=== PATIENT | female | born 1950 | race Caucasian/White ===

== ENCOUNTER 2016-02-11 15:56 | Inpatient (IN) | payer OTHER ==
[~2016-02-11] VITALS: Ht 162.6 cm; Wt 65.8 kg
[~2016-02-11 15:56] MED LIST: AMBIEN (MONOGRAP5 MG PO; AMLODIPINE BESY10 MG PO; DILAUDID2 M1 PO; LEXAPRO5 M1 PO; LISINOPRIL20 M1 PO; LOPERAMIDE2 M2 PO; NEURONTIN300 M1 PO; OXYCODONE HCL5 M2 PO; OXYCODONE5 MG PO; PROCHLORPERAZIN10 MG PO; PROTONIX40 M3 PO; ZETIA10 M1 PO; ZOFRAN ODT4 M1 SL; ZOFRAN4 M2 PO; ZYRTEC10 M3 PO
--- NOTE | 2016-02-11 16:00 | NUR ---
pt made aware of 2.5 hr wait.
--- NOTE | 2016-02-11 16:05 | NUR ---
PT SIB BY DR WOOD FOR HYPONATREMIA AND GENERLIZED WEAKNESS, PER DR WOOD PT'S MOST RECENT BLOODWORK SHOWED A SODIUM OF 120. PER PT SHE HAS BEEN EATING AND DRINKING WELL BUT HAS A NEW ILLEOSTOMY "AND ITS JUST BEEN DRAINING LIKE CRAZY". PT DENIES ANY HEADACHES, CP, SOB, DEAN. REPORTING SHE HAS METASTATIC OVARIAN CA BUT IS NOT GETTING ANY TREATMENT.
[2016-02-11 16:26] LABS: ABSOLUTE BASOPHIL COUNT 0.1 /CUMM (0.0-0.2); ABSOLUTE EOSINOPHIL COUNT 0.1 /CUMM (0.0-0.7); ABSOLUTE LYMPH COUNT 2.1 /CUMM (1.2-3.4); ABSOLUTE MONOCYTE COUNT 0.6 /CUMM (0.10-0.60); BASOPHIL % 0.6 % (0.0-2.0); EOSINOPHIL % 0.9 % (0-5); GRANULOCYTE % 70.8 % (42.2-75.2); HEMATOCRIT 35.4 % (37-47); MEAN CORPUSCULAR HGB 31.1 PG (27.0-31.0); MEAN CORPUSCULAR HGB CONC 34.2 G/DL (33.0-37.0); MEAN CORPUSCULAR VOLUME 90.9 FL (81.0-99.0); MEAN PLATELET VOLUME 7.2 FL (7.4-10.4); PLATELET COUNT 293 /CUMM (130-400); RBC DISTRIBUTION WIDTH 13.8 % (11.5-14.5); RED BLOOD CELL CT 3.89 /CUMM (4.20-5.40); WHITE BLOOD CELL COUNT 9.9 /CUMM (4.8-10.8)
--- NOTE | 2016-02-11 17:18 | ED AMS/SEIZURE/WEAK/DIZZY ---
See Addendum History of Present Illness General Chief Complaint: General Adult Stated Complaint: SIB DAVISYHDRABENNY Source: patient Exam Limitations: no limitations Vital Signs & Intake/Output Vital Signs & Intake/Output Vital Signs Date Time Temp Pulse Resp B/P Pulse O2 O2 Flow FiO2 Ox Delivery Rate 02/10 1605 98.9 89 18 108/74 99 Room Air Allergies Coded Allergies: NO KNOWN ALLERGIES (06/07/15) Triage Note: PT SIB BY DR WOOD FOR HYPONATREMIA AND GENERLIZED WEAKNESS, PER DR WOOD PT'S MOST RECENT BLOODWORK SHOWED A SODIUM OF 120. PER PT SHE HAS BEEN EATING AND DRINKING WELL BUT HAS A NEW ILLEOSTOMY "AND ITS JUST BEEN DRAINING LIKE CRAZY". PT DENIES ANY HEADACHES, CP, SOB, DEAN. REPORTING SHE HAS METASTATIC OVARIAN CA BUT IS NOT GETTING ANY TREATMENT. Triage Nurses Notes Reviewed? yes Onset: Abrupt Duration: day(s):, constant, getting worse Timing: recent history Injury Environment: home Severity: moderate, severe No Modifying Factors: none HPI: 65-year-old female comes into emergency room for further evaluation of increased weakness, confusion. Patient has been dehydrated. Patient has been running a low sodium level. Patient has ovarian cancer with metastatic disease and recently had an ileostomy done in the beginning of January 2016. Patient reports some mild abdominal pain. Denies any vomiting. Denies any fever chills. (HONORIO MC) Reconcile Medications Amlodipine Besylate 5 MG TABLET 1 TAB PO DAILY BP (Reported) CETIRIZINE HCL (Zyrtec) 10 MG SGL 1 CAP PO DAILY ALLERGIES (Reported) Escitalopram Oxalate 20 MG TABLET 1 TAB PO DAILY DEPRESSION (Reported) Ezetimibe (Zetia) 10 MG TAB 1 TAB PO DAILY CHOLESTEROL (Reported) Gabapentin (Neurontin) 300 MG CAPSULE 1 CAP PO TID NERVE PAIN (Reported) Loperamide HCl (Loperamide) 2 MG TABLET 2 TAB PO 4 TIMES/DAY DIARRHEA ( Reported) Ondansetron (Zofran Odt) 4 MG TAB.RAPDIS 1 TAB SL TID NAUSEA Oxycodone HCl/Acetaminophen (Oxycodone-Acetaminophen 5-325) 5 MG-325 MG TABLET 1 TAB PO TIDPRN pain (Reported) Pantoprazole Sodium (Protonix) 40 MG TAB 40 MG PO DAILY ACID REFLUX (Reported ) (LUIS FELIPE HAYWOOD DO) Past History Travel History Traveled to [place] past 21 day No Medical History Any Pertinent Medical History? 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 History of MRSA: No History of VRE: No History of CDIFF: No Pneumonia Vaccine: 02/05/14 Influenza Vaccine: 12/23/15 Surgical History Surgical History: colon resection (with colostomy, then reversal), hysterectomy (with BSO), ovarian carcinomatosis, s/p incisional hernia repair small bowel resection with ileostomy 01/2016 Psychosocial History Who do you live with Spouse Services at Home None What is your primary language Mongolian Tobacco Use: Current Daily Use Daily Tobacco Use Amount/Type: => 5 Cigarettes daily ETOH Use: denies use Illicit Drug Use: denies illicit drug use Family History Hx Contributory? No (HONORIO MC) Review of Systems Review of Systems Constitutional: Reports: no symptoms. EENTM: Reports: no symptoms. Respiratory: Reports: no symptoms. Cardiovascular: Reports: no symptoms. GI: Reports: see HPI. Genitourinary: Reports: no symptoms. Musculoskeletal: Reports: no symptoms. Skin: Reports: no symptoms. Neurological/Psychological: Reports: no symptoms. Hematologic/Endocrine: Reports: no symptoms. Immunologic/Allergic: Reports: no symptoms. All Other Systems: Reviewed and Negative (HONORIO MC) Physical Exam Physical Exam General Appearance: well developed/nourished, no apparent distress, alert, awake Head: atraumatic, normal appearance Eyes: Bilateral: normal appearance, EOMI. Ears, Nose, Throat: normal pharynx, normal ENT inspection Neck: normal inspection, full range of motion Respiratory: normal breath sounds, no respiratory distress Cardiovascular: regular rate/rhythm Gastrointestinal: soft, tenderness Back: normal inspection, normal range of motion Extremities: normal range of motion Neurologic/Psych: awake, alert, oriented x 3, normal gait, normal mood/affect Skin: intact, normal color Core Measures ACS in differential dx? No CVA/TIA Diagnosis: No Severe Sepsis Present: No Septic Shock Present: No (HONORIO MC) Progress Differential Diagnosis: arrythmia, alcohol intoxication, anemia, benign positional vertigo, CVA/stroke, dehydration, drug intoxication, encephalitis, electrolyte imbalance, GI bleed, hypoglycemia, intracranial mass/tumor, pneumonia, postural hypotension, sepsis, seizure disorder, subarachnoid Hem., UTI/pyelo, vertebrobasilar insuff Plan of Care: Orders Procedure Date/time Status URINE LYTES, SPOT 02/10 1800 Active THYROID STIMULATING HORMONE 02/10 1758 Active SERUM OSMOLALITY 02/10 1758 Active FREE T4 02/10 1758 Active CORTISOL PM 02/10 1758 Active Patient Data 02/10 1746 Active EKG 02/10 1716 Active COMPREHENSIVE METABOLIC PANEL 02/10 1607 Complete CBC WITHOUT DIFFERENTIAL 02/10 160 Complete Current Medications Sig/Terese Start time Last Medication Dose Stop Time Status Admin Oxycodone/ 1 TAB TIDPRN 02/10 1845 UNVr Acetaminophen (Percocet) Loperamide HCl 4 MG Q6P PRN 02/10 1830 UNVr (Imodium) Ondansetron HCl 4 MG TID PRN 02/10 1830 UNVr (Zofran) Sodium Chloride 1,000 ML ONCE ONE 02/10 1830 UNVr (Normal Saline 0.9%) 02/11 0109 Gabapentin 300 MG TID 02/10 1829 UNVr (Neurontin) Laboratory Tests 02/11/16 1615: Anion Gap 15, Estimated GFR 30 L, BUN/Creatinine Ratio 22.4, Glucose 143 H, Calcium 10.0, Total Bilirubin 0.6, AST 31, ALT 43, Alkaline Phosphatase 130 H, Total Protein 7.6, Albumin 4.7, Globulin 2.9, Albumin/Globulin Ratio 1.6, CBC w Diff NO MAN DIFF REQ, RBC 3.89 L, MCV 90.9, MCH 31.1 H, RDW 13.8, MPV 7.2 L, Gran % 70.8, Lymphocytes % 21.6, Monocytes % 6.1, Eosinophils % 0.9, Basophils % 0.6, Absolute Granulocytes 7.0 H, Absolute Lymphocytes 2.1, Absolute Monocytes 0.6, Absolute Eosinophils 0.1, Absolute Basophils 0.1, PUBS MCHC 34.2 Initial ED EKG: none (HONORIO MC) Departure Departure Disposition: STILL A PATIENT Condition: Stable Clinical Impression Primary Impression: Hyponatremia Secondary Impressions: Acute kidney injury, Dehydration Referrals: SATISH SHELLEY,DAILY Quispe (PCP/Family) Departure Forms: Customer Survey General Discharge Information Admission Note Spoke With: ROSALVA NORMAN MD Documentation of Exam: Documentation of any treatments & extenuating circumstances including Concerns Regarding Discharge (functional status, medication knowledge or non-compliance, living conditions, etc.) that warrant an admission rather than observation: Patient will require IV fluids. HIGH risk. Patient would do poorly as an outpatient. (HONORIO MC) PA/SUPERVISOR INSTRUMENT MECHANICS Co-Sign Statement Statement: ED Attending supervision documentation- [X] I saw and evaluated the patient. I have also reviewed all the pertinent lab results and diagnostic results. I agree with the findings and the plan of care as documented in the PA's/SUPERVISOR [employer]'s documentation. [] I have reviewed the ED Record and agree with the PA's/SUPERVISOR [employer]'s documentation. [] Additions or exceptions (if any) to the PAs/SUPERVISOR INSTRUMENT MECHANICS's note and plan are summarized below: [] (LUIS FELIPE HAYWOOD DO
[2016-02-11] MEDS ORDERED: LOPERAMIDE2 M1 PO (17:32)
[2016-02-11] MEDS ORDERED: AMLODIPINE BESYL5 M1 PO (17:32)
--- NOTE | 2016-02-11 17:52 | History & Physical ---
GURVINDER SHELLEY,[facility] 02/11/16 4239: General Information and HPI History of Present Illness: Ms. Elmore is a 65-year-old lady, active smoker (40+ pack year), with a past medical history significant for hypertension, hyperlipidemia, depression, ovarian carcinoma with carcinomatosis of hysterectomy and bilateral salpingo- oophorectomy , colon cancer status post colostomy and then reversal, small bowel obstruction status post small bowel resection with ileostomy done about a month ago, previously admitted in January 2016 for hypotension, sent in by primary care physician Dr. Day after being found to be hyponatremic during her regular outpatient visit earlier today. Patient reports there has been a copious amount of loose stool output in her ileostomy bag for the past few months. No recent changes in stool color and consistency. Patient follows up with Dr. Long who placed the ileostomy bag last December. Patient last saw him 2 weeks ago and was told to take immodium to control her diarrea and frequent stool output. She has been taking 8 pills of immodium a day since then. Also she has been drinking a lot of fluid in concern for dehydration. On ROS patient reports generalized weakness with fatigue and occasional twiting in her arms and legs, worsening over the past few days. ROS also significant for chronic back pain, controlled with home med oxycodone. She otherwise has no compalints. Denies chest pain, palpitations, shortness of breath, abdominal pain, nausea, vomiting. No recent illness, sick contact or travel. Patient lives at home with her . She reports being fully independent with dailiy acitivites. Does not use any walking aids. She is an active smoker (1PPD) . Denies any alcohol/substance use. PCP - Dr. Day Surgeon - Dr. Long Allergies/Medications Allergies: Coded Allergies: NO KNOWN ALLERGIES (06/07/15) Home Med list Amlodipine Besylate 5 MG TABLET 1 TAB PO DAILY BP (Reported) CETIRIZINE HCL (Zyrtec) 10 MG SGL 1 CAP PO DAILY ALLERGIES (Reported) Escitalopram Oxalate 20 MG TABLET 1 TAB PO DAILY DEPRESSION (Reported) Ezetimibe (Zetia) 10 MG TAB 1 TAB PO DAILY CHOLESTEROL (Reported) Gabapentin (Neurontin) 300 MG CAPSULE 1 CAP PO TID NERVE PAIN (Reported) Loperamide HCl (Loperamide) 2 MG TABLET 2 TAB PO 4 TIMES/DAY DIARRHEA ( Reported) Ondansetron (Zofran Odt) 4 MG TAB.RAPDIS 1 TAB SL TID NAUSEA Oxycodone HCl/Acetaminophen (Oxycodone-Acetaminophen 5-325) 5 MG-325 MG TABLET 1 TAB PO TIDPRN pain (Reported) Pantoprazole Sodium (Protonix) 40 MG TAB 40 MG PO DAILY ACID REFLUX (Reported ) Past History Travel History Traveled to [place] past 21 day No Medical History Neurological: NONE EENT: NONE Cardiovascular: hypertension, hyperlipidemia Respiratory: NONE Gastrointestinal: umbilical hernia, COLON CANCER SBO Hepatic: NONE Renal: NONE Musculoskeletal: NONE Psychiatric: depression Endocrine: NONE Blood Disorders: NONE Cancer(s): ovarian cancer (with carcinomatosis) 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 Ambulation: independent IADLs Independent: shopping, housework, finances, food prep, telephone, transportation , medication admin. Review of Systems Review of Systems Constitutional: Reports: see HPI. Exam & Diagnostic Data Last 24 Hrs of Vital Signs/I&O Vital Signs Date Time Temp Pulse Resp B/P Pulse O2 O2 Flow FiO2 Ox Delivery Rate 02/10 1605 98.9 89 18 108/74 99 Room Air Physical Exam General Appearance Alert, Oriented X3, Cooperative, No Acute Distress Skin No Rashes, No Breakdown, No Significant Lesion HEENT Atraumatic, PERRLA, EOMI, Dry mucous membrane Neck Supple, No JVD, No LAD Cardiovascular Regular Rate, Normal S1, Normal S2, No Murmurs, Gallops, Rubs Lungs Clear to Auscultation, Normal Air Movement Abdomen Normal Bowel Sounds, Soft, No Tenderness Neurological Normal Speech, Strength at 5/5 X4 Ext, Sensation Intact, Cranial Nerves 3-12 NL Extremities No Clubbing, No Cyanosis, No Edema, Normal Pulses, No Tenderness/ Swelling Vascular Normal Pulses, Pulses Symmetrical Assessment/Plan Assessment: Ms. Elmore is a 65-year-old lady, active smoker (40+ pack year), with a past medical history significant for hypertension, hyperlipidemia, depression, ovarian carcinoma with carcinomatosis of hysterectomy and bilateral salpingo- oophorectomy , colon cancer status post colostomy and then reversal, small bowel obstruction status post small bowel resection with ileostomy done about a month ago, previously admitted in January 2016 for hypotension, sent in by primary care physician Dr. Day after being found to be hyponatremic, most likely due to profound diarrhea and subsequent dehydration followed by excessive water intake. # Hyponatremia Patient's sodium on admission is 122. Most likely due to GI loss (profound diarrhea in the ileostomy bag) in the setting of excessive water intake. * Admit to general medicine service * Start NS IVF resuscitation, don't correct over 10 mEq in 24 hours * Recheck BEP at 9PM * Check BEP daily, trend Na * Monitor I/Os * Continue Imodium as needed (up to 8 pills/day) * Consider checking C. diff and stool cx # DIPIKA Patient came in with Cr 1.7. Baseline around 1. Most likely prerenal from dehydration. * Adequate volume resuscitation * Check BEP daily, trend Cr * Hold lisinopril for now # Chronic back pain * Continue home meds Percocet and gabapentin * Start moprhine 2mg IV Q4 * Apply Lidoderm to the back daily * Zofran for nausea control # Depression * Cont home med Lexapro - Regular diet - Moderate pain pathway - DVT prophylaxis with SQ heparin - Full code As Ranked By This Provider Problem List: 1. Dehydration 2. Hyponatremia 3. DIPIKA (acute kidney injury) 4. Carcinomatosis 5. Depression 6. Cholecystectomy 7. Benign hypertension Core Measures/Miscellaneous Acute Coronary Syndrome ACS Diagnosis: No Cerebrovascular Accident CVA/TIA Diagnosis: No Congestive Heart Failure CHF Diagnosis: No Venous Thromboembolism VTE Risk Factors: Age > 40, Cancer/chemo/oth therapy VTE Prophylaxis Ordered Inpt: Pharm- Heparin No Mech VTE prophylaxis d/t: No contraindications No VTE Pharm Prophylaxis d/t: No contraindications VTE Diagnosis: No VTE Type: NONE VTE Confirmed by (Test): NONE Severe Sepsis Severe Sepsis Present: No Septic Shock Septic Shock Present: No BC x2: No Lactic Acid: Yes IV ABX Broad Spectrum: No Focused Exam Completed: Yes NS/LR 30ml/kg w/in 3hrs: Yes IV Vasopressors started: No Miscellaneous Documentation Attending Case Discussed With: ROSALVA NORMAN MD Primary Care Physician: DAILY COVARRUBIAS MD Patient sees these Specialists Oncologist Surgeon Level of Patient Care: General Medicine JESSICA MART 02/11/16 1804: Resident Review Statement Resident Statement: examined this patient, discussed with internal audit consultant, agreed with internal audit consultant, discussed with family, reviewed EMR data (avail), discussed with nursing , discussed with case mgmt, reviewed images, amended to note Other Findings: History of Present Illness: This is a 65-year-old female with past medical history significant for hypertension, current every day smoker with over [id number] history, hyperlipidemia, depression, ovarian cancer with carcinomatosis status post hysterectomy with bilateral salpingo-oophorectomy, colon cancer status post ileostomy and reversal, small bowel obstruction status post small bowel resection with ileostomy, and prior admission for hyponatremia secondary to GI loss. Patient has been at her normal state of health without any change in her health, no change in her ilostomy bag output, no travel, and no sick contact. She became progressively, weak and clightly confused and weak. Was seen by Dr. Day, her Oncologis. Her BEP showed hyponatremia and she was sent to ED. PH/EX: Comfortable, no acute distressm drowsy and tired. CVS: WNL, LUNGS: clear, Neuro: AO X3, no focal neurologic sign. Skin trugot slightly incraesed, AIRCRAFT ENGINE ASSEMBLER: <3, mouth dry She lives with , and independent in taking care of herself. VS: WNL Na: 122, K: 4.5, Cl: 81, Cr:1.7, BUN: 31 ratio:22 List of problems 1) HYponatremia and dehydration: possibly due to GI loss. Other cause include but not limited to hypothyroidism,adrenal insufficiency, SIADH. Slightly dehydrated clinically. * admitt to GM * NL saline 150 ml /hr * check BEP q3 at 9 pm and 12 pm; do not correct faster than 10 meq in 24h * follow urine lyte and serum osmolarity * follow pm cortisol * regular diet and encourage incease fluid intake 2)ARF: with incraesed ratio of BUN and Cr, and high GI loss * continue hydration * recheck in the am 3) chronic back pain * percocet for back pain Heparin 5000 Q8 SQ Full code TAVO SHELLEY, [facility] 02/11/162039: Attending MD Review Statement Attending Statement Attending MD Statement: examined this patient, discuss w/resident/PA/BUS TROLLEY AND TAXI INSTRUCTOR, agreed w/resident/PA/BUS TROLLEY AND TAXI INSTRUCTOR Attending Assessment/Plan: 65 yo F smoker with h/o HTN, depression, ovarian cancer with carcinomatosis s/p hysterectomy and b/l salpingo-oophorectomy and chemo, colon cancer s/p ileostomy and reversal, SBO s/p small bowel resection with ileostomy, recently admitted for dehydration (Jan 2016), is here with 3-day h/o weakness and confusion. Blood work done by Dr. Mosley showed hyponatremia low 120's hence patient was sent to ER. She has a good appetite, ileostomy output has not increased or worsened. Reports lightheadedness. Vitals stable except for mild hypotension. Left chest port site C/D/I. Labs: Na 122, BUN 38, creat 1.7 ( baseline 0.9). EKG:SR. 1. Hypovolemic hyponatremia and DIPIKA 2/2 GI losses. Check urine and serum osmolality, urine lytes. Gentle IV fluids and monitor sodium levels, not to increase > 8-10 mEq in 24 hours. Check cortisol and TSH levels. Resume loperamide. Check orthostats as patient c/o lightheadedness. Oncologist Dr. Mosley to follow. If sodium does not trend in the right direction, consider Nephro consult. Hold anti-hypertensives 2/2 hypotension. 2. Chronic back pain. Ct percocet. 3. Smoking cessation counseling, nicotine patch. DVT ppx Hep SC. Full code.
--- NOTE | 2016-02-11 18:18 | NUR ---
PT EVALUATED BY HONORIO ZUNIGA
[2016-02-11] MEDS ORDERED: OXYCODONE-ACET1 EACH PO (18:31)
--- NOTE | 2016-02-11 20:30 | NUR ---
PT HAS BED ASSIGNMENT 219-2
--- NOTE | 2016-02-11 21:44 | NUR ---
PT ADMITTED TO ROOM # 219-1. ORAL REPORT GIVEN TO HUA DENTON PT MEDICATED WITH LIDOCAINE PATCH ON OWER BACK. BLOOD DRAWN DIRECTED FOR LYWILDER AND SENT TO LAB DISTRIBUTION CALLED TO TRANSFER PT
[2016-02-12 00:03] VITALS: BP 100/56
--- NOTE | 2016-02-12 06:40 | NUR ---
LATE ENTRY NURSING NOTE: PT ARRIVED TO FLOOR AT @2215. PT AOX2, RA, INDEPENDANT. PT HAS LT ILEOSTOMY, SITE INTACT. LCW SHANTA CATH ACCESSED IN ER. DSG LIFTING SO THIS RN DID A FULL DRESSING CHANGE. PT REFUSED ALPS. VSS. 1X BAG OF IVF ORDERED. REPLACED TUBING AND RAN BAG. PT HAD 3 BAGS OF CLOTHING, PLACED IN CABINET. PT ORIENTED TO CALLBELL AND ROOM. BED IN LOWEST POSITION. PT RESTING COMFORTABLY.
--- NOTE | 2016-02-12 07:23 | PN- Housestaff ---
Subjective Follow-up For: Hyponatremia Subjective: Patient seen and examined at bedside. No acute events reported overnight. No new complaints. Walking around in the hallway. Reports back pain is well controlled with the current pain regimen. Denies shortness of breath, cough, headache, fever, chills, chest pain, palpitations, nausea, vomiting, diarrhea, blurred/ double vision, dizziness/lightheadedness. Review of Systems Constitutional: Reports: see HPI. Objective Last 24 Hrs of Vital Signs/I&O Vital Signs Date Time Temp Pulse Resp B/P Pulse O2 O2 Flow FiO2 Ox Delivery Rate 02/11 0810 97.8 76 20 98/58 97 Room Air 02/11 0003 98.0 74 19 100/56 95 Room Air 02/10 2111 97.7 71 18 99/50 97 Room Air 02/10 1912 98 Room Air 02/10 1605 98.9 89 18 108/74 99 Room Air Intake & Output 02/11 1600 02/11 0800 02/11 0000 Intake Total 1000 1000 Output Total 1100 Balance -100 1000 Intake, IV 800 1000 Intake, Oral 200 Output, Stool 300 Output, Urine 800 Patient 65.771 kg Weight Physical Exam General Appearance: Alert, Oriented X3, Cooperative, No Acute Distress Other Physical Findings: Skin No Rashes, No Breakdown, No Significant Lesion HEENT Atraumatic, PERRLA, EOMI, Dry mucous membrane Neck Supple, No JVD, No LAD Cardiovascular Regular Rate, Normal S1, Normal S2, No Murmurs, Gallops, Rubs Lungs Clear to Auscultation, Normal Air Movement Abdomen Normal Bowel Sounds, Soft, No Tenderness Neurological Normal Speech, Strength at 5/5 X4 Ext, Sensation Intact, Cranial Nerves 3-12 NL Extremities No Clubbing, No Cyanosis, No Edema, Normal Pulses, No Tenderness/ Swelling Vascular Normal Pulses, Pulses Symmetrical Current Medications: Current Medications Sig/Terese Start time Last Medication Dose Route Stop Time Status Admin Acetaminophen 650 MG Q6P PRN 02/10 1999 AC PO Gabapentin 0 .STK-MED ONE 02/10 1849 DC PO Gabapentin 300 MG TID 02/10 182 AC 02/11 PO 0820 Heparin Sodium 5,000 UNIT Q8 02/10 2200 AC 02/11 (Porcine) SC 0600 Hydromorphone HCl 0 .STK-MED ONE 02/10 1850 DC .ROUTE Hydromorphone HCl 1 MG ONCE ONE 02/10 1800 DC 02/10 IV 02/10 1801 1900 Lidocaine 1 PAT Q24H 02/10 1999 AC 02/10 EXT 2143 Loperamide HCl 4 MG Q6P PRN 02/10 1830 AC PO Morphine Sulfate 2 MG Q4H 02/11 0400 AC 02/11 IV 0819 Morphine Sulfate 2 MG Q4 02/10 2200 DC 02/11 IV 0009 Nicotine 7 MG Q24 02/10 1957 AC TOP Omeprazole 40 MG DAILY AC 02/11 0700 AC 02/11 PO 0600 Ondansetron HCl 4 MG TID PRN 02/10 1830 AC PO Oxycodone/ 1 TAB TIDPRN PRN 02/10 1845 AC 02/11 Acetaminophen PO 0601 Sodium Chloride 1,000 ML Q6H 02/11 0730 AC 02/11 IV 0820 Sodium Chloride 1,000 ML ONCE ONE 02/10 1830 DC 02/10 IV 02/11 0109 1953 Sodium Chloride 1,000 ML BOLUS ONE 02/10 1730 DC 02/10 IV 02/10 1829 1900 Last 24 Hrs of Lab/Jamarcus Results Last 24 Hrs of Labs/Mics: Laboratory Tests 02/12/16 0635: Anion Gap 11, Estimated GFR 50 L, BUN/Creatinine Ratio 25.5 H, CBC w Diff NO MAN DIFF REQ, RBC 3.31 L, MCV 92.1, MCH 31.2 H, RDW 13.7, MPV 7.7, Gran % 64.5 , Lymphocytes % 24.9, Monocytes % 8.4, Eosinophils % 1.6, Basophils % 0.6, Absolute Granulocytes 4.0, Absolute Lymphocytes 1.5, Absolute Monocytes 0.5, Absolute Eosinophils 0.1, Absolute Basophils 0, PUBS MCHC 33.8 02/12/16 0017: Urine Osmolality 211 L, Ur Random Creatinine 73.6, Ur Random Sodium < 5 L, Ur Random Potassium 15.8, Fraction Sodium Excret 0.1 02/12/16 0016: Anion Gap 14, Estimated GFR 41 L, BUN/Creatinine Ratio 25.4 H, Serum Osmolality 273 L, TSH 16.500 H, Free T4 1.32, Cortisol PM Sample 2.2 02/12/16 0000: Sodium Cancelled, Potassium Cancelled, Chloride Cancelled, Carbon Dioxide Cancelled, Anion Gap Cancelled, BUN Cancelled, Creatinine Cancelled, BUN/ Creatinine Ratio Cancelled 02/11/162134: Anion Gap 13, Estimated GFR 38 L, BUN/Creatinine Ratio 23.6 02/11/162000: Urine Osmolality Cancelled 02/11/16 1615: Anion Gap 15, Estimated GFR 30 L, BUN/Creatinine Ratio 22.4, Glucose 143 H, Calcium 10.0, Total Bilirubin 0.6, AST 31, ALT 43, Alkaline Phosphatase 130 H, Total Protein 7.6, Albumin 4.7, Globulin 2.9, Albumin/Globulin Ratio 1.6, CBC w Diff NO MAN DIFF REQ, RBC 3.89 L, MCV 90.9, MCH 31.1 H, RDW 13.8, MPV 7.2 L, Gran % 70.8, Lymphocytes % 21.6, Monocytes % 6.1, Eosinophils % 0.9, Basophils % 0.6, Absolute Granulocytes 7.0 H, Absolute Lymphocytes 2.1, Absolute Monocytes 0.6, Absolute Eosinophils 0.1, Absolute Basophils 0.1, PUBS MCHC 34.2 Assessment/Plan Assessment: Ms. Elmore is a 65-year-old lady, active smoker (40+ pack year), with a past medical history significant for hypertension, hyperlipidemia, depression, ovarian carcinoma with carcinomatosis of hysterectomy and bilateral salpingo- oophorectomy , colon cancer status post colostomy and then reversal, small bowel obstruction status post small bowel resection with ileostomy done about a month ago, previously admitted in January 2016 for hypotension, sent in by primary care physician Dr. Day after being found to be hyponatremic, most likely due to profound diarrhea and subsequent dehydration followed by excessive water intake. # Hyponatremia Patient's sodium on admission is 122. Most likely due to GI loss (profound diarrhea in the ileostomy bag) in the setting of excessive water intake. * Decrease NS IVF resuscitation to 125 cc/hr, don't correct over 10 mEq in 24 hours * Check BEP twice a day, trend Na - 127 this morning * Recheck sodium at 6PM * Monitor I/Os * Continue Imodium as needed (up to 8 pills/day) * Consider checking C. diff and stool cx # DIPIKA Patient came in with Cr 1.7. Baseline around 1. Most likely prerenal from dehydration. * Adequate volume resuscitation * Check BEP daily, trend Cr - 1.1 this morning * Hold lisinopril for now # Chronic back pain * Continue home meds Percocet and gabapentin * Cont moprhine 2mg IV Q4 * Apply Lidoderm to the back daily * Zofran for nausea control # Depression * Cont home med Lexapro - Regular diet - Moderate pain pathway - DVT prophylaxis with SQ heparin - Full code Problem List: 1. Hyponatremia 2. Dehydration 3. DIPIKA (acute kidney injury) Pain Ratin Pain Location: Back Pain Goal: Pain 4 or less Pain Plan: Moderate pain pathway Tomorrow's Labs & Rationales: BEP to monitor for hyponatremia and renal fx
--- NOTE | 2016-02-12 07:27 | Admission Certification ---
Admission Certification Certification Statement - As attending physician, I certify that at the time of - admission, based on clinical presentation, severity of - symptoms, need for further diagnostic testing and - therapeutic interventions, and risk of adverse outcomes - without in-hospital treatment, in my clinical assessment, - this patient requires an acute hospital stay for a minimum - of two nights or longer. I have also considered psychsocial - factors such as support system, advanced age, financial - issues, cognitive issues, and failed out-patient treatments, - past re-admission history, safety of patient, and lack of - compliance as applicable. Specific rationale supporting this admission is: Hyponatremia, acute kidney injury.
--- NOTE | 2016-02-12 08:05 | NUR ---
NURSING NOTE: THIS RN WAS ATTEMPTING TO DRAW BLOOD OFF PTS [facility] CATH THIS AM BUT DID NOT HAVE + BLOOD RETURN AFTER WASTING THE FIRST TUBE. MADE SEVERAL ATTEMPTS TO FLUSH & DRAW WITHOUT SUCCESS. JOB COST ESTIMATOR ATTEMPTED TO DRAW BLOOD WITHOUT SUCCESS WELL. SENT A PAGE TO [employer]IC[employer] #[phone] ADVISING AND REQUESTED AN ORDER TO HEPARINIZE THE LINE. THIS RN ADVISED THE ONCOMING RN THIS ORDER WAS NEEDED WELL. MORNING BLOOD TEAM WAS GIVEN PT LABEL TO DRAW HER AM LABS.
[2016-02-12 08:10] VITALS: BP 98/58
[2016-02-12 08:13] LABS: ABSOLUTE BASOPHIL COUNT 0 /CUMM (0.0-0.2); ABSOLUTE EOSINOPHIL COUNT 0.1 /CUMM (0.0-0.7); ABSOLUTE LYMPH COUNT 1.5 /CUMM (1.2-3.4); ABSOLUTE MONOCYTE COUNT 0.5 /CUMM (0.10-0.60); BASOPHIL % 0.6 % (0.0-2.0); EOSINOPHIL % 1.6 % (0-5); GRANULOCYTE % 64.5 % (42.2-75.2); HEMATOCRIT 30.5 % (37-47); MEAN CORPUSCULAR HGB 31.2 PG (27.0-31.0); MEAN CORPUSCULAR HGB CONC 33.8 G/DL (33.0-37.0); MEAN CORPUSCULAR VOLUME 92.1 FL (81.0-99.0); MEAN PLATELET VOLUME 7.7 FL (7.4-10.4); PLATELET COUNT 212 /CUMM (130-400); RBC DISTRIBUTION WIDTH 13.7 % (11.5-14.5); RED BLOOD CELL CT 3.31 /CUMM (4.20-5.40); WHITE BLOOD CELL COUNT 6.2 /CUMM (4.8-10.8)
--- NOTE | 2016-02-12 15:10 | PN- Att Addend ---
Attending Addendum Attending Brief Note Patient seen and examined. Plan of care discussed with the medical team and the patient. Available lab work and radiology test reports were reviewed. Patient awake alert and oriented. Denies any new complaints. She reports decreased diarrhea from ileostomy. Vital Signs Date Time Temp Pulse Resp B/P Pulse O2 O2 Flow FiO2 Ox Delivery Rate 02/11 809 97.8 76 20 98/58 97 Room Air 02/11 0003 98.0 74 19 100/56 95 Room Air 02/10 2111 97.7 71 18 99/50 97 Room Air 02/10 1912 98 Room Air 02/10 1605 98.9 89 18 108/74 99 Room Air Intake & Output 02/11 1600 02/11 0800 02/11 0000 Intake Total 2050 1000 1000 Output Total 2 1100 Balance 8 -100 1000 Intake, IV 5189 938 5951 Intake, Oral 600 200 Output, Stool 2 300 Output, Urine 800 Patient 145 lb Weight Exam: General: Patient awake alert oriented without any distress CVS: S1 plus S2 without any murmur or gallops Chest: Few scattered crepitation without any wheeze. There is no respiratory distress. 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 alert oriented without any focal neuro deficit and follows command appropriately Extremities: No edema; no clubbing or cyanosis noted Laboratory Tests 02/11 02/11 02/11 0635 0017 0016 Chemistry Sodium (137 - 145 mmol/L) 127 L 123 L Potassium (3.5 - 5.1 mmol/L) 4.4 4.1 Chloride (98 - 107 mmol/L) 92 L 85 L Carbon Dioxide (22 - 30 mmol/L) 24 24 Anion Gap (5 - 16) 11 14 BUN (7 - 17 mg/dL) 28 H 33 H Creatinine (0.5 - 1.0 mg/dL) 1.1 H 1.3 H Estimated GFR (>60 ml/min) 50 L 41 L BUN/Creatinine Ratio (7 - 25 %) 25.5 H 25.4 H Serum Osmolality (285 - 295 MOSM/KG) 273 L TSH (0.270 - 4.200 uIU/mL) 16.500 H Free T4 (0.78 - 2.44 ng/dL) 1.32 Cortisol PM Sample (1.7 - 14.1) 2.2 Hematology CBC w Diff NO MAN DIFF REQ WBC (4.8 - 10.8 /CUMM) 6.2 RBC (4.20 - 5.40 /CUMM) 3.31 L Hgb (12.0 - 16.0 G/DL) 10.3 L Hct (37 - 47 %) 30.5 L MCV (81.0 - 99.0 FL) 92.1 MCH (27.0 - 31.0 PG) 31.2 H RDW (11.5 - 14.5 %) 13.7 Plt Count (130 - 400 /CUMM) 212 MPV (7.4 - 10.4 FL) 7.7 Gran % (42.2 - 75.2 %) 64.5 Lymphocytes % (20.5 - 51.1 %) 24.9 Monocytes % (1.7 - 9.3 %) 8.4 Eosinophils % (0 - 5 %) 1.6 Basophils % (0.0 - 2.0 %) 0.6 Absolute Granulocytes (1.4 - 6.5 /CUMM) 4.0 Absolute Lymphocytes (1.2 - 3.4 /CUMM) 1.5 Absolute Monocytes (0.10 - 0.60 /CUMM) 0.5 Absolute Eosinophils (0.0 - 0.7 /CUMM) 0.1 Absolute Basophils (0.0 - 0.2 /CUMM) 0 PUBS MCHC (33.0 - 37.0 G/DL) 33.8 Urines Urine Osmolality (300 - 1000 MOSM/KG) 211 L Ur Random Creatinine (mg/dL) 73.6 Ur Random Sodium (30 - 90 mmol/L) < 5 L Ur Random Potassium (mmol/L) 15.8 Fraction Sodium Excret (<1% %) 0.1 02/11 02/10 02/10 0000 2135 2000 Chemistry Sodium (137 - 145 mmol/L) Cancelled 123 L Potassium (3.5 - 5.1 mmol/L) Cancelled 4.1 Chloride (98 - 107 mmol/L) Cancelled 85 L Carbon Dioxide (22 - 30 mmol/L) Cancelled 24 Anion Gap (5 - 16) Cancelled 13 BUN (7 - 17 mg/dL) Cancelled 33 H Creatinine (0.5 - 1.0 mg/dL) Cancelled 1.4 H Estimated GFR (>60 ml/min) 38 L BUN/Creatinine Ratio (7 - 25 %) Cancelled 23.6 Urines Urine Osmolality Cancelled 02/10 1615 Chemistry Sodium (137 - 145 mmol/L) 122 L Potassium (3.5 - 5.1 mmol/L) 4.5 Chloride (98 - 107 mmol/L) 81 L Carbon Dioxide (22 - 30 mmol/L) 26 Anion Gap (5 - 16) 15 BUN (7 - 17 mg/dL) 38 H Creatinine (0.5 - 1.0 mg/dL) 1.7 H Estimated GFR (>60 ml/min) 30 L BUN/Creatinine Ratio (7 - 25 %) 22.4 Glucose (65 - 99 mg/dL) 143 H Calcium (8.4 - 10.2 mg/dL) 10.0 Total Bilirubin (0.2 - 1.3 mg/dL) 0.6 AST (14 - 36 U/L) 31 ALT (9 - 52 U/L) 43 Alkaline Phosphatase (<127 U/L) 130 H Total Protein (6.3 - 8.2 g/dL) 7.6 Albumin (3.5 - 5.0 g/dL) 4.7 Globulin (1.9 - 4.2 gm/dL) 2.9 Albumin/Globulin Ratio (1.1 - 2.2 %) 1.6 Hematology CBC w Diff NO MAN DIFF REQ WBC (4.8 - 10.8 /CUMM) 9.9 RBC (4.20 - 5.40 /CUMM) 3.89 L Hgb (12.0 - 16.0 G/DL) 12.1 Hct (37 - 47 %) 35.4 L MCV (81.0 - 99.0 FL) 90.9 MCH (27.0 - 31.0 PG) 31.1 H RDW (11.5 - 14.5 %) 13.8 Plt Count (130 - 400 /CUMM) 293 MPV (7.4 - 10.4 FL) 7.2 L Gran % (42.2 - 75.2 %) 70.8 Lymphocytes % (20.5 - 51.1 %) 21.6 Monocytes % (1.7 - 9.3 %) 6.1 Eosinophils % (0 - 5 %) 0.9 Basophils % (0.0 - 2.0 %) 0.6 Absolute Granulocytes (1.4 - 6.5 /CUMM) 7.0 H Absolute Lymphocytes (1.2 - 3.4 /CUMM) 2.1 Absolute Monocytes (0.10 - 0.60 /CUMM) 0.6 Absolute Eosinophils (0.0 - 0.7 /CUMM) 0.1 Absolute Basophils (0.0 - 0.2 /CUMM) 0.1 PUBS MCHC (33.0 - 37.0 G/DL) 34.2 Assessment and problem list * Generalized weakness * Confusion now improved * Hyponatremia likely hypovolemic hyponatremia due to GI losses from ileostomy * Acute renal failure and dehydration * History of colon cancer * History of ovarian cancer Plan * Continue IV fluids and recheck creatinine tomorrow * Check C. difficile * If C. difficile is negative patient can be given oral Imodium to control diarrhea
[2016-02-12 16:14] VITALS: BP 108/62
[2016-02-12 23:59] VITALS: BP 110/70
[2016-02-13 08:49] VITALS: BP 124/60
--- NOTE | 2016-02-13 08:55 | PN- Housestaff ---
Subjective Follow-up For: Hyponatremia Subjective: Patient seen and examined this morning. No acute overnight events. Remains afebrile other vitals within normal limits. Denies shortness of breath, cough, headache, fever, chills, chest pain, palpitations, nausea, vomiting, diarrhea, blurred/double vision, dizziness/lightheadedness. Review of Systems Constitutional: Denies: chills, fever. Cardiovascular: Denies: chest pain, palpitations. Respiratory: Denies: cough, sputum production. Gastrointestinal: Denies: abdominal pain, nausea, vomiting. Genitourinary: Denies: dysuria, frequency. Objective Last 24 Hrs of Vital Signs/I&O Vital Signs Date Time Temp Pulse Resp B/P Pulse O2 O2 Flow FiO2 Ox Delivery Rate 02/12 0849 98.5 69 18 124/60 95 Room Air 02/11 2359 97.9 70 18 110/70 97 Room Air 02/11 1614 97.7 68 19 108/62 98 Room Air Intake & Output 02/12 1600 02/12 0800 02/12 0000 Intake Total 1000 1600 Output Total 200 Balance 1000 1400 Intake, IV 1000 1000 Intake, Oral 600 Output, Stool 200 Physical Exam General Appearance: Alert, Oriented X3, Cooperative, No Acute Distress Cardiovascular: Regular Rate, Normal S1, Normal S2 Lungs: Clear to Auscultation, Normal Air Movement Abdomen: Normal Bowel Sounds, Soft, No Tenderness Extremities: No Clubbing, No Cyanosis, No Edema Current Medications: Current Medications Sig/Terese Start time Last Medication Dose Route Stop Time Status Admin Acetaminophen 650 MG Q6P PRN 02/10 1999 AC PO Escitalopram Oxalate 20 MG DAILY 02/11 1715 AC 02/12 PO 0829 Gabapentin 300 MG TID 02/10 1829 AC 02/12 PO 0829 Heparin Sodium 5,000 UNIT Q8 02/10 2200 AC 02/12 (Porcine) SC 0726 Lidocaine 1 PAT Q24H 02/10 1999 AC 02/11 EXT 2007 Loperamide HCl 4 MG Q6P PRN 02/10 1830 AC 02/11 PO 2015 Morphine Sulfate 2 MG Q4H 02/11 0400 AC 02/12 IV 0726 Nicotine 7 MG Q24 02/10 1957 AC TOP Omeprazole 40 MG DAILY AC 02/11 07 AC 02/12 PO 0726 Ondansetron HCl 4 MG TID PRN 02/10 1830 AC PO Oxycodone/ 1 TAB TIDPRN PRN 02/10 1845 AC 02/11 Acetaminophen PO 1812 Sodium Chloride 1,000 ML Q6H 02/11 0730 AC 02/12 IV 0727 Last 24 Hrs of Lab/Jamarcus Results Last 24 Hrs of Labs/Mics: Laboratory Tests 02/13/16 0630: Anion Gap 9, Estimated GFR > 60, BUN/Creatinine Ratio 22.9 02/12/16 1833: Anion Gap 12, Estimated GFR > 60, BUN/Creatinine Ratio 23.3 Microbiology 02/11 1999 STOOL: Clostridium difficile Toxin A & B - RECD Assessment/Plan Assessment: Ms. Elmore is a 65-year-old lady, active smoker (40+ pack year), with a past medical history significant for hypertension, hyperlipidemia, depression, ovarian carcinoma with carcinomatosis of hysterectomy and bilateral salpingo- oophorectomy , colon cancer status post colostomy and then reversal, small bowel obstruction status post small bowel resection with ileostomy done about a month ago, previously admitted in January 2016 for hypotension, sent in by primary care physician Dr. Day after being found to be hyponatremic, most likely due to profound diarrhea and subsequent dehydration followed by excessive water intake. # Hyponatremia Patient's sodium on admission is 122. Most likely due to GI loss (profound diarrhea in the ileostomy bag) in the setting of excessive water intake. * Decrease NS IVF resuscitation to 125 cc/hr, don't correct over 10 mEq in 24 hours * Check BEP twice a day, trend Na - 127 >>: 134this morning * Monitor I/Os * Continue Imodium as needed (up to 8 pills/day) * Consider checking C. diff and stool cx # DIPIKA Patient came in with Cr 1.7. Baseline around 1. Most likely prerenal from dehydration. * Adequate volume resuscitation * Check BEP daily, trend Cr - 0.7 this morning * Hold lisinopril for now # Chronic back pain * Continue home meds Percocet and gabapentin * Cont moprhine 2mg IV Q4 * Apply Lidoderm to the back daily * Zofran for nausea control # Depression * Cont home med Lexapro - Regular diet - Moderate pain pathway - DVT prophylaxis with SQ heparin - Full code Problem List: 1. Dehydration 2. Hyponatremia 3. DIPIKA (acute kidney injury) Pain Ratin Pain Location: None Pain Goal: Remain pain free Pain Plan: Operating pathway Tomorrow's Labs & Rationales: BEP to monitor for hyponatremia and renal function
--- NOTE | 2016-02-13 14:10 | PN- Att Addend ---
Attending Addendum Attending Brief Note Patient seen and examined. Plan of care discussed with the medical team and the patient. Available lab work and radiology test reports were reviewed. Patient awake alert and oriented. Denies any new complaints. She continues to have liquid stool in the ileostomy bag. Denies any fever or chills. Vital Signs Date Time Temp Pulse Resp B/P Pulse O2 O2 Flow FiO2 Ox Delivery Rate 02/12 0849 98.5 69 18 124/60 95 Room Air 02/11 2359 97.9 70 18 110/70 97 Room Air 02/11 1614 97.7 68 19 108/62 98 Room Air Intake & Output 02/12 1600 02/12 0800 02/12 0000 Intake Total 1000 1600 Output Total 200 Balance 1000 1400 Intake, IV 1000 1000 Intake, Oral 600 Output, Stool 200 Exam: General: Patient awake alert oriented without any distress CVS: S1 plus S2 without any murmur or gallops Chest: Few scattered crepitation without any wheeze. There is no respiratory distress. Abdomen: Soft nontender, bowel sound present, no guarding or rebound ; ileostomy bag is intact with liquid stool [employer]: Awake alert oriented without any focal neuro deficit and follows command appropriately Extremities: No edema; no clubbing or cyanosis noted Laboratory Tests 02/12 02/11 0630 1833 Chemistry Sodium (137 - 145 mmol/L) 134 L 130 L Potassium (3.5 - 5.1 mmol/L) 5.0 4.3 Chloride (98 - 107 mmol/L) 101 96 L Carbon Dioxide (22 - 30 mmol/L) 23 22 Anion Gap (5 - 16) 9 12 BUN (7 - 17 mg/dL) 16 21 H Creatinine (0.5 - 1.0 mg/dL) 0.7 0.9 Estimated GFR (>60 ml/min) > 60 > 60 BUN/Creatinine Ratio (7 - 25 %) 22.9 23.3 Microbiology Date/Time Procedure - Status Source Growth 02/11 1999 Clostridium difficile Toxin A & B - COMP STOOL C. difficile negative Assessment and problem list * Generalized weakness * Confusion now improved * Hyponatremia likely hypovolemic hyponatremia due to GI losses from ileostomy * Acute renal failure and dehydration * History of colon cancer * History of ovarian cancer Plan * DC IV fluids * patient can be given oral Imodium to control diarrhea; start initially with 2 pills 1 then 1 every 8 hours when necessary. * Out of bed and ambulate
[2016-02-13 16:41] VITALS: BP 122/68
[2016-02-14 00:10] VITALS: BP 127/69
--- NOTE | 2016-02-14 06:30 | PN- Housestaff ---
GURVINDER SHELLEY,PRANAV 02/14/16 0630: Subjective Follow-up For: Hyponatremia Persistent diarrhea Subjective: Patient seen and examined at bedside. Patient feels well with no new complaints. Reports persistent loose stools and diarrhea in the ileostomy bag. Remains afebrile and HDS with stable VS. Sodium trending up to 137. Review of Systems Constitutional: Reports: see HPI. Objective Last 24 Hrs of Vital Signs/I&O Vital Signs Date Time Temp Pulse Resp B/P Pulse O2 O2 Flow FiO2 Ox Delivery Rate 02/13 1616 98.9 66 20 116/62 97 02/13 0920 98.6 62 20 116/62 97 Room Air 02/13 0010 98.0 65 20 127/69 98 Room Air Intake & Output 02/13 1600 02/13 0800 02/13 0000 Intake Total 1075 Output Total 300 Balance 775 Intake, IV 375 Intake, Oral 700 Output, Stool 300 Physical Exam General Appearance: Alert, Oriented X3, Cooperative, No Acute Distress Skin: No Rashes, No Breakdown HEENT: Atraumatic, PERRLA, EOMI, Mucous Membr. moist/pink Neck: Supple, No JVD, No LAD Cardiovascular: Regular Rate, Normal S1, Normal S2, No Murmurs, Gallops, Rubs Lungs: Clear to Auscultation, Normal Air Movement Abdomen: Normal Bowel Sounds, Soft, No Tenderness Neurological: Normal Gait, Normal Speech, Strength at 5/5 X4 Ext, Sensation Intact, Cranial Nerves 3-12 NL Extremities: No Clubbing, No Cyanosis, No Edema, Normal Pulses, No Tenderness/ Swelling Vascular: Normal Pulses, Pulses Symmetrical Assessment/Plan Assessment: Ms. Elmore is a 65-year-old lady, active smoker (40+ pack year), with a past medical history significant for hypertension, hyperlipidemia, depression, ovarian carcinoma with carcinomatosis of hysterectomy and bilateral salpingo- oophorectomy , colon cancer status post colostomy and then reversal, small bowel obstruction status post small bowel resection with ileostomy done about a month ago, previously admitted in January 2016 for hypotension, sent in by primary care physician Dr. Day after being found to be hyponatremic, most likely due to profound diarrhea and subsequent dehydration followed by excessive water intake. # Hyponatremia Patient's sodium on admission is 122. Most likely due to GI loss (profound diarrhea in the ileostomy bag) in the setting of excessive water intake. * Discontinue IVF * Check BEP daily, trend Na - 137 this morning * Monitor I/Os stricktly * Surgery consulted, appreciate Dr. Baez's recs * Start Imodium 4mg po TID with meals and qHS * Start cholestyramine 1 packet TID * Consider checking C. diff and stool cx # DIPIKA - resolved Patient came in with Cr 1.7. Baseline around 1. Most likely prerenal from dehydration. * Adequate volume resuscitation * Check BEP daily, trend Cr - WNL * Hold lisinopril for now # Chronic back pain * Continue home meds Percocet and gabapentin * Cont moprhine 2mg IV Q4 * Apply Lidoderm to the back daily * Zofran for nausea control # Depression * Cont home med Lexapro - Regular diet - Moderate pain pathway - DVT prophylaxis with SQ heparin - Full code Problem List: 1. Hyperlipidemia 2. Depression 3. Dehydration 4. Hyponatremia 5. Small bowel obstruction Pain Ratin Pain Location: Back Pain Goal: Pain 4 or less Pain Plan: Moderate pathway Tomorrow's Labs & Rationales: BEP to check Cr and Na [facility] 1458: Attending MD Review Statement Attending Statement Attending MD Statement: examined this patient, discuss w/resident/PA/SCREENER AND BLENDER, agreed w/resident/PA/SCREENER AND BLENDER, reviewed EMR data (avail), discussed with nursing, discussed with case mgmt, amended to note Attending Assessment/Plan: Patient seen and examined. Resting comfortably and not in acute distress. No issues overnight. Her I imbalance has improved. She continues to have high output from her ileostomy as expected. Case was discussed with her general surgeon Dr. Baez who recommends continued patient on loperamide [id number] today. If her ileostomy output improves overnight and electrolytes remained within normal limits she may be discharged tomorrow. If she continues to have high output recommend adding normal to to her antidiarrheal regimen.
[2016-02-14 09:20] VITALS: BP 116/62
--- NOTE | 2016-02-14 11:53 | PN- General Surgery ---
Surgical Brief Attending Note Brief Attending Note: Patient to be seen tomorrow. Well known to me. I was division toll wire chief over the weekend. In the future, please call me earlier, I could have made recommendations at admission. For now, she should be placed back on her regularly scheduled immodium. Per my last discussion with her three days prior to admission, I recommended increasing the frequency of Immodium. Please start 4mg po TID with meals and QHS (4x/day). This should not be written as PRN. I will make further recommendations pending her response to the above measures.
[2016-02-14 16:16] VITALS: BP 116/62
--- NOTE | 2016-02-14 17:37 | Event Note ---
Event Note Event Note: Discussed over the phone with Dr. Baez regarding the patient's current state and the phamarcological treatment for her persistnet diarrhea. Dr. Baez recommended that patient be started on Imodium 4mg po TID with meals and QHS (4 times a day) . In addition he would like the patient to be started on cholestyramine 1 pack TID. Patient's input/output will be strictly measured per his recommendation. Nursing staff notified. Will monitor tomorrow.
[2016-02-15 00:18] VITALS: BP 132/64
--- NOTE | 2016-02-15 06:20 | PN- Housestaff ---
GURVINDER SHELLEY,PRANAV 02/15/16 0620: Subjective Follow-up For: Hyponatremia Persistent diarrhea Subjective: Patient seen and examined at bedside. No events reported overnight. Patient feels well with no new complaints. Reports persistent loose stools and diarrhea in the ileostomy bag. Remains afebrile and HDS with stable VS. Sodium stable at 135 this morning. Review of Systems Constitutional: Reports: see HPI. Objective Last 24 Hrs of Vital Signs/I&O Vital Signs Date Time Temp Pulse Resp B/P Pulse O2 O2 Flow FiO2 Ox Delivery Rate 02/14 1046 70 128/70 02/14 0827 98.4 70 16 142/78 96 Room Air 02/14 0018 98.6 68 20 132/64 98 Room Air 02/13 1616 98.9 66 20 116/62 97 Intake & Output 02/14 1600 02/14 0800 02/14 0000 Intake Total 240 1680 Output Total 725 1450 Balance -485 230 Intake, Oral 240 1680 Output, Stool 275 650 Output, Urine 450 800 Physical Exam General Appearance: Alert, Oriented X3, Cooperative, No Acute Distress Other Physical Findings: Skin: No Rashes, No Breakdown HEENT: Atraumatic, PERRLA, EOMI, Mucous Membr. moist/pink Neck: Supple, No JVD, No LAD Cardiovascular: Regular Rate, Normal S1, Normal S2, No Murmurs, Gallops, Rubs Lungs: Clear to Auscultation, Normal Air Movement Abdomen: Normal Bowel Sounds, Soft, No Tenderness Neurological: Normal Gait, Normal Speech, Strength at 5/5 X4 Ext, Sensation Intact, Cranial Nerves 3-12 NL Extremities: No Clubbing, No Cyanosis, No Edema, Normal Pulses, No Tenderness/ Swelling Vascular: Normal Pulses, Pulses Symmetrical Current Medications: Current Medications Sig/Terese Start time Last Medication Dose Route Stop Time Status Admin Acetaminophen 650 MG Q6P PRN 02/10 2000 AC PO Amlodipine Besylate 5 MG DAILY 02/14 1000 AC 02/14 PO 1046 Cholestyramine Resin 1 PAC TID 02/13 1600 AC 02/14 PO 0831 Escitalopram Oxalate 20 MG DAILY 02/11 1715 AC 02/14 PO 0830 Gabapentin 300 MG TID 02/10 1829 AC 02/14 PO 0831 Heparin Sodium 5,000 UNIT Q8 02/10 2200 AC 02/14 (Porcine) SC 0516 Lidocaine 1 PAT Q24H 02/10 1999 AC 02/13 EXT 2034 Loperamide HCl 4 MG AC & AT BEDTIME 02/13 1552 AC 02/14 PO 1223 Loperamide HCl 4 MG AC & AT BEDTIME PRN 02/13 1345 DC PO Morphine Sulfate 2 MG Q4H 02/11 0400 AC 02/14 IV 1223 Nicotine 7 MG Q24 02/10 1957 AC TOP Omeprazole 40 MG DAILY AC 02/11 0700 AC 02/14 PO 0516 Ondansetron HCl 4 MG TID PRN 02/10 1830 AC 02/13 PO 2036 Oxycodone/ 1 TAB TIDPRN PRN 02/10 1845 AC 02/13 Acetaminophen PO 2247 Last 24 Hrs of Lab/Jamarcus Results Last 24 Hrs of Labs/Mics: Laboratory Tests 02/15/16 0750: Anion Gap 10, Estimated GFR > 60, BUN/Creatinine Ratio 11.3 Assessment/Plan Assessment: Ms. Elmore is a 65-year-old lady, active smoker (40+ pack year), with a past medical history significant for hypertension, hyperlipidemia, depression, ovarian carcinoma with carcinomatosis of hysterectomy and bilateral salpingo- oophorectomy , colon cancer status post colostomy and then reversal, small bowel obstruction status post small bowel resection with ileostomy done about a month ago, previously admitted in January 2016 for hypotension, sent in by primary care physician Dr. Day after being found to be hyponatremic, most likely due to profound diarrhea and subsequent dehydration followed by excessive water intake. # Hyponatremia Patient's sodium on admission is 122. Most likely due to GI loss (profound diarrhea in the ileostomy bag) in the setting of excessive water intake. * Check BEP daily, trend Na - 135 this morning * Monitor I/Os stricktly * Surgery consulted, appreciate Dr. Baez's recs * Cont Imodium 4mg po TID with meals and qHS * Cont cholestyramine 1 packet TID * Consider checking C. diff and stool cx # DIPIKA - resolved Patient came in with Cr 1.7. Baseline around 1. Most likely prerenal from dehydration. * Adequate volume resuscitation * Check BEP daily, trend Cr - WNL * Hold lisinopril for now # Chronic back pain * Continue home meds Percocet and gabapentin * Cont moprhine 2mg IV Q4 * Apply Lidoderm to the back daily * Zofran for nausea control # Depression * Cont home med Lexapro - Regular diet - Moderate pain pathway - DVT prophylaxis with SQ heparin - Full code Problem List: 1. Hyponatremia 2. Dehydration 3. Hyperlipidemia 4. Depression 5. Benign hypertension Pain Ratin Pain Location: 0 Pain Goal: Remain pain free Pain Plan: Mild-moderate pathway Tomorrow's Labs & Rationales: BEP to check sodium in the setting of dehydration FERMÍN LAMB MD 02/15/16 1244: Attending MD Review Statement Attending Statement Attending MD Statement: examined this patient, discuss w/resident/PA/ANNUAL GIVING DIRECTOR, agreed w/resident/PA/ANNUAL GIVING DIRECTOR, reviewed EMR data (avail), discussed with nursing, discussed with case mgmt, amended to note Attending Assessment/Plan: Patient seen and examined. Resting comfortably and not in acute distress. She continues to have loose ileostomy output with a total of about 875 mL in 24 hours. She denies nausea vomiting. Denies abdominal pain. She is tolerating oral intake.-Electrolytes remain within normal limits off intravenous fluid administration. Case discussed with her general surgeon Dr. Baez. If she is able to keep up with gastrointestinal losses with regular oral intake and ileostomy output is less than a liter a day, we will anticipate discharging the patient home tomorrow. She is to continue loperamide as ordered on cholestyramine has been added to her regimen. We will hold off on doing Lomotil 2 as she was newly started on the current regimen yesterday. Her electrolytes will be monitored in the oncology center as she follows up for her therapy.
[2016-02-15 08:27] VITALS: BP 142/78
--- NOTE | 2016-02-15 14:35 | PN- General Surgery ---
Surgical Brief Attending Note Brief Attending Note: QID immodium initiated. Started cholestyramine TID. Monitor output for response. Anticipate d/c tomorrow.
[2016-02-15 16:26] VITALS: BP 124/72
--- NOTE | 2016-02-15 20:08 | Event Note ---
Event Note Event Note: Discussed about the patient's persistent increased stool output with Dr. Baez. He recommended that we discontinue immodium and start the patient on Lomotil instead. Cholestyramine to be continued.
[2016-02-15 23:59] VITALS: BP 130/68
--- NOTE | 2016-02-16 06:21 | PN- Housestaff ---
GURVINDER SHELLEY,PRANAV 02/16/16 0620: Subjective Follow-up For: Persistent diarrhea Subjective: Patient seen and examined at bedside. No events reported overnight. She has put out about 700cc in the bag since 8PM last night. Patient feels that her stools have become more formed since being starting well with no new complaints. Reports persistent loose stools and diarrhea in the ileostomy bag. Remains afebrile and HDS with stable VS. Sodium improved at 140 this morning. Review of Systems Constitutional: Reports: see HPI. Objective Last 24 Hrs of Vital Signs/I&O Vital Signs Date Time Temp Pulse Resp B/P Pulse O2 O2 Flow FiO2 Ox Delivery Rate 02/15 0805 71 130/68 02/15 0805 97.5 63 20 126/70 95 Room Air 02/14 2359 98.3 71 19 130/68 96 Room Air Intake & Output 02/15 1600 02/15 0800 02/15 0000 Intake Total 1000 10 180 Output Total 1150 700 250 Balance -150 -690 -70 Intake, IV 10 Intake, Oral 1000 180 Output, Stool 550 200 250 Output, Urine 600 500 Patient 65.771 kg Weight Physical Exam General Appearance: Alert, Oriented X3, Cooperative, No Acute Distress Other Physical Findings: Skin: No Rashes, No Breakdown HEENT: Atraumatic, PERRLA, EOMI, Mucous Membr. moist/pink Neck: Supple, No JVD, No LAD Cardiovascular: Regular Rate, Normal S1, Normal S2, No Murmurs, Gallops, Rubs Lungs: Clear to Auscultation, Normal Air Movement Abdomen: Normal Bowel Sounds, Soft, No Tenderness Neurological: Normal Gait, Normal Speech, Strength at 5/5 X4 Ext, Sensation Intact, Cranial Nerves 3-12 NL Extremities: No Clubbing, No Cyanosis, No Edema, Normal Pulses, No Tenderness/ Swelling Vascular: Normal Pulses, Pulses Symmetrical Current Medications: Current Medications Sig/Terese Start time Last Medication Dose Route Stop Time Status Admin Acetaminophen 650 MG Q6P PRN 02/10 2000 DCD PO Amlodipine Besylate 5 MG DAILY 02/14 1000 DCD 02/15 PO 08 Cholestyramine Resin 1 PAC TID 02/13 1600 DCD 02/15 PO 0805 Diphenoxylate HCl/ 2.5 MG 4 TIMES/DAY 02/14 220 DCD 02/15 Atropine PO 1149 Diphenoxylate HCl/ 2.5 MG ONCE ONE 02/14 2014 DC Atropine PO 02/14 2015 Enoxaparin Sodium 40 MG DAILY 02/15 1000 DCD 02/15 SC 0804 Escitalopram Oxalate 20 MG DAILY 02/11 1715 DCD 02/15 PO 0805 Gabapentin 300 MG TID 02/10 1829 DCD 02/15 PO 0805 Heparin Sodium 5,000 UNIT Q8 02/10 2200 DC 02/14 (Porcine) SC 1446 Lidocaine 1 PAT Q24H 02/10 1999 DCD 02/14 EXT 2113 Loperamide HCl 4 MG AC & AT BEDTIME 02/13 1552 DC 02/14 PO 1702 Morphine Sulfate 2 MG Q4H 02/11 0400 DCD 02/15 IV 1539 Nicotine 7 MG Q24 02/10 1957 DCD TOP Omeprazole 40 MG DAILY AC 02/11 0700 DCD 02/15 PO 0557 Ondansetron HCl 4 MG TID PRN 02/10 1830 DCD 02/13 PO 2036 Oxycodone/ 1 TAB TIDPRN PRN 02/10 1845 DCD 02/15 Acetaminophen PO 1149 Patient Medication 1 ED .STK-MED ONE 02/15 1343 DC Teaching ED 02/15 1344 Last 24 Hrs of Lab/Jamarcus Results Last 24 Hrs of Labs/Mics: Laboratory Tests 02/16/16 0630: Anion Gap 13, Estimated GFR > 60, BUN/Creatinine Ratio 10.0 Assessment/Plan Assessment: Ms. Elmore is a 65-year-old lady, active smoker (40+ pack year), with a past medical history significant for hypertension, hyperlipidemia, depression, ovarian carcinoma with carcinomatosis of hysterectomy and bilateral salpingo- oophorectomy , colon cancer status post colostomy and then reversal, small bowel obstruction status post small bowel resection with ileostomy done about a month ago, previously admitted in January 2016 for hypotension, sent in by primary care physician Dr. Day after being found to be hyponatremic, most likely due to profound diarrhea and subsequent dehydration followed by excessive water intake. # Hyponatremia Patient's sodium on admission is 122. Most likely due to GI loss (profound diarrhea in the ileostomy bag) in the setting of excessive water intake. * Check BEP daily, trend Na - 140 this morning * Monitor I/Os stricktly * Surgery consulted, appreciate Dr. Baez's recs * Started Lomotil 2.5mg TID yesterday * Discontinued Imodium 4mg po TID with meals and qHS yesterday * Cont cholestyramine 1 packet TID # DIPIKA - resolved Patient came in with Cr 1.7. Baseline around 1. Most likely prerenal from dehydration. * Adequate volume resuscitation * Check BEP daily, trend Cr - WNL * Hold lisinopril for now # Chronic back pain * Continue home meds Percocet and gabapentin * Cont moprhine 2mg IV Q4 * Apply Lidoderm to the back daily * Zofran for nausea control # Depression * Cont home med Lexapro - Regular diet - Moderate pain pathway - DVT prophylaxis with SQ heparin - Full code Problem List: 1. Dehydration 2. Hyponatremia 3. Small bowel obstruction Pain Ratin Pain Location: 0 Pain Goal: Remain pain free Pain Plan: Moderate pathway Tomorrow's Labs & Rationales: NONE - d/c ADONIS SHELLEY,FERMÍN 02/16/16 1522: Attending MD Review Statement Attending Statement Attending MD Statement: examined this patient, discuss w/resident/PA/USER EXPERIENCE MANAGER, agreed w/resident/PA/USER EXPERIENCE MANAGER, discussed with family, reviewed EMR data (avail), discussed with nursing, discussed with case mgmt, amended to note Attending Assessment/Plan: She has seen and examined. No issues overnight. No new complaints. She continues to have significant ileostomy output however she reports that this afternoon the output is significantly more formed.-Electrolytes remain within normal limits. At this point she is medically stable to be discharged home. She will continue on Questran and Lomotil as an outpatient. She has been instructed to follow-up with Dr. Baez next week. She has been advised to come to the emergency room for evaluation if she becomes lethargic all is unable to maintain adequate oral intake. Patient and verbalized understanding of these recommendations.
[2016-02-16] MEDS ORDERED: CHOLESTYRAMINE L4 GM PO (07:36)
[2016-02-16] MEDS ORDERED: DIPHENOXYLATE-1 EACH PO (07:36)
--- NOTE | 2016-02-16 07:41 | Patient Discharge Instructions ---
Discharge Instructions General Discharge Information You were seen/treated for: Dehydration Special Instructions: 1. Please follow up with Dr. Wheeler (primary care) and Dr. Baez (surgeon) within a week of discharge. 2. Please have your blood drawn to check sodium level next week, ideally on Sunday (02/20). 3. Follow up with Dr. Pinedo (GI) if diarrhea persists or worsens. 4. Please remain hydrated. Avoid excessive water and coffee. Try to drink gatorade instead. Acute Coronary Syndrome Inclusion Criteria At DC or during hospital stay patient has or had the following: ACS DIAGNOSIS No Discharge Core Measures Meds if any: Prescribed or Continued at Discharge Meds if any: NOT Prescribed or Continued at Discharge Congestive Heart Failure Inclusion Criteria At DC or during hospital stay patient has or had the following: CHF DIAGNOSIS No Discharge Core Measures Meds if any: Prescribed or Continued at Discharge Meds if any: NOT Prescribed or Continued at Discharge Cerebrovascular accident Inclusion Criteria At DC or during hospital stay patient has or had the following: CVA/TIA Diagnosis No Discharge Core Measures Meds if any: Prescribed or Continued at Discharge Meds if any: NOT Prescribed or Continued at Discharge Venous thromboembolism Inclusion Criteria VTE Diagnosis No VTE Type NONE VTE Confirmed by (Test) NONE Discharge Core Measures - Per Current guidelines, there needs to be overlap - treatment for the first 5 days of Warfarin therapy. - If discharged on Warfarin prior to 5 days of - overlap therapy, the patient will need to be - assessed for post discharge needs including - *Post discharge parental anticoagulation - *Warfarin and/or parental anticoagulation education - *Follow up date to check INR post discharge At least 5 days overlap therapy as Inpatient No Meds if any: Prescribed or Continued at Discharge Note: Overlap Therapy is Warfarin and Anticoagulant Meds if any: NOT Prescribed or Continued at Discharge
[2016-02-16 08:05] VITALS: BP 126/70; BP 130/68
[2016-02-16] MEDS ORDERED: OXYCODONE HCL5 M1 PO (08:08)
[2016-02-16] MEDS ORDERED: LOPERAMIDE2 M1 PO (15:01)
--- NOTE | 2016-02-16 15:28 | PN- General Surgery ---
Surgical Brief Attending Note Brief Attending Note: OUTPUT RESPONDING TO LOMOTIL. CONTINUE ORDERED. SHE HAS F/U WITH ME ON SUNDAY
--- NOTE | 2016-02-16 18:46 | Discharge Summary ---
See Addendum Visit Information Visit Dates Admission Date: 02/11/16 Discharge Date: 02/16/16 Hospital Course Course Attending Physician: FERMÍN LAMB M.D Primary Care Physician: DAILY COVARRUBIAS MD Hospital Course: Ms. Elmore is a 65-year-old lady, active smoker (40+ pack year), with a past medical history significant for hypertension, hyperlipidemia, depression, ovarian carcinoma with carcinomatosis of hysterectomy and bilateral salpingo- oophorectomy , colon cancer status post colostomy and then reversal, small bowel obstruction status post small bowel resection with ileostomy done about a month ago, previously admitted in January 2016 for hypotension, sent in by oncologist Dr. Osborne after being found to be hyponatremic, most likely due to profound diarrhea and subsequent dehydration followed by excessive water intake. # Hyponatremia Patient's sodium on admission was 122. Most likely due to GI loss (profound diarrhea in the ileostomy bag) in the setting of excessive water intake. Her sodium was slowly corrected with normal saline IV fluid. She also received antidiarrheals as discussed below. Her sodium level on the day of discharge was 140. # Persistent diarrhea Patient consistently put out over 1L of loose stools in her ileostomy bag. The patient's surgeon (Dr. Baez) was consulted. Per his recommendations, the patient was kept on Imodium 4mg PO TID with meals and qHS without much improvement. Cholestyramine 1 packet TID was added but stool output was still copious. GI was consulted but Dr. Pinedo deferred her to outpatient followup. Imodium was subsequently replaced with Lomotil 2.5mg QID. Patient's stools became more formed. She was discharged on Lomotil QID with Cholestyramine TID. She was also given Imodium to take as needed for worsening diarrhea. # DIPIKA - resolved Patient came in with Cr 1.7. Baseline around 1. Most likely prerenal from dehydration. Lisinopril was held. Her DIPIKA resolved with adequate volume resuscitation # Chronic back pain * Continued home meds Percocet and gabapentin * Continued moprhine 2mg IV Q4 * Provided Lidoderm to the back daily # Depression * Continued home med Lexapro - Regular diet - Moderate pain pathway - DVT prophylaxis with SQ heparin - Full code Allergies: Coded Allergies: NO KNOWN ALLERGIES (06/07/15) Disposition Summary Disposition Principal Diagnosis: Hyponatremia due to persistent diarrhea and excessive water intake Additional Diagnosis: Acute kidney injury Discharge Disposition: home or self care Discharge Instructions General Discharge Information Code Status: Full Code Patient's Diet: Regular Patient's Activity: As tolerated Follow-Up Instructions/Appts: 1. Please follow up with Dr. Wheeler (primary care) and Dr. Baez (surgeon) within a week of discharge. 2. Please have your blood drawn to check sodium level next week, ideally on Sunday (02/20). 3. Follow up with Dr. Pinedo (GI) if diarrhea persists or worsens. 4. Please remain hydrated. Avoid excessive water and coffee. Try to drink gatorade instead. Medications at Discharge Discharge Medications: Stop taking the following medications: Oxycodone HCl/Acetaminophen (Oxycodone-Acetaminophen 5-325) 5 MG-325 MG TABLET ORAL THREE TIMES A DAY NEEDED Qty = 30 Continue taking these medications: Ezetimibe (Zetia) 10 MG TAB 1 Tablet ORAL DAILY Qty = 30 Comments: NOT GIVEN IN HOSPITAL Escitalopram Oxalate (Escitalopram Oxalate) 20 MG TABLET 1 Tablet ORAL DAILY Qty = 30 Comments: LAST DOSE GIVEN ON 06/08/15 0930AM Pantoprazole Sodium (Protonix) 40 MG TAB 40 Milligram ORAL DAILY Qty = 30 Comments: LAST DOSE GIVEN ON 06/08/15 AT 9:30AM CETIRIZINE HCL (Zyrtec) 10 MG SGL 1 Capsule ORAL DAILY Comments: LAST DOSE GIVEN ON 06/07/15 AT 9:00AM. CLARITIN GIVEN ON 06/08/15 AT 9: 30AM Gabapentin (Neurontin) 300 MG CAPSULE 1 Capsule ORAL THREE TIMES DAILY Comments: Last Taken: 02/16/16 Time: 0800 Ondansetron (Zofran Odt) 4 MG TAB.RAPDIS 1 Tablet SUBLINGUAL THREE TIMES DAILY Qty = 15 Amlodipine Besylate (Amlodipine Besylate) 5 MG TABLET 1 Tablet ORAL DAILY Qty = 90 Comments: Last Taken: 02/16/16 Time: 0800 Start taking the following new medications: Cholestyramine/Aspartame (Cholestyramine Light Packet) 4 GRAM POWD.PACK 1 Packet ORAL THREE TIMES DAILY Days = 14 No Refills Diphenoxylate HCl/Atropine (Diphenoxylate-Atrop 2.5-0.025) 2.5 MG-0.025 MG TABLET 2.5 Milligram ORAL 4 TIMES A DAY Days = 14 No Refills Oxycodone HCl (Oxycodone HCl) 5 MG TABLET 1 Tablet ORAL THREE TIMES A DAY NEEDED Qty = 15 No Refills The following medications have been changed: Old: Loperamide HCl (Loperamide) 2 MG TABLET 2 Tablet ORAL 4 TIMES A DAY New: Loperamide HCl (Loperamide) 2 MG TABLET 2 Tablet ORAL 4 TIMES A DAY as needed for DIARRHEA Days = 14 Copies To: ERIN SHELLEY,MORGAN Hendricks; LISA SHELLEY,ALEXUS Montgomery; SATISH SHELLEY,DAILY Quispe
== END 2016-02-16 15:50 | disposition home health service (06) | DRG 641 ==
LOC: ERH 15:56 → ERHI 18:50 → ENPENDDIS 18:50 → 2NB 18:50
PROVIDERS: Emergency Medicine; Student in an Organized Health Care Education/Training Program; ADMIT Internal Medicine
DX: E87.1 Hypo-osmolality and hyponatremia (principal); E86.0 Dehydration; N17.9 Acute kidney failure, unspecified; C80.0 Disseminated malignant neoplasm, unspecified; N28.9 Disorder of kidney and ureter, unspecified; R41.0 Disorientation, unspecified; Z72.0 Tobacco use; I10 Essential (primary) hypertension; E78.5 Hyperlipidemia, unspecified; F32.9 Major depressive disorder, single episode, unspecified; Z85.038 Personal history of other malignant neoplasm of large intestine; Z93.2 Ileostomy status; Z85.43 Personal history of malignant neoplasm of ovary
CPT/HCPCS: 2NSBP; 84133; 84300; 36415; 82436; 82570; 93005; 93010; J1642; J1644; J1650; J3101

== ENCOUNTER 2016-03-15 10:15 | Inpatient (IN) | payer OTHER ==
[~2016-03-15] VITALS: Ht 162.6 cm; Wt 65.8 kg
[~2016-03-15 10:15] MED LIST changes: +AMLODIPINE BESYL5 M1 PO; +CHOLESTYRAMINE L4 GM PO; +DIPHENOXYLATE-1 EACH PO; +LOPERAMIDE2 M1 PO; +OXYCODONE HCL5 M1 PO; +OXYCODONE-ACET1 EACH PO
--- NOTE | 2016-03-15 11:32 | NUR ---
PT HERE FOR POSSIBLE BLOCKAGE. PT STATES SHE HAS AN ILLIOSTOMY AND IT ISN'T FLOWING. PT VOMITED LAST EVENING AND HAVING PAIN IN HER ABD.
--- NOTE | 2016-03-15 11:35 | NUR ---
BLOOD SENT TO THE LAB [facility],SST,MENJIVAR
--- NOTE | 2016-03-15 11:35 | ED GI/GU/ABDOMINAL COMPLAINT ---
History of Present Illness General Chief Complaint: Abdominal Pain/Flank Pain Stated Complaint: CONSTIPATION Source: patient, family, old records Exam Limitations: no limitations Vital Signs & Intake/Output Vital Signs & Intake/Output Vital Signs Date Time Temp Pulse Resp B/P Pulse O2 O2 Flow FiO2 Ox Delivery Rate 03/19 0800 98.0 64 20 121/69 97 Room Air Room Air 03/19 0000 98.5 64 19 145/93 96 Room Air 03/19 0000 98.4 62 19 128/68 98 Room Air 03/18 1436 98.0 80 20 124/78 97 Room Air ED Intake and Output 03/19 0000 03/18 1200 Intake Total 600 600 Output Total 1290 620 Balance -690 -20 Intake, IV 600 600 Intake, Oral 0 0 Number 0 Bowel Movements Output, 500 300 Gastric Drainage Output, Stool 40 20 Output, Urine 750 300 Allergies Coded Allergies: amoxicillin (From AUGMENTIN) (Intermediate, DIARRHEA 03/15/16) clavulanic acid (From AUGMENTIN) (Intermediate, DIARRHEA 03/15/16) Reconcile Medications Amlodipine Besylate 5 MG TABLET 1 TAB PO DAILY BP (Reported) Cetirizine HCl (Zyrtec) 10 MG TABLET 1 TAB PO DAILY ALLERGIES (Reported) Cholestyramine/Aspartame (Cholestyramine Light Packet) 4 GRAM POWD.PACK 1 PAC PO TID DIARRHEA Diphenoxylate HCl/Atropine (Diphenoxylate-Atrop 2.5-0.025) 2.5 MG-0.025 MG TABLET 2.5 MG PO 4 TIMES/DAY DIARRHEA Escitalopram Oxalate 20 MG TABLET 1 TAB PO DAILY DEPRESSION (Reported) Ezetimibe (Zetia) 10 MG TABLET 1 TAB PO DAILY CHOLESTEROL (Reported) Fluoxetine HCl 20 MG CAPSULE 1 CAP PO DAILY DEPRESSION (Reported) Gabapentin (Neurontin) 300 MG CAPSULE 1 CAP PO TID NERVE PAIN (Reported) Loperamide HCl (Loperamide) 2 MG TABLET 2 TAB PO 4 TIMES/DAY PRN DIARRHEA Oxycodone HCl 5 MG TABLET 1 TAB PO TIDPRN PAIN/DIARRHEA Pantoprazole Sodium (Protonix) 40 MG TABLET.DR 1 TAB PO DAILY ACID REFLUX ( Reported) Prochlorperazine Maleate 10 MG TABLET 1 TAB PO Q6 GI (Reported) Triage Note: PT HERE FOR POSSIBLE BLOCKAGE. PT STATES SHE HAS AN ILLIOSTOMY AND IT ISN'T FLOWING. PT VOMITED LAST EVENING AND HAVING PAIN IN HER ABD. Triage Nurses Notes Reviewed? yes ? N Is pt currently ? No Onset: Abrupt Duration: day(s): (1), constant Timing: recent history Quality/Severity: vomiting Severity Numbers: 10 Location: generalized abdomen Prior Abdominal Problems: similar symptoms No Modifying Factors: none Associated Symptoms: nausea/vomiting HPI: 65-year-old lady, active smoker (40+ pack year), with a past medical history significant for hypertension, hyperlipidemia, depression, ovarian carcinoma with carcinomatosis of hysterectomy and bilateral salpingo-oophorectomy , colon cancer status post colostomy and then reversal, small bowel obstruction status post small bowel resection with ileostomy presents emergency room for evaluation complaining of no output to her ileostomy bag since changing it at 5 PM last night associated with 1 episode of vomiting yesterday. She states that she has a history of chronic abdominal pain however the pain was worse yesterday improve vomiting. She has been unable to take her oxycodone today. No fever no chills no chest pain shortness of breath no urinary complaints. She did have breakfast this morning with scrambled EGGS without worsening of her symptoms and she is not currently undergoing any chemotherapy or radiation (ALEXANDREA REYES) Past History Travel History Traveled to [place] past 21 day No Medical History Any Pertinent Medical History? 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 No (ALEXANDREA REYES) Review of Systems Review of Systems Constitutional: Reports: see HPI. All Other Systems: Reviewed and Negative Comments Review of systems: See HPI, All other systems negative. Constitutional, no chills no fever, no malaise HEENT: No visual changes no sore throat no congestion, no ear pain Cardiovascular: No chest pain , no palpitation Skin, no jaundice no rashes, no change in skin Respiratory: No dyspnea no cough no sputum GI: nausea vomiting, no diarrhea, no bloating/constipation : No dysuria No hematuria, no frequency Muscle skeletal: No joint pain, no back pain, no neck pain, Neurologic: No numbness no headache Psych: No stress Heme/endocrine: No bruising no bleeding Immunology: No lymphadenopathy (ALEXANDREA REYES) Physical Exam Physical Exam General Appearance: well developed/nourished, no apparent distress, alert, awake Gastrointestinal: soft, tenderness (DIFFUSELY TENDER) Comments: Well-developed well-nourished person in no acute distress HEENT: Normal EENT exam; PERRL, EOMI. HEAD is atraumatic. moist mucous membranes. Neck: Supple, no lymphadenopathy, normal range of motion Back: Nontender, no CVA tenderness. Full range of motion Cardiovascular: Regular rate and rhythms no murmurs rubs Respiratory: No respiratory distress. Patient speaking in full complete sentences. Breath sounds clear to auscultation bilaterally: NO W/R/R Abdomen: Soft, diffusely tender nondistended, no appreciable organomegaly. Normal bowel sounds. No rebound/guarding, No appreciable enlargement of the abdominal aorta, No ascites. Extremity: No edema, full range of motion of extremities Neuro: Alert oriented x3, motor sensory normal, There were no obvious focal neurologic abnormalities. Skin: No appreciable rash on exposed skin, skin is warm and dry. Psych: Mood and affect is normal, memory and judgment is normal. Core Measures ACS in differential dx? Yes Severe Sepsis Present: No Septic Shock Present: No (ALEXANDREA REYES) Progress Differential Diagnosis: AAA, AMI, bowel obstruction, colon cancer, gastritis, hepatitis, hernia, ischemic bowel, inflamm bowel dis, pancreatitis, peptic ulcer , PUD/GERD, perforated viscous Plan of Care: Orders Procedure Date/time Status MAGNESIUM 03/20 06 Active BASIC ELECTROLYTES PLUS BUN&CR 03/20 0600 Active MAGNESIUM 03/19 599 Complete CBC WITHOUT DIFFERENTIAL 03/19 599 Complete BASIC ELECTROLYTES PLUS BUN&CR 03/19 599 Complete MISSING MEDICATION FORM 03/184 Active Laboratory Tests 03/19/16 0656: Anion Gap 8, Estimated GFR > 60, BUN/Creatinine Ratio 8.6, Magnesium 1.5 L, CBC w Diff NO MAN DIFF REQ, RBC 3.43 L, MCV 90.9, MCH 31.1 H, RDW 14.8 H, MPV 8.0 , Gran % 75.8 H, Lymphocytes % 14.7 L, Monocytes % 7.5, Eosinophils % 1.6, Basophils % 0.4, Absolute Granulocytes 5.1, Absolute Lymphocytes 1.0 L, Absolute Monocytes 0.5, Absolute Eosinophils 0.1, Absolute Basophils 0, PUBS MCHC 34.2 Labs ordered old records reviewed CAT scan ordered patient making Dilaudid 1 mg IV IV fluids and Phenergan 12.[address] HYATT I discussed the patient and her family at length all of her lab results today pending CAT scan IV fluids running I discussed with patient her CAT scan findings, and incidental findings as well as her lab work. Patient's creatinine of 2.0 is increased from baseline. The CAT scan was reviewed with Dr. chapman who after reviewing the case and CT did not identify a transition point. He advised that given the patient's past history recent surgery that there are no other surgical interventions required at this time. The patient's symptoms have improved with Dilaudid and Zofran and she's been sleeping when awoken she reports her symptoms have improved.dr chapman will consult Case discussed with Dr. hull will admit 03/15/2016 2:55:40 PM surgical PA at bedside (CANDIDO ZUNIGA,ALEXANDREA) Diagnostic Imaging: Viewed by Me: CT Scan. Discussed w/RAD: CT Scan. Radiology Impression: PATIENT: RIVAS SINGH PRESENT AGE: 65 PATIENT ACCOUNT NO: [id number] : 48 LOCATION: [facility] ORDERING PHYSICIAN: ALEXANDREA ZUNIGA SERVICE DATE: 03/15/16 EXAM TYPE: CAT - CT ABD & PELVIS W/O IV CONTRAS EXAMINATION: CT ABDOMEN AND PELVIS WITHOUT CONTRAST CLINICAL INFORMATION: Rule out small bowel obstruction with no output into ileostomy/ COMPARISON: CT abdomen and pelvis dated 02/28/2016, 12/28/2015, 12/19/2015, 11/10/2015, 08/22/2015, 06/02/2015, 04/02/2015, 04/04/2015, 2014, 09/06/2014, 08/01/2014, and others. TECHNIQUE: Multidetector volumetric imaging was performed from the superior aspect of the liver through the pubic symphysis. Sagittal and coronal reformatted images were obtained on the technologist's workstation. DLP: 339.53 mGy-cm FINDINGS: LUNG BASES: The visualized lung bases are unremarkable. LIVER, GALLBLADDER, AND BILIARY TREE: Ascites has increased around the liver since the prior study. The liver is normal in size, shape, and attenuation. No focal hepatic lesion or biliary ductal dilatation is present. Patient is status post cholecystectomy and air is noted in the biliary tree. Small 1 cm hypodensity in the right lobe of the liver , unchanged. PANCREAS: Unremarkable. SPLEEN: Unremarkable. Peripheral wedge- shaped hypodensity, unchanged. ADRENAL GLANDS: Unremarkable. KIDNEYS AND URETERS : The kidneys are normal in size, shape, and attenuation. No hydronephrosis, hydroureter, or calculi seen. No perinephric stranding. BLADDER: The bladder is almost empty. GASTROINTESTINAL TRACT: Since the prior study, there has developed some dilatation of small bowel with air within it. Loops have gone from 2.6 cm in diameter to 4.2 cm in diameter. The loop that exits into the ostomy has gone from 1.5 cm to 2.9 cm. ABDOMINAL WALL: No significant hernia is appreciated. A loop of decompressed colon appears to be adhered to the anterior abdominal wall with associated thickening. Appearances are unchanged since the previous study. LYMPH NODES: Normal. VASCULAR: Aortoiliac calcifications. PELVIC VISCERA: The patient is apparently status post hysterectomy. Once again seen is a right adnexal mass extending from the right of the vagina measuring about 3 cm, and appears unchanged. Air as well as an area of calcification is noted in the vagina. OSSEOUS STRUCTURES: Mild degenerative changes lower thoracic spine. IMPRESSION: 1. Increased small bowel obstruction since the previous study as described above. 2. Slight increase in ascitic fluid around the liver. 3. Other findings as described above. DICTATED BY: ABUNDIO ROSAS MD DATE/TIME DICTATED: 03/15/161236 MANAGEMENT ENGINEER:SHENA DATE/TIME TRANSCRIBED:02/08/17 / 1237 CONFIDENTIAL, DO NOT COPY WITHOUT APPROPRIATE AUTHORIZATION. <Electronically signed in Other Vendor System> SIGNED BY: ABUNDIO ROSAS MD 03/15/16 1342 Initial ED EKG: normal axis, normal intervals, NORMAL SINUS AT 90, NONSPECIFIC st SEGMENT CHANGES UNCHANGED FROM PREVIOUS Prior EKG: unchanged (02/2016) (ALEXANDREA REYES) Departure Departure Time of Disposition: 1416 Disposition: STILL A PATIENT Condition: Stable Clinical Impression Primary Impression: DIPIKA (acute kidney injury) Secondary Impressions: Ascites, Dilated bowel Referrals: SATISH SHELLEY,DAILY Quispe (PCP/Family) Departure Forms: Customer Survey General Discharge Information Admission Note Spoke With: PETE SHELLEY,[place] Hitchcock Documentation of Exam: Documentation of any treatments & extenuating circumstances including Concerns Regarding Discharge (functional status, medication knowledge or non-compliance, living conditions, etc.) that warrant an admission rather than observation: Patient will require IV hydration surgery consult, trend labs and electrolytes, IV pain medication when necessary premature discharge would BE medically harmful given patient's past medical history (ALEXANDREA REYES) PA/BDC MANAGER Co-Sign Statement Statement: ED Attending supervision documentation- [X] I saw and evaluated the patient. I have also reviewed all the pertinent lab results and diagnostic results. I agree with the findings and the plan of care as documented in the PA's/BDC MANAGER's documentation. [X] I have reviewed the ED Record and agree with the PA's/BDC MANAGER's documentation. [] Additions or exceptions (if any) to the PAs/BDC MANAGER's note and plan are summarized below: [] (RAMIRO SHELLEY,ARELY)
[2016-03-15 11:38] LABS: ABSOLUTE BASOPHIL COUNT 0.1 /CUMM (0.0-0.2); ABSOLUTE EOSINOPHIL COUNT 0.1 /CUMM (0.0-0.7); ABSOLUTE GRANULOCYTE CT 7.1 /CUMM (1.4-6.5); ABSOLUTE LYMPH COUNT 1.2 /CUMM (1.2-3.4); ABSOLUTE MONOCYTE COUNT 0.5 /CUMM (0.10-0.60); BASOPHIL % 0.8 % (0.0-2.0); EOSINOPHIL % 1.3 % (0-5); GRANULOCYTE % 79.3 % (42.2-75.2); HEMATOCRIT 32.9 % (37-47); MEAN CORPUSCULAR HGB 30.6 PG (27.0-31.0); MEAN CORPUSCULAR HGB CONC 34.2 G/DL (33.0-37.0); MEAN CORPUSCULAR VOLUME 89.6 FL (81.0-99.0); PLATELET COUNT 249 /CUMM (130-400); RBC DISTRIBUTION WIDTH 14.5 % (11.5-14.5); RED BLOOD CELL CT 3.67 /CUMM (4.20-5.40); WHITE BLOOD CELL COUNT 8.9 /CUMM (4.8-10.8)
--- NOTE | 2016-03-15 11:57 | NUR ---
ALEXANDREA ZUNIGA IN TO [facility].
[2016-03-15] MEDS ORDERED: FLUOXETINE HCL20 M2 PO (12:06)
[2016-03-15] MEDS ORDERED: PROCHLORPERAZIN10 MG PO (12:09)
--- NOTE | 2016-03-15 12:15 | NUR ---
PT TO CT VIA STRETCHER.
--- NOTE | 2016-03-15 12:32 | NUR ---
PT RETURNS TO ROOM # [address], IV # 20 HEPLOCK PLACED TO RFA, MED ORDERED WITH DILAUDID 1MG IV, TOLERATED VERY WELL, IV PHENERGAN 12.5 MG INFSUING, AND IVF'S NS 1L BOLUS INFUSING WITHOUT DIFFICULTY AT THIS TIME, REMAINS AT BEDSIDE.
--- NOTE | 2016-03-15 13:20 | NUR ---
PT SLEEPING COMFORTABLY AT THIS TIME, BLANKET GIVEN, LIGHTS OFF, ROOM QUIET.
--- NOTE | 2016-03-15 13:42 | CT SCAN REPORT ---
EXAMINATION: CT ABDOMEN AND PELVIS WITHOUT CONTRAST CLINICAL INFORMATION: Rule out small bowel obstruction with no output into ileostomy/ COMPARISON: CT abdomen and pelvis dated 02/28/2016, 12/28/2015, 12/19/2015, 11/10/2015, 08/22/2015, 06/02/2015, 04/02/2015, 04/04/2015, 12/22/2014, 09/06/2014, 08/01/2014, and others. TECHNIQUE: Multidetector volumetric imaging was performed from the superior aspect of the liver through the pubic symphysis. Sagittal and coronal reformatted images were obtained on the technologist's workstation. DLP: 339.53 mGy-cm FINDINGS: LUNG BASES: The visualized lung bases are unremarkable. LIVER, GALLBLADDER, AND BILIARY TREE: Ascites has increased around the liver since the prior study. The liver is normal in size, shape, and attenuation. No focal hepatic lesion or biliary ductal dilatation is present. Patient is status post cholecystectomy and air is noted in the biliary tree. Small 1 cm hypodensity in the right lobe of the liver, unchanged. PANCREAS: Unremarkable. SPLEEN: Unremarkable. Peripheral wedge-shaped hypodensity, unchanged. ADRENAL GLANDS: Unremarkable. KIDNEYS AND URETERS: The kidneys are normal in size, shape, and attenuation. No hydronephrosis, hydroureter, or calculi seen. No perinephric stranding. BLADDER: The bladder is almost empty. GASTROINTESTINAL TRACT: Since the prior study, there has developed some dilatation of small bowel with air within it. Loops have gone from 2.6 cm in diameter to 4.2 cm in diameter. The loop that exits into the ostomy has gone from 1.5 cm to 2.9 cm. ABDOMINAL WALL: No significant hernia is appreciated. A loop of decompressed colon appears to be adhered to the anterior abdominal wall with associated thickening. Appearances are unchanged since the previous study. LYMPH NODES: Normal. VASCULAR: Aortoiliac calcifications. PELVIC VISCERA: The patient is apparently status post hysterectomy. Once again seen is a right adnexal mass extending from the right of the vagina measuring about 3 cm, and appears unchanged. Air as well as an area of calcification is noted in the vagina. OSSEOUS STRUCTURES: Mild degenerative changes lower thoracic spine. IMPRESSION: 1. Increased small bowel obstruction since the previous study as described above. 2. Slight increase in ascitic fluid around the liver. 3. Other findings as described above.
--- NOTE | 2016-03-15 14:37 | NUR ---
NS 1L # 3 BOLUS INFUSING WITHOUT DIFFICULTY AT THIS TIME. SURGICAL PA AT BEDSIDE FOR EVAL.
--- NOTE | 2016-03-15 15:13 | History & Physical ---
JB TRINIDAD MD 03/15/16 1513: General Information and HPI MD Statement: I have seen and personally examined RIVAS SINGH and documented this H&P. The patient is a 65 year old F who presented with a patient stated chief complaint of abdominal pain. Source of Information: patient, old records Exam Limitations: no limitations History of Present Illness: Ms. Singh is a 65 year old active smoker (40+ pack year) with PMH hypertension, hyperlipidemia, depression, ovarian carcinoma with carcinomatosis s/p hysterectomy and bilateral salpingo-oophorectomy, colon cancer s/p colostomy and then reversal and small bowel obstruction s/p small bowel resection with ileostomy who presented to [place] with generalized abdominal pain, decreased ostomy output and persistent nausea for one day. Patient noted that she changed her ostomy bag yesterday afternoon and since that time has had no ostomy output. Gradually since that time, she noted nausea and increasing abdominal pain that is now so severe she had to present to the ED. The pain is described as midline, squeezine, a 6/10, and associated with nausea and 1 episode of vomiting (brown in color). She currently denies fever, dizziness, recent weight loss, chest pain , palpitations, shortness of breath, dysuria, or change in urinary habits. Social history is significant for active smokine with greater than 40 pack year history. She has no desire to quit. She denies alcohol or illicit drug use. She lives at home with her and changes her ostomy bag every 3 days, with the last change being yesterday. Her cyber security specialist/oncologist is Dr. Moises Osborne. Allergies/Medications Allergies: Coded Allergies: amoxicillin (From AUGMENTIN) (Intermediate, DIARRHEA 03/15/16) clavulanic acid (From AUGMENTIN) (Intermediate, DIARRHEA 03/15/16) Home Med list Amlodipine Besylate 5 MG TABLET 1 TAB PO DAILY BP (Reported) Cetirizine HCl (Zyrtec) 10 MG TABLET 1 TAB PO DAILY ALLERGIES (Reported) Cholestyramine/Aspartame (Cholestyramine Light Packet) 4 GRAM POWD.PACK 1 PAC PO TID DIARRHEA Diphenoxylate HCl/Atropine (Diphenoxylate-Atrop 2.5-0.025) 2.5 MG-0.025 MG TABLET 2.5 MG PO 4 TIMES/DAY DIARRHEA Escitalopram Oxalate 20 MG TABLET 1 TAB PO DAILY DEPRESSION (Reported) Ezetimibe (Zetia) 10 MG TABLET 1 TAB PO DAILY CHOLESTEROL (Reported) Fluoxetine HCl 20 MG CAPSULE 1 CAP PO DAILY DEPRESSION (Reported) Gabapentin (Neurontin) 300 MG CAPSULE 1 CAP PO TID NERVE PAIN (Reported) Loperamide HCl (Loperamide) 2 MG TABLET 2 TAB PO 4 TIMES/DAY PRN DIARRHEA Oxycodone HCl 5 MG TABLET 1 TAB PO TIDPRN PAIN/DIARRHEA Pantoprazole Sodium (Protonix) 40 MG TABLET.DR 1 TAB PO DAILY ACID REFLUX ( Reported) Prochlorperazine Maleate 10 MG TABLET 1 TAB PO Q6 GI (Reported) Compliance With Home Meds: GOOD Past History Travel History Traveled to [place] past 21 day No Medical History Neurological: NONE EENT: NONE Cardiovascular: hypertension, hyperlipidemia Respiratory: NONE Gastrointestinal: umbilical hernia, COLON CANCER SBO Hepatic: NONE Renal: NONE Musculoskeletal: NONE Psychiatric: depression Endocrine: NONE Blood Disorders: NONE Cancer(s): ovarian cancer (with carcinomatosis) 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 Home Who Do You Live With? spouse Services at Home: None Primary Language: Macedonian Smoking Status: Current Everyday Smoker ETOH Use: denies use Illicit Drug Use: denies illicit drug use Living Will? no Functional Ability ADLs Independent: dressing, eating, toileting, bathing. Ambulation: independent IADLs Independent: shopping, housework, finances, food prep, telephone, transportation , medication admin. Review of Systems Review of Systems Constitutional: Denies: fever, malaise, weakness. EENTM: Denies: blurred vision, visual changes, hearing changes, nasal congestion. Cardiovascular: Denies: chest pain, palpitations, syncope. Respiratory: Denies: cough, short of breath. GI: Reports: constipation, distention, nausea, changes in stool, vomiting. Denies: abdominal pain, bloating, diarrhea. Genitourinary: Denies: dysuria, hematuria. Musculoskeletal: Reports: back pain (Chronic). Skin: Denies: lesions, rash. Neurological/Psychological: Denies: confusion, headache, numbness. Hematologic/Endocrine: Denies: bruising, bleeding, polyuria, polydipsia. Immunologic/Allergic: Denies: splenectomy. All Other Systems: Reviewed and Negative Exam & Diagnostic Data Last 24 Hrs of Vital Signs/I&O Vital Signs Date Time Temp Pulse Resp B/P Pulse O2 O2 Flow FiO2 Ox Delivery Rate 03/15 1523 98.1 76 16 120/64 96 Room Air 03/15 1301 96.8 96 16 122/62 96 Room Air 03/15 1029 97.0 92 16 100/66 95 Room Air Intake & Output 03/15 1600 03/15 0800 03/15 0000 Intake Total 3050 Output Total Balance 3050 Intake, IV 3050 Patient 145 lb Weight Physical Exam General Appearance Alert, Oriented X3, Cooperative, No Acute Distress Skin Post-op scars on several areas of abdomen. Skin around ileostomy bag noted to be clean, dry and no signs of erythema noted. HEENT Atraumatic, PERRLA, Mucous Membr. moist/pink Neck Supple, No JVD, +2 Carotid Pulse wo Bruit Lymphatic Cervical nl Cardiovascular Regular Rate, Normal S1, Normal S2 Lungs Normal Air Movement Abdomen Mildly distended and tender to palpation most profound in the midline abdomen and directly above the ostomy bag Neurological Normal Speech, Strength at 5/5 X4 Ext, Normal Tone Extremities 1+ pitting edema of bilateral lower extremities to the knees Vascular Pulses Symmetrical Last 24 Hrs of Labs/Jamarcus: Laboratory Tests 03/15/16 1130: Anion Gap 15, Estimated GFR 25 L, BUN/Creatinine Ratio 11.0, Glucose 99, Lactic Acid 0.9, Calcium 9.7, Total Bilirubin 0.9, AST 28, ALT 42, Alkaline Phosphatase 115, Troponin I < 0.01, Total Protein 7.1, Albumin 4.3, Globulin 2.8, Albumin/ Globulin Ratio 1.5, CBC w Diff NO MAN DIFF REQ, RBC 3.67 L, MCV 89.6, MCH 30.6, RDW 14.5, MPV 7.0 L, Gran % 79.3 H, Lymphocytes % 13.0 L, Monocytes % 5.6, Eosinophils % 1.3, Basophils % 0.8, Absolute Granulocytes 7.1 H, Absolute Lymphocytes 1.2, Absolute Monocytes 0.5, Absolute Eosinophils 0.1, Absolute Basophils 0.1, PUBS MCHC 34.2 Diagnostic Data EKG Results NSr with HR 90, no significant change from prior EKG. Other Results EXAMINATION: CT ABDOMEN AND PELVIS WITHOUT CONTRAST CLINICAL INFORMATION: Rule out small bowel obstruction with no output into ileostomy/ COMPARISON: CT abdomen and pelvis dated 02/28/2016, 12/28/2015, 12/19/2015, 11/10/2015, 08/22/2015, 06/02/2015, 04/02/2015, 04/04/2015, 12/22/2014, 09/06/2014, 08/01/2014, and others. TECHNIQUE: Multidetector volumetric imaging was performed from the superior aspect of the liver through the pubic symphysis. Sagittal and coronal reformatted images were obtained on the technologist's workstation. DLP: 339.53 mGy-cm FINDINGS: LUNG BASES: The visualized lung bases are unremarkable. LIVER, GALLBLADDER, AND BILIARY TREE: Ascites has increased around the liver since the prior study. The liver is normal in size, shape, and attenuation. No focal hepatic lesion or biliary ductal dilatation is present. Patient is status post cholecystectomy and air is noted in the biliary tree. Small 1 cm hypodensity in the right lobe of the liver, unchanged. PANCREAS: Unremarkable. SPLEEN: Unremarkable. Peripheral wedge-shaped hypodensity, unchanged. ADRENAL GLANDS: Unremarkable. KIDNEYS AND URETERS: The kidneys are normal in size, shape, and attenuation. No hydronephrosis, hydroureter, or calculi seen. No perinephric stranding. BLADDER: The bladder is almost empty. GASTROINTESTINAL TRACT: Since the prior study, there has developed some dilatation of small bowel with air within it. Loops have gone from 2.6 cm in diameter to 4.2 cm in diameter. The loop that exits into the ostomy has gone from 1.5 cm to 2.9 cm. ABDOMINAL WALL: No significant hernia is appreciated. A loop of decompressed colon appears to be adhered to the anterior abdominal wall with associated thickening. Appearances are unchanged since the previous study. LYMPH NODES: Normal. VASCULAR: Aortoiliac calcifications. PELVIC VISCERA: The patient is apparently status post hysterectomy. Once again seen is a right adnexal mass extending from the right of the vagina measuring about 3 cm, and appears unchanged. Air as well as an area of calcification is noted in the vagina. OSSEOUS STRUCTURES: Mild degenerative changes lower thoracic spine. IMPRESSION: 1. Increased small bowel obstruction since the previous study as described above. 2. Slight increase in ascitic fluid around the liver. 3. Other findings as described above. Assessment/Plan Assessment: Ms. Singh is a pleasant 65 year old female with significant PMH of tobacco abuse (>40 pack year history), recurrent small bowel obstruction, hypertension, hyperlipidemia, depression, ovarian carcinoma with carcinomatosis s/p hysterectomy and bilateral salpingo-oophorectomy, colon cancer s/p colostomy and then reversal and small bowel obstruction s/p small bowel resection with ileostomy who presented with a one day history of abdominal pain, nausea with one episode of brown vomitus, no ostomy output and decreased oral intake. In the ED: Vital signs showed T 97.0, HR 92, RR 16, BP 100/66 and O2 saturation of 95% on RA. Labs showed WBC 8.9, H&H 11.2/32.9, Plt 249, and BEP significant for elevated BUN/cre to 22/2.0 (baseline cre about 0.8). Troponin <0.01. EKG was done and showed NSR with HR 90, no change from prior EKG. Abdominal/ pelvis CT showed increasing small bowel obstruction from prior study (last admission for SBO on 12/28/15), slight increase in ascitic fluid around the liver and right adnexal mass. Patient is admitted to the general medicine floor and the following is the management: 1. Small bowel obstruction * Patient has history of recurrent small bowel obstructions, last noted on 12/27 * Patient will be admitted to the general medicine floor and kept NPO * No signs of lactic acidosis * Surgery has already evaluated patient and suggested NPO, IVF, aspiration precautions and only consider NGT if patient has severe nausea/vomiting (no current plan for surgery) * Hold metamucil and immodium * IV protonix 40 gm PO daily * IV zofran for nausea * Maitenance fluid with D51/2NS at 75 cc/h * Minimize narcotics, mild pain with IV tylenol, moderate pain with IV morphine and severe pain with IV dilaudid 2. DIPIKA * Acute kidney injury with BUN/cre of 22/2 and baseline cre around 0.8 * Likely 2/2 dehydration in the setting of decreased PO intake * Patient received 1 L NS bolus in ED * Continue maitenance fluids with D51/2 NS * Monitor BEP in AM * F/U UA 3. Tobacco abuse * Smoking cessation counseling done, patient has no desire to quit smoking * Nicotine patch if patient requests 4. HTN * Monitor vital signs Q shift * Amlodipine 5 mg PO daily to continue 5. Ovarian carcinoma with carcinomatosis * Courtesy call to Dr. Barb gonsalves * He will follow up with patient after discharged for continued care FULL CODE DVTP: Heparin SC Mild-severe pain pathway NPO As Ranked By This Provider Problem List: 1. Small bowel obstruction 2. Ascites 3. Dehydration 4. DIPIKA (acute kidney injury) 5. Carcinomatosis 6. Nausea and vomiting in adult 7. Abdominal pain 8. Hysterectomy Core Measures/Miscellaneous Acute Coronary Syndrome ACS Diagnosis: No Cerebrovascular Accident CVA/TIA Diagnosis: No Congestive Heart Failure CHF Diagnosis: No Venous Thromboembolism VTE Risk Factors: Acute medical illness, Age > 40, Cancer/chemo/oth therapy VTE Prophylaxis Ordered Inpt: Pharm- Heparin No Mech VTE prophylaxis d/t: No contraindications No VTE Pharm Prophylaxis d/t: No contraindications VTE Diagnosis: No VTE Type: NONE VTE Confirmed by (Test): NONE Severe Sepsis Severe Sepsis Present: No Septic Shock Septic Shock Present: No BC x2: No Lactic Acid: Yes IV ABX Broad Spectrum: No Focused Exam Completed: Yes NS/LR 30ml/kg w/in 3hrs: Yes IV Vasopressors started: No Miscellaneous Documentation Attending Case Discussed With: CONNOR AGUIAR MD Primary Care Physician: DAILY COVARRUBIAS MD Patient sees these Specialists Dr. Moises Osborne Level of Patient Care: General Medicine CONNOR AGUIAR 03/15/16 1800: Attending MD Review Statement Attending Statement Attending MD Statement: examined this patient, discuss w/resident/PA/SHIPYARD PAINTING SUPERVISOR, agreed w/resident/PA/SHIPYARD PAINTING SUPERVISOR, reviewed EMR data (avail) Attending Assessment/Plan: ? SBO - seen by surgery- no surgical intervention. hold imodium and metamucil. Conservative management and see how she does. Pt currently not in any acute distress. BS diminished. Ovarian cancer with peritoneal carcinomatosis- being followed by oncology as an outpatient. DIPIKA- with cr of 2.0, baseline of 1.0, will hydrate and see how she does. d/w pt the care plan. PATSY SHELLEY,FAITH 03/15/16 6083: Resident Review Statement Resident Statement: examined this patient, discussed with internet researcher, agreed with internet researcher, discussed with family, reviewed EMR data (avail), discussed with nursing , discussed with case mgmt, reviewed images, amended to note Other Findings: 65 yo female with pmh of HTN, HLD, Depression, ovarian cancer with peritoneal carcinomatosis s/p hysterectomy & BSO, colono cancer s/p colostomy reveral, SBO s/p ileostomy in 01/[address] Baez came from home due to abdominal pain with decreased ileostomy output. She changed ileostomy back every 3rd day, and it didn't have any output from yesterday after changing it. She also has constipation and her stools became hard. She c/o abdominal pain 6/10 with vomiting. V/S stable, physical exam remarkable for generalized abdomen tenderness, no rTd, with clean ileostomy bag site/no skin chages. Labs: Hb/Hct 11.2/32.9, Na 138, K, 4.2, BUN/Cr 22/2.0, abdomen CT: 1. Increased small bowel obstruction since the previous study as described above. 2. Slight increase in ascitic fluid around the liver. 3. Other findings as described above. 1. Small bowel obstruction with ileostomy bag: surgey consult was appreciated, keep NPO, IV fluid, no NG tube, pain management, try to avoid narcotics as much as possible due to constipation 2. DIPIKA: IV hydration with D5 1/2@ 75cc/hr, monitor BEP 3. HTN: c/w amlodipine 4. Current smoker: not motivated to quit smoking, declined nicotine patch. DVT ppx: SC heparin, full code.
--- NOTE | 2016-03-15 15:15 | NUR ---
ASSUMING CARE OF PT
--- NOTE | 2016-03-15 15:28 | NUR ---
PT AMBULATORY TO AND FROM BATHROOM. C/O 07/15 PAIN
--- NOTE | 2016-03-15 15:40 | NUR ---
HOUSE STAFF AT BEDSIDE
--- NOTE | 2016-03-15 16:06 | Cons- General Surgery ---
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 She was recently taken to the OR by (01/07/16) for recurrent sbo. She underwent a lap to open lysis of adhesions, small bowel resection, with creation of ileostomy. She was started on imodium and metamucil in follow up after she was discharged home due to high ileostomy output. Although she seems to always have some level of abdominal pain, she reports the pain has worsened since yesterday, and her ileostomy stopped putting out anything. She reports taking 8 imodium a day, and metamucil twice a day. Although she had nausea and an episode of vomiting last night, she currently denies nausea and is not interested in an ng tube at this time. Allergies/Medications Allergies: Coded Allergies: amoxicillin (From AUGMENTIN) (Intermediate, DIARRHEA 03/15/16) clavulanic acid (From AUGMENTIN) (Intermediate, DIARRHEA 03/15/16) Home Med List: Amlodipine Besylate 5 MG TABLET 1 TAB PO DAILY BP (Reported) Cetirizine HCl (Zyrtec) 10 MG TABLET 1 TAB PO DAILY ALLERGIES (Reported) Cholestyramine/Aspartame (Cholestyramine Light Packet) 4 GRAM POWD.PACK 1 PAC PO TID DIARRHEA Diphenoxylate HCl/Atropine (Diphenoxylate-Atrop 2.5-0.025) 2.5 MG-0.025 MG TABLET 2.5 MG PO 4 TIMES/DAY DIARRHEA Escitalopram Oxalate 20 MG TABLET 1 TAB PO DAILY DEPRESSION (Reported) Ezetimibe (Zetia) 10 MG TABLET 1 TAB PO DAILY CHOLESTEROL (Reported) Fluoxetine HCl 20 MG CAPSULE 1 CAP PO DAILY DEPRESSION (Reported) Gabapentin (Neurontin) 300 MG CAPSULE 1 CAP PO TID NERVE PAIN (Reported) Loperamide HCl (Loperamide) 2 MG TABLET 2 TAB PO 4 TIMES/DAY PRN DIARRHEA Oxycodone HCl 5 MG TABLET 1 TAB PO TIDPRN PAIN/DIARRHEA Pantoprazole Sodium (Protonix) 40 MG TABLET. 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 Ambulation: independent IADLs Independent: shopping, housework, finances, food prep, telephone, transportation , medication admin. Review of Systems Review of Systems: admits: abdominal pain, nausea/vomiting, lack of ileostomy output denies: f/c/s, shortness of breath, chest pains, dizziness Exam & Diagnostic Data Vital Signs and I&O Vital Signs Date Time Temp Pulse Resp B/P Pulse O2 O2 Flow FiO2 Ox Delivery Rate 03/15 1523 98.1 76 16 120/64 96 Room Air 03/15 1301 96.8 96 16 122/62 96 Room Air 03/15 1029 97.0 92 16 100/66 95 Room Air Intake & Output 03/15 1600 03/15 0800 03/15 0000 03/14 1600 03/14 0800 03/14 0000 Intake Total 3050 Output Total Balance 3050 Intake, IV 3050 Patient 145 lb Weight Physical Exam: General - alert & oriented x 3. comfortable. no acute distress. Skin - warm, dry, and smooth. no rashes noted. Lungs - clear Cardiac - s1s2. reg. Abdomen - distended. few bowel sounds appreciated. ileostomy moist & pink, with no output in bag. generalized discomfort, without acute / localized findings. Extremities - warm bilaterally. Last 24 Hours of Labs: Laboratory Tests 03/15 1130 Chemistry Sodium (137 - 145 mmol/L) 138 Potassium (3.5 - 5.1 mmol/L) 4.2 Chloride (98 - 107 mmol/L) 101 Carbon Dioxide (22 - 30 mmol/L) 22 Anion Gap (5 - 16) 15 BUN (7 - 17 mg/dL) 22 H Creatinine (0.5 - 1.0 mg/dL) 2.0 H Estimated GFR (>60 ml/min) 25 L BUN/Creatinine Ratio (7 - 25 %) 11.0 Glucose (65 - 99 mg/dL) 99 Lactic Acid (0.7 - 2.1 mmol/L) 0.9 Calcium (8.4 - 10.2 mg/dL) 9.7 Total Bilirubin (0.2 - 1.3 mg/dL) 0.9 AST (14 - 36 U/L) 28 ALT (9 - 52 U/L) 42 Alkaline Phosphatase (<127 U/L) 115 Troponin I (< 0.11 ng/ml) < 0.01 Total Protein (6.3 - 8.2 g/dL) 7.1 Albumin (3.5 - 5.0 g/dL) 4.3 Globulin (1.9 - 4.2 gm/dL) 2.8 Albumin/Globulin Ratio (1.1 - 2.2 %) 1.5 Hematology CBC w Diff NO MAN DIFF REQ WBC (4.8 - 10.8 /CUMM) 8.9 RBC (4.20 - 5.40 /CUMM) 3.67 L Hgb (12.0 - 16.0 G/DL) 11.2 L Hct (37 - 47 %) 32.9 L MCV (81.0 - 99.0 FL) 89.6 MCH (27.0 - 31.0 PG) 30.6 RDW (11.5 - 14.5 %) 14.5 Plt Count (130 - 400 /CUMM) 249 MPV (7.4 - 10.4 FL) 7.0 L Gran % (42.2 - 75.2 %) 79.3 H Lymphocytes % (20.5 - 51.1 %) 13.0 L Monocytes % (1.7 - 9.3 %) 5.6 Eosinophils % (0 - 5 %) 1.3 Basophils % (0.0 - 2.0 %) 0.8 Absolute Granulocytes (1.4 - 6.5 /CUMM) 7.1 H Absolute Lymphocytes (1.2 - 3.4 /CUMM) 1.2 Absolute Monocytes (0.10 - 0.60 /CUMM) 0.5 Absolute Eosinophils (0.0 - 0.7 /CUMM) 0.1 Absolute Basophils (0.0 - 0.2 /CUMM) 0.1 PUBS MCHC (33.0 - 37.0 G/DL) 34.2 Imaging Results: EXAM TYPE: CAT - CT ABD & PELVIS W/O IV CONTRAS EXAMINATION: CT ABDOMEN AND PELVIS WITHOUT CONTRAST CLINICAL INFORMATION: Rule out small bowel obstruction with no output into ileostomy/ COMPARISON: CT abdomen and pelvis dated 02/28/2016, 12/28/2015, 12/19/2015, 11/10/2015, 08/22/2015, 06/02/2015, 04/02/2015, 04/04/2015, 12/22/2014, 09/06/2014, 08/01/2014, and others. TECHNIQUE: Multidetector volumetric imaging was performed from the superior aspect of the liver through the pubic symphysis. Sagittal and coronal reformatted images were obtained on the technologist's workstation. DLP: 339.53 mGy-cm FINDINGS: LUNG BASES: The visualized lung bases are unremarkable. LIVER, GALLBLADDER, AND BILIARY TREE: Ascites has increased around the liver since the prior study. The liver is normal in size, shape, and attenuation. No focal hepatic lesion or biliary ductal dilatation is present. Patient is status post cholecystectomy and air is noted in the biliary tree. Small 1 cm hypodensity in the right lobe of the liver, unchanged. PANCREAS: Unremarkable. SPLEEN: Unremarkable. Peripheral wedge-shaped hypodensity, unchanged. ADRENAL GLANDS: Unremarkable. KIDNEYS AND URETERS: The kidneys are normal in size, shape, and attenuation. No hydronephrosis, hydroureter, or calculi seen. No perinephric stranding. BLADDER: The bladder is almost empty. GASTROINTESTINAL TRACT: Since the prior study, there has developed some dilatation of small bowel with air within it. Loops have gone from 2.6 cm in diameter to 4.2 cm in diameter. The loop that exits into the ostomy has gone from 1.5 cm to 2.9 cm. ABDOMINAL WALL: No significant hernia is appreciated. A loop of decompressed colon appears to be adhered to the anterior abdominal wall with associated thickening. Appearances are unchanged since the previous study. LYMPH NODES: Normal. VASCULAR: Aortoiliac calcifications. PELVIC VISCERA: The patient is apparently status post hysterectomy. Once again seen is a right adnexal mass extending from the right of the vagina measuring about 3 cm, and appears unchanged. Air as well as an area of calcification is noted in the vagina. OSSEOUS STRUCTURES: Mild degenerative changes lower thoracic spine. IMPRESSION: 1. Increased small bowel obstruction since the previous study as described above. 2. Slight increase in ascitic fluid around the liver. 3. Other findings as described above. DICTATED BY: ABUNDIO ROSAS MD DATE/TIME DICTATED:03/15/161236 COLOR MAKER:SHENA DATE/TIME TRANSCRIBED:03/15/161236 Assessment/Plan Assessment/Plan This 65 year old white female with known history of ovarian carcinomatosis, hx recurrent sbos, recent open lysis of adhesions with creation ileostomy, presents with abdominal pain, lack of ileostomy output, and CT scan findings suggesting sbo, also with evidence of acute kidney injury keep npo / ivf may consider ng tube if she becomes nauseous / vomits aspiration precautions I attempted to probe her ileostomy with my finger, but I did not appreciate any obstruction underneath the stoma within reach rehydration for acute kidney injury pain control as needed hold imodium and metamucil primary management by medical team no plans for surgical intervention will d/w Consult Acknowledgment - Thank you for your consult request. ALEXUS GONZALEZ MD 03/16/16 1249: Assessment/Plan Consult Acknowledgment - Thank you for your consult request. Attending MD Review Statement Attending Statement Attending MD Statement: discuss w/resident/PA/SAS BI DEVELOPER, reviewed images Attending Assessment/Plan: Unfortunate woman with ovarian carcinomatosis and repeated small bowel obstructions related to it. Now presents with recurrent obstruction after recent laparotomy, bowel resection and ileostomy. Medical management. Repeat surgery would be frought with disaster due to hostile abdomen from malignant disease and multiple operations.
--- NOTE | 2016-03-15 16:19 | NUR ---
bed assignment [id number]
--- NOTE | 2016-03-15 17:07 | NUR ---
REPORT GIVEN TO BERTIN BRADLEY
--- NOTE | 2016-03-15 17:33 | NUR ---
MESSAGE LEFT WITH TRANSPORT
[2016-03-15 17:48] VITALS: BP 122/70
--- NOTE | 2016-03-15 18:09 | Admission Certification ---
Admission Certification Certification Statement - As attending physician, I certify that at the time of - admission, based on clinical presentation, severity of - symptoms, need for further diagnostic testing and - therapeutic interventions, and risk of adverse outcomes - without in-hospital treatment, in my clinical assessment, - this patient requires an acute hospital stay for a minimum - of two nights or longer. I have also considered psychsocial - factors such as support system, advanced age, financial - issues, cognitive issues, and failed out-patient treatments, - past re-admission history, safety of patient, and lack of - compliance as applicable. Specific rationale supporting this admission is: DIPIKA and Small bowel obstruction- partial
[2016-03-15 23:30] VITALS: BP 115/67
--- NOTE | 2016-03-16 07:47 | PN- Housestaff ---
See Addendum Subjective Follow-up For: Recurrent SBO Carcinomatosis with ovarian CA Colon cancer S/P resection Subjective: Patient seen and examined at bedside this AM. She continues to endorse severe abdominal pain with persistent nausea. She subsequently had a large episode of feculant vomitus requiring surgical PA to place NGT. Chest and abdominal Xray will be ordered to follow up placement. Review of Systems Constitutional: Reports: malaise. Denies: diaphoresis, fever. EENTM: Denies: hearing changes, nasal congestion, throat pain. Cardiovascular: Denies: chest pain, palpitations. Respiratory: Denies: cough, short of breath. Gastrointestinal: Reports: abdominal pain, bloating, constipation, distention, nausea, vomiting. Denies: diarrhea. Genitourinary: Denies: dysuria. Musculoskeletal: Denies: back pain. Skin: Denies: lesions, rash. Neurological/Psychological: Denies: confusion, numbness. Hematologic/Endocrine: Denies: bruising. Immunologic/Allergic: Denies: splenectomy. Objective Last 24 Hrs of Vital Signs/I&O Vital Signs Date Time Temp Pulse Resp B/P Pulse O2 O2 Flow FiO2 Ox Delivery Rate 03/15 2330 97.8 83 20 115/67 96 Room Air 03/15 1748 97.6 79 18 122/70 95 Room Air 03/15 1523 98.1 76 16 120/64 96 Room Air 03/15 1301 96.8 96 16 122/62 96 Room Air 03/15 1029 97.0 92 16 100/66 95 Room Air Intake & Output 03/16 1600 03/16 0800 03/16 0000 Intake Total 600 600 Output Total 350 400 Balance 250 200 Intake, IV 600 600 Output, Urine 350 400 Patient 145 lb Weight Physical Exam General Appearance: Alert, Oriented X3, Cooperative, Mild Distress Skin: No Rashes, No Significant Lesion, Area around ileostomy clean, dry without signs of erythema HEENT: Atraumatic, PERRLA Neck: Supple Cardiovascular: Regular Rate, Normal S1, Normal S2 Lungs: Clear to Auscultation, Normal Air Movement Abdomen: Generalized tenderness on palpation, mildly distended, decreased bowel sounds x 4 quadrants, no noted ostomy output Neurological: Normal Speech, Normal Tone Extremities: No Clubbing, No Cyanosis, Mild edema of bilateral LE, R>L Vascular: Pulses Symmetrical Current Medications: Current Medications Sig/Terese Start time Last Medication Dose Route Stop Time Status Admin Acetaminophen 1,000 MG Q6P PRN 03/15 1715 AC N/A 1 UNIT IV Amlodipine Besylate 5 MG DAILY 03/16 1000 CAN PO Dextrose/Sodium 1,000 ML Q13H 03/15 1530 AC 03/16 Chloride IV 0611 Heparin Sodium 5,000 UNIT Q8 03/15 2200 AC 03/16 (Porcine) SC 0613 Hydromorphone HCl 1 MG Q6P PRN 03/15 1715 AC 03/16 IV 0723 Hydromorphone HCl 1 MG ONCE ONE 03/15 1545 DC 03/15 IV 03/15 1546 1540 Hydromorphone HCl 0 .STK-MED ONE 03/15 1536 DC .ROUTE Hydromorphone HCl 1 MG ONCE ONE 03/15 1215 DC 03/15 IV 03/15 1216 1231 Hydromorphone HCl 0 .STK-MED ONE 03/15 1212 DC .ROUTE Morphine Sulfate 2 MG Q6P PRN 03/15 1715 AC 03/15 IV 2120 Nicotine 14 MG DAILY 03/16 1000 CAN TOP Ondansetron HCl 4 MG Q6P PRN 03/15 1715 AC 03/16 IV 0730 Pantoprazole Sodium 40 MG DAILY 03/16 1000 AC IV Promethazine HCl 12.5 MG ONCE ONE 03/15 1215 DC 03/15 IV 03/15 1216 1231 Promethazine HCl 0 .STK-MED ONE 03/15 1211 DC .ROUTE Sodium Chloride 1,000 ML BOLUS ONE 03/15 1430 DC 03/15 IV 03/15 1529 1436 Sodium Chloride 1,000 ML BOLUS ONE 03/15 1330 DC 08 IV 03/15 1429 1321 Sodium Chloride 1,000 ML BOLUS ONE 03/15 1215 DC /08 IV 03/15 1314 1231 Last 24 Hrs of Lab/Jamarcus Results Last 24 Hrs of Labs/Mics: Laboratory Tests 03/16/16 0615: Sodium Pending, Potassium Pending, Chloride Pending, Carbon Dioxide Pending, Anion Gap Pending, BUN Pending, Creatinine Pending, BUN/Creatinine Ratio Pending , CBC w Diff Pending, WBC Pending, RBC Pending, Hgb Pending, Hct Pending, MCV Pending, MCH Pending, RDW Pending, Plt Count Pending, MPV Pending, PUBS MCHC Pending 03/15/16 1130: Anion Gap 15, Estimated GFR 25 L, BUN/Creatinine Ratio 11.0, Glucose 99, Lactic Acid 0.9, Calcium 9.7, Total Bilirubin 0.9, AST 28, ALT 42, Alkaline Phosphatase 115, Troponin I < 0.01, Total Protein 7.1, Albumin 4.3, Globulin 2.8, Albumin/ Globulin Ratio 1.5, CBC w Diff NO MAN DIFF REQ, RBC 3.67 L, MCV 89.6, MCH 30.6, RDW 14.5, MPV 7.0 L, Gran % 79.3 H, Lymphocytes % 13.0 L, Monocytes % 5.6, Eosinophils % 1.3, Basophils % 0.8, Absolute Granulocytes 7.1 H, Absolute Lymphocytes 1.2, Absolute Monocytes 0.5, Absolute Eosinophils 0.1, Absolute Basophils 0.1, PUBS MCHC 34.2 Orders Miscellaneous Findings: EXAMINATION: CT ABDOMEN AND PELVIS WITHOUT CONTRAST CLINICAL INFORMATION: Rule out small bowel obstruction with no output into ileostomy/ COMPARISON: CT abdomen and pelvis dated 02/28/2016, 12/28/2015, 12/19/2015, 11/10/2015, 08/22/2015, 06/02/2015, 04/02/2015, 04/04/2015, 12/22/2014, 09/06/2014, 08/01/2014, and others. TECHNIQUE: Multidetector volumetric imaging was performed from the superior aspect of the liver through the pubic symphysis. Sagittal and coronal reformatted images were obtained on the technologist's workstation. DLP: 339.53 mGy-cm FINDINGS: LUNG BASES: The visualized lung bases are unremarkable. LIVER, GALLBLADDER, AND BILIARY TREE: Ascites has increased around the liver since the prior study. The liver is normal in size, shape, and attenuation. No focal hepatic lesion or biliary ductal dilatation is present. Patient is status post cholecystectomy and air is noted in the biliary tree. Small 1 cm hypodensity in the right lobe of the liver, unchanged. PANCREAS: Unremarkable. SPLEEN: Unremarkable. Peripheral wedge-shaped hypodensity, unchanged. ADRENAL GLANDS: Unremarkable. KIDNEYS AND URETERS: The kidneys are normal in size, shape, and attenuation. No hydronephrosis, hydroureter, or calculi seen. No perinephric stranding. BLADDER: The bladder is almost empty. GASTROINTESTINAL TRACT: Since the prior study, there has developed some dilatation of small bowel with air within it. Loops have gone from 2.6 cm in diameter to 4.2 cm in diameter. The loop that exits into the ostomy has gone from 1.5 cm to 2.9 cm. ABDOMINAL WALL: No significant hernia is appreciated. A loop of decompressed colon appears to be adhered to the anterior abdominal wall with associated thickening. Appearances are unchanged since the previous study. LYMPH NODES: Normal. VASCULAR: Aortoiliac calcifications. PELVIC VISCERA: The patient is apparently status post hysterectomy. Once again seen is a right adnexal mass extending from the right of the vagina measuring about 3 cm, and appears unchanged. Air as well as an area of calcification is noted in the vagina. OSSEOUS STRUCTURES: Mild degenerative changes lower thoracic spine. IMPRESSION: 1. Increased small bowel obstruction since the previous study as described above. 2. Slight increase in ascitic fluid around the liver. Assessment/Plan Assessment: Ms. Elmore is a pleasant 65 year old female with significant PMH of tobacco abuse (>40 pack year history), recurrent small bowel obstruction, hypertension, hyperlipidemia, depression, ovarian carcinoma with carcinomatosis s/p hysterectomy and bilateral salpingo-oophorectomy, colon cancer s/p colostomy and then reversal and small bowel obstruction s/p small bowel resection with ileostomy who presented with a one day history of abdominal pain, nausea with one episode of brown vomitus, no ostomy output and decreased oral intake. In the ED: Vital signs showed T 97.0, HR 92, RR 16, BP 100/66 and O2 saturation of 95% on RA. Labs showed WBC 8.9, H&H 11.2/32.9, Plt 249, and BEP significant for elevated BUN/cre to 22/2.0 (baseline cre about 0.8). Troponin <0.01. EKG was done and showed NSR with HR 90, no change from prior EKG. Abdominal/ pelvis CT showed increasing small bowel obstruction from prior study (last admission for SBO on 12/28/15), slight increase in ascitic fluid around the liver and right adnexal mass. Patient is admitted to the general medicine floor and the following is the management: 1. Small bowel obstruction * Patient has history of recurrent small bowel obstructions, last noted on 12/27 * Patient will be admitted to the general medicine floor and kept NPO * No signs of lactic acidosis * Surgery suggested continuing NPO, IVF, aspiration precautions and have placed an NGT this AM due to noted vomiting earlier this AM * F/U post NGT placement XRay of chest and abdomen * Monitor NGT output closely * Hold metamucil and immodium * IV protonix 40 gm PO daily * IV zofran for nausea * Maitenance fluid with D51/2NS at 75 cc/h * Minimize narcotics, mild pain with IV tylenol, moderate pain with IV morphine and severe pain with IV dilaudid * Repeat abdominal Xray multiple views tomorrow to reevaluation for dilatation and obstruction 2. DIPIKA * Acute kidney injury with BUN/cre of 22/2 and baseline cre around 0.8-1.0 * Likely 2/2 dehydration in the setting of decreased PO intake * Patient received 1 L NS bolus in ED * Continue maitenance fluids with D51/2 NS * F/U BEP for today (results pending) * F/U UA 3. Tobacco abuse * Smoking cessation counseling done, patient has no desire to quit smoking * Nicotine patch ordered 4. HTN * Monitor vital signs Q shift * Amlodipine 5 mg PO discontinued as we do not want to drop patient's pressure in setting of SBO and NPO status 5. Ovarian carcinoma with carcinomatosis * Courtesy call to Dr. Barb gonsalves * He will follow up with patient after discharged for continued care FULL CODE DVTP: Heparin SC Mild-severe pain pathway NPO Problem List: 1. Small bowel obstruction 2. Ascites 3. Dehydration 4. DIPIKA (acute kidney injury) 5. Carcinomatosis 6. Ventral incisional hernia 7. Nausea and vomiting in adult 8. Abdominal pain 9. Hysterectomy 10. Hyperlipidemia 11. Depression Pain Ratin Pain Location: Generalized abdomen Pain Goal: Pain 7 or less Pain Plan: Mild pain with IV tylenol, moderate pain with IV morphine and severe pain with IV dilaudid. Tomorrow's Labs & Rationales: BEP (monitor renal function in setting of DIPIKA)
--- NOTE | 2016-03-16 07:51 | PN- General Surgery ---
See Addendum Subjective Subjective: Reports persistent abdominal discomfort and some nausea. The patient vomited 500 mls feculent smelling emesis during her abdominal exam. No output in bag. Objective Vital Signs and I&Os Vital Signs Date Time Temp Pulse Resp B/P Pulse O2 O2 Flow FiO2 Ox Delivery Rate 03/15 2330 97.8 83 20 115/67 96 Room Air 03/15 1748 97.6 79 18 122/70 95 Room Air 03/15 1523 98.1 76 16 120/64 96 Room Air 03/15 1301 96.8 96 16 122/62 96 Room Air 03/15 1029 97.0 92 16 100/66 95 Room Air Intake & Output 03/16 0800 03/16 0000 03/15 1600 03/15 0800 03/15 0000 03/14 1600 Intake Total 988 344 6110 Output Total 350 400 Balance 834 205 7805 Intake, IV 163 868 5571 Output, Urine 350 400 Patient 145 lb 145 lb Weight Physical Exam: General - alert. uncomfortable. no acute distress Abdomen - no bowel sounds appreciated. ng tube inserted after episode of emesis, with return of approximately 200 mls brownish fluid. she has diffuse discomfort and tenderness. no output in bag. Assessment/Plan Assessment/Plan This 65 year old white female with known history of ovarian carcinomatosis, hx recurrent sbos, recent open lysis of adhesions with creation ileostomy, admitted yesterday for nguyen and sbo keep npo / ivf ng tube inserted after she vomited during the abdominal exam check xray for placement and abdominal multiview pain control as needed f/u labs protonix - gi ppx hep sc - dvt ppx oob/ambulation will d/w
--- NOTE | 2016-03-16 08:00 | NUR ---
NURSING NOTE: PT VOMITIED 550ML OF THICK BROWN FLUID. JB [facility] #[id number] AND EDGAR JACKMAN AWARE. NGT PLACED BY EFRAIN JACKMAN AND 300 ML OUT. PT RESTING COMFORTABLY IN BED. WILL CONTINUE TO MONITOR.
[2016-03-16 08:20] LABS: ABSOLUTE BASOPHIL COUNT 0 /CUMM (0.0-0.2); ABSOLUTE EOSINOPHIL COUNT 0.1 /CUMM (0.0-0.7); ABSOLUTE GRANULOCYTE CT 6.4 /CUMM (1.4-6.5); ABSOLUTE LYMPH COUNT 1.2 /CUMM (1.2-3.4); ABSOLUTE MONOCYTE COUNT 0.6 /CUMM (0.10-0.60); BASOPHIL % 0.5 % (0.0-2.0); EOSINOPHIL % 0.9 % (0-5); HEMATOCRIT 29.9 % (37-47); MEAN CORPUSCULAR HGB CONC 34.4 G/DL (33.0-37.0); MEAN PLATELET VOLUME 8.1 FL (7.4-10.4); PLATELET COUNT 207 /CUMM (130-400); RBC DISTRIBUTION WIDTH 14.6 % (11.5-14.5); RED BLOOD CELL CT 3.32 /CUMM (4.20-5.40); WHITE BLOOD CELL COUNT 8.3 /CUMM (4.8-10.8)
[2016-03-16 08:42] VITALS: BP 120/60
--- NOTE | 2016-03-16 08:57 | RADIOLOGY REPORT ---
EXAMINATION: PORTABLE CHEST AND ABDOMEN 3 VIEWS CLINICAL INFORMATION: Assess an NG tube. Small bowel obstruction. COMPARISON: 01/07/[address] scan TECHNIQUE: Standard radiographs FINDINGS: Lungs are clear. Left-sided Port-A-Cath remains in place with its tip overlying the SVC. No free air. Heart and mediastinum normal. The NG tube tip overlies the esophagus just proximal to the GE junction. Clips consistent with previous surgery. Ostomy device on the left noted. Coarse high-density material left abdomen noted. When correlated to recent CT scan, this is related to possibly an enterolith noted near the bowel anastomosis. Small amount of pneumobilia suggested correlated to recent CT scan. There are no distended bowel loops are measurable on plain radiographs. IMPRESSION: Suboptimal NG tube placement as above. Reading called at approximately 8:55 AM on the date of exam. Probable enterolith left abdomen.
[2016-03-16 16:07] VITALS: BP 122/66
[2016-03-16 23:26] VITALS: BP 120/60
--- NOTE | 2016-03-17 00:28 | NUR ---
ALERT AND ORIENTED X 3. VITAL SIGNS STABLE. ON ROOM AIR NG TUBE TO LOW SUCTION. STOMA IS PINK AND INTACT MEDICATION GIVEN FOR PAIN. WILL CONTINUE TO MONITOR
--- NOTE | 2016-03-17 07:07 | PN- General Surgery ---
See Addendum Subjective Subjective: The patient was seen this morning. She reports that she still having consistent generalized crampy abdominal pain no better or worse than when she was first admitted. She denies any nausea/vomiting since the NG tube has been placed and reports that she still has no output from her ileostomy. She has no other complaints at the current time. Objective Vital Signs and I&Os Vital Signs Date Time Temp Pulse Resp B/P Pulse O2 O2 Flow FiO2 Ox Delivery Rate 03/16 2326 98.4 72 20 120/60 94 Room Air 03/16 1607 98.7 78 19 122/66 91 03/16 0842 97.7 78 20 120/60 95 Room Air Intake & Output 03/17 0000 03/16 1600 03/16 0800 03/16 0000 03/15 1600 Intake Total 100 30 523 916 2629 Output Total 655 876 4926 350 400 Balance 0 -200 -2020 159 572 9683 Intake, IV 774 932 8530 Intake, Oral 100 30 Output, 550 Emesis Output, 100 700 Gastric Drainage Output, Urine 200 800 350 400 Patient 145 lb 145 lb Weight Physical Exam: Gen.: Alert and in no obvious distress Skin: Warm and dry Abdomen: Softly distended, mild generalized tenderness which is more significant around the ileostomy. There is a palpable mass just superior to the ileostomy which is probably a stool ball. Bowel sounds are positive and there is no output from the ileostomy. Extremities: Bilateral lower extremities are warm without calf tenderness or significant edema. Assessment/Plan Assessment/Plan Assessment: 65-year-old female with a recurrent small bowel obstruction. The patient still exhibits signs of continuing obstruction and has had no output from her colostomy. Recommendations: Continue nothing by mouth and NG tube decompression Aggressive hydration PRN pain medication GI and DVT prophylaxis Possible need for manipulation of the ileostomy and will discuss with the surgical attending Continue care per primary team
--- NOTE | 2016-03-17 07:25 | PN- Housestaff ---
See Addendum Subjective Follow-up For: Recurrent SBO Carcinomatosis with ovarian CA Colon cancer S/P resection Subjective: Patient seen and examined at bedside this AM. SHe continues to endorse severe right sided abdominal pain and is requesting something in between dilaudid. We have discussed that tylenol would likely be the most beneficial and she is amenable to trying. SHe did note mild chest pain for which a troponin and EKG were ordered. Review of Systems Constitutional: Denies: chills, fever. EENTM: Denies: blurred vision, hearing changes. Cardiovascular: Reports: chest pain (Mild, /). Denies: palpitations, syncope. Respiratory: Denies: cough, short of breath. Gastrointestinal: Reports: abdominal pain, bloating, distention. Genitourinary: Denies: pain. Skin: Denies: lesions. Neurological/Psychological: Denies: anxiety. Objective Last 24 Hrs of Vital Signs/I&O Vital Signs Date Time Temp Pulse Resp B/P Pulse O2 O2 Flow FiO2 Ox Delivery Rate 03/17 0745 97.4 72 20 118/72 95 Room Air 03/16 2326 98.4 72 20 120/60 94 Room Air 03/16 1607 98.7 78 19 122/66 91 Intake & Output 03/17 1600 03/17 0800 03/17 0000 Intake Total 100 Output Total 100 200 Balance 0 -200 Intake, Oral 100 Output, 100 Gastric Drainage Output, Urine 200 Patient 145 lb Weight Physical Exam General Appearance: Alert, Oriented X3, Cooperative, Mild Distress Other Physical Findings: Skin: No Rashes, No Significant Lesion, Area around ileostomy clean, dry without signs of erythema HEENT: Atraumatic, PERRLA Neck: Supple Cardiovascular: Regular Rate, Normal S1, Normal S2 Lungs: Clear to Auscultation, Normal Air Movement Abdomen: Generalized tenderness on palpation, mildly distended, decreased bowel sounds x 4 quadrants, no noted ostomy output Neurological: Normal Speech, Normal Tone Extremities: No Clubbing, No Cyanosis, Mild edema of bilateral LE, R>L Vascular: Pulses Symmetrical Current Medications: Current Medications Sig/Terese Start time Last Medication Dose Route Stop Time Status Admin Acetaminophen 1,000 MG Q6P PRN 03/17 1145 AC N/A 1 UNIT IV Acetaminophen 1,000 MG Q6P PRN 03/15 1715 DC N/A 1 UNIT IV Dextrose/Sodium 1,000 ML Q13H 03/15 1530 DC 03/16 Chloride IV 0611 Heparin Sodium 5,000 UNIT Q8 03/15 2200 AC 03/17 (Porcine) SC 0604 Hydromorphone HCl 1 MG Q4-6 PRN PRN 03/16 1100 AC 03/17 IV 0917 Magnesium Sulfate 1 GM Q2H 03/17 1145 AC Dextrose/Water 100 ML IV 03/17 1544 Nicotine 14 MG DAILY 03/16 1000 AC TOP Ondansetron HCl 4 MG Q6P PRN 03/15 1715 AC 03/17 IV 0917 Pantoprazole Sodium 40 MG DAILY 03/16 1000 AC 03/17 IV 0917 Phenol 2 SPRAY Q2P PRN 03/17 0530 AC 03/17 EXT 0604 Potassium Chloride 40 MEQ Q13H 03/16 1345 AC 03/17 Dextrose/Sodium 1,000 ML IV 0604 Chloride Last 24 Hrs of Lab/Jamarcus Results Last 24 Hrs of Labs/Mics: Laboratory Tests 03/17/16 1205: Troponin I Pending 03/17/16 0615: Anion Gap 7, Estimated GFR > 60, BUN/Creatinine Ratio 14.3, Magnesium 1.3 L 03/16/16 1256: Urine Color TINO, Urine Clarity CLEAR, Urine pH 6.0, Ur Specific [place] 1.025, Urine Protein NEG, Urine Ketones NEG, Urine Nitrite NEG, Urine Bilirubin NEG, Urine Urobilinogen 0.2, Ur Leukocyte Esterase NEG, Ur Microscopic EXAM NOT REQUIRED, Urine Hemoglobin NEG, Urine Glucose NEG Assessment/Plan Assessment: Ms. Elmore is a pleasant 65 year old female with significant PMH of tobacco abuse (>40 pack year history), recurrent small bowel obstruction, hypertension, hyperlipidemia, depression, ovarian carcinoma with carcinomatosis s/p hysterectomy and bilateral salpingo-oophorectomy, colon cancer s/p colostomy and then reversal and small bowel obstruction s/p small bowel resection with ileostomy who presented with a one day history of abdominal pain, nausea with one episode of brown vomitus, no ostomy output and decreased oral intake. In the ED: Vital signs showed T 97.0, HR 92, RR 16, BP 100/66 and O2 saturation of 95% on RA. Labs showed WBC 8.9, H&H 11.2/32.9, Plt 249, and BEP significant for elevated BUN/cre to 22/2.0 (baseline cre about 0.8). Troponin <0.01. EKG was done and showed NSR with HR 90, no change from prior EKG. Abdominal/ pelvis CT showed increasing small bowel obstruction from prior study (last admission for SBO on 12/28/15), slight increase in ascitic fluid around the liver and right adnexal mass. Patient is admitted to the general medicine floor and the following is the management: 1. Small bowel obstruction * Patient has history of recurrent small bowel obstructions, last noted on 12/27 * Patient will be kept NPO pending surgical recommendations * No signs of lactic acidosis * Surgery suggested continuing IVF, aspiration precautions and NGT (wall suction ) * NGT output yesterday was 700 cc and overnight 100 cc * Hold metamucil and immodium * IV protonix 40 gm PO daily * IV zofran for nausea * Maitenance fluid with LCK 40 meq in D51/2NS at 75 cc/h * Minimize narcotics, moderate pain IV tylenol and severe pain with IV dilaudid * CT abdomen with gastrograffin down NGT this AM shows persistent SBO (this was done as a possible therapeutic "drain-O" to relieve obstruction as per Surgery) 2. DIPIKA * Acute kidney injury with BUN/cre of 22/2 and baseline cre around 0.8-1.0 * Likely 2/2 dehydration in the setting of decreased PO intake * Patient received 1 L NS bolus in ED * Continue maitenance fluids with KCL D51/2 NS at 75 cc/h * BEP today shows normalization of DIPIKA with BUN/cre of 10/0.7 * UA shows no acute abnormality 3. Tobacco abuse * Smoking cessation counseling done, patient has no desire to quit smoking * Nicotine patch ordered 4. HTN * Monitor vital signs Q shift * Amlodipine 5 mg PO discontinued as we do not want to drop patient's pressure in setting of SBO and NPO status 5. Ovarian carcinoma with carcinomatosis * Courtesy call to Dr. Barb gonsalves * He will follow up with patient after discharged for continued care 6. Hypomagnesemia * Mg noted to be low today to 1.3 * We have ordered 2 mg Mg sulfate * F/U repeat Mg tomorrow FULL CODE DVTP: Heparin SC Mild-severe pain pathway NPO Problem List: 1. Small bowel obstruction 2. Dilated bowel 3. Ascites 4. Dehydration 5. DIPIKA (acute kidney injury) 6. Ventral incisional hernia 7. Nausea and vomiting in adult 8. Abdominal pain Pain Ratin Pain Location: RLQ Pain Goal: Pain 7 or less (D) Pain Plan: Dilaudid and tylenol. Tomorrow's Labs & Rationales: Magnesium, CBC (drop in H&H), BEP (NPO, monitor K)
[2016-03-17 07:45] VITALS: BP 118/72
--- NOTE | 2016-03-17 12:14 | CT SCAN REPORT ---
EXAMINATION: CT ABDOMEN AND PELVIS WITH CONTRAST CLINICAL INFORMATION: Intractable abdominal pain. Small bowel obstruction. COMPARISON: CT abdomen and pelvis from 02/28/2016 at 03/15/2016. TECHNIQUE: Multidetector volumetric imaging was performed from the superior aspect of the liver through the pubic symphysis following administration of oral contrast. Sagittal and coronal reformatted images were obtained on the technologist's workstation. DLP: 360 mGy-cm FINDINGS: LUNG BASES: Mild atelectasis in dependent aspect of each lower lobe. No pericardial or pleural effusion. LIVER, GALLBLADDER, AND BILIARY TREE: Liver has normal size and contour. Previously noted hepatic cysts are unchanged. No evidence of a new hepatic lesion or intrahepatic bile duct dilatation. Gallbladder is surgically absent and minimal pneumobilia is noted. PANCREAS: Unremarkable. SPLEEN: Again noted is a somewhat wedge-shaped hypodense subcapsular defect of the posterior spleen, compatible with prior infarction. ADRENAL GLANDS: Unremarkable. KIDNEYS AND URETERS: The kidneys are normal in size, shape, and attenuation. No hydronephrosis, hydroureter, or calculi seen. No perinephric stranding. BLADDER: Urinary bladder is underdistended. The anterior bladder dome appears tethered to the lower abdominal wall by midline scar and/or urachal remnant. GASTROINTESTINAL TRACT AND PERITONEAL CAVITY: Stomach is moderately distended with enteric contrast. The tip of the enteric tube terminates in the region of the proximal gastric body. Small bowel remains obstructed and is dilated up to 3.8 cm. The degree of small bowel distention remains similar compared to 03/15/2016. Enteric contrast is present within the jejunum at the time of imaging. Fluid-filled, mildly dilated small bowel without contrast is present within the right right lower abdomen and pelvis, as well, and there is a region of fecalization of small bowel deep to the left lower abdominal wall. This appears to be the region of transition from dilated to nondilated small bowel. Suture material from prior bowel resection/anastomosis is present in this area. There is no evidence of an obstructing mass. The small bowel ostomy is again seen within the left lower abdominal wall. No evidence of pneumatosis intestinalis or pneumoperitoneum. There are surgical changes from partial colectomy. A moderate amount of ascitic fluid is present within the upper abdomen. There is a small amount of interloop fluid and edema of the mesentery. ABDOMINAL WALL: No acute findings in the abdominal wall. There is a midline scar tissue of the abdominal wall. Also, there is stable appearance of a relatively shallow fat-containing hernia in the midline of the upper abdominal wall. LYMPH NODES: No pathologic sized lymph nodes within the abdomen or pelvis. VASCULAR: There is atherosclerotic calcification of the abdominal aorta and branch vessels. PELVIC VISCERA: Status post hysterectomy. A smoothly marginated 3 x 3.5 cm mass at the level of the right vaginal cuff is unchanged. Edema is seen in the presacral region. OSSEOUS STRUCTURES: No suspicious osseous lesions. IMPRESSION: Persistent small bowel obstruction, similar compared to 03/15/2016, and probably caused by an adhesion affecting bowel in the left lower pelvis. No interval development of pneumatosis intestinalis or pneumoperitoneum. Moderate volume of ascitic fluid is present in the abdomen, increased compared to 03/15/2016.
--- NOTE | 2016-03-17 13:04 | PN- General Surgery ---
Surgical Brief Attending Note Brief Attending Note: CT reviewed. Continue observation with ng decompression. Hopefully contrast will aid in relief of obstruction. May take 24 hours.
[2016-03-17 23:38] VITALS: BP 120/46
[2016-03-18 07:10] VITALS: BP 132/78
--- NOTE | 2016-03-18 07:45 | PN- General Surgery ---
See Addendum Subjective Subjective: HD #3 with recurrent SBO. Still no gas or stool in ileostomy bag. Denies nausea or vomiting. No CP/SOB, F/C. Ambulating well, voiding spontaneously. NGT remains to continuous low wall suction. Objective Vital Signs and I&Os Vital Signs Date Time Temp Pulse Resp B/P Pulse O2 O2 Flow FiO2 Ox Delivery Rate 03/18 0710 98.0 63 18 132/78 93 Room Air 03/17 2338 98.1 63 19 120/46 94 Room Air 03/17 0745 97.4 72 20 118/72 95 Room Air Intake & Output 03/18 0800 03/18 0000 03/17 1600 03/17 0800 03/17 0000 03/16 1600 Intake Total 336 171 3592 100 30 Output Total 487 569 5299 790 925 9477 Balance -20 -150 250 0 -200 -2020 Intake, IV 600 375 600 Intake, Oral 0 0 100 30 Intake, Other 1000 Output, 550 Emesis Output, 300 150 950 100 700 Gastric Drainage Output, Stool 20 0 0 Output, Urine 300 375 400 200 800 Patient 145 lb Weight Physical Exam: Gen: AAOx3 in NAD Cor: S1+S2+ Lungs: CTA bernardo Abd: soft, mildly distended, tender to deep palpation across upper abdomen, ileostomy stoma pink, viable, clear mucus in ileostomy bag. Ext: no edema or calf tenderness to bernardo lower extremities. Current Medications: Current Medications Sig/Terese Start time Last Medication Dose Route Stop Time Status Admin Acetaminophen 1,000 MG Q6P PRN 03/17 1145 AC 03/18 N/A 1 UNIT IV 0726 Acetaminophen 1,000 MG Q6P PRN 03/15 1715 DC N/A 1 UNIT IV Diphenhydramine HCl 25 MG DAILY NEEDED PRN 03/17 1330 AC 03/17 IV 1328 Heparin Sodium 5,000 UNIT Q8 03/15 2200 AC 03/18 (Porcine) SC 0516 Hydromorphone HCl 1 MG Q4-6 PRN PRN 03/16 1100 AC 03/18 IV 0516 Magnesium Sulfate 1 GM Q2H 03/17 1145 DC 03/17 Dextrose/Water 100 ML IV 03/17 1544 1449 Nicotine 14 MG DAILY 03/16 1000 AC TOP Ondansetron HCl 4 MG Q6P PRN 03/15 1715 AC 03/17 IV 2358 Pantoprazole Sodium 40 MG DAILY 03/16 1000 AC 03/17 IV 0917 Patient Medication 1 ED ONE ONE 03/17 1330 DC 03/17 Teaching ED 03/17 1331 1829 Phenol 2 SPRAY Q2P PRN 03/17 0530 AC 03/17 EXT 0604 Potassium Chloride 40 MEQ Q13H 03/16 1345 AC 03/17 Dextrose/Sodium 1,000 ML IV 2344 Chloride Results Last 48 Hours of Labs: Laboratory Tests 03/18 03/17 03/17 0613 1205 0615 Chemistry Sodium (137 - 145 mmol/L) Pending 141 Potassium (3.5 - 5.1 mmol/L) Pending 4.2 Chloride (98 - 107 mmol/L) Pending 110 H Carbon Dioxide (22 - 30 mmol/L) Pending 24 Anion Gap (5 - 16) Pending 7 BUN (7 - 17 mg/dL) Pending 10 Creatinine (0.5 - 1.0 mg/dL) Pending 0.7 Estimated GFR (>60 ml/min) > 60 BUN/Creatinine Ratio (7 - 25 %) Pending 14.3 Magnesium (1.6 - 2.3 mg/dL) Pending 1.3 L Troponin I (< 0.11 ng/ml) < 0.01 Albumin (3.5 - 5.0 g/dL) 3.6 Hematology CBC w Diff Pending WBC Pending RBC Pending Hgb Pending Hct Pending MCV Pending MCH Pending RDW Pending Plt Count Pending MPV Pending PUBS MCHC Pending 03/16 1256 Urines Urine Color (YEL,AMB,STR) TINO Urine Clarity (CLEAR) CLEAR Urine pH (5.0 - 8.0) 6.0 Ur Specific [place] (1.001 - 1.035) 1.025 Urine Protein (NEG,<30 MG/DL) NEG Urine Ketones (NEG) NEG Urine Nitrite (NEG) NEG Urine Bilirubin (NEG) NEG Urine Urobilinogen (0.1 - 1.0 EU/dl) 0.2 Ur Leukocyte Esterase (NEG) NEG Ur Microscopic EXAM NOT REQUIRED Urine Hemoglobin (NEG) NEG Urine Glucose (N MG/DL) NEG Assessment/Plan Assessment/Plan A: HD #3 with recurrent SBO in setting of ovarian carcinomatosis; AVSS. NGT remains on CLWS. Plan: Continue conservative management of SBO with NGT. OOB and ambulate as tolerated. Pain control with IV Tylenol, minimizing use of narcotics. Core Measures/Miscellaneous Venous Thromboembolism VTE Risk Factors: Age > 40, Cancer/chemo/oth therapy VTE Contraindications: No Contraindications VTE Prophylaxis Ordered Inpt Pharm- Heparin VTE Diagnosis: No VTE Type: NONE VTE Confirmed by (Test): NONE Beta Felix Is Beta Felix a Home Med? No Antibiotics Is Patient on Antibiotics? No
[2016-03-18 08:26] LABS: ABSOLUTE BASOPHIL COUNT 0.1 /CUMM (0.0-0.2); ABSOLUTE EOSINOPHIL COUNT 0.1 /CUMM (0.0-0.7); ABSOLUTE LYMPH COUNT 0.9 /CUMM (1.2-3.4); ABSOLUTE MONOCYTE COUNT 0.3 /CUMM (0.10-0.60); BASOPHIL % 0.9 % (0.0-2.0); EOSINOPHIL % 1.8 % (0-5); GRANULOCYTE % 77.5 % (42.2-75.2); HEMATOCRIT 29.7 % (37-47); MEAN CORPUSCULAR HGB 30.6 PG (27.0-31.0); MEAN CORPUSCULAR HGB CONC 33.7 G/DL (33.0-37.0); MEAN PLATELET VOLUME 8.5 FL (7.4-10.4); PLATELET COUNT 193 /CUMM (130-400); RBC DISTRIBUTION WIDTH 14.9 % (11.5-14.5); RED BLOOD CELL CT 3.26 /CUMM (4.20-5.40); WHITE BLOOD CELL COUNT 6.5 /CUMM (4.8-10.8)
--- NOTE | 2016-03-18 09:36 | NUR ---
NURSING NOTE: PT AMBULATED IN HALLWAY, NGT CLAMPT FOR AMBULATION, C/P NAUSEA AFTER AMBULATION; ZOFRAN GIVEN, SEE EMAR.
--- NOTE | 2016-03-18 13:39 | PN- Housestaff ---
Subjective Follow-up For: Recurrent SBO Carcinomatosis with a running carcinoma Colon cancer status post resection Subjective: Patient is seen and examined bedside. Patient endorses some nausea and states that Zofran seems to help. She does not on dose any other acute complaints including abdominal pain, chest pain, back pain, congestion, fever, vomiting or dysuria. No Acute overnight event reported by nursing staff Review of Systems Constitutional: Reports: see HPI. Objective Last 24 Hrs of Vital Signs/I&O Vital Signs Date Time Temp Pulse Resp B/P Pulse O2 O2 Flow FiO2 Ox Delivery Rate 03/18 1436 98.0 80 20 124/78 97 Room Air 03/18 0710 98.0 63 18 132/78 93 Room Air 03/17 2338 98.1 63 19 120/46 94 Room Air Intake & Output 03/18 1600 03/18 0800 03/18 0000 Intake Total 600 600 375 Output Total 675 620 525 Balance -75 -20 -150 Intake, IV 600 600 375 Intake, Oral 0 0 0 Number 0 Bowel Movements Output, 200 300 150 Gastric Drainage Output, Stool 25 20 0 Output, Urine 450 300 375 Physical Exam General Appearance: Alert, Oriented X3, Cooperative Other Physical Findings: Skin: No Rashes, No Significant Lesion, Area around ileostomy clean, dry without signs of erythema HEENT: Atraumatic, PERRLA Neck: Supple Cardiovascular: Regular Rate, Normal S1, Normal S2 Lungs: Clear to Auscultation, Normal Air Movement Abdomen: Generalized tenderness on palpation, mildly distended, decreased bowel sounds x 4 quadrants, no noted ostomy output Neurological: Normal Speech, Normal Tone Extremities: No Clubbing, No Cyanosis, Mild edema of bilateral LE, R>L Vascular: Pulses Symmetrical Assessment/Plan Assessment: Ms. Elmore is a pleasant 65 year old female with significant PMH of tobacco abuse (>40 pack year history), recurrent small bowel obstruction, hypertension, hyperlipidemia, depression, ovarian carcinoma with carcinomatosis s/p hysterectomy and bilateral salpingo-oophorectomy, colon cancer s/p colostomy and then reversal and small bowel obstruction s/p small bowel resection with ileostomy who presented with a one day history of abdominal pain, nausea with one episode of brown vomitus, no ostomy output and decreased oral intake. Patient is admitted to the general medicine floor and the following is the management: 1. Small bowel obstruction * Patient has history of recurrent small bowel obstructions, last noted on 12/27 * Patient will be kept NPO pending surgical recommendations * No signs of lactic acidosis * Surgery suggested continuing IVF, aspiration precautions and NGT (wall suction ) * NGT output today 500cc * Hold metamucil and immodium * IV protonix 40 gm PO daily * IV zofran for nausea * Maitenance fluid with LCK 40 meq in D51/2NS at 75 cc/h * Minimize narcotics, moderate pain IV tylenol and severe pain with IV dilaudid * Switch Zofran to every 4-6 hours as needed for nausea and vomiting 2. DIPIKA * Resolving most likely secondary to hypovolemia 3. Tobacco abuse * Smoking cessation counseling done, patient has no desire to quit smoking * Nicotine patch ordered 4. HTN * Monitor vital signs Q shift * Amlodipine 5 mg PO discontinued as we do not want to drop patient's pressure in setting of SBO and NPO status 5. Ovarian carcinoma with carcinomatosis * Courtesy call to Dr. Barb gonsalves * He will follow up with patient after discharged for continued care 6. Hypomagnesemia * Replenish magnesium with 1 g today * F/U repeat Mg tomorrow FULL CODE DVTP: Heparin SC Mild-severe pain pathway NPO Problem List: 1. Small bowel obstruction Pain Ratin Pain Location: Abdominal Pain Goal: Pain 4 or less Pain Plan: APAP for mild pain Hydromorphone for moderate to severe Tomorrow's Labs & Rationales: BEP Magnesium
[2016-03-18 14:36] VITALS: BP 124/78
--- NOTE | 2016-03-18 15:54 | PN- Att Addend ---
Attending MD Review Statement Attending Statement Attending MD Statement: examined this patient, discuss w/resident/PA/CLOSING COORDINATOR, agreed w/resident/PA/CLOSING COORDINATOR, discussed with family, reviewed EMR data (avail) Attending Assessment/Plan: SBO likely secondary to adhesions- cont ot monitor closely. being f/u surgery and cont to be on NG tube with suction. not much ileostomy output. cont to have on and off pain. d/w pt the care plan. cont to replace electrolytes as need. given 2 gm iv magnesium sulphate. recheck labs in am.
[2016-03-19] VITALS: BP 128/68; BP 145/93
[2016-03-19 08:00] VITALS: BP 121/69
[2016-03-19 08:18] LABS: ABSOLUTE BASOPHIL COUNT 0 /CUMM (0.0-0.2); ABSOLUTE EOSINOPHIL COUNT 0.1 /CUMM (0.0-0.7); ABSOLUTE GRANULOCYTE CT 5.1 /CUMM (1.4-6.5); ABSOLUTE MONOCYTE COUNT 0.5 /CUMM (0.10-0.60); BASOPHIL % 0.4 % (0.0-2.0); EOSINOPHIL % 1.6 % (0-5); GRANULOCYTE % 75.8 % (42.2-75.2); HEMATOCRIT 31.1 % (37-47); MEAN CORPUSCULAR HGB 31.1 PG (27.0-31.0); MEAN CORPUSCULAR HGB CONC 34.2 G/DL (33.0-37.0); MEAN CORPUSCULAR VOLUME 90.9 FL (81.0-99.0); PLATELET COUNT 233 /CUMM (130-400); RBC DISTRIBUTION WIDTH 14.8 % (11.5-14.5); RED BLOOD CELL CT 3.43 /CUMM (4.20-5.40); WHITE BLOOD CELL COUNT 6.7 /CUMM (4.8-10.8)
--- NOTE | 2016-03-19 08:24 | PN- Housestaff ---
Subjective Follow-up For: SBO Complaints: pain scale (0-10) (09/14) Subjective: Pt still NPO, c/o abdominal pain 09/14, pt is tearful She changed ileostomy bag this morning, but output is small Review of Systems Constitutional: Denies: diaphoresis, fever, weakness. EENTM: Reports: no symptoms. Cardiovascular: Reports: no symptoms. Respiratory: Reports: no symptoms. Gastrointestinal: Reports: abdominal pain, bloating. Genitourinary: Reports: no symptoms. Musculoskeletal: Reports: no symptoms. Skin: Reports: no symptoms. Neurological/Psychological: Reports: depressed. Hematologic/Endocrine: Reports: no symptoms. Immunologic/Allergic: Reports: see HPI. Objective Last 24 Hrs of Vital Signs/I&O Vital Signs Date Time Temp Pulse Resp B/P Pulse O2 O2 Flow FiO2 Ox Delivery Rate 03/19 0000 98.5 64 19 145/93 96 Room Air 03/19 0000 98.4 62 19 128/68 98 Room Air 03/18 1436 98.0 80 20 124/78 97 Room Air Intake & Output 03/19 1600 03/19 0800 03/19 0000 Intake Total 600 0 Output Total 750 615 Balance -150 -615 Intake, IV 600 Intake, Oral 0 0 Output, 200 300 Gastric Drainage Output, Stool 0 15 Output, Urine 550 300 Physical Exam General Appearance: Alert, Oriented X3, Cooperative, Moderate Distress Skin: No Rashes, No Significant Lesion HEENT: Atraumatic, PERRLA, EOMI, Mucous Membr. moist/pink Neck: Supple, No JVD, No thryomegaly Cardiovascular: Regular Rate, Normal S1, Normal S2, No Murmurs Lungs: Clear to Auscultation Abdomen: tenderness + over 4 quadrant, decreased bowel sound Neurological: Normal Speech, Strength at 5/5 X4 Ext, Normal Tone, Cranial Nerves 3-12 NL Extremities: No Cyanosis, No Edema, Normal Pulses Vascular: Normal Pulses, Pulses Symmetrical Current Medications: Current Medications Sig/Terese Start time Last Medication Dose Route Stop Time Status Admin Acetaminophen 1,000 MG Q6P PRN 03/17 1145 AC 03/19 N/A 1 UNIT IV 0824 Diphenhydramine HCl 25 MG DAILY NEEDED PRN 03/17 1330 AC 03/18 IV 1339 Heparin Sodium 5,000 UNIT Q8 03/15 2200 AC 03/19 (Porcine) SC 0600 Hydromorphone HCl 1 MG Q4-6 PRN PRN 03/16 1100 AC 03/19 IV 0600 Magnesium Sulfate 1 GM Q2H 03/18 1100 DC 03/18 Dextrose/Water 100 ML IV 03/18 1459 1818 Nicotine 14 MG DAILY 03/16 1000 DC TOP Ondansetron HCl 4 MG Q4-6 PRN PRN 03/18 1330 AC 03/19 IV 0603 Ondansetron HCl 4 MG Q6P PRN 03/15 1715 DC 03/18 IV 0927 Pantoprazole Sodium 40 MG DAILY 03/16 1000 AC 03/19 IV 0820 Phenol 2 SPRAY Q2P PRN 03/17 0530 AC 03/17 EXT 0604 Potassium Chloride 40 MEQ Q13H 03/16 1345 AC 03/19 Dextrose/Sodium 1,000 ML IV 0820 Chloride Last 24 Hrs of Lab/Jamarcus Results Last 24 Hrs of Labs/Mics: Laboratory Tests 03/19/16 0656: Sodium Pending, Potassium Pending, Chloride Pending, Carbon Dioxide Pending, Anion Gap Pending, BUN Pending, Creatinine Pending, BUN/Creatinine Ratio Pending , Magnesium Pending, CBC w Diff Pending, WBC Pending, RBC Pending, Hgb Pending, Hct Pending, MCV Pending, MCH Pending, RDW Pending, Plt Count Pending, MPV Pending, PUBS MCHC Pending Orders Miscellaneous Findings: NG output 800, ileostomy output 60 net I/O - 700 in 24 hrs Lines/Diet/Fluids Fluids/Infusions: KCL 40meq D5W 1/2NS Catheters/Tubes: NG, ileostomy Lines: peripheral lines Assessment/Plan Assessment: Ms. Elmore is a pleasant 65 year old female with significant PMH of tobacco abuse (>40 pack year history), recurrent small bowel obstruction, hypertension, hyperlipidemia, depression, ovarian carcinoma with carcinomatosis s/p hysterectomy and bilateral salpingo-oophorectomy, colon cancer s/p colostomy and then reversal and small bowel obstruction s/p small bowel resection with ileostomy who presented with a one day history of abdominal pain, nausea with one episode of brown vomitus, no ostomy output and decreased oral intake. Patient is admitted to the general medicine floor and the following is the management: 1. Small bowel obstruction * Patient has history of recurrent small bowel obstructions, last noted on 12/27 * still NPO, c/o abdominal pain * Surgery suggested continuing IVF, aspiration precautions and NGT (wall suction ) * NGT output 24 hrs 800cc * Hold metamucil and immodium * IV protonix 40 gm PO daily * IV zofran for nausea * Maitenance fluid with LCK 40 meq in D51/2NS at 75 cc/h * Minimize narcotics, moderate pain IV tylenol and severe pain with IV dilaudid * Switch Zofran to every 4-6 hours as needed for nausea and vomiting 2. DIPIKA * Resolved 3. Tobacco abuse * Smoking cessation counseling done, patient declined nicotine patch 4. HTN * Monitor vital signs Q shift * Amlodipine 5 mg PO discontinued as we do not want to drop patient's pressure in setting of SBO and NPO status 5. Ovarian carcinoma with carcinomatosis * Pt wants to see Dr. Osborne in the hospial -> would communicate with the primary team * He will follow up with patient after discharged for continued care 6. Hypomagnesemia * Replenish magnesium with 1 g today * F/U repeat Mg tomorrow FULL CODE DVTP: Heparin SC Mild-severe pain pathway NPO Problem List: 1. Small bowel obstruction 2. Carcinomatosis Pain Ratin Pain Location: abdomen Pain Goal: Pain 4 or less Pain Plan: APAP for mild pain Hydromorphone for moderate to severe Tomorrow's Labs & Rationales: BEP, Mg: NPO on IV fluid, hypomagnesemia f/u Na, K, Mg DVT/Prophylaxis: pharmacological Discharge Plan Stable for Discharge? No
--- NOTE | 2016-03-19 09:29 | PN- General Surgery ---
Subjective Subjective: Pt is now HD #4 with recurrent sbo. NGT remains in place. She still c/o intermittent mild nausea, but mostly when ngt is not attached to suction. No emesis, but she does spit up frothy sputum when ngt is not attached. She is ambulating frequently. C/o mild RLQ and epigastric discomfort, unchanged from previous. Pt reports no ostomy function. Objective Vital Signs and I&Os Vital Signs Date Time Temp Pulse Resp B/P Pulse O2 O2 Flow FiO2 Ox Delivery Rate 03/19 799 98.0 64 20 121/69 97 Room Air Room Air 03/19 0000 98.5 64 19 145/93 96 Room Air 03/19 0000 98.4 62 19 128/68 98 Room Air 03/18 1436 98.0 80 20 124/78 97 Room Air Intake & Output 03/19 1600 03/19 0800 03/19 0000 03/18 1600 03/18 0700 03/18 0000 Intake Total 600 0 600 600 375 Output Total 750 615 675 620 525 Balance -150 -615 -75 -20 -150 Intake, IV 600 600 600 375 Intake, Oral 0 0 0 0 0 Number 0 Bowel Movements Output, 200 300 200 300 150 Gastric Drainage Output, Stool 0 15 25 20 0 Output, Urine 550 300 450 300 375 Physical Exam: General: Pt is awake and alert, NAD, but she is noted to be a bit uncomfortable. Abdomen: Still mildly distended in the epigastric area. There are various areas of firmness, most notably a large, intra-abdominal mass in the RLQ. No localized tenderness. +BS were heard. NGT in place and draining a moderate amount of bile. (about 200-300 per shift). Stoma is pink and viable. There is a small amount of mucopurulent drainage in the ostomy bag, but no air or stool noted. Assessment/Plan Assessment/Plan Pt is a 65 yo F with a hx of ovarian CA and carcinomatosis, s/p ileostomy 2015, now presents with recurrent SBO and DIPIKA, which has resolved. Plan: -Continue conservative management with npo/ngt to low wall suction. -IVF's for hydration. -Replete mag. Monitor renal function. -Continue to encourage ambulation. -No urgent surgical intervention indicated at this time. -Will d/w attending.
--- NOTE | 2016-03-19 16:31 | PN- Att Addend ---
Attending MD Review Statement Attending Statement Attending MD Statement: examined this patient, discuss w/resident/PA/OBIEE REPORT DEVELOPER, agreed w/resident/PA/OBIEE REPORT DEVELOPER, reviewed EMR data (avail), discussed w/nursing Attending Assessment/Plan: Laboratory Tests 03/19/16 0656: Anion Gap 8, Estimated GFR > 60, BUN/Creatinine Ratio 8.6, Magnesium 1.5 L, CBC w Diff NO MAN DIFF REQ, RBC 3.43 L, MCV 90.9, MCH 31.1 H, RDW 14.8 H, MPV 8.0 , Gran % 75.8 H, Lymphocytes % 14.7 L, Monocytes % 7.5, Eosinophils % 1.6, Basophils % 0.4, Absolute Granulocytes 5.1, Absolute Lymphocytes 1.0 L, Absolute Monocytes 0.5, Absolute Eosinophils 0.1, Absolute Basophils 0, PUBS MCHC 34.2 Vital Signs Date Time Temp Pulse Resp B/P Pulse O2 O2 Flow FiO2 Ox Delivery Rate 03/19 0800 98.0 64 20 121/69 97 Room Air Room Air 03/19 0000 98.5 64 19 145/93 96 Room Air 03/19 0000 98.4 62 19 128/68 98 Room Air A/p- SBO likely secondary to adhesions in pt with ovarian cancer and carcinomatosis with recent SBO requiring surgery and ileostomy- cont ot monitor closely. being f/u surgery and cont to be on NG tube with suction. not much ileostomy output. cont to have on and off pain. cont to replace electrolytes as need. replace magenesium and recheck in am. d/w pt the care plan.
[2016-03-19 17:12] VITALS: BP 130/72
--- NOTE | 2016-03-19 18:26 | PN- General Surgery ---
Subjective Subjective: Follow-up of small bowel obstruction, carcinomatosis She is ambulating with less pain than yesterday still mostly on the right side still has the NG tube no hiccups no belching no nausea pain is alleviated with analgesics overall it is not worse than yesterday still no flatus. Objective Vital Signs and I&Os I reviewed Vital Signs Date Time Temp Pulse Resp B/P Pulse O2 O2 Flow FiO2 Ox Delivery Rate 03/19 1712 97.9 69 20 130/72 97 03/19 0800 98.0 64 20 121/69 97 Room Air Room Air 03/19 0000 98.5 64 19 145/93 96 Room Air 03/19 0000 98.4 62 19 128/68 98 Room Air I reviewed Intake & Output 03/19 1600 03/19 0803/19 0000 03/18 1600 03/18 0803/18 0000 Intake Total 500 600 0 600 600 375 Output Total 850 750 615 675 620 525 Balance -350 -150 -615 -75 -20 -150 Intake, IV 500 600 600 600 375 Intake, Oral 0 0 0 0 0 0 Number 0 Bowel Movements Output, 100 200 300 200 300 150 Gastric Drainage Output, Stool 0 15 25 20 0 Output, Urine 750 550 300 450 300 375 Physical Exam: Constitutional: no acute distress no pain Eyes: sclera anicteric ENMT: moist mucous membranes Cardiovascular: S1-S2 no murmurs no peripheral edema Respiratory: clear to auscultation with normal respiratory effort and no intercostal retractions GI: abdomen soft slightly distended minimally tender in right side in general no rebound Extremities / lymphatics: Ambulating, free range of motion no peripheral edema Skin: no jaundice no rashes warm, nondiaphoretic Psychiatric: mood and affect are appropriate and alert and oriented to person place and time Current Medications: I reviewed Current Medications Sig/Terese Start time Last Medication Dose Route Stop Time Status Admin Acetaminophen 1,000 MG Q6P PRN 03/17 1145 AC 03/19 N/A 1 UNIT IV 1557 Diphenhydramine HCl 25 MG DAILY NEEDED PRN 03/17 1330 AC 03/18 IV 1339 Heparin Sodium 5,000 UNIT Q8 03/15 2200 AC 03/19 (Porcine) SC 1346 Hydromorphone HCl 1 MG Q4-6 PRN PRN 03/16 1100 AC 03/19 IV 1802 Magnesium Sulfate 1 GM Q2H 03/19 0900 DC 03/19 Dextrose/Water 100 ML IV 03/19 1259 1135 Metoclopramide HCl 10 MG Q6P PRN 03/19 1800 AC IV Nicotine 14 MG DAILY 03/16 1000 DC TOP Ondansetron HCl 4 MG Q4-6 PRN PRN 03/18 1330 AC 03/19 IV 1444 Pantoprazole Sodium 40 MG DAILY 03/16 1000 AC 03/19 IV 0820 Phenol 2 SPRAY Q2P PRN 03/17 0530 AC 03/17 EXT 0604 Potassium Chloride 40 MEQ Q13H 03/16 1345 AC 03/19 Dextrose/Sodium 1,000 ML IV 0820 Chloride Results Last 48 Hours of Labs: I reviewed Laboratory Tests 03/19 03/18 0656 0613 Chemistry Sodium (137 - 145 mmol/L) 138 141 Potassium (3.5 - 5.1 mmol/L) 4.3 4.9 Chloride (98 - 107 mmol/L) 107 108 H Carbon Dioxide (22 - 30 mmol/L) 23 25 Anion Gap (5 - 16) 8 8 BUN (7 - 17 mg/dL) 6 L 8 Creatinine (0.5 - 1.0 mg/dL) 0.7 0.7 Estimated GFR (>60 ml/min) > 60 > 60 BUN/Creatinine Ratio (7 - 25 %) 8.6 11.4 Magnesium (1.6 - 2.3 mg/dL) 1.5 L 1.4 L Hematology CBC w Diff NO MAN DIFF REQ NO MAN DIFF REQ WBC (4.8 - 10.8 /CUMM) 6.7 6.5 RBC (4.20 - 5.40 /CUMM) 3.43 L 3.26 L Hgb (12.0 - 16.0 G/DL) 10.6 L 10.0 L Hct (37 - 47 %) 31.1 L 29.7 L MCV (81.0 - 99.0 FL) 90.9 91.0 MCH (27.0 - 31.0 PG) 31.1 H 30.6 RDW (11.5 - 14.5 %) 14.8 H 14.9 H Plt Count (130 - 400 /CUMM) 233 193 MPV (7.4 - 10.4 FL) 8.0 8.5 Gran % (42.2 - 75.2 %) 75.8 H 77.5 H Lymphocytes % (20.5 - 51.1 %) 14.7 L 14.4 L Monocytes % (1.7 - 9.3 %) 7.5 5.4 Eosinophils % (0 - 5 %) 1.6 1.8 Basophils % (0.0 - 2.0 %) 0.4 0.9 Absolute Granulocytes (1.4 - 6.5 /CUMM) 5.1 5.0 Absolute Lymphocytes (1.2 - 3.4 /CUMM) 1.0 L 0.9 L Absolute Monocytes (0.10 - 0.60 /CUMM) 0.5 0.3 Absolute Eosinophils (0.0 - 0.7 /CUMM) 0.1 0.1 Absolute Basophils (0.0 - 0.2 /CUMM) 0 0.1 PUBS MCHC (33.0 - 37.0 G/DL) 34.2 33.7 Assessment/Plan Assessment/Plan No imaging today Impression is small bowel obstruction from carcinomatosis recurrent intermittent episodes trying to manage nonoperatively, which has been successful in the past, she is presently stable still requiring an NG tube pulling out several 100 a shift continue IV fluids and bowel rest, so unless her abdominal pain worsens I wouldn't reimage and continue present care. Core Measures/Miscellaneous Venous Thromboembolism VTE Risk Factors: Age > 40, Cancer/chemo/oth therapy VTE Contraindications: No Contraindications VTE Prophylaxis Ordered Inpt Pharm- Heparin VTE Diagnosis: No VTE Type: NONE VTE Confirmed by (Test): NONE Beta Felix Is Beta Felix a Home Med? No Antibiotics Is Patient on Antibiotics? No
--- NOTE | 2016-03-19 20:31 | NUR ---
[facility] CATH ACCESSED TODAY BY BERTIN SHAH AND ERNST. CATH IS #20 GAUGE 3/4 INCHES. DSG APPLIED. NEXT DSG DUE 03/26/16. FLUSHES WELL, +BLOOD RETURN. IVF TUBING CHANGED AND FLUIDS RUNNING. PERIPHERAL IV DISCONTINUED.
[2016-03-19 23:40] VITALS: BP 153/62
--- NOTE | 2016-03-20 06:57 | PN- Housestaff ---
See Addendum Subjective Follow-up For: SBO likely 2/2 adhesion Nausea and vomiting Subjective: Patient seen and examined at bedside this AM. She continues to endorse nausea that was associated with emesis of white phlegm this morning. She also endorses persistent abdominal pain, though the dilaudid and IV tylenol help. She does report output of her ostomy that started yesterday. Review of Systems Constitutional: Denies: chills, fever. EENTM: Reports: throat pain (2/2 NGT). Denies: blurred vision, hearing changes. Cardiovascular: Denies: chest pain, palpitations. Respiratory: Denies: cough, short of breath. Gastrointestinal: Reports: abdominal pain, bloating, distention, nausea, vomiting. Denies: diarrhea. Genitourinary: Denies: dysuria. Musculoskeletal: Denies: back pain. Skin: Denies: lesions, rash. Neurological/Psychological: Denies: confusion. Hematologic/Endocrine: Denies: bruising, bleeding. Immunologic/Allergic: Denies: splenectomy. Objective Last 24 Hrs of Vital Signs/I&O Vital Signs Date Time Temp Pulse Resp B/P Pulse O2 O2 Flow FiO2 Ox Delivery Rate 03/19 2340 97.8 71 20 153/62 93 Room Air 03/19 1712 97.9 69 20 130/72 97 03/19 0800 98.0 64 20 121/69 97 Room Air Room Air Intake & Output 03/20 0800 03/20 0000 03/19 1600 Intake Total 600 320 500 Output Total 655 530 850 Balance -55 -210 -350 Intake, IV 600 300 500 Intake, Oral 0 20 0 Number 0 Bowel Movements Output, 75 150 100 Gastric Drainage Output, Stool 180 30 Output, Urine 400 350 750 Physical Exam General Appearance: Alert, Oriented X3, Cooperative, No Acute Distress Skin: No Rashes, No Significant Lesion HEENT: Atraumatic, Mucous Membr. moist/pink Neck: Supple, No JVD Lymphatic: Cervical nl Cardiovascular: Regular Rate, Normal S1, Normal S2, No Murmurs Lungs: Clear to Auscultation, Normal Air Movement Abdomen: + BS, mildly tender to palpation of RUQ and RLQ, skin around ostomy bag wtihout signs of erythema/infection. + output of ostomy, pale and more liquid stool noted. Neurological: Normal Gait, Normal Speech, Normal Tone Extremities: No Clubbing, No Cyanosis Vascular: Pulses Symmetrical Current Medications: Current Medications Sig/Terese Start time Last Medication Dose Route Stop Time Status Admin Acetaminophen 1,000 MG Q6P PRN 03/17 1145 AC 03/20 N/A 1 UNIT IV 0015 Diphenhydramine HCl 50 MG .STK-MED ONE 03/19 2230 DC IM 03/19 2231 Diphenhydramine HCl 25 MG .STK-MED ONE 03/19 2229 DC PO 03/19 2230 Diphenhydramine HCl 25 MG DAILY NEEDED PRN 03/17 1330 AC 03/19 IV 2239 Heparin Sodium 5,000 UNIT Q8 03/15 2200 AC 03/20 (Porcine) SC 0553 Hydromorphone HCl 1 MG Q4-6 PRN PRN 03/16 1100 AC 03/20 IV 0552 Magnesium Sulfate 1 GM Q2H 03/19 0900 DC 03/19 Dextrose/Water 100 ML IV 03/19 1259 1135 Metoclopramide HCl 10 MG Q6P PRN 03/19 1800 AC 03/20 IV 0554 Nicotine 14 MG DAILY 03/16 1000 DC TOP Ondansetron HCl 4 MG Q4-6 PRN PRN 03/18 1330 AC 03/19 IV 1444 Pantoprazole Sodium 40 MG DAILY 03/16 1000 AC 03/19 IV 0820 Phenol 2 SPRAY Q2P PRN 03/17 0530 AC 03/17 EXT 0604 Potassium Chloride 40 MEQ Q13H 03/16 1345 AC 03/19 Dextrose/Sodium 1,000 ML IV 0820 Chloride Last 24 Hrs of Lab/Jamarcus Results Last 24 Hrs of Labs/Mics: Laboratory Tests 03/20/16 0605: Sodium Pending, Potassium Pending, Chloride Pending, Carbon Dioxide Pending, Anion Gap Pending, BUN Pending, Creatinine Pending, BUN/Creatinine Ratio Pending , Magnesium Pending Assessment/Plan Assessment: Ms. Elmore is a pleasant 65 year old female with significant PMH of tobacco abuse (>40 pack year history), recurrent small bowel obstruction, hypertension, hyperlipidemia, depression, ovarian carcinoma with carcinomatosis s/p hysterectomy and bilateral salpingo-oophorectomy, colon cancer s/p colostomy and then reversal and small bowel obstruction s/p small bowel resection with ileostomy who presented with a one day history of abdominal pain, nausea with one episode of brown vomitus, no ostomy output and decreased oral intake. In the ED: Vital signs showed T 97.0, HR 92, RR 16, BP 100/66 and O2 saturation of 95% on RA. Labs showed WBC 8.9, H&H 11.2/32.9, Plt 249, and BEP significant for elevated BUN/cre to 22/2.0 (baseline cre about 0.8). Troponin <0.01. EKG was done and showed NSR with HR 90, no change from prior EKG. Abdominal/ pelvis CT showed increasing small bowel obstruction from prior study (last admission for SBO on 12/28/15), slight increase in ascitic fluid around the liver and right adnexal mass. Patient is admitted to the general medicine floor and the following is the management: 1. Small bowel obstruction * Patient has history of recurrent small bowel obstructions, last noted on 12/27 * Patient remains NPO and NGT ouput all yesterday was 450 cc * Surgery suggested continuing IVF, aspiration precautions and NGT to wall suction * Hold metamucil and immodium * IV protonix 40 gm PO daily * IV phenergan for nausea (no zofran due to the fact that patient is trying to get enrolled in clinical trial, no reglan with fluoxetine) * Maitenance fluid with KCL 40 meq in D51/2NS at 75 cc/h * Minimize narcotics, moderate pain IV tylenol and severe pain with IV dilaudid * Surgical consult this AM suggests consideration for TPN in setting of prolonged NPO status, we will address this in a few days if patient continues to remain NPO, though she is improving and we may be able to DC NGT soon * Repeat abdominal Xray for today, f/u results 2. DIPIKA * Acute kidney injury with BUN/cre of 22/2 on admission and baseline cre around 0.8-1.0 * Likely 2/2 dehydration in the setting of decreased PO intake * Continue maitenance fluids with KCL D51/2 NS at 75 cc/h * BEP today shows normalization of DIPIKA * UA shows no acute abnormality 3. Tobacco abuse * Smoking cessation counseling done, patient has no desire to quit smoking * Patient declining nicotine patch 4. HTN * Monitor vital signs Q shift * Amlodipine 5 mg PO discontinued as we do not want to drop patient's pressure in setting of SBO and NPO status 5. Ovarian carcinoma with carcinomatosis * Pt wants to see Dr. Osborne in the hospial, he is aware and will see patient today * He will follow up with patient after discharged for continued care 6. Hypomagnesemia * Mg low to 1.3 yesterday, repleted with 1gm IV * F/U repeat Mg today and replete as necessary 7. Mental health * Fluoxetine and gabapentin restarted, may give crushed via NGT * Cannot give reglan with fluoxetine, will increase risk of serotonin synd FULL CODE DVTP: Heparin SC Mild-severe pain pathway NPO Problem List: 1. Benign hypertension 2. Hyperlipidemia 3. Hysterectomy 4. Nausea and vomiting 5. Abdominal pain 6. Ovarian cancer 7. Carcinomatosis 8. DIPIKA (acute kidney injury) 9. Small bowel obstruction Pain Ratin Pain Location: Generalized abdomen Pain Goal: Pain 7 or less Pain Plan: IV dilaudid and IV tylenol as needed. Tomorrow's Labs & Rationales: BEP (electrolytes in setting of NPO), Mag (persistent hypomagnesemia)
--- NOTE | 2016-03-20 07:10 | PN- General Surgery ---
See Addendum Subjective Subjective: The patient was seen this morning. She reports feeling slightly better than the day prior but still complains of intermittent nausea. She does have a small amount of output in her ostomy and remains otherwise comfortable. Objective Vital Signs and I&Os Vital Signs Date Time Temp Pulse Resp B/P Pulse O2 O2 Flow FiO2 Ox Delivery Rate 03/19 2340 97.8 71 20 153/62 93 Room Air 03/19 1712 97.9 69 20 130/72 97 03/19 0800 98.0 64 20 121/69 97 Room Air Room Air Intake & Output 03/20 0803/20 0000 03/19 1600 03/19 0800 03/19 0000 03/18 1600 Intake Total 320 500 600 0 600 Output Total 75 530 850 750 615 675 Balance -75 -210 -350 -150 -615 -75 Intake, IV 300 500 600 600 Intake, Oral 20 0 0 0 0 Number 0 0 Bowel Movements Output, 75 150 100 200 300 200 Gastric Drainage Output, Stool 30 0 15 25 Output, Urine 350 750 550 300 450 Physical Exam: Gen.: Alert and in obvious distress Skin: Warm and dry Abdomen: Softly distended, mild generalized tenderness without rebound or guarding, bowel sounds positive. Colostomy is pink and viable with a small amount of output in the bag. Extremities: Bilateral lower extremities are warm without calf tenderness. Assessment/Plan Assessment/Plan Assessment: 65-year-old female with a recurrent small bowel obstruction. The patient' is slowly progressing but still has significant signs of obstruction. Recommendations: Continue nothing by mouth and NG tube decompression IV hydration PRN pain medications, antiemetics, and antipyretics. Follow-up morning laboratory studies Out of bed ambulate Would consider TPN do to prolonged nothing by mouth status and malnutrition
[2016-03-20 08:34] VITALS: BP 124/70
--- NOTE | 2016-03-20 10:56 | RADIOLOGY REPORT ---
EXAMINATION: XR ABDOMEN MULTIPLE VIEWS CLINICAL INDICATION: Small bowel obstruction with nasogastric tube. Monitor for resolving small bowel obstruction. COMPARISON: CT scan of the abdomen and pelvis dated 03/17/2016 and two-view abdomen dated 03/16/2016. TECHNIQUE: Supine views of the abdomen in 2 parts and upright view of the abdomen. FINDINGS: Enteric tube tip is seen projected over the body of the stomach with slight kinking seen in its course just beyond the side port. There is persistent mild distention of small bowel loops in the upper abdomen, extending down to the left mid flank small bowel ostomy. Scattered air-fluid levels are seen, most prominently in the left upper quadrant. Findings are similar to the recent imaging exams and are consistent with ongoing partial small bowel obstruction. There is some gas noted in the rectum. The patient is status post left hemicolectomy with associated coarse calcifications seen near the suture line in the left upper quadrant. Post cholecystectomy kaitlynn are seen in place. Aortoiliac vascular calcifications are seen. Mild degenerative changes are noted in the mid and lower lumbar spine. IMPRESSION: 1. Persistent mild distention of small bowel loops with scattered air-fluid levels, consistent with ongoing partial small bowel obstruction. 2. Postsurgical changes in the abdomen again noted.
--- NOTE | 2016-03-20 12:56 | Transfer of Care Summary ---
Hospital Course Course Hospital Course: Ms. Elmore is a pleasant 65 year old female with significant PMH of tobacco abuse (>40 pack year history), recurrent small bowel obstruction, hypertension, hyperlipidemia, depression, ovarian carcinoma with carcinomatosis s/p hysterectomy and bilateral salpingo-oophorectomy, colon cancer s/p colostomy and then reversal and small bowel obstruction s/p small bowel resection with ileostomy who presented with a one day history of abdominal pain, nausea with one episode of brown vomitus, no ostomy output and decreased oral intake. In the ED: Vital signs showed T 97.0, HR 92, RR 16, BP 100/66 and O2 saturation of 95% on RA. Labs showed WBC 8.9, H&H 11.2/32.9, Plt 249, and BEP significant for elevated BUN/cre to 22/2.0 (baseline cre about 0.8). Troponin <0.01. EKG was done and showed NSR with HR 90, no change from prior EKG. Abdominal/ pelvis CT showed increasing small bowel obstruction from prior study (last admission for SBO on 12/28/15), slight increase in ascitic fluid around the liver and right adnexal mass. Physcial exam at time of admission showed: General Appearance Alert, Oriented X3, Cooperative, No Acute Distress Skin Post-op scars on several areas of abdomen. Skin around ileostomy bag noted to be clean, dry and no signs of erythema noted. HEENT Atraumatic, PERRLA, Mucous Membr. moist/pink Neck Supple, No JVD, +2 Carotid Pulse wo Bruit Lymphatic Cervical nl Cardiovascular Regular Rate, Normal S1, Normal S2 Lungs Normal Air Movement Abdomen Mildly distended and tender to palpation most profound in the midline abdomen and directly above the ostomy bag Neurological Normal Speech, Strength at 5/5 X4 Ext, Normal Tone Extremities 1+ pitting edema of bilateral lower extremities to the knees Vascular Pulses Symmetrical Patient was admitted to the general medicine floor and the following was the management: 1. SBO: Patient was admitted on 03/15/[address] abdomen/pelvis showing small bowel obstruction, likely from a bowel wall adhesion due to extensive abdominal procedures she has had in the past. There was no sign of lactic acidosis on admission and she was brought to the floor NPO. A NGT was placed the following morning and placed to wall suction. Output from the NGT was consistent and noted to have brown feculant material. Surgery was on board and followed patient daily. Metamucil and immodium were held. IV protonix and zofran were given for nausea, however zofran was switched to phenergan as patient cannot have zofran ( must be off of this to get into clinical trial for ovarian cancer) and cannot be on reglan (interaction with prozac). Pain was controlled with IV tylenol (mild pain), moderate pain with IV morphine and severe pain with IV dilaudid. Patient had several follow up abdominal films to monitor for resolution of obstruction, the most recent on 03/20/16, which showed persistent SBO. Patient had KCL D51/2NS at 75 cc/h for maitenance and no TPN was ordered due to suspicion that patient will have NGT removed shortly due to improving bowel sounds and clinical status. Continue to follow NGT output and f/u surgical recommendations. 2. DIPIKA: Patient noted to have a BUN/Cre of 22/2, well above baseline of 0.8-1.0. Likely 2/2 dehydration in the setting of decreased PO intake, nausea and vomiting. Patient was placed on IVF and DIPIKA improved back to baseline. BEP was monitored daily. Continue IVF for now and watch renal function closely. 3. Tobacco abuse: Smoking cessation was emphasized daily and patient reported no desire to quit smoking. She did not require a nicotine patch, monitor for patient desire for nicotine patch. 4. HTN: Amlodipine was placed on hold due to NPO status and normal blood pressure. Monitor vital signs Q shift and restart once patient tolerating oral diet/hypertensive. 5. Ovarian carcinoma with carcinomatosis: Courtesy consult placed with Dr. Osborne. He visited the patient daily and she will follow up with him for continued care after discharge. Patient has had FOLFOX and other chemotherapy without prior success. She is in consideration for clinical trial after discharge so do not use zofran/QTC proloning medications. 6. Hypomagnesemia: Patient was noted to be persistently hypomagnesemic and has required several boluses of Mg. Monitor Mg and replete as necessary. 7. Mental health: Fluoxetine and gabapentin were restarted on 03/20/16 and patient may take this via NGT or with sips of water (as per surgery). 8. DVT Prophylaxis: SC lovenox 9. Code status: FULL Complications: None. Assessment/Plan: 1. Continue to follow surgical recommendations regarding NGT removal 2. Phenergan for nausea (avoid zofran and reglan) 3. You may give meds via ngt 4. Patient to follow up with Dr. Osborne after discharge for consideration for clinical trial 5. Closely monitor electrolytes and replete as needed (nathalia. Mg) 6. Restart amlodipine once patient eating and blood pressure adequate (on hold currently). Attending MD Review Statement Documenting Attending: STEFANIA SHELLEY,CONNOR Quispe
[2016-03-20 15:50] VITALS: BP 142/70
[2016-03-20 23:22] VITALS: BP 138/82
--- NOTE | 2016-03-21 04:59 | PN- Housestaff ---
Subjective Follow-up For: SBO likely 2/2 adhesion Nausea and vomiting Subjective: Patient reports no overnight issues and currently has no complaints, only mild nausea when given dilaudid that goes away within minutes. no abdominal pain, the canister connected to NGT was full this morning (1200cc during 24h) contained yellowish and greenish fluid. colostomy bag contains brown watery stool. Review of Systems Constitutional: Denies: chills, fever, weakness. EENTM: Reports: no symptoms. Cardiovascular: Denies: chest pain, palpitations, peripheral edema. Respiratory: Denies: cough, short of breath. Gastrointestinal: Denies: abdominal pain, bloating, diarrhea, nausea, bloody stool, changes in stool, vomiting. Genitourinary: Reports: no symptoms. Musculoskeletal: Reports: no symptoms. Skin: Reports: no symptoms. Objective Last 24 Hrs of Vital Signs/I&O Vital Signs Date Time Temp Pulse Resp B/P Pulse O2 O2 Flow FiO2 Ox Delivery Rate 03/20 2322 98.1 74 20 138/82 94 Room Air 03/20 1550 98.1 74 20 142/70 94 Room Air 03/20 0834 98.0 77 20 124/70 96 Room Air Intake & Output 03/21 0800 03/21 0000 03/20 1600 Intake Total 750 330 560 Output Total 701 1150 950 Balance 49 -820 -390 Intake, IV 750 300 500 Intake, Oral 30 60 Output, 400 375 Gastric Drainage Output, Stool 1 100 50 Output, Urine 300 1050 525 Physical Exam General Appearance: Alert, Oriented X3, Cooperative, No Acute Distress Skin: No Rashes, No Breakdown, No Significant Lesion, skin around the colostomy bag is nontender and nonerythematous, bag contains brownish and greenish fecal material. HEENT: Atraumatic, PERRLA, EOMI, Mucous Membr. moist/pink Neck: Supple Cardiovascular: Regular Rate, Normal S1, Normal S2, No Murmurs Lungs: Clear to Auscultation, Normal Air Movement Abdomen: Normal Bowel Sounds, Soft, mild tendernes on the right lower quadrant with firm area (mass) palpated where she has scar tissue formation (from previous surgery in 2014). there is another firm non-tender mass like lesion, also told that are possible scar tissues fom abdominal surgery. Neurological: Normal Speech, Strength at 5/5 X4 Ext, Normal Tone, Sensation Intact, Cranial Nerves 3-12 NL Extremities: No Cyanosis, No Edema, Normal Pulses, No Tenderness/Swelling Vascular: Normal Pulses, Pulses Symmetrical Last 24 Hrs of Lab/Jamarcus Results Last 24 Hrs of Labs/Mics: Laboratory Tests 03/21/16 0500: Sodium Pending, Potassium Pending, Chloride Pending, Carbon Dioxide Pending, Anion Gap Pending, BUN Pending, Creatinine Pending, BUN/Creatinine Ratio Pending , Magnesium Pending Assessment/Plan Assessment: Ms. Elmore is a pleasant 65 year old female with significant PMH of tobacco abuse (>40 pack year history), recurrent small bowel obstruction, hypertension, hyperlipidemia, depression, ovarian carcinoma with carcinomatosis s/p hysterectomy and bilateral salpingo-oophorectomy, colon cancer s/p colostomy and then reversal and small bowel obstruction s/p small bowel resection with ileostomy who presented with a one day history of abdominal pain, nausea with one episode of brown vomitus, no ostomy output and decreased oral intake. In the ED: Vital signs showed T 97.0, HR 92, RR 16, BP 100/66 and O2 saturation of 95% on RA. Labs showed WBC 8.9, H&H 11.2/32.9, Plt 249, and BEP significant for elevated BUN/cre to 22/2.0 (baseline cre about 0.8). Troponin <0.01. EKG was done and showed NSR with HR 90, no change from prior EKG. Abdominal/ pelvis CT showed increasing small bowel obstruction from prior study (last admission for SBO on 12/28/15), slight increase in ascitic fluid around the liver and right adnexal mass. Patient is admitted to the general medicine floor and the following is the management: 1. Small bowel obstruction * Patient has history of recurrent small bowel obstructions, last noted on 12/27 * Patient remains NPO and NGT ouput over the past 24h has been 1200 cc * Surgery suggested continuing IVF, aspiration precautions and NGT to wall suction * Hold metamucil and immodium * IV protonix 40 gm PO daily * IV phenergan for nausea (no zofran due to the fact that patient is trying to get enrolled in clinical trial, no reglan with fluoxetine) * Maitenance fluid with KCL 40 meq in D51/2NS at 75 cc/h * Minimize narcotics, moderate pain IV tylenol and severe pain with IV dilaudid * Surgical consult suggests consideration for TPN in setting of prolonged NPO status, we will address this in a few days if patient continues to remain NPO, though she is improving and we may be able to DC NGT soon * Repeat abdominal Xray for today, f/u results 2. DIPIKA * Acute kidney injury with BUN/cre of 22/2 on admission and baseline cre around 0.8-1.0 * Likely 2/2 dehydration in the setting of decreased PO intake * Continue maitenance fluids with KCL D51/2 NS at 75 cc/h * BEP today shows normalization of DIPIKA * UA shows no acute abnormality 3. Tobacco abuse * Smoking cessation counseling done, patient has no desire to quit smoking * Patient declining nicotine patch 4. HTN * Monitor vital signs Q shift * Amlodipine 5 mg PO discontinued as we do not want to drop patient's pressure in setting of SBO and NPO status 5. Ovarian carcinoma with carcinomatosis * Pt wants to see Dr. Osborne in the hospial, he is aware and will see patient today * He will follow up with patient after discharged for continued care 6. Hypomagnesemia * Mg low to 1.3 yesterday, repleted with 1gm IV * F/U repeat Mg today and replete as necessary 7. Mental health * Fluoxetine and gabapentin restarted, may give crushed via NGT * Cannot give reglan with fluoxetine, will increase risk of serotonin synd FULL CODE DVTP: Heparin SC Mild-severe pain pathway NPO Problem List: 1. Small bowel obstruction 2. Abdominal pain 3. Nausea and vomiting Pain Ratin Pain Location: right lower abdomen Pain Goal: Pain 4 or less Pain Plan: dilaudid for severe pain, tylenol for mild pain Tomorrow's Labs & Rationales: BEP, Mg
--- NOTE | 2016-03-21 07:58 | PN- General Surgery ---
See Addendum Subjective Subjective: The patient was seen this morning. She reports feeling more comfortable and with less nausea then days prior. She has no other complaints at the current time and reports that her ileostomy is putting out more than it has been. Objective Vital Signs and I&Os Vital Signs Date Time Temp Pulse Resp B/P Pulse O2 O2 Flow FiO2 Ox Delivery Rate 03/20 2322 98.1 74 20 138/82 94 Room Air 03/20 1550 98.1 74 20 142/70 94 Room Air 03/20 0834 98.0 77 20 124/70 96 Room Air Intake & Output 03/21 0800 03/21 0000 03/20 1600 03/20 0800 03/20 0000 03/19 1600 Intake Total 750 330 560 600 320 500 Output Total 701 1150 950 955 530 850 Balance 49 -820 -390 -355 -210 -350 Intake, IV 750 300 500 600 300 500 Intake, Oral 30 60 0 20 0 Number 0 Bowel Movements Output, 400 375 375 150 100 Gastric Drainage Output, Stool 1 100 50 180 30 Output, Urine 300 1050 525 400 350 750 Physical Exam: Gen.: Alert and obvious distress Skin: Warm and dry Abdomen: Softly distended, mild generalized tenderness without rebound or guarding, bowel sounds positive. Ileostomy is pink and viable with positive output in the bag Extremities: Bilateral lower extremities are warm without calf tenderness. Assessment/Plan Assessment/Plan Assessment: 65-year-old female with a very slow but improving small bowel obstruction. The patient seems a little more comfortable and her ostomy is putting out a little more than has been over the past few days. Recommendations: Continue nothing by mouth and IV hydration Would consider clamping trial of the NG tube Follow-up morning laboratory studies GI and DVT prophylaxis Out of bed ambulate
[2016-03-21 08:15] VITALS: BP 122/70
--- NOTE | 2016-03-21 16:18 | PN- Att Addend ---
Attending MD Review Statement Attending Statement Attending MD Statement: examined this patient, discuss w/resident/PA/STONE SAWYER, agreed w/resident/PA/STONE SAWYER, reviewed EMR data (avail), discussed w/nursing Attending Assessment/Plan: Laboratory Tests 03/21/16 0500: Anion Gap 13, Estimated GFR > 60, BUN/Creatinine Ratio 8.6, Magnesium 1.6 Vital Signs Date Time Temp Pulse Resp B/P Pulse O2 O2 Flow FiO2 Ox Delivery Rate 03/21 0815 98.1 71 20 122/70 96 Room Air 03/20 2322 98.1 74 20 138/82 94 Room Air SBO likely secondary to adhesions in pt with ovarian cancer and carcinomatosis with recent SBO requiring surgery and ileostomy Has much better ileostomy output. Plan is to dc her NG tube and start her on clear liquid diet and see how she does. d/w pt the care plan.
[2016-03-21 16:19] VITALS: BP 140/72
[2016-03-21 23:40] VITALS: BP 136/66
--- NOTE | 2016-03-22 06:54 | PN- General Surgery ---
See Addendum Subjective Subjective: The patient was seen this morning. She reports feeling fine with mild intermittent nausea after she has pain medications. Otherwise she is tolerating a diet without vomiting and her ileostomy is having significantly more output. Objective Vital Signs and I&Os Vital Signs Date Time Temp Pulse Resp B/P Pulse O2 O2 Flow FiO2 Ox Delivery Rate 03/21 2340 98.3 78 18 136/66 96 Room Air 03/21 1619 98.9 88 16 140/72 100 Room Air 03/21 0815 98.1 71 20 122/70 96 Room Air Intake & Output 03/22 0803/22 0000 03/21 1600 03/21 0800 03/21 0000 03/20 1600 Intake Total 840 975 840 750 330 560 Output Total 800 900 852 367 7640 950 Balance 40 75 -110 49 -820 -390 Intake, IV 600 575 600 750 300 500 Intake, Oral 240 400 240 30 60 Output, 150 400 375 Gastric Drainage Output, Stool 400 600 400 1 100 50 Output, Urine 400 300 581 402 3799 525 Physical Exam: Gen.: Alert and obvious distress Skin: Warm and dry Abdomen: Softly distended, mild generalized tenderness without rebound or guarding, bowel sounds positive. Ileostomy is pink and viable with positive output and gas in the bag. Extremities: Bilateral lower extremities are warm without calf tenderness. Assessment/Plan Assessment/Plan Assessment: 65-year-old female with a resolving small bowel obstruction. The patient is making adequate progress and showing signs of increased bowel function. Recommendations: Advanced to full liquid diet Follow-up morning laboratory results Out of bed and ambulate Attempt to decreased narcotics Continue care per primary team
--- NOTE | 2016-03-22 07:02 | PN- Housestaff ---
See Addendum Subjective Follow-up For: SBO likely 2/2 adhesion Nausea and vomiting Subjective: Patient was seen and examined this AM, reports no complaints, has tolerated clear liquids and is switched to full liquids today. Patient denies abdominal pain, nausea vomiting. Pain is controlled by IV dilaudid. Patient asks if she can be discharged on some pain meds, she was taking oxycodone 10 mg TID at home. Review of Systems Constitutional: Denies: chills, fever, weakness. EENTM: Reports: no symptoms. Cardiovascular: Reports: no symptoms. Respiratory: Reports: no symptoms. Gastrointestinal: Reports: changes in stool (increased volume, watery stool). Denies: abdominal pain, nausea, vomiting. Genitourinary: Reports: no symptoms. Musculoskeletal: Reports: no symptoms. Objective Last 24 Hrs of Vital Signs/I&O Vital Signs Date Time Temp Pulse Resp B/P Pulse O2 O2 Flow FiO2 Ox Delivery Rate 03/22 0857 99.0 74 20 122/70 96 Room Air 03/21 2340 98.3 78 18 136/66 96 Room Air 03/21 1619 98.9 88 16 140/72 100 Room Air Intake & Output 03/22 1600 03/22 0800 03/22 0000 Intake Total 840 975 Output Total 800 900 Balance 40 75 Intake, IV 600 575 Intake, Oral 240 400 Output, Stool 400 600 Output, Urine 400 300 Physical Exam General Appearance: Alert, Oriented X3, Cooperative, No Acute Distress Skin: No Rashes, No Breakdown, No Significant Lesion HEENT: Atraumatic, PERRLA, EOMI, Mucous Membr. moist/pink Neck: Supple Cardiovascular: Regular Rate, Normal S1, Normal S2, No Murmurs Lungs: Clear to Auscultation, Normal Air Movement Abdomen: Soft, No Tenderness, no erythema ortenderness around the colostomy bag Neurological: Normal Speech, Normal Tone Extremities: No Edema, Normal Pulses Assessment/Plan Assessment: Ms. Elmore is a pleasant 65 year old female with significant PMH of tobacco abuse (>40 pack year history), recurrent small bowel obstruction, hypertension, hyperlipidemia, depression, ovarian carcinoma with carcinomatosis s/p hysterectomy and bilateral salpingo-oophorectomy, colon cancer s/p colostomy and then reversal and small bowel obstruction s/p small bowel resection with ileostomy who presented with a one day history of abdominal pain, nausea with one episode of brown vomitus, no ostomy output and decreased oral intake. In the ED: Vital signs showed T 97.0, HR 92, RR 16, BP 100/66 and O2 saturation of 95% on RA. Labs showed WBC 8.9, H&H 11.2/32.9, Plt 249, and BEP significant for elevated BUN/cre to 22/2.0 (baseline cre about 0.8). Troponin <0.01. EKG was done and showed NSR with HR 90, no change from prior EKG. Abdominal/ pelvis CT showed increasing small bowel obstruction from prior study (last admission for SBO on 12/28/15), slight increase in ascitic fluid around the liver and right adnexal mass. Patient is admitted to the general medicine floor and the following is the management: 1. Small bowel obstruction Patient has history of recurrent small bowel obstructions, last noted on * NGtube is taken out, started on clears yesterday and advanced to full liquids today. * Hold metamucil and immodium * IV protonix 40 gm PO daily * IV phenergan for nausea (no zofran due to the fact that patient is trying to get enrolled in clinical trial, no reglan with fluoxetine) * Maitenance fluid with KCL 40 meq in D51/2NS at 75 cc/h * Minimize narcotics, moderate pain IV tylenol and severe pain with IV dilaudid 2. DIPIKA - resolved * Likely 2/2 dehydration in the setting of decreased PO intake * Continue maitenance fluids with KCL D51/2 NS at 75 cc/h * BEP shows normalization of DIPIKA * UA shows no acute abnormality 3. Tobacco abuse * Smoking cessation counseling done, patient has no desire to quit smoking * Patient declining nicotine patch 4. HTN * Monitor vital signs Q shift * Amlodipine 5 mg PO discontinued as we do not want to drop patient's pressure in setting of SBO and NPO status 5. Ovarian carcinoma with carcinomatosis * Pt wants to see Dr. Osborne in the hospial, he is aware and will see patient today * He will follow up with patient after discharged for continued care 6. Hypomagnesemia * Mg low to 1.2 today, repleted with 2gm IV * F/U repeat Mg tomorrow 7. Mental health * Fluoxetine and gabapentin restarted, may give crushed via NGT * Cannot give reglan with fluoxetine, will increase risk of serotonin synd FULL CODE DVTP: Heparin SC Mild-severe pain pathway NPO Problem List: 1. Small bowel obstruction Pain Ratin Pain Location: abdomen Pain Goal: Pain 4 or less Pain Plan: IV dilaudid Tomorrow's Labs & Rationales: Mg (hypomagnesemia)
[2016-03-22 08:57] VITALS: BP 122/70
[2016-03-22 16:00] VITALS: BP 128/70
--- NOTE | 2016-03-22 23:08 | NUR ---
ALERT AND ORIENTED X 3. VITAL SIGNS STABLE. ON ROOM AIR. DENIES CHEST PAIN. + PULSES. STEADY GAIT. OSTOMY CARE GIVEN MEDICATION GIVEN FOR PAIN. WILL CONTINUE TO MONITOR
[2016-03-22 23:50] VITALS: BP 145/85
--- NOTE | 2016-03-23 05:59 | PN- Housestaff ---
RADHA SHELLEY,[facility] 03/23/16 0559: Subjective Follow-up For: SBO likely 2/2 adhesion Nausea and vomiting Subjective: Patient is seen and examined at bedside today, she reports since last night that she had pudding and yogurt she has had a lot of loading and gas. She asks for a more solid food with less volume. She has had almost 900 cc of stool in the ostomy since last night, she is worried about getting dehydrated when going home. She reports abdominal pain and discomfort, in the upper and mid abdomen, which was worse last night and has resolved after passing out the stool in the colostomy bag. Review of Systems Constitutional: Denies: chills, fever, weakness. EENTM: Reports: no symptoms. Cardiovascular: Reports: no symptoms. Respiratory: Reports: no symptoms. Gastrointestinal: Reports: abdominal pain, bloating, changes in stool. Denies: nausea, vomiting. Genitourinary: Reports: no symptoms. Musculoskeletal: Reports: no symptoms. Skin: Reports: no symptoms. Neurological/Psychological: Reports: no symptoms. Objective Last 24 Hrs of Vital Signs/I&O Vital Signs Date Time Temp Pulse Resp B/P Pulse O2 O2 Flow FiO2 Ox Delivery Rate 03/23 0751 98.1 68 18 140/80 96 Room Air 03/22 2350 98.3 73 18 145/85 97 Room Air 03/22 1600 98.8 78 20 128/70 96 Room Air 03/22 0857 99.0 74 20 122/70 96 Room Air Intake & Output 03/23 0800 03/23 0000 03/22 1600 Intake Total 750 1500 Output Total 1100 1000 1700 Balance -350 -1000 -200 Intake, IV 630 500 Intake, Oral 120 1000 Output, Stool 500 550 750 Output, Urine 600 450 950 Physical Exam General Appearance: Alert, Oriented X3, Cooperative, No Acute Distress Skin: No Rashes, No Breakdown, No Significant Lesion, no erythema or tenderness around the ostomy bag. HEENT: Atraumatic, PERRLA, EOMI Neck: Supple Cardiovascular: Regular Rate, Normal S1, Normal S2, No Murmurs Lungs: Clear to Auscultation, Normal Air Movement Abdomen: Soft, tenderness in the right lower, hypogaster and left upper abdomen at the sites of the scar formations. Neurological: Normal Speech, Strength at 5/5 X4 Ext, Normal Tone, Sensation Intact, Cranial Nerves 3-12 NL Extremities: No Edema, Normal Pulses, No Tenderness/Swelling Vascular: Normal Pulses, Pulses Symmetrical Current Medications: Current Medications Sig/Terese Start time Last Medication Dose Route Stop Time Status Admin Acetaminophen 1,000 MG Q6P PRN 03/17 1145 AC 03/23 N/A 1 UNIT IV 0549 Diphenhydramine HCl 50 MG .STK-MED ONE 03/22 0959 DC IM 03/22 1000 Diphenhydramine HCl 25 MG DAILY NEEDED PRN 03/17 1330 AC 03/22 IV 1003 Fluoxetine HCl 20 MG DAILY 03/20 1000 AC 03/22 PO 1002 Gabapentin 300 MG BID 03/20 1000 AC 03/22 PO 2204 Heparin Sodium 5,000 UNIT Q8 03/15 2200 AC 03/23 (Porcine) SC 0542 Hydromorphone HCl 1 MG Q4-6 PRN PRN 03/16 1100 DC 03/22 IV 1003 Magnesium Sulfate 1 GM Q2H 03/22 1030 DC 03/22 Dextrose/Water 100 ML IV 03/22 1429 1410 Oxycodone HCl 10 MG Q4P PRN 03/22 1315 AC 03/23 PO 0416 Oxycodone HCl 5 MG Q4P PRN 03/22 1215 AC PO Oxycodone HCl 5 MG ONCE ONE 03/22 1215 DC 03/22 PO 03/22 1216 1209 Oxycodone HCl 5 MG TID PRN 03/22 1030 DC 03/22 PO 1154 Pantoprazole Sodium 40 MG DAILY 03/16 1000 AC 03/22 IV 1003 Patient Medication 1 ED .STK-MED ONE 03/22 1404 DC Teaching ED 03/22 1405 Phenol 2 SPRAY Q2P PRN 03/17 0530 03/17 EXT 0604 Potassium Chloride 40 MEQ Q13H 03/16 1345 AC 03/23 Dextrose/Sodium 1,000 ML IV 0542 Chloride Promethazine HCl 25 MG Q4P PRN 03/20 0945 AC 03/23 IV 03/27 0944 0756 Last 24 Hrs of Lab/Jamarcus Results Last 24 Hrs of Labs/Mics: Laboratory Tests 03/23/16 0525: Sodium Pending, Potassium Pending, Chloride Pending, Carbon Dioxide Pending, Anion Gap Pending, BUN Pending, Creatinine Pending, BUN/Creatinine Ratio Pending , Magnesium Pending Assessment/Plan Assessment: Ms. Elmore is a pleasant 65 year old female with significant PMH of tobacco abuse (>40 pack year history), recurrent small bowel obstruction, hypertension, hyperlipidemia, depression, ovarian carcinoma with carcinomatosis s/p hysterectomy and bilateral salpingo-oophorectomy, colon cancer s/p colostomy and then reversal and small bowel obstruction s/p small bowel resection with ileostomy who presented with a one day history of abdominal pain, nausea with one episode of brown vomitus, no ostomy output and decreased oral intake. In the ED: Vital signs showed T 97.0, HR 92, RR 16, BP 100/66 and O2 saturation of 95% on RA. Labs showed WBC 8.9, H&H 11.2/32.9, Plt 249, and BEP significant for elevated BUN/cre to 22/2.0 (baseline cre about 0.8). Troponin <0.01. EKG was done and showed NSR with HR 90, no change from prior EKG. Abdominal/ pelvis CT showed increasing small bowel obstruction from prior study (last admission for SBO on 12/28/15), slight increase in ascitic fluid around the liver and right adnexal mass. Patient is admitted to the general medicine floor and the following is the management: 1. Small bowel obstruction Patient has history of recurrent small bowel obstructions, last noted on Has tolerated clear and fulll liquid diet. Has had total colostomy output of 1700 cc yesterday and 500 cc in the past shift. * Advanced diet to regular * Started on loperamide 4 mg before meals and at bedtime * IV protonix 40 gm PO daily * IV phenergan for nausea (no zofran due to the fact that patient is trying to get enrolled in clinical trial, no reglan with fluoxetine) * Maintenance fluid with KCL 40 meq in D51/2NS at 75 cc/h * Minimize narcotics, moderate pain IV tylenol and severe pain oxycodone 10 mg Q4 PO PRN * Most probably will go home tomorrow 2. DIPIKA - resolved * Likely 2/2 dehydration in the setting of decreased PO intake * Continue maintenance fluids with KCL D51/2 NS at 75 cc/h * BEP shows normalization of DIPIKA * UA shows no acute abnormality 3. Tobacco abuse * Smoking cessation counseling done, patient has no desire to quit smoking * Patient declining nicotine patch 4. HTN * Monitor vital signs Q shift * Amlodipine 5 mg PO discontinued as we do not want to drop patient's pressure in setting of SBO and NPO status 5. Ovarian carcinoma with carcinomatosis * Dr. Osborne will follow up with patient after she is discharged for continued care 6. Hypomagnesemia * Mg low to 1.5 today, repleted with 1gm IV * F/U repeat Mg tomorrow 7. Mental health * Fluoxetine and gabapentin restarted, may give crushed via NGT * Cannot give reglan with fluoxetine, will increase risk of serotonin synd FULL CODE DVTP: Heparin SC Mild-severe pain pathway NPO Problem List: 1. Abdominal pain Pain Ratin Pain Location: left upper, hypogaster and right lower abdomen Pain Goal: Pain 4 or less Pain Plan: oxycodone 10 mg PO Q4 PRN Tomorrow's Labs & Rationales: BEP (electrolyte abnormalities) CONNOR AGUIAR 03/23/16 1546: Attending MD Review Statement Attending Statement Attending MD Statement: examined this patient, discuss w/resident/PA/[employer], agreed w/resident/PA/[employer], reviewed EMR data (avail), discussed with nursing Attending Assessment/Plan: dc iv fluids. pt has increased ileostomy output now , so restarted on loperamide . if doing better tomorrow. will dc home with f/u with surgery clinic. tolerating po diet now.
--- NOTE | 2016-03-23 07:32 | PN- General Surgery ---
Subjective Subjective: The patient was seen this morning. She reports that last night she is slightly more crampy abdominal pain and nausea but this morning feels better. She complains Satterly ileostomy is putting out " to much"she has no complaints the current time is otherwise tolerating a full liquid diet without vomiting. Objective Vital Signs and I&Os Vital Signs Date Time Temp Pulse Resp B/P Pulse O2 O2 Flow FiO2 Ox Delivery Rate 03/22 2350 98.3 73 18 145/85 97 Room Air 03/22 1600 98.8 78 20 128/70 96 Room Air 03/22 0857 99.0 74 20 122/70 96 Room Air Intake & Output 03/23 0800 03/23 0000 03/22 1600 03/22 0800 03/22 0000 03/21 1600 Intake Total 750 1500 840 975 840 Output Total 1100 1000 1700 800 900 950 Balance -350 -1000 -200 40 75 -110 Intake, IV 630 500 600 575 600 Intake, Oral 120 1000 240 400 240 Output, 150 Gastric Drainage Output, Stool 500 550 750 400 600 400 Output, Urine 600 450 950 400 300 400 Physical Exam: Gen.: Alert and in no obvious distress Skin: Warm and dry Abdomen: Softly distended, mild generalized tenderness without rebound or guarding, bowel sounds positive. Ileostomy is pink and viable with positive output in the bag. Extremities: Bilateral lower extremities are warm without calf tenderness. Assessment/Plan Assessment/Plan Assessment: 65-year-old female with resolving small bowel obstruction. The patient is progressing as expected and tolerating full liquids without vomiting. Her ileostomy has increased output which is a great sign of return of bowel function Recommendations: Advanced to a regular diet Out of bed ambulate Follow-up laboratory studies and correct electrolyte imbalances GI and DVT prophylaxis If tolerates a regular diet is feasible discharge the patient if okay with the primary team.
[2016-03-23 07:51] VITALS: BP 140/80
--- NOTE | 2016-03-23 08:13 | Patient Discharge Instructions ---
Discharge Instructions General Discharge Information You were seen/treated for: Small bowel obstruction Acute kidney injury due to dehydration Hypomagnesemia Special Instructions: 1. You have low magnesium levels, please take Myalta (Aluminum hydroxide- magnesium hydroxide, it is OTC) 30 mls every 6 hours (maximum 120 mls per day) 2. Please check blood levels of Magnesium and Electroytes on Sunday03/29/[address] Moyer and Dr. Baez. 3. Follow with Dr. Baez, surgery, in 1-2 weeks after discharge. 4. Follow-up with Dr. Moyer, your PCP, within 1-2 weeks after discharge. 5. Follow up with Dr. Dain Osborne, hematology/oncology, within 2 weeks of discharge. He will restart you on prochloperazine if needed. Currently you are taking phenergan for nausea. 6. Please come back to the ED if symptoms worsen. Diet Recommended Diet: Regular Activity Activity Self Limited: Yes Acute Coronary Syndrome Inclusion Criteria At DC or during hospital stay patient has or had the following: ACS DIAGNOSIS No Discharge Core Measures Meds if any: Prescribed or Continued at Discharge Meds if any: NOT Prescribed or Continued at Discharge Congestive Heart Failure Inclusion Criteria At DC or during hospital stay patient has or had the following: CHF DIAGNOSIS No Discharge Core Measures Meds if any: Prescribed or Continued at Discharge Meds if any: NOT Prescribed or Continued at Discharge Cerebrovascular accident Inclusion Criteria At DC or during hospital stay patient has or had the following: CVA/TIA Diagnosis No Discharge Core Measures Meds if any: Prescribed or Continued at Discharge Meds if any: NOT Prescribed or Continued at Discharge Venous thromboembolism Inclusion Criteria VTE Diagnosis No VTE Type NONE VTE Confirmed by (Test) NONE Discharge Core Measures - Per Current guidelines, there needs to be overlap - treatment for the first 5 days of Warfarin therapy. - If discharged on Warfarin prior to 5 days of - overlap therapy, the patient will need to be - assessed for post discharge needs including - *Post discharge parental anticoagulation - *Warfarin and/or parental anticoagulation education - *Follow up date to check INR post discharge At least 5 days overlap therapy as Inpatient No Meds if any: Prescribed or Continued at Discharge Note: Overlap Therapy is Warfarin and Anticoagulant Meds if any: NOT Prescribed or Continued at Discharge
--- NOTE | 2016-03-23 11:27 | PN- General Surgery ---
Surgical Brief Attending Note Brief Attending Note: Obstruction resolved. She is now back to her baseline of high ileostomy output. She posed very high risk of dehydration and DIPIKA, as demonstrated in the past. Would hold on discharge until tomorrow at minimum. Recommend restarting her baseline antimotility agents. Immodium 2tabs QID scheduled (max dose). She was additionally on Lomotil, which I feel greatly improved her output. Theodora is reluctant to take this medication as there is a high out of pocket expense.
[2016-03-23 15:49] VITALS: BP 130/70
--- NOTE | 2016-03-23 20:31 | NUR ---
DURING SHIFT, PATIENT COMPLAINING OF SEVERE CRAMPING WHEN EATING. PATIENT DID NOT EAT MUCH OF HER DINNER DUE TO PAIN, PAIN MEDICATIN GIVEN. MD GUPTA NOTIFIED OF PAIN AND WAS TOLD TO CONTINUE WITH PAIN REGIMEN (ABELARDO AND ACETAMINOPHEN). PRILOSEC ORDERED DUE TO INDEGISTION. WILL CONTINUE TO MONITOR PATIENT'S PAIN LEVEL.
[2016-03-23 23:57] VITALS: BP 118/72
--- NOTE | 2016-03-24 07:00 | PN- Housestaff ---
RADHA SHELLEY,[facility] 03/24/16 0700: Subjective Follow-up For: SBO likely 2/2 adhesion Nausea and vomiting Subjective: I saw and examined the patient this am, she is alert and awake in no distress, has slept well, reports pain in the abdomen for which she has taken oxycodone every 4 hours and also IV tylenol in between. Patient reports nausea for which she has been taking Phenergan. Patient reports stool is still liquid and is concerned she may get dehydrated when she goes home. Review of Systems Constitutional: Denies: chills, fever, malaise, weakness. EENTM: Reports: no symptoms. Cardiovascular: Reports: no symptoms. Respiratory: Reports: no symptoms. Gastrointestinal: Reports: abdominal pain, diarrhea, nausea. Denies: constipation, bloody stool, vomiting. Genitourinary: Reports: no symptoms. Musculoskeletal: Reports: no symptoms. Skin: Reports: no symptoms. Objective Last 24 Hrs of Vital Signs/I&O Vital Signs Date Time Temp Pulse Resp B/P Pulse O2 O2 Flow FiO2 Ox Delivery Rate 03/23 2357 99.3 84 20 118/72 95 Room Air 03/23 1549 98.3 90 19 130/70 97 03/23 0936 68 138/72 03/23 0751 98.1 68 18 140/80 96 Room Air Intake & Output 03/24 0800 03/24 0000 03/23 1600 Intake Total 632 152 5303 Output Total 571 227 0899 Balance -600 -175 -500 Intake, Oral 768 600 4682 Output, Stool 700 425 750 Output, Urine 250 750 Physical Exam General Appearance: Alert, Oriented X3, Cooperative, No Acute Distress Skin: No Rashes, No Breakdown, No Significant Lesion HEENT: Atraumatic, PERRLA, EOMI Neck: Supple Cardiovascular: Regular Rate, Normal S1, Normal S2 Lungs: Clear to Auscultation, Normal Air Movement Abdomen: Soft, tenderness on the right lower and left upper quadrants as well as epigaster. Neurological: Normal Speech, Strength at 5/5 X4 Ext, Normal Tone, Sensation Intact Extremities: No Clubbing, No Cyanosis, No Edema, Normal Pulses Current Medications: Current Medications Sig/Terese Start time Last Medication Dose Route Stop Time Status Admin Acetaminophen 1,000 MG Q6P PRN 03/17 1145 AC 03/23 N/A 1 UNIT IV 1912 Amlodipine Besylate 5 MG DAILY 03/23 1000 AC 03/23 PO 0936 Calcium Carbonate 1,000 MG Q6P PRN 03/24 0730 AC PO Diphenhydramine HCl 25 MG DAILY NEEDED PRN 03/17 1330 AC 03/23 IV 0833 Fluoxetine HCl 20 MG DAILY 03/20 1000 AC 03/23 PO 0832 Gabapentin 300 MG BID 03/20 1000 AC 03/23 PO 2140 Heparin Sodium 5,000 UNIT Q8 03/15 2200 AC 03/24 (Porcine) SC 0545 Loperamide HCl 4 MG AC & AT BEDTIME 03/23 1200 AC 03/23 PO 2138 Loperamide HCl 2 MG Q6P PRN 03/23 0930 DC 03/23 PO 1054 Magnesium Sulfate 1 GM ONCE ONE 03/23 1330 DC 03/23 Dextrose/Water 100 ML IV 03/23 1729 1536 Omeprazole 40 MG ONCE ONE 03/23 1915 DC 03/23 PO 03/23 1916 1921 Oxycodone HCl 10 MG Q4P PRN 03/22 1315 03/24 PO 0536 Oxycodone HCl 5 MG Q4P PRN 03/22 1215 AC PO Pantoprazole Sodium 40 MG DAILY 03/16 1000 AC 03/23 IV 0832 Phenol 2 SPRAY Q2P PRN 03/17 0530 AC 03/17 EXT 0604 Potassium Chloride 40 MEQ Q13H 03/16 1345 CO 03/23 Dextrose/Sodium 1,000 ML IV 0542 Chloride Promethazine HCl 25 MG .STK-MED ONE 03/23 2140 DC IM 03/23 2141 Promethazine HCl 25 MG .STK-MED ONE 03/23 1315 DC IM 03/23 1316 Promethazine HCl 25 MG Q4P PRN 03/20 0945 AC 03/23 IV 03/27 0944 2143 Last 24 Hrs of Lab/Jamarcus Results Last 24 Hrs of Labs/Mics: Laboratory Tests 03/24/16 0535: Anion Gap 12, Estimated GFR > 60, BUN/Creatinine Ratio 10.0, Magnesium 1.6 Assessment/Plan Assessment: Ms. Elmore is a pleasant 65 year old female with significant PMH of tobacco abuse (>40 pack year history), recurrent small bowel obstruction, hypertension, hyperlipidemia, depression, ovarian carcinoma with carcinomatosis s/p hysterectomy and bilateral salpingo-oophorectomy, colon cancer s/p colostomy and then reversal and small bowel obstruction s/p small bowel resection with ileostomy who presented with a one day history of abdominal pain, nausea with one episode of brown vomitus, no ostomy output and decreased oral intake. Abdominal/pelvis CT showed increasing small bowel obstruction from prior study ( last admission for SBO on 12/28/15), slight increase in ascitic fluid around the liver and right adnexal mass. Patient is admitted to the general medicine floor and the following is the management: 1. Small bowel obstruction Patient has history of recurrent small bowel obstructions. Patient was made NPO and fed through NG tube, NGT was taken out on 03/21/15 and the patient has been tolerating oral intake currently on regular diet. We added loperamide to her meds yesterday to decrease volume of GI loss. Has had total colostomy output of 1675 (only 25 cc less than yesterday) and 700 cc in the past shift (200 more than yesterday). * Will switch PPI to Ranitidine (patient take this at home) for heartburn * Will add PO promethazine for nausea to go home with (no zofran due to the fact that patient is trying to get enrolled in clinical trial, no reglan with fluoxetine) * Stopped fluid with KCL yesterday as the patient was hyperkalemic and currently has adequate oral intake. * Minimize narcotics, moderate pain IV tylenol and severe pain oxycodone 10 mg Q4 PO PRN- patient will go home with 20 pills of oxycodone 10 mg TID as needed and will follow up with Dr. Osborne. * Continue loperamide 4 mg before meals and at bedtime and will add atropine/ diphenoxylate (generic form of lomotil) to go home with 2. DIPIKA - resolved * Likely 2/2 dehydration in the setting of decreased PO intake * Continue maintenance fluids with KCL D51/2 NS at 75 cc/h * BEP shows normalization of DIPIKA * UA shows no acute abnormality * BEP on 03/29/16 and copy PCP 3. Tobacco abuse * Smoking cessation counseling done, patient has no desire to quit smoking * Patient declining nicotine patch 4. HTN, HLD * Monitor vital signs Q shift * Amlodipine 5 mg PO restarted since yesterday * stopped cholestyramine (patient does not take it as taste bothers her). continued her on ezetimibe. 5. Ovarian carcinoma with carcinomatosis * Dr. Osborne will follow up with patient after she is discharged for continued care 6. Hypomagnesemia * Mg low to 1.6 today, repleted with mag ox 400 mg oral * will add aluminium hydroxide-magnesium hydroxide to go home with and recheck BEP and Mg on sunday03/29/16, will copy PCP and Dr. Baez 7. Mental health * Fluoxetine and gabapentin at home dose * Cannot give reglan with fluoxetine, will increase risk of serotonin synd * Patient does not take Lexapro any more FULL CODE DVTP: Heparin SC Mild-severe pain pathway NPO Problem List: 1. Nausea and vomiting 2. Abdominal pain 3. Small bowel obstruction 4. Ovarian cancer 5. Hysterectomy Pain Ratin Pain Location: abdomen Pain Goal: Pain 4 or less Pain Plan: tylenol for mild pain oxycodone for mod-severe pain Tomorrow's Labs & Rationales: none CONNOR AGUIAR 04/21/16 1507: Attending MD Review Statement Attending Statement Attending MD Statement: examined this patient, discuss w/resident/PA/[employer], agreed w/resident/PA/[employer], reviewed EMR data (avail), discussed with nursing Attending Assessment/Plan: please see my attending note for more details.
--- NOTE | 2016-03-24 07:55 | PN- General Surgery ---
See Addendum Subjective Subjective: Patient resting comfortably in bed. Still feels 'queasy', although better than when admitted. No CP/SOB, N/V, F/C. Ileostomy bag emptied 3 times overnight. Imodium started yesterday. Complains of indigestion this morning. Objective Vital Signs and I&Os Vital Signs Date Time Temp Pulse Resp B/P Pulse O2 O2 Flow FiO2 Ox Delivery Rate 03/23 2357 99.3 84 20 118/72 95 Room Air 03/23 1549 98.3 90 19 130/70 97 03/23 0936 68 138/72 Intake & Output 03/24 0800 03/24 0000 03/23 1600 03/23 0800 03/23 0000 03/22 1600 Intake Total 353 956 4708 750 1500 Output Total 722 920 5753 1100 1000 1700 Balance -600 -175 -500 -350 -1000 -200 Intake, IV 630 500 Intake, Oral 905 413 7030 120 1000 Output, Stool 700 425 750 500 550 750 Output, Urine 250 750 600 450 950 Physical Exam: Gen: AAOx3 in NAD Cor: S1+S2+ Lungs: CTA bernardo Abd: soft, NT, ND, +BS x4. Ileostomy pink, viable, liquid green stool with air in bag. Ext: no edema or calf tenderness to bernardo lower extremities. Current Medications: Current Medications Sig/Terese Start time Last Medication Dose Route Stop Time Status Admin Acetaminophen 1,000 MG Q6P PRN 03/17 1145 AC 03/23 N/A 1 UNIT IV 1912 Amlodipine Besylate 5 MG DAILY 03/23 1000 AC 03/23 PO 0936 Calcium Carbonate 1,000 MG Q6P PRN 03/24 0730 AC PO Diphenhydramine HCl 25 MG DAILY NEEDED PRN 03/17 1330 AC 03/23 IV 0833 Fluoxetine HCl 20 MG DAILY 03/20 1000 AC 03/23 PO 0832 Gabapentin 300 MG BID 03/20 1000 AC 03/23 PO 2140 Heparin Sodium 5,000 UNIT Q8 03/15 2200 AC 03/24 (Porcine) SC 0545 Loperamide HCl 4 MG AC & AT BEDTIME 03/23 1200 AC 03/23 PO 2138 Loperamide HCl 2 MG Q6P PRN 03/23 0930 DC 03/23 PO 1054 Magnesium Sulfate 1 GM ONCE ONE 03/23 1330 DC 03/23 Dextrose/Water 100 ML IV 03/23 1729 1536 Omeprazole 40 MG ONCE ONE 03/23 1915 DC 03/23 PO 03/23 1916 1921 Oxycodone HCl 10 MG Q4P PRN 03/22 1315 AC 03/24 PO 0536 Oxycodone HCl 5 MG Q4P PRN 03/22 1215 AC PO Pantoprazole Sodium 40 MG DAILY 03/16 1000 AC 03/23 IV 0832 Phenol 2 SPRAY Q2P PRN 03/17 0530 AC 03/17 EXT 0604 Potassium Chloride 40 MEQ Q13H 03/16 1345 DC 03/23 Dextrose/Sodium 1,000 ML IV 0542 Chloride Promethazine HCl 25 MG .STK-MED ONE 03/23 2140 DC IM 03/23 214 Promethazine HCl 25 MG .STK-MED ONE 03/23 1315 DC IM 03/23 1316 Promethazine HCl 25 MG Q4P PRN 03/20 0945 AC 03/23 IV 03/27 0944 2143 Results Last 48 Hours of Labs: Laboratory Tests 03/24 03/23 0535 0525 Chemistry Sodium (137 - 145 mmol/L) 138 133 L Potassium (3.5 - 5.1 mmol/L) 4.8 5.3 H Chloride (98 - 107 mmol/L) 100 98 Carbon Dioxide (22 - 30 mmol/L) 25 27 Anion Gap (5 - 16) 12 8 BUN (7 - 17 mg/dL) 9 7 Creatinine (0.5 - 1.0 mg/dL) 0.9 0.9 Estimated GFR (>60 ml/min) > 60 > 60 BUN/Creatinine Ratio (7 - 25 %) 10.0 7.8 Magnesium (1.6 - 2.3 mg/dL) 1.6 1.5 L Assessment/Plan Assessment/Plan A: Resolved SBO; AVSS. Plan: Care per primary team. ?ability to convince Mrs. Elmore to take Lomotil today. ?can insurance cover cost with Rx. OOB and ambulate. Continue Imodium.
--- NOTE | 2016-03-24 08:12 | Discharge Summary ---
Visit Information Visit Dates Admission Date: 03/15/16 Discharge Date: 03/24/16 Hospital Course Course Attending Physician: STEFANIA SHELLEY,CONNOR Quispe Primary Care Physician: DAILY COVARRUBIAS MD Hospital Course: Ms. Elmore is a 65-year-old female with significant PMH of tobacco abuse (> 40 pack year history), recurrent small bowel obstruction, hypertension, hyperlipidemia, depression, ovarian carcinoma with carcinomatosis s/p hysterectomy and bilateral salpingo-oophorectomy, colon cancer s/p colostomy and then reversal and small bowel obstruction s/p small bowel resection with ileostomy who presented with a one day history of abdominal pain, nausea with one episode of brown vomitus, no ostomy output and decreased oral intake. Patient is admitted to the general medicine floor and the following is the management: 1. Small bowel obstruction. Patient has history of recurrent small bowel obstructions. She was admitted on 03/15/[address] abdomen/pelvis showing small bowel obstruction, likely from a bowel wall adhesion due to extensive abdominal procedures she has had in the past. An NGT was placed. Output from the NGT was consistent and noted to have brown feculent material. Surgery was on board and followed patient daily. Metamucil and imodium were held. IV protonix and zofran were given for nausea, however zofran was switched to phenergan as patient cannot have zofran (must be off of this to get into clinical trial for ovarian cancer) and cannot be on reglan (interaction with prozac). Patient had several follow up abdominal films to monitor for resolution of obstruction, the most recent on 03/20/16, which showed persistent SBO. Patient had KCL D51/2NS for maintenance, no TPN was required as NGT was removed shortly after, on 03/21/15, patient had improving bowel sounds and clinical status, her diet was gradually advanced to regular and IV fluids were discontinued as she had adequate oral intake. We added loperamide to her medications to decrease the volume of GI loss. We also switched PPI to Ranitidine for heartburn (patient take this at home) and added promethazine for nausea to go home with. We minimized use of narcotics, moderate pain was managed with IV tylenol and severe pain oxycodone 10 mg Q4 PO PRN- patient will go home with 20 pills of oxycodone 10 mg TID as needed and will follow up with Dr. Osborne. Continued loperamide 4 mg before meals and at bedtime and will add atropine/diphenoxylate (generic form of lomotil) to go home with. 2. DIPIKA: Patient noted to have a BUN/Cre of 22/2, well above baseline of 0.8-1.0. Likely 2/2 dehydration in the setting of decreased PO intake, nausea and vomiting. Patient was placed on IVF and DIPIKA improved back to baseline. BEP was monitored daily. Patient will recheck BEP on 03/29/16 and copy PCP. 3. Tobacco abuse. Smoking cessation was emphasized daily and patient reported no desire to quit smoking. She did not require a nicotine patch. 4. HTN and HLD: Amlodipine was placed on hold due to NPO status and normal blood pressure. It was restarted a day before discharge. We stopped cholestyramine ( patient does not take it as taste bothers her). We continued her on ezetimibe. 5. Ovarian carcinoma with carcinomatosis: Courtesy consult placed with Dr. Osborne. He visited the patient daily and she will follow up with him for continued care after discharge. Patient has had FOLFOX and other chemotherapy without prior success. She is in consideration for clinical trial after discharge so do not use zofran/QTC prolonging medications. 6. Hypomagnesemia Mg was low to 1.3 on admission, repleted with mag ox 400 mg oral. We added aluminium hydroxide-magnesium hydroxide to go home with and recheck BEP and Mg on sunday03/29/16, will copy PCP and Dr. Baez. 7. Mental health We continued Fluoxetine and gabapentin at home doses. Patient reported she does not take Lexapro any more. FULL CODE DVTP: Heparin SC Allergies: Coded Allergies: amoxicillin (From AUGMENTIN) (Intermediate, DIARRHEA 03/15/16) clavulanic acid (From AUGMENTIN) (Intermediate, DIARRHEA 03/15/16) Significant Procedures: SERVICE DATE: 03/20/16- EXAM TYPE: RAD - [id number] VIEWS EXAMINATION: XR ABDOMEN MULTIPLE VIEWS CLINICAL INDICATION: Small bowel obstruction with nasogastric tube. Monitor for resolving small bowel obstruction. COMPARISON: CT scan of the abdomen and pelvis dated 03/17/2016 and two-view abdomen dated 03/16/2016. TECHNIQUE: Supine views of the abdomen in 2 parts and upright view of the abdomen. FINDINGS: Enteric tube tip is seen projected over the body of the stomach with slight kinking seen in its course just beyond the side port. There is persistent mild distention of small bowel loops in the upper abdomen, extending down to the left mid flank small bowel ostomy. Scattered air-fluid levels are seen, most prominently in the left upper quadrant. Findings are similar to the recent imaging exams and are consistent with ongoing partial small bowel obstruction. There is some gas noted in the rectum. The patient is status post left hemicolectomy with associated coarse calcifications seen near the suture line in the left upper quadrant. Post cholecystectomy kaitlynn are seen in place. Aortoiliac vascular calcifications are seen. Mild degenerative changes are noted in the mid and lower lumbar spine. IMPRESSION: 1. Persistent mild distention of small bowel loops with scattered air-fluid levels, consistent with ongoing partial small bowel obstruction. 2. Postsurgical changes in the abdomen again noted. DICTATED BY: MIGUEL SHELLEY,TIFFANY Mclean DATE/TIME DICTATED:03/20/161041 DRESS FITTER:SHENA DATE/TIME TRANSCRIBED:03/20/161041 SERVICE DATE: 03/17/16- EXAM TYPE: CAT - CT ABD & PELVIS W/ ORAL CONTRA EXAMINATION: CT ABDOMEN AND PELVIS WITH CONTRAST CLINICAL INFORMATION: Intractable abdominal pain. Small bowel obstruction. COMPARISON: CT abdomen and pelvis from 02/28/2016 at 03/15/2016. TECHNIQUE: Multidetector volumetric imaging was performed from the superior aspect of the liver through the pubic symphysis following administration of oral contrast. Sagittal and coronal reformatted images were obtained on the technologist's workstation. DLP: 360 mGy-cm FINDINGS: LUNG BASES: Mild atelectasis in dependent aspect of each lower lobe. No pericardial or pleural effusion. LIVER, GALLBLADDER, AND BILIARY TREE: Liver has normal size and contour. Previously noted hepatic cysts are unchanged. No evidence of a new hepatic lesion or intrahepatic bile duct dilatation. Gallbladder is surgically absent and minimal pneumobilia is noted. PANCREAS: Unremarkable. SPLEEN: Again noted is a somewhat wedge-shaped hypodense subcapsular defect of the posterior spleen, compatible with prior infarction. ADRENAL GLANDS: Unremarkable. KIDNEYS AND URETERS: The kidneys are normal in size, shape, and attenuation. No hydronephrosis, hydroureter, or calculi seen. No perinephric stranding. BLADDER: Urinary bladder is underdistended. The anterior bladder dome appears tethered to the lower abdominal wall by midline scar and/or urachal remnant. GASTROINTESTINAL TRACT AND PERITONEAL CAVITY: Stomach is moderately distended with enteric contrast. The tip of the enteric tube terminates in the region of the proximal gastric body. Small bowel remains obstructed and is dilated up to 3.8 cm. The degree of small bowel distention remains similar compared to 03/15/2016. Enteric contrast is present within the jejunum at the time of imaging. Fluid-filled, mildly dilated small bowel without contrast is present within the right right lower abdomen and pelvis, as well, and there is a region of fecalization of small bowel deep to the left lower abdominal wall. This appears to be the region of transition from dilated to nondilated small bowel. Suture material from prior bowel resection/anastomosis is present in this area. There is no evidence of an obstructing mass. The small bowel ostomy is again seen within the left lower abdominal wall. No evidence of pneumatosis intestinalis or pneumoperitoneum. There are surgical changes from partial colectomy. A moderate amount of ascitic fluid is present within the upper abdomen. There is a small amount of interloop fluid and edema of the mesentery. ABDOMINAL WALL: No acute findings in the abdominal wall. There is a midline scar tissue of the abdominal wall. Also, there is stable appearance of a relatively shallow fat-containing hernia in the midline of the upper abdominal wall. LYMPH NODES: No pathologic sized lymph nodes within the abdomen or pelvis. VASCULAR: There is atherosclerotic calcification of the abdominal aorta and branch vessels. PELVIC VISCERA: Status post hysterectomy. A smoothly marginated 3 x 3.5 cm mass at the level of the right vaginal cuff is unchanged. Edema is seen in the presacral region. OSSEOUS STRUCTURES: No suspicious osseous lesions. IMPRESSION: Persistent small bowel obstruction, similar compared to 03/15/2016, and probably caused by an adhesion affecting bowel in the left lower pelvis. No interval development of pneumatosis intestinalis or pneumoperitoneum. Moderate volume of ascitic fluid is present in the abdomen, increased compared to 03/15/2016. DICTATED BY: SYLVIA LANE MD DATE/TIME DICTATED:03/17/161 DRESS FITTER:SHENA DATE/TIME TRANSCRIBED:03/17/161150 SERVICE DATE: 03/16/16- EXAM TYPE: RAD - [id number] VIEWS; XRY-PORTABLE CHEST XRAY EXAMINATION: PORTABLE CHEST AND ABDOMEN 3 VIEWS CLINICAL INFORMATION: Assess an NG tube. Small bowel obstruction. COMPARISON: 01/07/[address] scan TECHNIQUE: Standard radiographs FINDINGS: Lungs are clear. Left-sided Port-A-Cath remains in place with its tip overlying the SVC. No free air. Heart and mediastinum normal. The NG tube tip overlies the esophagus just proximal to the GE junction. Clips consistent with previous surgery. Ostomy device on the left noted. Coarse high-density material left abdomen noted. When correlated to recent CT scan, this is related to possibly an enterolith noted near the bowel anastomosis. Small amount of pneumobilia suggested correlated to recent CT scan. There are no distended bowel loops are measurable on plain radiographs. IMPRESSION: Suboptimal NG tube placement as above. Reading called at approximately 8:55 AM on the date of exam. Probable enterolith left abdomen. DICTATED BY: ABUNDIO CORBETT MD DATE/TIME DICTATED:03/16/16818 DRESS FITTER:SHENA DATE/TIME TRANSCRIBED:03/16/16818 SERVICE DATE: 03/15/16-1207 EXAM TYPE: CAT - CT ABD & PELVIS W/O IV CONTRAS EXAMINATION: CT ABDOMEN AND PELVIS WITHOUT CONTRAST CLINICAL INFORMATION: Rule out small bowel obstruction with no output into ileostomy/ COMPARISON: CT abdomen and pelvis dated 02/28/2016, 12/28/2015, 12/19/2015, 11/10/2015, 08/22/2015, 06/02/2015, 04/02/2015, 04/04/2015, 12/22/2014, 09/06/2014, 08/01/2014, and others. TECHNIQUE: Multidetector volumetric imaging was performed from the superior aspect of the liver through the pubic symphysis. Sagittal and coronal reformatted images were obtained on the technologist's workstation. DLP: 339.53 mGy-cm FINDINGS: LUNG BASES: The visualized lung bases are unremarkable. LIVER, GALLBLADDER, AND BILIARY TREE: Ascites has increased around the liver since the prior study. The liver is normal in size, shape, and attenuation. No focal hepatic lesion or biliary ductal dilatation is present. Patient is status post cholecystectomy and air is noted in the biliary tree. Small 1 cm hypodensity in the right lobe of the liver, unchanged. PANCREAS: Unremarkable. SPLEEN: Unremarkable. Peripheral wedge-shaped hypodensity, unchanged. ADRENAL GLANDS: Unremarkable. KIDNEYS AND URETERS: The kidneys are normal in size, shape, and attenuation. No hydronephrosis, hydroureter, or calculi seen. No perinephric stranding. BLADDER: The bladder is almost empty. GASTROINTESTINAL TRACT: Since the prior study, there has developed some dilatation of small bowel with air within it. Loops have gone from 2.6 cm in diameter to 4.2 cm in diameter. The loop that exits into the ostomy has gone from 1.5 cm to 2.9 cm. ABDOMINAL WALL: No significant hernia is appreciated. A loop of decompressed colon appears to be adhered to the anterior abdominal wall with associated thickening. Appearances are unchanged since the previous study. LYMPH NODES: Normal. VASCULAR: Aortoiliac calcifications. PELVIC VISCERA: The patient is apparently status post hysterectomy. Once again seen is a right adnexal mass extending from the right of the vagina measuring about 3 cm, and appears unchanged. Air as well as an area of calcification is noted in the vagina. OSSEOUS STRUCTURES: Mild degenerative changes lower thoracic spine. IMPRESSION: 1. Increased small bowel obstruction since the previous study as described above. 2. Slight increase in ascitic fluid around the liver. 3. Other findings as described above. DICTATED BY: ABUNDIO ROSAS MD DATE/TIME DICTATED:03/15/161236 DRESS FITTER:SHENA DATE/TIME TRANSCRIBED:03/15/161236 Pertinent Lab Results: 03/15/16 1130: Anion Gap 15, Estimated GFR 25 L, BUN/Creatinine Ratio 11.0, Glucose 99, Lactic Acid 0.9, Calcium 9.7, Total Bilirubin 0.9, AST 28, ALT 42, Alkaline Phosphatase 115, Troponin I < 0.01, Total Protein 7.1, Albumin 4.3, Globulin 2.8, Albumin/ Globulin Ratio 1.5, CBC w Diff NO MAN DIFF REQ, RBC 3.67 L, MCV 89.6, MCH 30.6, RDW 14.5, MPV 7.0 L, Gran % 79.3 H, Lymphocytes % 13.0 L, Monocytes % 5.6, Eosinophils % 1.3, Basophils % 0.8, Absolute Granulocytes 7.1 H, Absolute Lymphocytes 1.2, Absolute Monocytes 0.5, Absolute Eosinophils 0.1, Absolute Basophils 0.1, PUBS MCHC 34.2 03/17/16 0615: Anion Gap 7, Estimated GFR > 60, BUN/Creatinine Ratio 14.3, Magnesium 1.3 L 03/16/16 1256: Urine Color TINO, Urine Clarity CLEAR, Urine pH 6.0, Ur Specific Conifer 1.025, Urine Protein NEG, Urine Ketones NEG, Urine Nitrite NEG, Urine Bilirubin NEG, Urine Urobilinogen 0.2, Ur Leukocyte Esterase NEG, Ur Microscopic EXAM NOT REQUIRED, Urine Hemoglobin NEG, Urine Glucose NEG 03/24/16 0535: Anion Gap 12, Estimated GFR > 60, BUN/Creatinine Ratio 10.0, Magnesium 1.6 Disposition Summary Disposition Principal Diagnosis: Small bowel ostruction Additional Diagnosis: DIPIKA, HTN, HLD, Ovarian Carcinoma, hypomagnesemia, tobacco abuse Discharge Disposition: home or self care Discharge Instructions General Discharge Information Code Status: Full Code Patient's Diet: Regular Patient's Activity: As tolerated Follow-Up Instructions/Appts: 1. You have low magnesium levels, please take Myalta (Aluminum hydroxide- magnesium hydroxide, it is OTC) 30 mls every 6 hours (maximum 120 mls per day) 2. Please check blood levels of Magnesium and Electroytes on Sunday03/29/[address] Covarrubias and Dr. Baez. 3. Follow with Dr. Baez, surgery, in 1-2 weeks after discharge. 4. Follow-up with Dr. Covarrubias, your PCP, within 1-2 weeks after discharge. 5. Follow up with Dr. Dain Osborne, hematology/oncology, within 2 weeks of discharge. He will restart you on prochloperazine if needed. Currently you are taking phenergan for nausea. 6. Please come back to the ED if symptoms worsen. Medications at Discharge Discharge Medications: Stop taking the following medications: Oxycodone HCl (Oxycodone HCl) 5 MG TABLET ORAL THREE TIMES A DAY NEEDED Qty = 15 Continue taking these medications: Ezetimibe (Zetia) 10 MG TABLET 1 Tablet ORAL DAILY Comments: NOT GIVEN IN HOSPITAL Cetirizine HCl (Zyrtec) 10 MG TABLET 1 Tablet ORAL DAILY Comments: NOT GIVEN IN HOSPITAL Gabapentin (Neurontin) 300 MG CAPSULE 1 Capsule ORAL THREE TIMES DAILY Comments: Last Taken: 03/24/16 Time: 9:30 AM Amlodipine Besylate (Amlodipine Besylate) 5 MG TABLET 1 Tablet ORAL DAILY Qty = 90 Comments: Last Taken: 03/24/16 Time: 9:30 AM Loperamide HCl (Loperamide) 2 MG TABLET 2 Tablet ORAL 4 TIMES A DAY as needed for DIARRHEA Days = 14 Comments: Last Taken: 03/24/16 Time: 12:00 PM Fluoxetine HCl (Fluoxetine HCl) 20 MG CAPSULE 1 Capsule ORAL DAILY Qty = 30 Comments: Last Taken: 03/24/16 Time: 9:30 AM Promethazine HCl (Promethazine HCl) 25 MG TABLET 1 Tablet ORAL EVERY SIX HOURS as needed for nausea Qty = 30 Comments: NOT GIVEN IN HOSPITAL Start taking the following new medications: Oxycodone HCl (Oxycodone HCl) 10 MG TABLET 1 Tablet ORAL EVERY 4 HOURS NEEDED as needed for PAIN SCALE 7-10 (SEVERE) Qty = 20 No Refills Comments: Last Taken: 03/24/16 Time: 1:30 PM Ranitidine HCl (Heartburn Relief) 150 MG TABLET 1 Tablet ORAL TWICE DAILY as needed for HEARTBURN Qty = 60 No Refills Comments: NOT GIVEN IN HOSPITAL Copies To: ELOISA SHELLEY,DAIN; LISA SHELLEY,ALEXUS [place]; SATISH SHELLEY,DAILY Quispe Attending MD Review Statement Documenting Attending: CONNOR AGUIAR MD Other Findings: Agree with the above discharge plan.
[2016-03-24 08:34] VITALS: BP 132/76
[2016-03-24 09:27] VITALS: BP 132/76
[2016-03-24] MEDS ORDERED: OXYCODONE HCL10 M2 PO ×2 (11:08→11:23)
[2016-03-24] MEDS ORDERED: PROMETHAZINE HC25 M3 PO (11:09)
[2016-03-24] MEDS ORDERED: HEARTBURN RELI150 MG PO (11:22)
--- NOTE | 2016-03-24 15:19 | PN- Att Addend ---
Attending MD Review Statement Attending Statement Attending MD Statement: examined this patient, discuss w/resident/PA/ROD BENDING MACHINE OPERATOR, agreed w/resident/PA/ROD BENDING MACHINE OPERATOR, reviewed EMR data (avail), discussed w/nursing Attending Assessment/Plan: Laboratory Tests 03/24/16 0535: Anion Gap 12, Estimated GFR > 60, BUN/Creatinine Ratio 10.0, Magnesium 1.6 Vital Signs Date Time Temp Pulse Resp B/P Pulse O2 O2 Flow FiO2 Ox Delivery Rate 03/24 0927 90 132/76 03/24 0834 98.2 90 20 132/76 94 Room Air 03/23 2357 99.3 84 20 118/72 95 Room Air 03/23 1549 98.3 90 19 130/70 97 Pt with pmh of active ovarian cancer with carcinomatosis and colon cancer in past admitted with SBO, pt recently had ileostomy for the SBO . SBO resolved, tolerating diet and good output through ileostomy . dc home in stable condition. see dc summary for more details.
== END 2016-03-24 14:15 | DRG 389 ==
LOC: ENRESERVTM → ENRESERVDT → ERH 10:15 → ERHI 15:21 → ENPENDDIS 15:21 → 2NB 15:21
PROVIDERS: Emergency Medicine; Internal Medicine; Student in an Organized Health Care Education/Training Program; ADMIT Internal Medicine
DX: K56.5 Intestinal adhesions [bands] with obstruction (postinfection) (principal); N17.9 Acute kidney failure, unspecified; E46 Unspecified protein-calorie malnutrition; C78.6 Secondary malignant neoplasm of retroperitoneum and peritoneum; R18.8 Other ascites; E83.42 Hypomagnesemia; E86.0 Dehydration; E78.5 Hyperlipidemia, unspecified; Z85.43 Personal history of malignant neoplasm of ovary; Z93.2 Ileostomy status; F32.9 Major depressive disorder, single episode, unspecified; I10 Essential (primary) hypertension; F17.210 Nicotine dependence, cigarettes, uncomplicated; Z85.038 Personal history of other malignant neoplasm of large intestine
CPT/HCPCS: 2NBSP; 36415; 74020; 74176; 81003; 82436; 93005; 93010; 96361; 96374; 96375; J0131; J1200; J1642; J1644; J2405; J2550; J2765; J7042; J7060

== ENCOUNTER 2016-06-05 13:52 | Emergency (ER) | payer OTHER ==
[~2016-06-05] VITALS: Ht 162.6 cm; Wt 67.1 kg
[~2016-06-05 13:52] MED LIST changes: +FLUOXETINE HCL20 M2 PO; +HEARTBURN RELI150 MG PO; +OXYCODONE HCL10 M2 PO; +PROMETHAZINE HC25 M3 PO
[2016-06-05] MEDS ORDERED: HYDROMORPHONE HC4 M1 PO (14:23)
[2016-06-05] MEDS ORDERED: PANTOPRAZOLE SO40 M1 PO (14:24)
[2016-06-05] MEDS ORDERED: FENTANYL1 EAC4 TOP (14:24)
[2016-06-05] MEDS ORDERED: LOPERAMIDE2 M1 PO (14:26)
--- NOTE | 2016-06-05 15:05 | ED GENERAL ADULT ---
History of Present Illness General Chief Complaint: Nausea, Vomiting, Diarrhea Stated Complaint: NAUSEA Allergies Coded Allergies: amoxicillin (From AUGMENTIN) (Intermediate, DIARRHEA 06/05/16) clavulanic acid (From AUGMENTIN) (Intermediate, DIARRHEA 06/05/16) Reconcile Medications Amlodipine Besylate 5 MG TABLET 1 TAB PO DAILY BP (Reported) Cetirizine HCl (Zyrtec) 10 MG TABLET 1 TAB PO DAILY ALLERGIES (Reported) Ezetimibe (Zetia) 10 MG TABLET 1 TAB PO DAILY CHOLESTEROL (Reported) Fentanyl 75 MCG/HOUR PATCH.TD72 1 PAT TOP Q3D PAIN (Reported) Fluoxetine HCl 20 MG CAPSULE 1 CAP PO DAILY DEPRESSION (Reported) Gabapentin (Neurontin) 300 MG CAPSULE 1 CAP PO TID NERVE PAIN (Reported) Hydromorphone HCl 4 MG TABLET 1 TAB PO Q3 PAIN (Reported) Loperamide HCl (Loperamide) 2 MG TABLET 2 TAB PO 4 TIMES/DAY DIARRHEA ( Reported) Pantoprazole Sodium 40 MG TABLET.DR 1 TAB PO DAILY GI (Reported) Ranitidine HCl (Heartburn Relief) 150 MG TABLET 1 TAB PO BID PRN HEARTBURN Triage Note: PT BIBA FROM HOME FOR MULTIPLE COMPLAINTS INCLUDING PAIN AROUND G-TUBE SITE AND DRAINAGE TO SITE, CHILLS, +N/+V WHITE SUBSTANCE THIS MORNING, REPORTS ILEOSTOMY OUTPUT NORMAL. +CHEST PRESSURE SINCE 0900 TODAY WHILE SITTING MAKING IT DIFFICULT TO TAKE A DEEP BREATH. PT SUPPOSED TO GET CHEMO THIS MORNING BUT SENT HOME BECAUSE SHE WAS FEELING TOO WEAK/SICK. CURRENTLY ON CHEMO FOR STOMACH CANCER. PT ARRIVES A/O X4, O2 95%. NORMAL COLORING. TEMP 99.7 HPI: This is a eran 65-year-old female with a history of carcinomatosis and bowel obstruction. She is status post ileostomy, gastrostomy tube insertion at [place] approximately 2 months ago, she also has a right-sided PICC line. She says she' s having ongoing episodes of leukocytosis generalized malaise, chills. She was referred to exclude sepsis. (LUIS FELIPE HAYWOOD DO) General Source: patient Exam Limitations: no limitations Vital Signs & Intake/Output Vital Signs & Intake/Output ED Intake and Output 06/06 0000 06/05 1200 Intake Total 0 Output Total Balance 0 Intake, Oral 0 Patient 148 lb Weight Weight Reported by Patient Measurement Method Triage Nurses Notes Reviewed? yes Onset: Gradual Duration: day(s): Timing: recent history Injury Environment: home Severity: moderate Associated Symptoms: abd pain HPI: 65 yo woman with carcinomatosis, ovarian cancer, h/o sbo, presenting with worsening abdominal discomfort, nausea and vomiting, getting worse over the course of the past several days. (NIRMALA SHELLEY,ABAD Milian) Addendum Addendum Updated by microbiology blood culture with Gram positive cocci in chains. Naun Sherman at [facility], Sara notified. 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 History of MRSA: No History of VRE: No History of CDIFF: No Influenza Vaccine: 12/23/15 Surgical History Surgical History: colon resection (with colostomy, then reversal), hysterectomy (with BSO), ovarian carcinomatosis, s/p incisional hernia repair small bowel resection with ileostomy 01/2016 Psychosocial History Who do you live with Spouse Services at Home None What is your primary language Barbadian Tobacco Use: Current Daily Use Daily Tobacco Use Amount/Type: => 5 Cigarettes daily ETOH Use: denies use Illicit Drug Use: denies illicit drug use (LUIS FELIPE HAYWOOD DO) Medical History Any Pertinent Medical History? see below for history Family History Hx Contributory? No (ABAD SORIA MD) Review of Systems Review of Systems GI: Denies: vomiting. (LUIS FELIPE HAYWOOD DO) Review of Systems Constitutional: Reports: no symptoms. EENTM: Reports: no symptoms. Respiratory: Reports: no symptoms. Cardiovascular: Reports: no symptoms. GI: Reports: no symptoms. Genitourinary: Reports: no symptoms. Musculoskeletal: Reports: no symptoms. Skin: Reports: no symptoms. Neurological/Psychological: Reports: no symptoms. Hematologic/Endocrine: Reports: no symptoms. Immunologic/Allergic: Reports: no symptoms. All Other Systems: Reviewed and Negative (ABAD SORIA MD) Physical Exam Physical Exam General Appearance: well developed/nourished, mild distress Head: atraumatic, normal appearance Eyes: Bilateral: normal appearance. Ears, Nose, Throat: normal pharynx Neck: normal inspection Respiratory: normal breath sounds Cardiovascular: regular rate/rhythm Gastrointestinal: normal bowel sounds, soft, diffuse tenderness to palpation. Back: normal inspection Extremities: normal inspection Neurologic/Psych: no motor/sensory deficits, awake, alert, oriented x 3 Skin: intact, normal color, warm/dry Core Measures ACS in differential dx? No CVA/TIA Diagnosis: No Severe Sepsis Present: No Septic Shock Present: No (NIRMALA SHELLEY,ABAD Milian) Progress Differential Diagnoses I considered the following diagnoses in my evaluation of the patient: [Sepsis, pneumonia, intra-abdominal abscess] (YOBANY SALDANA,LUIS FELIPE Sánchez) Differential Diagnoses I considered the following diagnoses in my evaluation of the patient: abscess vs sepsis vs gastroenteritis vs other. Plan of Care: Orders Procedure Date/time Status CULTURE,URINE 06/05 152 Active BLOOD CULTURE 06/05 1521 Active URINALYSIS 06/05 1521 Active TROPONIN LEVEL 06/05 1521 Complete COMPREHENSIVE METABOLIC PANEL 06/05 1521 Complete CBC WITHOUT DIFFERENTIAL 06/05 1521 Complete EKG 06/05 1521 Active BLOOD CULTURE 06/05 1500 Active Laboratory Tests 06/05/16 1540: Anion Gap 14, Estimated GFR > 60, BUN/Creatinine Ratio 34.0 H, Glucose 100 H, Calcium 8.2 L, Total Bilirubin 1.8 H, AST 29, ALT 53 H, Alkaline Phosphatase 300 H, Troponin I < 0.01, Total Protein 5.8 L, Albumin 2.5 L, Globulin 3.3, Albumin/Globulin Ratio 0.8 L, CBC w Diff MAN DIFF ORDERED, RBC 3.34 L, MCV 84.9, MCH 28.3, RDW 16.1 H, MPV 7.5, Gran % 96.2 H, Lymphocytes % 2.1 L, Monocytes % 1.5 L, Eosinophils % 0.1, Basophils % 0.1, Absolute Granulocytes 27.3 H, Segmented Neutrophils 91 H, Band Neutrophils 2, Absolute Lymphocytes 0.6 L, Lymphocytes 4 L, Monocytes 3, Absolute Monocytes 0.4, Absolute Eosinophils 0, Absolute Basophils 0, Platelet Estimate VERIFIED BY SMEAR, Polychromasia 1+, Anisocytosis 1+, PUBS MCHC 33.4, Fld Total RBCs Counted 100 Microbiology 06/05 1540 BLOOD: Blood Culture - RES GRAM POSITIVE COCCI 06/05 1521 URINE ROUT: Urine Culture - ORD 06/05 1500 BLOOD: Blood Culture - RECD Diagnostic Imaging: Viewed by Me: CT Scan. Discussed w/RAD: CT Scan. Radiology Impression: abd/pelvic ct... large abscess vs hematoma... full report below. Initial ED EKG: normal axis, normal intervals, normal p-waves, normal QRS complex, normal sinus rhythm Comments: PATIENT: RIVAS SINGH PRESENT AGE: 65 PATIENT ACCOUNT NO: [id number] : 48 LOCATION: [facility] ORDERING PHYSICIAN: LUIS FELIPE HAYWOOD DO SERVICE DATE: 06/05/16 EXAM TYPE: CAT - CT ABD & PELVIS W/O IV CONTRAS EXAMINATION: CT ABDOMEN AND PELVIS WITHOUT CONTRAST CLINICAL INFORMATION: Abdominal pain. Fever. COMPARISON: CT scan abdomen and pelvis 03/17/2016, 03/15/2016, 12/28/2015. TECHNIQUE: Multidetector volumetric imaging was performed from the superior aspect of the liver through the pubic symphysis. Sagittal and coronal reformatted images were obtained on the technologist's workstation. No oral or intravenous contrast. DLP: 359.38 mGy-cm FINDINGS: LUNG BASES: The visualized lung bases are unremarkable. LIVER, GALLBLADDER, AND BILIARY TREE: Stable 1 cm hepatic cyst central liver. No suspicious liver lesion. No intrahepatic bile duct dilatation. Status post cholecystectomy. No bile duct dilatation. PANCREAS: Pancreas is atrophic. No inflammation around pancreas. 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 ADRENAL GLANDS: Unremarkable KIDNEYS AND URETERS: The kidneys are normal in size, shape, and attenuation. No hydronephrosis, hydroureter, or calculi seen. No perinephric stranding. BLADDER: Unremarkable GASTROINTESTINAL TRACT: Percutaneous gastrotomy tube in place. There is a small bowel ostomy in the left anterior abdominal wall. No abnormal small bowel dilatation. There is a surgical anastomosis of the transverse colon in the central upper abdomen. At this anastomosis there is stool mixed with some contrast in the lumen. This is chronic unchanged since prior study. The large bowel distal to this anastomosis is decompressed. There is a 2nd anastomosis at the distal descending sigmoid colon. Some stool present in the rectum and sigmoid. MESENTERY: In the left upper quadrant of the abdomen there is a ovoid fluid collection with a thin slightly hyperdense wall. This has a fluid fluid level within it. This collection measures 11.3 x 9.7 x 15.2 cm. This fluid collection lies just deep to the left anterior abdominal wall posterior to the stomach where the percutaneous gastrotomy tube enters the stomach and lateral to the left colon. Left colon is displaced to the midline by this collection. This collection is new since the prior exam of 03/17/2016. May be a loculated abscess or possibly hematoma. There is no air in this collection. There is no significant edema in the mesentery surrounding this collection. There is a small amount of edema and fluid in the presacral space. There is a fysav-ap-mtulzado volume of abdominal ascites around the liver. The volume of the abdominal ascites has not changed substantially since 03/17/2016. ABDOMINAL WALL: No significant hernia is appreciated. LYMPH NODES: Normal VASCULAR: Atherosclerotic vascular wall calcifications of aorta and iliac vessels. PELVIC VISCERA: Uterus is absent. Stable ovoid hypodensity in the right adnexa measuring 3.4 x 3.1 x 3.[address] scan of 12/28/2015. OSSEOUS STRUCTURES: Unremarkable IMPRESSION: 1. Large collection in the left side of the abdomen with fluid-fluid level. Could be abscess or hematoma. Clinically correlate. 2. Postsurgical changes of bowel stable since prior exam. No evidence for bowel obstruction. 3. Stable kthiz-um-sjmcszny volume of abdominal ascites. 4. Status post hysterectomy. Stable right adnexal hypodensity related to the right ovary unchanged since 12/28/2015. This critical result was discussed with Dr. Haywood on 06/05/2016, 4:30 PM and it was ascertained that the content and urgency of the report was understood at the time of direct communication. DICTATED BY: JAYLYN EUBANKS MD DATE/TIME DICTATED:06/05/161608 MENTAL HEALTH PROGRAM SPECIALIST:SHENA DATE/TIME TRANSCRIBED:06/05/161608 CONFIDENTIAL, DO NOT COPY WITHOUT APPROPRIATE AUTHORIZATION. <Electronically signed in Other Vendor System> SIGNED BY: JAYLYN EUBANKS MD 06/05/16 3373 (NIRMALA SHELLEY,ABAD Milian) Departure Departure Condition: Stable Referrals: SATISH SHELLEY,DAILY Quispe (PCP/Family) Departure Forms: Customer Survey General Discharge Information Comments 06/05/16 7 PM I spoke with Dr. Joseph at [facility]. She accepted the patient to the [facility] at [facility]. The patient is pending transfer to [place]. I signed the patient out to Dr. Soria at 7 PM. He will order IV antibiotics and transfer the patient THE G-TUBE WAS PLACED BY DR LEES (YOBANY SALDANA,LUIS FELIPE Sánchez) Departure Disposition: OTHER [facility] (ACUTE) Comments pt transferred to [facility] without problem. given abx. (NIRMALA SHELLEY,ABAD Milian) Departure Clinical Impression Primary Impression: Intra-abdominal abscess (MACI HYATT MD) Critical Care Note Critical Care Note Comments: The patient was treated with IV antibiotics after blood cultures were obtained. Labs reveal significant leukocytosis. CT revealed an intra-abdominal abscess. The patient was signed out to Dr. Soria at shift change at 7 PM. She was accepted for transfer to [place]. CT scan results shown below PATIENT: RIVAS SINGH PRESENT AGE: 65 PATIENT ACCOUNT NO: [id number] : 48 LOCATION: [facility] ORDERING PHYSICIAN: LUIS FELIPE HAYWOOD DO SERVICE DATE: 06/05/16 EXAM TYPE: CAT - CT ABD & PELVIS W/O IV CONTRAS EXAMINATION: CT ABDOMEN AND PELVIS WITHOUT CONTRAST CLINICAL INFORMATION: Abdominal pain. Fever. COMPARISON: CT scan abdomen and pelvis 03/17/2016, 03/15/2016, 12/28/2015. TECHNIQUE: Multidetector volumetric imaging was performed from the superior aspect of the liver through the pubic symphysis. Sagittal and coronal reformatted images were obtained on the technologist's workstation. No oral or intravenous contrast. DLP: 359.38 mGy-cm FINDINGS: LUNG BASES: The visualized lung bases are unremarkable. LIVER, GALLBLADDER, AND BILIARY TREE: Stable 1 cm hepatic cyst central liver. No suspicious liver lesion. No intrahepatic bile duct dilatation. Status post cholecystectomy. No bile duct dilatation. PANCREAS: Pancreas is atrophic. No inflammation around pancreas. 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 ADRENAL GLANDS: Unremarkable KIDNEYS AND URETERS: The kidneys are normal in size, shape, and attenuation. No hydronephrosis, hydroureter, or calculi seen. No perinephric stranding. BLADDER: Unremarkable GASTROINTESTINAL TRACT: Percutaneous gastrotomy tube in place. There is a small bowel ostomy in the left anterior abdominal wall. No abnormal small bowel dilatation. There is a surgical anastomosis of the transverse colon in the central upper abdomen. At this anastomosis there is stool mixed with some contrast in the lumen. This is chronic unchanged since prior study. The large bowel distal to this anastomosis is decompressed. There is a 2nd anastomosis at the distal descending sigmoid colon. Some stool present in the rectum and sigmoid. MESENTERY: In the left upper quadrant of the abdomen there is a ovoid fluid collection with a thin slightly hyperdense wall. This has a fluid fluid level within it. This collection measures 11.3 x 9.7 x 15.2 cm. This fluid collection lies just deep to the left anterior abdominal wall posterior to the stomach where the percutaneous gastrotomy tube enters the stomach and lateral to the left colon. Left colon is displaced to the midline by this collection. This collection is new since the prior exam of 03/17/2016. May be a loculated abscess or possibly hematoma. There is no air in this collection. There is no significant edema in the mesentery surrounding this collection. There is a small amount of edema and fluid in the presacral space. There is a wbmom-to-tizyxkun volume of abdominal ascites around the liver. The volume of the abdominal ascites has not changed substantially since 03/17/2016. ABDOMINAL WALL: No significant hernia is appreciated. LYMPH NODES: Normal VASCULAR: Atherosclerotic vascular wall calcifications of aorta and iliac vessels. PELVIC VISCERA: Uterus is absent. Stable ovoid hypodensity in the right adnexa measuring 3.4 x 3.1 x 3.[address] scan of 12/28/2015. OSSEOUS STRUCTURES: Unremarkable IMPRESSION: 1. Large collection in the left side of the abdomen with fluid-fluid level. Could be abscess or hematoma. Clinically correlate. 2. Postsurgical changes of bowel stable since prior exam. No evidence for bowel obstruction. 3. Stable ioglo-yf-eissseyq volume of abdominal ascites. 4. Status post hysterectomy. Stable right adnexal hypodensity related to the right ovary unchanged since 12/28/2015. This critical result was discussed with Dr. Haywood on 06/05/2016, 4:30 PM and it was ascertained that the content and urgency of the report was understood at the time of direct communication. DICTATED BY: JAYLYN EUBANKS MD DATE/TIME DICTATED:06/05/161608 MENTAL HEALTH PROGRAM SPECIALIST:SHENA DATE/TIME TRANSCRIBED:06/05/161608 CONFIDENTIAL, DO NOT COPY WITHOUT APPROPRIATE AUTHORIZATION. <Electronically signed in Other Vendor System> SIGNED BY: JAYLYN EUBANKS MD 06/05/16 5244 (LUIS FELIPE HAYWOOD DO) Critical Care Note Critical Care Time: non-applicable (NIRMALA SHELLEY,ABAD Milian)
[2016-06-05 15:47] LABS: ABSOLUTE BASOPHIL COUNT 0 /CUMM (0.0-0.2); ABSOLUTE EOSINOPHIL COUNT 0 /CUMM (0.0-0.7); ABSOLUTE GRANULOCYTE CT 27.3 /CUMM (1.4-6.5); ABSOLUTE LYMPH COUNT 0.6 /CUMM (1.2-3.4); ABSOLUTE MONOCYTE COUNT 0.4 /CUMM (0.10-0.60); BASOPHIL % 0.1 % (0.0-2.0); EOSINOPHIL % 0.1 % (0-5); HEMATOCRIT 28.3 % (37-47); MEAN CORPUSCULAR HGB 28.3 PG (27.0-31.0); MEAN CORPUSCULAR HGB CONC 33.4 G/DL (33.0-37.0); MEAN CORPUSCULAR VOLUME 84.9 FL (81.0-99.0); MEAN PLATELET VOLUME 7.5 FL (7.4-10.4); PLATELET COUNT 327 /CUMM (130-400); RBC DISTRIBUTION WIDTH 16.1 % (11.5-14.5); RED BLOOD CELL CT 3.34 /CUMM (4.20-5.40); WHITE BLOOD CELL COUNT 28.4 /CUMM (4.8-10.8)
[2016-06-05 15:54] LABS: GRANULOCYTE % 96.2 % (42.2-75.2)
--- NOTE | 2016-06-05 16:00 | RADIOLOGY REPORT ---
EXAMINATION: XR PORTABLE CHEST CLINICAL INFORMATION: Fever, pneumonia COMPARISON: 03/16/2016 chest x-ray TECHNIQUE: Portable frontal view of the chest was obtained. FINDINGS: The cardiomediastinal silhouette and pulmonary vascularity are within normal limits. Left subclavian approach Port-A-Cath in place with its tip in the region of distal superior vena cava. Right upper extremity PICC line in place with its tip at the caval atrial junction. The lungs are clear. No pleural effusions or pneumothorax. IMPRESSION: No acute pulmonary findings. Catheters as above.
--- NOTE | 2016-06-05 17:01 | CT SCAN REPORT ---
EXAMINATION: CT ABDOMEN AND PELVIS WITHOUT CONTRAST CLINICAL INFORMATION: Abdominal pain. Fever. COMPARISON: CT scan abdomen and pelvis 03/17/2016, 03/15/2016, 12/28/2015. TECHNIQUE: Multidetector volumetric imaging was performed from the superior aspect of the liver through the pubic symphysis. Sagittal and coronal reformatted images were obtained on the technologist's workstation. No oral or intravenous contrast. DLP: 359.38 mGy-cm FINDINGS: LUNG BASES: The visualized lung bases are unremarkable. LIVER, GALLBLADDER, AND BILIARY TREE: Stable 1 cm hepatic cyst central liver. No suspicious liver lesion. No intrahepatic bile duct dilatation. Status post cholecystectomy. No bile duct dilatation. PANCREAS: Pancreas is atrophic. No inflammation around pancreas. 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 ADRENAL GLANDS: Unremarkable KIDNEYS AND URETERS: The kidneys are normal in size, shape, and attenuation. No hydronephrosis, hydroureter, or calculi seen. No perinephric stranding. BLADDER: Unremarkable GASTROINTESTINAL TRACT: Percutaneous gastrotomy tube in place. There is a small bowel ostomy in the left anterior abdominal wall. No abnormal small bowel dilatation. There is a surgical anastomosis of the transverse colon in the central upper abdomen. At this anastomosis there is stool mixed with some contrast in the lumen. This is chronic unchanged since prior study. The large bowel distal to this anastomosis is decompressed. There is a 2nd anastomosis at the distal descending sigmoid colon. Some stool present in the rectum and sigmoid. MESENTERY: In the left upper quadrant of the abdomen there is a ovoid fluid collection with a thin slightly hyperdense wall. This has a fluid fluid level within it. This collection measures 11.3 x 9.7 x 15.2 cm. This fluid collection lies just deep to the left anterior abdominal wall posterior to the stomach where the percutaneous gastrotomy tube enters the stomach and lateral to the left colon. Left colon is displaced to the midline by this collection. This collection is new since the prior exam of 03/17/2016. May be a loculated abscess or possibly hematoma. There is no air in this collection. There is no significant edema in the mesentery surrounding this collection. There is a small amount of edema and fluid in the presacral space. There is a drwcv-au-yocrycjn volume of abdominal ascites around the liver. The volume of the abdominal ascites has not changed substantially since 03/17/2016. ABDOMINAL WALL: No significant hernia is appreciated. LYMPH NODES: Normal VASCULAR: Atherosclerotic vascular wall calcifications of aorta and iliac vessels. PELVIC VISCERA: Uterus is absent. Stable ovoid hypodensity in the right adnexa measuring 3.4 x 3.1 x 3.[address] scan of 12/28/2015. OSSEOUS STRUCTURES: Unremarkable IMPRESSION: 1. Large collection in the left side of the abdomen with fluid-fluid level. Could be abscess or hematoma. Clinically correlate. 2. Postsurgical changes of bowel stable since prior exam. No evidence for bowel obstruction. 3. Stable vqchf-mr-dgnbjyhj volume of abdominal ascites. 4. Status post hysterectomy. Stable right adnexal hypodensity related to the right ovary unchanged since 12/28/2015. This critical result was discussed with Dr. Catsillo on 06/05/2016, 4:30 PM and it was ascertained that the content and urgency of the report was understood at the time of direct communication.
[2016-06-05 17:44] VITALS: BP 109/56
== END 2016-06-05 19:33 | disposition short-term general hospital (02) ==
LOC: ERH 13:52
PROVIDERS: Emergency Medicine
DX: K65.1 Peritoneal abscess (principal); R53.1 Weakness; D72.829 Elevated white blood cell count, unspecified; R11.2 Nausea with vomiting, unspecified; I10 Essential (primary) hypertension; Z72.0 Tobacco use
CPT/HCPCS: 74176; 87040; 87071; 87086; 87147; 93005; 93010; 96374; 96375; J0131; J0696

== ENCOUNTER 2016-07-03 12:25 | Inpatient (IN) | payer OTHER ==
[~2016-07-03] VITALS: Ht 162.6 cm; Wt 62.0 kg
[~2016-07-03 12:25] MED LIST changes: +FENTANYL1 EAC4 TOP; +HYDROMORPHONE HC4 M1 PO; +PANTOPRAZOLE SO40 M1 PO
--- NOTE | 2016-07-03 12:32 | NUR ---
65 YO FEMALE TO TRIAGE C/O NO BOWEL MOVEMENT IN 2 DAYS. PT HAS ILEOSTOMY. PT C/O LOWER ABD PAIN AND +NAUSEA. STATES ILEOSTOMY HAS BEEN IN PLACE SINCE JANUARY.
--- NOTE | 2016-07-03 12:38 | NUR ---
PT TO ROOM 7 VIA W/C. ASSISTED TO STRETCHER. AWAITING EVAL. Informed waiting has been performed.
--- NOTE | 2016-07-03 12:43 | NUR ---
PT HAS CRISTINA PICC LINE FOR TPN AND LIPIDS ONLY.
--- NOTE | 2016-07-03 12:55 | NUR ---
DR HYATT IN FOR EVAL.
--- NOTE | 2016-07-03 13:09 | ED GI/GU/ABDOMINAL COMPLAINT ---
History of Present Illness General Chief Complaint: Abdominal Pain/Flank Pain Stated Complaint: PT HAS IIEOSTOMY C/O OF NO BM FOR 2 DAYS Source: patient, family, old records Exam Limitations: no limitations Vital Signs & Intake/Output Vital Signs & Intake/Output Vital Signs Date Time Temp Pulse Resp B/P B/P Pulse O2 O2 Flow FiO2 Mean Ox Delivery Rate 07/03 1230 97.2 89 18 96/63 99 Room Air Allergies Coded Allergies: amoxicillin (From AUGMENTIN) (Intermediate, DIARRHEA 06/05/16) clavulanic acid (From AUGMENTIN) (Intermediate, DIARRHEA 06/05/16) hydromorphone (From DILAUDID) (Mild, SWEATS 07/03/16) Reconcile Medications Amlodipine Besylate 5 MG TABLET 1 TAB PO DAILY BP (Reported) Cetirizine HCl (Zyrtec) 10 MG TABLET 1 TAB PO DAILY ALLERGIES (Reported) Ezetimibe (Zetia) 10 MG TABLET 1 TAB PO DAILY CHOLESTEROL (Reported) Fentanyl 75 MCG/HOUR PATCH.TD72 1 PAT TOP Q3D PAIN (Reported) Fluoxetine HCl 20 MG CAPSULE 1 CAP PO DAILY DEPRESSION (Reported) Gabapentin (Neurontin) 300 MG CAPSULE 1 CAP PO TID NERVE PAIN (Reported) Hydromorphone HCl 4 MG TABLET 1 TAB PO Q3 PAIN (Reported) Loperamide HCl (Loperamide) 2 MG TABLET 2 TAB PO 4 TIMES/DAY DIARRHEA ( Reported) Pantoprazole Sodium 40 MG TABLET.DR 1 TAB PO DAILY GI (Reported) Ranitidine HCl (Heartburn Relief) 150 MG TABLET 1 TAB PO BID PRN HEARTBURN Triage Note: 65 YO FEMALE TO TRIAGE C/O NO BOWEL MOVEMENT IN 2 DAYS. PT HAS ILEOSTOMY. PT C/O LOWER ABD PAIN AND +NAUSEA. STATES ILEOSTOMY HAS BEEN IN PLACE SINCE JANUARY. Triage Nurses Notes Reviewed? yes LMP (ages 10-50): post menopausal ? n Is pt currently ? No Onset: 2 days Duration: day(s):, constant, continues in ED, getting worse Timing: recent history Quality/Severity: aching, fullness, severe, vomiting Location: generalized abdomen, urethral Radiation: no radiation Activities at Onset: none Prior Abdominal Problems: similar symptoms Past Sexual History: Unobtainable at this time Modifying Factors: Worsens With: eating, palpation. Associated Symptoms: abdominal pain, loss of appetite, nausea/vomiting HPI: 2 days prior to admission patient reports no stool in the ileostomy bag with anorexia cough decreased appetite with generalized abdominal pain nausea vomiting unable to tolerate G-tube feeds. She denies fever chills chest pain shortness of breath headache dysuria rash bleeding. Past History Travel History Traveled to [place] past 21 day No Medical History Any Pertinent Medical History? see below for history Neurological: NONE EENT: NONE Cardiovascular: hypertension, hyperlipidemia Respiratory: NONE Gastrointestinal: umbilical hernia, COLON CANCER SBO G-TUBE Hepatic: NONE Renal: NONE Musculoskeletal: NONE Psychiatric: depression Endocrine: NONE Blood Disorders: NONE Cancer(s): ovarian cancer (with carcinomatosis), COLON CANCER STOMACH CANCER M[employer]IC/Reproductive: OVARIAN CANCER History of MRSA: No History of VRE: No History of CDIFF: No Surgical History Surgical History: colon resection (with colostomy, then reversal), hysterectomy (with BSO), ovarian carcinomatosis, s/p incisional hernia repair small bowel resection with ileostomy 01/2016 Psychosocial History Who do you live with Spouse Services at Home None What is your primary language Estonian Tobacco Use: Never used Family History Hx Contributory? No Review of Systems Review of Systems Constitutional: Reports: see HPI, malaise. EENTM: Reports: no symptoms. Respiratory: Reports: no symptoms. Cardiovascular: Reports: no symptoms. GI: Reports: see HPI, abdominal pain, nausea, vomiting. Genitourinary: Reports: no symptoms. Musculoskeletal: Reports: no symptoms. Skin: Reports: no symptoms. Neurological/Psychological: Reports: no symptoms. Hematologic/Endocrine: Reports: no symptoms. Immunologic/Allergic: Reports: no symptoms. All Other Systems: Reviewed and Negative Physical Exam Physical Exam General Appearance: well developed/nourished, alert, awake, anxious, moderate distress Head: atraumatic, normal appearance Eyes: Bilateral: normal appearance, PERRL, EOMI. Ears, Nose, Throat, Mouth: hearing grossly normal, dry mucous membranes Neck: normal inspection, supple, full range of motion, normal alignment Respiratory: chest non-tender, no respiratory distress, quiet respiration, lungs clear, decreased breath sounds Cardiovascular: regular rate/rhythm, normal peripheral pulses, norml femoral pulses equa Peripheral Pulses: 4+ carotid (R), 4+ carotid (L) Gastrointestinal: soft, abnormal bowel sounds, tenderness, no ileostomy output Back: normal inspection, normal range of motion, no vertebral tenderness Extremities: normal range of motion, no ligament instability Neurologic/Psych: no motor/sensory deficits, awake, alert, oriented x 3, normal gait, normal mood/affect, clinical social work therapist II-XII nml as tested Skin: intact, normal color, warm/dry Core Measures ACS in differential dx? No Severe Sepsis Present: No Septic Shock Present: No Progress Differential Diagnosis: biliary colic, bowel obstruction, gastritis, inflamm bowel dis, SBO Plan of Care: Orders Procedure Date/time Status Nothing by Mouth 07/04 B Active Patient Data 07/03 1630 Active OXYGEN SETUP (GEN) 07/03 1622 Active Saline Lock 07/[address] in observation 07/03 1622 Active Vital Signs 07/03 1622 Active Activity/Ambulation 07/03 162 Active Code Status 07/03 1622 Active Intake & Output 07/03 1333 Active PROTHROMBIN TIME 07/03 1300 Complete LIPASE 07/03 1300 Complete COMPREHENSIVE METABOLIC PANEL 07/03 1300 Complete CBC WITHOUT DIFFERENTIAL 07/03 1300 Complete Laboratory Tests 07/03/16 1324: PT 12.1, INR 1.15, CBC w Diff NO MAN DIFF REQ, RBC 3.09 L, MCV 87.1, MCH 28.5, RDW 19.2 H, MPV 8.1, Gran % 73.5, Lymphocytes % 25.0, Monocytes % 0.8 L, Eosinophils % 0.5, Basophils % 0.2, Absolute Granulocytes 3.2, Absolute Lymphocytes 1.1 L, Absolute Monocytes 0 L, Absolute Eosinophils 0, Absolute Basophils 0, PUBS MCHC 32.8 L 07/03/16 1320: Anion Gap 9, Estimated GFR > 60, BUN/Creatinine Ratio 38.0 H, Glucose 97, Calcium 8.8, Total Bilirubin 0.7, AST 22, ALT 51, Alkaline Phosphatase 118, Total Protein 6.2 L, Albumin 3.1 L, Globulin 3.1, Albumin/Globulin Ratio 1.0 L, Lipase 30 Diagnostic Imaging: Viewed by Me: Radiology Read, CT Scan. Discussed w/RAD: Radiology Read, CT Scan. Radiology Impression: 1. No bowel obstruction. Multiple bowel anastomoses which are unchanged. Left-sided ileostomy without evidence of obstruction. Gastrostomy tube in unchanged position. 2. The previously seen left upper quadrant fluid collection is no longer present. Mild peritoneal free fluid, slightly decreased in prominence since the prior examination. No intraperitoneal free air. 3. Cholecystectomy. Mild pneumobilia, which has been previously identified and may be physiologic following a cholecystectomy. 4. Hypoattenuation of the pancreatic head which could represent a cystic lesion versus prominent ducts. Increased prominence of the main pancreatic duct since the prior examination. 5. Surgically absent uterus. Stable complex cystic structure within the right adnexa. 6. New minimal patchy airspace opacities within the right lower lobe and right middle lobe, which could represent early infiltrates. CXR Impression: no acute abnormality, no infiltrates Initial ED EKG: none Departure Departure Time of Disposition: 1600 Disposition: STILL A PATIENT Condition: Stable Clinical Impression Primary Impression: Intractable vomiting with nausea Qualifiers: Vomiting type: unspecified Qualified Code: R11.2 - Nausea with vomiting, unspecified Secondary Impressions: Abdominal pain Qualifiers: Abdominal location: left lower quadrant Qualified Code: R10.32 - Left lower quadrant pain Referrals: DAILY COVARRUBIAS MD (PCP/Family) Departure Forms: Customer Survey General Discharge Information Admission Note Documentation of Exam: Documentation of any treatments & extenuating circumstances including Concerns Regarding Discharge (functional status, medication knowledge or non-compliance, living conditions, etc.) that warrant an admission rather than observation: Observation Note Spoke With: STEFANIA SHELLEY,CONNOR Quispe Physician Advisor Notified: ANTONY SHELLEY,NESTOR [place] [facility] Patient In: Non-ED OBS Care Area Rationale for Observation: My rational for observation is as follows NPO IV hydration presumed TPN and G- tube feeding antiemetics serial lab exam medication adjustment continuing care discharge planning Resume TPN IV hydration serial lab exam IV antiemetic and by mouth advance G- tube feeds physical therapy medication adjustment continuing care discharge planning
[2016-07-03 13:34] LABS: ABSOLUTE BASOPHIL COUNT 0 /CUMM (0.0-0.2); ABSOLUTE EOSINOPHIL COUNT 0 /CUMM (0.0-0.7); ABSOLUTE GRANULOCYTE CT 3.2 /CUMM (1.4-6.5); ABSOLUTE LYMPH COUNT 1.1 /CUMM (1.2-3.4); ABSOLUTE MONOCYTE COUNT 0 /CUMM (0.10-0.60); BASOPHIL % 0.2 % (0.0-2.0); EOSINOPHIL % 0.5 % (0-5); GRANULOCYTE % 73.5 % (42.2-75.2); HEMATOCRIT 26.9 % (37-47); MEAN CORPUSCULAR HGB 28.5 PG (27.0-31.0); MEAN CORPUSCULAR HGB CONC 32.8 G/DL (33.0-37.0); MEAN CORPUSCULAR VOLUME 87.1 FL (81.0-99.0); MEAN PLATELET VOLUME 8.1 FL (7.4-10.4); PLATELET COUNT 207 /CUMM (130-400); RBC DISTRIBUTION WIDTH 19.2 % (11.5-14.5); RED BLOOD CELL CT 3.09 /CUMM (4.20-5.40); WHITE BLOOD CELL COUNT 4.4 /CUMM (4.8-10.8)
[2016-07-03 13:37] LABS: PT 12.1 SEC (9.4-12.5)
--- NOTE | 2016-07-03 14:57 | CT SCAN REPORT ---
EXAMINATION: CT ABDOMEN AND PELVIS WITH CONTRAST CLINICAL INFORMATION: Nausea and vomiting. Cancer with gastrostomy tube. No ileostomy output for 2 days. Evaluate for a small bowel obstruction. COMPARISON: Multiple priors, most recent CT abdomen and pelvis dated 06/05/2016. TECHNIQUE: Multidetector volumetric imaging was performed of the abdomen and pelvis before and after the IV administration of 94 mL of Optiray 320 intravenous contrast. Sagittal and coronal reformatted images were obtained on the technologist's workstation. DLP: 267.43 mGy-cm FINDINGS: LUNG BASES: There are new scattered patchy airspace opacities within the anterior aspect of the right lower lobe as well as within the right middle lobe, which could represent early infiltrates. There are minimal bilateral atelectatic changes. LIVER, GALLBLADDER, AND BILIARY TREE: The liver is normal in size, shape, and attenuation. An unchanged 1 cm hypodensity is seen within the right lower of the liver, likely representing a cyst. There is mild pneumobilia, increased since the prior examination. This was seen on prior examinations and can be physiologic following a cholecystectomy. The gallbladder is surgically absent. PANCREAS: There is cystic hypoattenuation within the pancreatic head, which could represent prominent ducts. A cystic lesion cannot be excluded. The pancreatic duct measures approximately 5 mm, which has increased in prominence since the prior examination. SPLEEN: Unremarkable. ADRENAL GLANDS: Unremarkable. KIDNEYS AND URETERS: The kidneys are normal in size, shape, and attenuation. No hydronephrosis, hydroureter, or calculi seen. No perinephric stranding. There are 2 cortical subcentimeter hypodensities within the right kidney, too small to characterize. BLADDER: Unremarkable. GASTROINTESTINAL TRACT: A gastrostomy tube is redemonstrated. A left upper quadrant bowel anastomosis is again seen without evidence of obstruction. There is a left lower quadrant ileostomy without obstruction. Additional surgical sutures are seen within the left lower quadrant, which could represent an additional anastomosis. There are surgical clips in the region of the appendix, likely representing a prior appendectomy. Mild free fluid is redemonstrated within the right hemiabdomen and perihepatic region, slightly decreased in prominence since the prior examination. The previously seen left upper quadrant fluid collection is no longer present. There is no intraperitoneal free air. ABDOMINAL WALL: Postsurgical changes are noted within the anterior aspect of the abdominal wall. No abdominal wall hernia is noted. LYMPH NODES: There is no significant lymphadenopathy. VASCULAR: Contrast opacifies the abdominal aorta and its branch vessels. There are scattered atherosclerotic calcifications. The IVC is unremarkable. PELVIC VISCERA: The uterus is surgically absent. A 3.6 cm complex cyst is again noted within the right adnexa, not significantly changed since the prior examination and stable since the CT scan dated 12/28/2015. OSSEOUS STRUCTURES: There is no lytic or blastic osseous lesion. IMPRESSION: 1. No bowel obstruction. Multiple bowel anastomoses which are unchanged. Left-sided ileostomy without evidence of obstruction. Gastrostomy tube in unchanged position. 2. The previously seen left upper quadrant fluid collection is no longer present. Mild peritoneal free fluid, slightly decreased in prominence since the prior examination. No intraperitoneal free air. 3. Cholecystectomy. Mild pneumobilia, which has been previously identified and may be physiologic following a cholecystectomy. 4. Hypoattenuation of the pancreatic head which could represent a cystic lesion versus prominent ducts. Increased prominence of the main pancreatic duct since the prior examination. 5. Surgically absent uterus. Stable complex cystic structure within the right adnexa. 6. New minimal patchy airspace opacities within the right lower lobe and right middle lobe, which could represent early infiltrates.
--- NOTE | 2016-07-03 15:00 | NUR ---
REPORT HANDED OFF TO BERTIN PORTILLO.
--- NOTE | 2016-07-03 15:30 | NUR ---
PT AMBULATORY TO AND FROM RESTROOM
--- NOTE | 2016-07-03 15:51 | RADIOLOGY REPORT ---
EXAMINATION: XR CHEST PORTABLE CLINICAL INFORMATION: Question infiltrates on earlier CT abdomen and pelvis. Evaluate for pneumonia. COMPARISON: Multiple priors, most recent chest radiograph dated 06/05/[address] abdomen and pelvis done earlier the same day. TECHNIQUE: Portable frontal view of the chest was obtained. FINDINGS: No significant airspace opacification. The airspace opacities which were seen on the prior CT abdomen and pelvis are not appreciated by chest radiograph. No pleural effusion. No pneumothorax. Stable cardiomediastinal silhouette. A right-sided PICC catheter is seen with its tip terminating in the SVC. A left-sided chest port is noted with its tip terminating at the cavoatrial junction. No acute osseous abnormality. IMPRESSION: Airspace opacities noted on the prior CT are not appreciated by chest radiograph. Unchanged right PICC catheter and left chest wall port.
--- NOTE | 2016-07-03 16:37 | NUR ---
2ND LITER NS BOLUS STARTED. PT MEDICATED WITH PEPCID 20MG IVP AND REGLAN 10MG IVP. PT PENDING ADMISSION
--- NOTE | 2016-07-03 16:42 | History & Physical ---
MYRA SHELLEY,DINO 07/03/16 1624: General Information and HPI MD Statement: I have seen and personally examined RIVAS SINGH and documented this H&P. The patient is a 65 year old F who presented with a patient stated chief complaint of []. Source of Information: patient, family, old records Exam Limitations: no limitations History of Present Illness: Patient is a 65-year-old female with significant past medical history hypertension, hyperlipidemia, depression, history of ovarian cancer s/p hysterectomy with bilateral salpingo-oophorectomy (2013), Ovarian carcinomatosis ,colon cancer s/p colostomy (2013) and then reversal and small bowel obstruction s/p small bowel resection with ileostomy, G tube presented with chief complaints of of lower abdomen pain , nausea, decrease/ no output from ileostomy since 3 days. She had chemotherapy on this sunday, and was doing well.She first started feeling fulness and discomfort in rectum. Later she started having no output from ileostomy, which is followed by Abdoman pain, distention, and associated with nausea, vomiting, anorexia, decreased appetite.Abdominal pain was generalized in the abdomen,7/10, intermittent, progressive, nonradiating. She had 2 episodes of fowl smelling vomiting, greenish in color, high in volume. She denies for any blood in it. She is having PICC line in right hand,using for TPN daily. She is on TPN feeding daily for 12 hrs, getting from [facility]. She is also c/o back pain, which is usual for her, using oxycodon 10mg TID and Fantanyl Patch 75mg/Day. She is getting Pain medication from Pain clinic at [facility]. She is also undergoing chemotherapy every other week, from [facility]. Denies - fever, chills, headache, dizziness, chest pain, dysuria, Swelling in leg, sick contact. Personal history-Lives with , active smoker(40 plus pack years), still smoking 3/4 PPD, denies alcohol use, illicit drug abuse. Allergies/Medications Allergies: Coded Allergies: amoxicillin (From AUGMENTIN) (Intermediate, DIARRHEA 06/05/16) clavulanic acid (From AUGMENTIN) (Intermediate, DIARRHEA 06/05/16) hydromorphone (From DILAUDID) (Mild, SWEATS 07/03/16) Past History Travel History Traveled to [place] past 21 day No Medical History Neurological: NONE EENT: NONE Cardiovascular: hypertension, hyperlipidemia Respiratory: NONE Gastrointestinal: umbilical hernia, COLON CANCER SBO G-TUBE Hepatic: NONE Renal: NONE Musculoskeletal: NONE Psychiatric: depression Endocrine: NONE Blood Disorders: NONE Cancer(s): ovarian cancer (with carcinomatosis), COLON CANCER STOMACH CANCER [employer]/Reproductive: OVARIAN CANCER History of MRSA: No History of VRE: No History of CDIFF: No Surgical History Surgical History: colon resection (with colostomy, then reversal), hysterectomy (with BSO), ovarian carcinomatosis, s/p incisional hernia repair small bowel resection with ileostomy 01/2016 Past Family/Social History Psychosocial History Who Do You Live With? spouse Services at Home: None Primary Language: Turkmen Living Will? no Functional Ability ADLs Independent: dressing, eating, toileting, bathing. Ambulation: independent IADLs Independent: shopping, housework, finances, food prep, telephone, transportation , medication admin. Sexual History Past Sexual History Unobtainable at this time Review of Systems Review of Systems Constitutional: Reports: weakness. Denies: chills, diaphoresis, fever, malaise. Cardiovascular: Denies: chest pain, edema, orthopena, palpitations. Respiratory: Denies: cough, hemoptysis, orthopnea, short of breath. GI: Reports: abdominal pain, bloating, constipation, distention, nausea, vomiting. Genitourinary: Denies: no symptoms. Skin: Denies: no symptoms. Comments She has PICC line in right Arm, Left upper part of chest - Port for chemo. Exam & Diagnostic Data Last 24 Hrs of Vital Signs/I&O Vital Signs Date Time Temp Pulse Resp B/P B/P Pulse O2 O2 Flow FiO2 Mean Ox Delivery Rate 07/03 1952 98.4 82 16 152/74 96 Room Air 07/03 1912 97.4 84 18 113/58 96 Room Air 07/03 1731 95.8 72 18 121/59 98 Room Air 07/03 1230 97.2 89 18 96/63 99 Room Air Intake & Output 07/03 1600 07/03 0800 07/03 0000 Intake Total 1000 Output Total Balance 1000 Intake, IV 1000 Patient 61.689 kg Weight Weight Reported by Patient Measurement Method Physical Exam General Appearance Alert, Oriented X3, Cooperative, No Acute Distress Skin No Rashes, No Breakdown HEENT Atraumatic, PERRLA, EOMI Neck Supple, No JVD Cardiovascular Normal S1, Normal S2 Lungs Clear to Auscultation, Normal Air Movement Abdomen deep tenderness, hard mass in deep, cannt defie the size , left sided ileostomy, no output in bag, G tube in left upper side, bag - contain greenish fluid, around 500cc, Neurological Normal Speech Extremities No Clubbing, No Cyanosis, No Edema Vascular Normal Pulses, Pulses Symmetrical Last 24 Hrs of Labs/Jamarcus: Laboratory Tests 07/03/16 1324: PT 12.1, INR 1.15, CBC w Diff NO MAN DIFF REQ, RBC 3.09 L, MCV 87.1, MCH 28.5, RDW 19.2 H, MPV 8.1, Gran % 73.5, Lymphocytes % 25.0, Monocytes % 0.8 L, Eosinophils % 0.5, Basophils % 0.2, Absolute Granulocytes 3.2, Absolute Lymphocytes 1.1 L, Absolute Monocytes 0 L, Absolute Eosinophils 0, Absolute Basophils 0, PUBS MCHC 32.8 L 07/03/16 1320: Anion Gap 9, Estimated GFR > 60, BUN/Creatinine Ratio 38.0 H, Glucose 97, Calcium 8.8, Total Bilirubin 0.7, AST 22, ALT 51, Alkaline Phosphatase 118, Total Protein 6.2 L, Albumin 3.1 L, Globulin 3.1, Albumin/Globulin Ratio 1.0 L, Lipase 30 Diagnostic Data EKG Results NSR, CXR Results CXR -Airspace opacities noted on the prior CT are not appreciated by chest radiograph. Unchanged right PICC catheter and left chest wall port. Other Results CT Abd/Pelvis - 1. No bowel obstruction. Multiple bowel anastomoses which are unchanged. Left- sided ileostomy without evidence of obstruction. Gastrostomy tube in unchanged position. 2. The previously seen left upper quadrant fluid collection is no longer present. Mild peritoneal free fluid, slightly decreased in prominence since the prior examination. No intraperitoneal free air. 3. Cholecystectomy. Mild pneumobilia, which has been previously identified and may be physiologic following a cholecystectomy. 4. Hypoattenuation of the pancreatic head which could represent a cystic lesion versus prominent ducts. Increased prominence of the main pancreatic duct since the prior examination. 5. Surgically absent uterus. Stable complex cystic structure within the right adnexa. 6. New minimal patchy airspace opacities within the right lower lobe and right middle lobe, which could represent early infiltrates. Assessment/Plan Assessment: Patient is a 65-year-old female with significant past medical history hypertension, hyperlipidemia, depression, history of ovarian cancer s/p hysterectomy with bilateral salpingo-oophorectomy (2013), Ovarian carcinomatosis ,colon cancer s/p colostomy (2014) and then reversal and small bowel obstruction s/p small bowel resection with ileostomy, G tube presented with chief complaints of of lower abdomen pain , nausea, decrease/ no output from ileostomy since [address] abdomen and pelvis - 1. No bowel obstruction. Multiple bowel anastomoses which are unchanged.Left- sided ileostomy without evidence of obstruction. Gastrostomy tube in unchanged position. 2.No intraperitoneal free air. 3. Cholecystectomy. Mild pneumobilia. 4. Hypoattenuation of the pancreatic head. Increased prominence of the main pancreatic duct since the prior examination. 5. Surgically absent uterus. Stable complex cystic structure within the right adnexa. 6. New minimal patchy airspace opacities within the right lower lobe and right middle lobe, which could represent early infiltrates. CXR -Airspace opacities noted on the prior CT are not appreciated by chest radiograph. Unchanged right PICC catheter and left chest wall port. Vital signs at the time of admission-temperature 97.2, pulse 89, respiratory rate 18, blood pressure 96/63, SPO2 99% on room air Petinent labs -Hb -8.8, hematocrit 26.9, K-3.5, Bun -19, alb -3.1 Plan - Intestinal obstruction under evaluation - Nausea, Vomiting, Pain abdoman with decreased output from ileastomy Probably secondary from Intestinal Obstruction, which is ruled out after doing CT abd / pelvis. Under evaluation. It can be due to fistula, as patient is having fowl smelling water breath. Another thought is decreased or no motility due to use of opiod medication, although bowel sounds are positive. She also have decreased oral intake , that may also lead to decreased stool formation. * Keep NPO * Start her on IV hydration - D5/NS - 50cc/hr * She was using TPN, We will talk to [facility] tmr to know exact type, of TPN. * Strict I/O charting * We will use Zofran for Nausea and avoid Reglan as it causes increased bowel motility. * F/u CBC and BEP tmr * We will place surgery consult and follow their rcms Colon Cancer undergoing Chemo * We will place consult to Oncologist Dr Gates for evaluation and further management of it Hypertention * We will withold antihypertensive for a while and observe her. Chronic Anemia - Hb 8.8 * A month ago she had 2 units of blood transfusion. Denies bleeding from any site of body. * We will regularly monitor it. Diet - NPO DVT PPX - ALPS/Heparin Code status - DNR/DNI As Ranked By This Provider Problem List: 1. Nausea and vomiting 2. Abdominal pain Qualifiers Abdominal location: left lower quadrant Qualified Code: R10.32 - Left lower quadrant pain 3. Ileostomy dysfunction 4. Chronic disease anemia Core Measures/Miscellaneous Acute Coronary Syndrome ACS Diagnosis: No Cerebrovascular Accident CVA/TIA Diagnosis: No Congestive Heart Failure CHF Diagnosis: No Venous Thromboembolism VTE Risk Factors: Age > 40, Malignancy Myelo Disorder, Smoking No [facility] VTE prophylaxis d/t: No contraindications No VTE Pharm Prophylaxis d/t: No contraindications VTE Diagnosis: No VTE Type: NONE VTE Confirmed by (Test): NONE Severe Sepsis Severe Sepsis Present: No Septic Shock Septic Shock Present: No BC x2: No Lactic Acid: Yes IV ABX Broad Spectrum: No Focused Exam Completed: Yes NS/LR 30ml/kg w/in 3hrs: Yes IV Vasopressors started: No Miscellaneous Documentation Attending Case Discussed With: ROSALVA NORMAN MD Primary Care Physician: DAILY COVARRUBIAS MD Patient sees these Specialists Oncologist Level of Patient Care: General Surgical [facility]: General Information and HPI Allergies/Medications Home Med list Amlodipine Besylate 5 MG TABLET 1 TAB PO DAILY BP (Reported) Cetirizine HCl (Zyrtec) 10 MG TABLET 1 TAB PO DAILY ALLERGIES (Reported) Ezetimibe (Zetia) 10 MG TABLET 1 TAB PO DAILY CHOLESTEROL (Reported) Fentanyl 75 MCG/HOUR PATCH.TD72 1 PAT TOP Q3D PAIN (Reported) Fluoxetine HCl 20 MG CAPSULE 1 CAP PO DAILY DEPRESSION (Reported) Pantoprazole Sodium 40 MG TABLET.DR 1 TAB PO DAILY GI (Reported) Ranitidine HCl (Heartburn Relief) 150 MG TABLET 1 TAB PO BID PRN HEARTBURN ( Reported) Resident Review Statement Resident Statement: examined this patient, discussed with winter intern, agreed with winter intern Other Findings: Patient is a 65-year-old woman with significant past medical history hypertension, hyperlipidemia, depression, history of ovarian cancer s/p hysterectomy with bilateral salpingo-oophorectomy (2013), Ovarian carcinomatosis ,colon cancer s/p colostomy (2013) and then reversal and small bowel obstruction s/p small bowel resection with ileostomy and gastrostomy tube for drainage. She presented with chief complaints of of colicky lower abdomen pain, nausea, reduced/no output from her ileostomy for the past 3 days. She also complains of brownish green vomitus that is feculent in odor (2 episodes the previous 2 days). She received chemotherapy with ironotecan for her cancer [address] Mosley at [facility] on Sun06/28/16 ( Every 2 weeks). She also has chronic back pain and is on a fentanyl patch and oxycodone at home. Vital signs in the ER : T 97.2, Pulse 86 bpm, BP 96/63, RR 18, O2 sat 99% on RA Physical Exam General Appearance: Alert, Oriented X3, Cooperative, No Acute Distress Skin: No Rashes, No Breakdown HEENT: Atraumatic, PERRLA, EOMI Neck: Supple, No JVD Cardiovascular: Normal S1, Normal S2 Lungs: Clear to Auscultation, Normal Air Movement Abdomen:astrostomy tube in situ sraining bilious fluid, ileostomy in situ with empty bag. Tender hard mass in right iliac region Neurological Normal Speech Extremities No Clubbing, No Cyanosis, No EdemaVascular Normal Pulses, Pulses Symmetrical Significant labs: WBC 4.4 Hb 8.8, Hct 26.9, Na 137, K 3.5, Creat 0.[address] Abd/Pelvis - 1. No bowel obstruction. Multiple bowel anastomoses which are unchanged. Left- sided ileostomy without evidence of obstruction. Gastrostomy tube in unchanged position. Problem list 1. Intractable nausea and vomitting with concerns for small bowel obstruction 2. Metastatic ovarian cancer 3. Hypertension 4. Poor nutritional status on Total parenteral nutrition Plan -Place in observation on General Medicine -NPO for now -General surgery consult with Dr. Baez in the am -IV D5/Normal saline @ 75cc/hr -Will resume TPN in the morning. Patient's family is to bring her TPN formula for ordering in the AM -IV zofran 4 mg Q6 hrs PRN for nausea or vomitting -Avoid metoclopramide as it can worsen the pain if small bowel obstruction is the etiology -IV protonix 40 mg daily -Hold all PO medications including antihypertensive agents -Can give IV metoprolol 2.5 mg-5mg Q 6hours for SBP>160 mmhg -Continue home medication of fentanyl patch 75 mcg Q 72 hrs -IV morphine 4 mg Q6hrs PRN for severe pain -DVT prophylaxis with ALPS due to anemia -Patient is DNR/DNI
--- NOTE | 2016-07-03 16:51 | NUR ---
HOUSE STAFF AT BEDSIDE FOR EVAL
--- NOTE | 2016-07-03 17:30 | NUR ---
Emergency Dept UC Admit Note: To be admitted to [facility] by DR AGUIAR with INTRACTABLE VOMITING as the diagnosis, to [facility] MED/OBSERVATION location. Nursing Workers Compensation Paralegal and admitting notified 07/03/16 at 1636 PT WILL GO TO ROOM [id number]
[2016-07-03] MEDS ORDERED: HEARTBURN RELI150 MG PO (17:51)
--- NOTE | 2016-07-03 17:54 | NUR ---
HOUSE STAFF OUT OF ROOM. PT AMBULATORY TO AND FROM RESTROOM
--- NOTE | 2016-07-03 17:58 | NUR ---
ATTEMPTED TO CALL REPORT TO FLOOR WITH NEGATIVE RESULTS
--- NOTE | 2016-07-03 18:02 | NUR ---
2ND LITER NS BOLUS COMPLETE
--- NOTE | 2016-07-03 18:18 | PN- Att Addend ---
Attending Addendum Attending Brief Note 65-year-old female with significant past medical history hypertension, hyperlipidemia, depression, history of ovarian cancer s/p hysterectomy with bilateral salpingo-oophorectomy, Ovarian carcinomatosis and small bowel obstruction s/p small bowel resection with ileostomy, with recent placement of venting G tube about one month ago, around which time she was also started on TPN. Patient Presented with chief complaints of of lower abdomen pain , nausea, vomiting and decreased ileostomy output over last 2 days. Patient also complains of burping with bilious taste in the mouth for the last 2 days whenever she eats something. CT scan of the abdomen done in the emergency room did not show any bowel obstruction. ?SBO- we will keep her nothing by mouth and will consult surgery in the morning. We will change her by mouth meds to IV meds and we will continue her on TPN. We will also consult oncology in the a.m. To get their input. Patient received last chemotherapy last Sunday. For her nausea we will start her on IV Zofran and for now we will not give Reglan due to possible SBO. Discussed with patient the care plan.
--- NOTE | 2016-07-03 18:47 | NUR ---
PT SLEEPING ON STRETCHER. NO APPARENT DISTRESS NOTED
--- NOTE | 2016-07-03 19:15 | NUR ---
REPORT CALLED TO WILLIAM DENTON
--- NOTE | 2016-07-03 19:36 | NUR ---
TRANSPORT HERE FOR PT
[2016-07-03 19:53] VITALS: BP 152/74
[2016-07-03 22:24] VITALS: BP 140/68
--- NOTE | 2016-07-03 23:11 | NUR ---
1950 PATIENT ARRIVED TO FLOOR ALERT AND ORIENTED X 3. ON ROOM AIR. DENIES SHORTNESS OF BREATH VITAL SIGNS STABLE. DENIES CHEST PAIN. + PULSES. R ABD G TUBE AND OSOMTY CARE GIVEN. STEADY GAIT. SKIN C/D/I MEDICATION GIVEN FOR PAIN. PATIENT RESTING AT THIS TIME. WILL CONTINUE TO MONITOR
[2016-07-04 07:22] VITALS: BP 132/74
--- NOTE | 2016-07-04 07:56 | PN- Housestaff ---
MELQUIADES SHELLEY,[facility] 07/04/16 0756: Subjective Follow-up For: Intractable nausea and vomitting Complaints: Nausea Subjective: Ms Elmore still has nausea despite being on zofran. However she noted some small amount of mucus coming out of her jejunostomy tube. She still has abdominal pain that is improved with her opiate pain medications. Review of Systems Constitutional: Denies: chills, fever, malaise. EENTM: Denies: double vision, throat pain. Cardiovascular: Denies: chest pain, palpitations, syncope. Respiratory: Denies: cough, short of breath, wheezing. Gastrointestinal: Reports: abdominal pain, constipation, nausea. Objective Last 24 Hrs of Vital Signs/I&O Vital Signs Date Time Temp Pulse Resp B/P B/P Pulse O2 O2 Flow FiO2 Mean Ox Delivery Rate 07/04 1522 98.3 72 18 130/70 97 Room Air 07/04 0722 98.2 74 18 132/74 97 Room Air 07/03 2224 98.7 82 15 140/68 96 Room Air 07/03 1953 98.4 82 16 152/74 96 Room Air 07/03 1912 97.4 84 18 113/58 96 Room Air 07/03 1731 95.8 72 18 121/59 98 Room Air Intake & Output 07/04 1600 07/04 0800 07/04 0000 Intake Total 600 600 Output Total 400 200 Balance 200 400 Intake, IV 600 600 Intake, Oral 0 Output, 400 200 Gastric Drainage Output, Stool 0 Patient 137 lb 136 lb Weight Physical Exam General Appearance: Alert, Oriented X3, Cooperative, No Acute Distress Skin: No Rashes Skin Temp/Moisture Exam: Warm/Dry Sepsis Skin Exam (color): Normal for Ethnicity HEENT: Atraumatic, PERRLA, EOMI, Mucous Membr. moist/pink Neck: Supple, No JVD, No thryomegaly, +2 Carotid Pulse wo Bruit Lymphatic: Cervical nl Cardiovascular: Regular Rate, Normal S1, Normal S2, No Murmurs Lungs: Clear to Auscultation, Normal Air Movement Abdomen: Soft, Tender abdomen, gastrostomy tube draining greenish fluid, jejunostomy tube draining small brownish mucus Neurological: Normal Gait, Normal Speech Current Medications: Current Medications Sig/Terese Start time Last Medication Dose Route Stop Time Status Admin Dextrose/Sodium 1,000 ML Q13H 07/04 1315 AC 07/04 Chloride IV 1354 Dextrose/Sodium 1,000 ML Q13H 07/03 1930 DC 07/03 Chloride IV 07/04 0829 2030 Famotidine 20 MG DAILY 07/04 1000 AC 07/04 IV 0902 Fat Emulsion 300 ML 1900 07/04 1900 AC 07/04 Intravenous IV 07/05 Fentanyl Citrate 75 MCG Q3D 07/03 2115 AC 07/03 TOP 2233 Magnesium Sulfate 1 GM Q2H 07/04 1315 DC 07/04 Dextrose/Water 100 ML IV 07/04 1714 1852 Morphine Sulfate 4 MG Q4P PRN 07/03 2145 AC 07/04 IV 1950 Ondansetron HCl 4 MG Q6P PRN 07/03 1930 AC 07/04 IV 2102 Pantoprazole Sodium 40 MG DAILY 07/04 1000 AC 07/04 IV 0901 Patient Medication 1 ED .STK-MED ONE 07/04 1348 AR Teaching ED 07/04 1349 Potassium Chloride 10 MEQ Q1H 07/04 1315 DC 07/04 IV 07/04 1416 1519 Potassium Chloride 10 MEQ Q1H 07/03 2200 DC 07/04 IV 07/03 2301 0208 Total Parenteral 1 UNIT 0 07/04 190 AC 07/04 Nutrition IV 07/05 Last 24 Hrs of Lab/Jamarcus Results Last 24 Hrs of Labs/Mics: Laboratory Tests 07/04/16 0630: Anion Gap 9, Estimated GFR > 60, BUN/Creatinine Ratio 14.0, Phosphorus 2.5, Magnesium 1.5 L, Triglycerides 123, CBC w Diff NO MAN DIFF REQ, RBC 3.08 L, MCV 87.3, MCH 29.0, RDW 19.4 H, MPV 8.6, Gran % 62.6, Lymphocytes % 33.8, Monocytes % 1.7, Eosinophils % 1.5, Basophils % 0.4, Absolute Granulocytes 1.7, Absolute Lymphocytes 0.9 L, Absolute Monocytes 0 L, Absolute Eosinophils 0, Absolute Basophils 0, PUBS MCHC 33.2 Assessment/Plan Assessment: Patient is a 65-year-old woman with significant past medical history hypertension, hyperlipidemia, depression, history of ovarian cancer s/p hysterectomy with bilateral salpingo-oophorectomy (2013), Ovarian carcinomatosis ,colon cancer s/p colostomy (2013) and then reversal and small bowel obstruction s/p small bowel resection with ileostomy and gastrostomy tube for drainage. She presented with chief complaints of of colicky lower abdomen pain, nausea, reduced/no output from her ileostomy for the past 3 days. She also complains of brownish green vomitus that is feculent in odor (2 episodes the previous 2 days). She received chemotherapy with ironotecan for her cancer [address] Mosley at [facility] on Sun06/28/16 ( Every 2 weeks). She also has chronic back pain and is on a fentanyl patch and oxycodone at home. She is currently being managed for abdominal pain and vomitting likely a small bowel ileus or obstruction. Problem list 1. Intractable nausea and vomitting with concerns for small bowel obstruction 2. Poor nutritional status on Total parenteral nutrition 3. Metastatic ovarian cancer 4. Hypertension 5. Chronic pain Plan 1. Intractable nausea and vomitting with concerns for small bowel obstruction -Unfortunately she is not improving with current antiemetics and bowel rest so she will need to be admitted fully on the General Medicine floor for further therapy and evaluation by the general surgery team -Continue NPO for now -General surgery consult with Dr. Baez -Continue IV D5/Normal saline @ 75cc/hr -Continue IV zofran 4 mg Q6 hrs PRN for nausea or vomitting -Avoid metoclopramide as it can worsen the pain if small bowel obstruction is the etiology -IV protonix 40 mg daily 2. Poor nutritional status on Total parenteral nutrition -Will resume TPN in today and wean off IV Fluids 3. Metastatic ovarian cancer -Hematology/oncology input appreciated -No intervention recommended 4. Hypertension -Continue to hold all PO medications including antihypertensive agents -Can give IV metoprolol 2.5 mg-5mg Q 6hours for SBP>160 mmhg 5. Chronic pain -Continue home medication of fentanyl patch 75 mcg Q 72 hrs -IV morphine 4 mg Q6hrs PRN for severe pain -DVT prophylaxis with ALPS due to anemia -Patient is DNR/DNI Problem List: 1. Intractable vomiting with nausea 2. Small bowel obstruction 3. Chronic disease anemia 4. Abdominal pain 5. Nausea and vomiting 6. Ovarian cancer Pain Ratin Pain Location: Abdomen Pain Goal: Pain 4 or less Pain Plan: Fentanyl patch, IV morphine PRN Tomorrow's Labs & Rationales: CBC, BEP for anemia and for electrolytes (K) respectively DVT/Prophylaxis: ROSALVA Chin MD 07/04/16 1316: Attending MD Review Statement Attending Statement Attending MD Statement: examined this patient, discuss w/resident/PA/HANGER, agreed w/resident/PA/HANGER, reviewed EMR data (avail) Attending Assessment/Plan: 65F PMH hypertension, hyperlipidemia, depression, history of ovarian cancer s/p hysterectomy with bilateral salpingo-oophorectomy (2013), Ovarian carcinomatosis ,colon cancer s/p colostomy (2014) and then reversal and small bowel obstruction s/p small bowel resection with ileostomy and gastrostomy tube for drainage admitted for intractable nausea and vomiting with fecal vomiting. CT abdomen/ pelvis shows no evidence of obstruction and no fluid collection. Patient feels slightly better today after being kept NPO overnight. Her vomiting is improved, though she is still nauseous. Her findings are concerning for ileus. Her abdomen is non-tender diffusely but there is guarding. 1. Intractable nausea and vomiting 2. Fecal vomiting 3. Ileus 4. History of ovarian cancer 5. History of ileostomy Plan - Admission to general medicine service, as patient is not improving as expected and require a longer stay to resolve her clinical condition - Continue Zofran - Continue TPN - Follow oncology recommendations - Obtain surgery consult - Monitor electrolytes - Continue pain medications. Though they may exacerbate ileus, given her malignancy and surgical history, stopping them at this time is not an option, though they should be given as sparingly as possible. - Continue PPI - NPO for bowel rest - DVT PPx
[2016-07-04 08:03] LABS: ABSOLUTE BASOPHIL COUNT 0 /CUMM (0.0-0.2); ABSOLUTE EOSINOPHIL COUNT 0 /CUMM (0.0-0.7); ABSOLUTE GRANULOCYTE CT 1.7 /CUMM (1.4-6.5); ABSOLUTE LYMPH COUNT 0.9 /CUMM (1.2-3.4); ABSOLUTE MONOCYTE COUNT 0 /CUMM (0.10-0.60); BASOPHIL % 0.4 % (0.0-2.0); EOSINOPHIL % 1.5 % (0-5); GRANULOCYTE % 62.6 % (42.2-75.2); HEMATOCRIT 26.9 % (37-47); MEAN CORPUSCULAR HGB CONC 33.2 G/DL (33.0-37.0); MEAN CORPUSCULAR VOLUME 87.3 FL (81.0-99.0); MEAN PLATELET VOLUME 8.6 FL (7.4-10.4); PLATELET COUNT 185 /CUMM (130-400); RBC DISTRIBUTION WIDTH 19.4 % (11.5-14.5); RED BLOOD CELL CT 3.08 /CUMM (4.20-5.40); WHITE BLOOD CELL COUNT 2.7 /CUMM (4.8-10.8)
--- NOTE | 2016-07-04 09:49 | Cons- Oncology ---
General Information and HPI Consulting Request Date of Consult: 07/04/16 Requested By: ROSALVA NORMAN MD Reason for Consult: ovarian cancer Source of Information: patient, old records Exam Limitations: no limitations History of Present Illness: Mrs. Elmore is a 65-yo female with metastatic mucinous, ovarian cancer status post FOLFOX, carbopaclitaxel, resection, gemcitabine, and recent irinotecan on who presented with nausea, vomiting, and decreased output from ostomy. She was recently hospitalized at [facility] for intra-abdominal abscess status post antibiotic and drainage. She felt well after getting chemotherapy on 06/28/2016 but started having decrease ostomy output around Sunday and stopped her Imodium at that time. Over the weekend, she started having more emesis. She had more intractable nausea and vomiting. She had no fever or chills. She had no new pain. She has been venting her G-tube. She continues to have abdominal pain. She is using fentanyl patch and oxycodone 10 mg every 4-6 hours as needed for pain. Her ostomy output is decreased. She denies any blood in the ostomy. She reports more mucus likely drainage. She has not taken any other new medications. Allergies/Medications Allergies: Coded Allergies: amoxicillin (From AUGMENTIN) (Intermediate, DIARRHEA 06/05/16) clavulanic acid (From AUGMENTIN) (Intermediate, DIARRHEA 06/05/16) hydromorphone (From DILAUDID) (Mild, SWEATS 07/03/16) Home Med List: Amlodipine Besylate 5 MG TABLET 1 TAB PO DAILY BP (Reported) Cetirizine HCl (Zyrtec) 10 MG TABLET 1 TAB PO DAILY ALLERGIES (Reported) Ezetimibe (Zetia) 10 MG TABLET 1 TAB PO DAILY CHOLESTEROL (Reported) Fentanyl 75 MCG/HOUR PATCH.TD72 1 PAT TOP Q3D PAIN (Reported) Fluoxetine HCl 20 MG CAPSULE 1 CAP PO DAILY DEPRESSION (Reported) Pantoprazole Sodium 40 MG TABLET.DR 1 TAB PO DAILY GI (Reported) Ranitidine HCl (Heartburn Relief) 150 MG TABLET 1 TAB PO BID PRN HEARTBURN ( Reported) Current Medications: Current Medications Sig/Terese Start time Last Medication Dose Route Stop Time Status Admin Dextrose/Sodium 1,000 ML Q13H 07/03 1930 DC 07/03 Chloride IV 07/04 Famotidine 20 MG DAILY 07/04 1000 AC IV Famotidine 0 .STK-MED ONE 07/03 1625 DC IV Famotidine 20 MG ONCE ONE 07/03 1615 DC 07/03 IV 07/03 1616 1637 Fentanyl Citrate 75 MCG Q3D 07/03 2115 AC 07/03 TOP 2233 Metoclopramide HCl 0 .STK-MED ONE 07/03 1625 DC .ROUTE Metoclopramide HCl 10 MG ONCE ONE 07/03 1615 DC 07/03 IV 07/03 1616 1637 Morphine Sulfate 4 MG Q4P PRN 07/03 2145 AC 07/04 IV 0646 Morphine Sulfate 4 MG ONCE ONE 07/03 2045 DC 07/03 IV 07/03 2046 2056 Morphine Sulfate 0 .STK-MED ONE 07/03 1335 DC .ROUTE Morphine Sulfate 4 MG ONCE ONE 07/03 1300 DC 07/03 IV 07/03 1301 1330 Ondansetron HCl 4 MG Q6P PRN 07/03 1930 AC 07/04 IV 0647 Ondansetron HCl 0 .STK-MED ONE 07/03 1315 DC .ROUTE Ondansetron HCl 4 MG ONCE ONE 07/03 1300 DC 07/03 IV 07/03 1301 1330 Pantoprazole Sodium 40 MG DAILY 07/04 1000 AC IV Potassium Chloride 10 MEQ Q1H 07/03 2200 DC 07/04 IV 07/03 2301 0208 Sodium Chloride 1,000 ML BOLUS ONE 07/03 1615 DC 07/03 IV 07/03 1714 1637 Sodium Chloride 1,000 ML BOLUS ONE 07/03 1300 DC 07/03 IV 07/03 1359 1330 Review of Systems Review of Systems Constitutional: Reports: weakness. Denies: chills, fever. EENTM: Denies: blurred vision. Cardiovascular: Denies: chest pain, peripheral edema. Respiratory: Denies: cough, short of breath. GI: Reports: abdominal pain, constipation, nausea, vomiting. Denies: diarrhea, melena. Genitourinary: Denies: dysuria, hematuria. Musculoskeletal: Denies: back pain, joint pain. Skin: Denies: erythema. Neurological/Psychological: Reports: anxiety, depressed. Hematologic/Endocrine: Denies: bruising, bleeding. Immunologic/Allergic: Denies: lymphadenopathy. 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 Home Who Do You Live With? spouse Services at Home: None Primary Language: Honduran Smoking Status: Current Everyday Smoker Living Will? no Functional Ability ADLs Independent: dressing, eating, toileting, bathing. Ambulation: independent IADLs Independent: shopping, housework, finances, food prep, telephone, transportation , medication admin. Exam & Diagnostic Data Vital Signs and I&O Vital Signs Date Time Temp Pulse Resp B/P B/P Pulse O2 O2 Flow FiO2 Mean Ox Delivery Rate 07/04 0722 98.2 74 18 132/74 97 Room Air 07/03 2224 98.7 82 15 140/68 96 Room Air 07/03 1953 98.4 82 16 152/74 96 Room Air 07/03 1912 97.4 84 18 113/58 96 Room Air 07/03 1731 95.8 72 18 121/59 98 Room Air 07/03 1230 97.2 89 18 96/63 99 Room Air Intake & Output 07/04 1600 07/04 0800 07/04 0000 Intake Total 600 Output Total 200 Balance 400 Intake, IV 600 Intake, Oral 0 Output, 200 Gastric Drainage Output, Stool 0 Patient 61.689 kg Weight Physical Exam General Appearance: alert, awake Head: atraumatic Eyes: Bilateral: PERRL. Ears, Nose, Throat: normal pharynx Neck: normal inspection Respiratory: normal breath sounds, chest non-tender, no respiratory distress, crackles Cardiovascular: regular rate/rhythm Gastrointestinal: normal bowel sounds, soft, tenderness (diffusely) Extremities: normal inspection, no edema Neurologic/Psych: awake, alert, oriented x 3, depressed affect Skin: intact Other Physical Findings: Right UE PICC and left anterior chest with port in place Last 48 Hours of Lab Results: Laboratory Tests 07/04 07/03 0630 1324 Chemistry Sodium Pending Potassium Pending Chloride Pending Carbon Dioxide Pending Anion Gap Pending BUN Pending Creatinine Pending BUN/Creatinine Ratio Pending Coagulation PT (9.4 - 12.5 SEC) 12.1 INR (0.90 - 1.19) 1.15 Hematology CBC w Diff NO MAN DIFF REQ NO MAN DIFF REQ WBC (4.8 - 10.8 /CUMM) 2.7 L 4.4 L RBC (4.20 - 5.40 /CUMM) 3.08 L 3.09 L Hgb (12.0 - 16.0 G/DL) 8.9 L 8.8 L Hct (37 - 47 %) 26.9 L 26.9 L MCV (81.0 - 99.0 FL) 87.3 87.1 MCH (27.0 - 31.0 PG) 29.0 28.5 RDW (11.5 - 14.5 %) 19.4 H 19.2 H Plt Count (130 - 400 /CUMM) 185 207 MPV (7.4 - 10.4 FL) 8.6 8.1 Gran % (42.2 - 75.2 %) 62.6 73.5 Lymphocytes % (20.5 - 51.1 %) 33.8 25.0 Monocytes % (1.7 - 9.3 %) 1.7 0.8 L Eosinophils % (0 - 5 %) 1.5 0.5 Basophils % (0.0 - 2.0 %) 0.4 0.2 Absolute Granulocytes (1.4 - 6.5 /CUMM) 1.7 3.2 Absolute Lymphocytes (1.2 - 3.4 /CUMM) 0.9 L 1.1 L Absolute Monocytes (0.10 - 0.60 /CUMM) 0 L 0 L Absolute Eosinophils (0.0 - 0.7 /CUMM) 0 0 Absolute Basophils (0.0 - 0.2 /CUMM) 0 0 PUBS MCHC (33.0 - 37.0 G/DL) 33.2 32.8 L 07/03 1320 Chemistry Sodium (137 - 145 mmol/L) 137 Potassium (3.5 - 5.1 mmol/L) 3.5 Chloride (98 - 107 mmol/L) 99 Carbon Dioxide (22 - 30 mmol/L) 29 Anion Gap (5 - 16) 9 BUN (7 - 17 mg/dL) 19 H Creatinine (0.5 - 1.0 mg/dL) 0.5 Estimated GFR (>60 ml/min) > 60 BUN/Creatinine Ratio (7 - 25 %) 38.0 H Glucose (65 - 99 mg/dL) 97 Calcium (8.4 - 10.2 mg/dL) 8.8 Total Bilirubin (0.2 - 1.3 mg/dL) 0.7 AST (14 - 36 U/L) 22 ALT (9 - 52 U/L) 51 Alkaline Phosphatase (<127 U/L) 118 Total Protein (6.3 - 8.2 g/dL) 6.2 L Albumin (3.5 - 5.0 g/dL) 3.1 L Globulin (1.9 - 4.2 gm/dL) 3.1 Albumin/Globulin Ratio (1.1 - 2.2 %) 1.0 L Lipase (23 - 300 U/L) 30 Imaging/Other Studies: CT abd/pelvis 07/03/2016: 1. No bowel obstruction. Multiple bowel anastomoses which are unchanged. Left- sided ileostomy without evidence of obstruction. Gastrostomy tube in unchanged position. 2. The previously seen left upper quadrant fluid collection is no longer present. Mild peritoneal free fluid, slightly decreased in prominence since the prior examination. No intraperitoneal free air. 3. Cholecystectomy. Mild pneumobilia, which has been previously identified and may be physiologic following a cholecystectomy. 4. Hypoattenuation of the pancreatic head which could represent a cystic lesion versus prominent ducts. Increased prominence of the main pancreatic duct since the prior examination. 5. Surgically absent uterus. Stable complex cystic structure within the right adnexa. 6. New minimal patchy airspace opacities within the right lower lobe and right middle lobe, which could represent early infiltrates. Assessment/Plan Assessment: Mrs. 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 She does not have any obvious bowel obstruction on CT scan. She does not seem to have new disease on CT scan. She may have a combination of ileus and chemotherapy side effects. She is currently NPO. She should be continued on antiemetic with Zofran and Compazine prn. Bowel rest with slow transition back to regular diet may be appropriate for her ileus. Her blood count should continue to decline due to chemotherapy given last week. Her alba will be around 7-10 after chemotherapy which will be Sunday to Sunday. She will need to be monitored closely for new signs and symptoms of infections. Recommendations: 1. Zofran and Compazine prn nausea 2. NPO for bowel rest Problem List: 1. Small bowel obstruction 2. Intractable vomiting with nausea 3. Ovarian cancer Other Findings/Comments: Please call [phone] with any questions or concerns. Consult Acknowledgment - Thank you for your consult request.
--- NOTE | 2016-07-04 15:09 | Cons- General Surgery ---
General Information and HPI Consulting Request Date of Consult: 07/04/16 Requested By: ROSALVA NORMAN MD History of Present Illness: Patient known to me. Recurrent ovarian cancer with carcinomatosis. Now with recurrent SBO s/p ileostomy and gastrostomy tube placement. oral intake poor due to progression of disease, now on home TPN. Presents with recurrent n/v and lack of bowel function through stoma. Allergies/Medications Allergies: Coded Allergies: amoxicillin (From AUGMENTIN) (Intermediate, DIARRHEA 06/05/16) clavulanic acid (From AUGMENTIN) (Intermediate, DIARRHEA 06/05/16) hydromorphone (From DILAUDID) (Mild, SWEATS 07/03/16) Home Med List: Amlodipine Besylate 5 MG TABLET 1 TAB PO DAILY BP (Reported) Cetirizine HCl (Zyrtec) 10 MG TABLET 1 TAB PO DAILY ALLERGIES (Reported) Ezetimibe (Zetia) 10 MG TABLET 1 TAB PO DAILY CHOLESTEROL (Reported) Fentanyl 75 MCG/HOUR PATCH.TD72 1 PAT TOP Q3D PAIN (Reported) Fluoxetine HCl 20 MG CAPSULE 1 CAP PO DAILY DEPRESSION (Reported) Pantoprazole Sodium 40 MG TABLET.DR 1 TAB PO DAILY GI (Reported) Ranitidine HCl (Heartburn Relief) 150 MG TABLET 1 TAB PO BID PRN HEARTBURN ( Reported) Current Medications: Current Medications Sig/Terese Start time Last Medication Dose Route Stop Time Status Admin Dextrose/Sodium 1,000 ML Q13H 07/04 1315 07/04 Chloride IV 1354 Dextrose/Sodium 1,000 ML Q13H 07/03 1930 SD 07/03 Chloride IV 07/04 0829 2030 Famotidine 20 MG DAILY 07/04 1000 AC 07/04 IV 0902 Famotidine 0 .STK-MED ONE 07/03 1625 DC IV Famotidine 20 MG ONCE ONE 07/03 1615 DC 07/03 IV 07/03 1616 1637 Fat Emulsion 300 ML 1900 07/04 1900 AC Intravenous IV 07/05 1859 Fentanyl Citrate 75 MCG Q3D 07/03 2115 07/03 TOP 2233 Magnesium Sulfate 1 GM Q2H 07/04 1315 AC Dextrose/Water 100 ML IV 07/04 1714 Metoclopramide HCl 0 .STK-MED ONE 07/03 1625 DC .ROUTE Metoclopramide HCl 10 MG ONCE ONE 07/03 1615 DC 07/03 IV 07/03 1616 1637 Morphine Sulfate 4 MG Q4P PRN 07/03 2145 AC 07/04 IV 1111 Morphine Sulfate 4 MG ONCE ONE 07/03 2045 DC 07/03 IV 07/03 2045 205 Ondansetron HCl 4 MG Q6P PRN 07/03 1930 AC 07/04 IV 0647 Pantoprazole Sodium 40 MG DAILY 07/04 1000 AC 07/04 IV 0901 Patient Medication 1 ED .STK-MED ONE 07/04 1348 DC Teaching ED 07/04 1349 Potassium Chloride 10 MEQ Q1H 07/04 1315 DC 07/04 IV 07/04 1416 1408 Potassium Chloride 10 MEQ Q1H 07/03 2200 DC 07/04 IV 07/03 2301 0208 Sodium Chloride 1,000 ML BOLUS ONE 07/03 1615 DC 07/03 IV 07/03 1714 1637 Total Parenteral 1 UNIT 1900 07/04 1900 AC Nutrition IV 07/05 1859 Past History Medical History Blood Transfusion Hx: Yes Neurological: NONE EENT: NONE Cardiovascular: hypertension, hyperlipidemia Respiratory: NONE Gastrointestinal: umbilical hernia, COLON CANCER SBO G-TUBE Hepatic: NONE Renal: NONE Musculoskeletal: NONE Psychiatric: depression Endocrine: NONE Blood Disorders: NONE Cancer(s): ovarian cancer (with carcinomatosis), COLON CANCER 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 Home Who Do You Live With? spouse Services at Home: None Primary Language: Korean Smoking Status: Current Everyday Smoker Living Will? no Functional Ability ADLs Independent: dressing, eating, toileting, bathing. Ambulation: independent IADLs Independent: shopping, housework, finances, food prep, telephone, transportation , medication admin. Review of Systems Review of Systems: abdominal pain, n/v per hpi. no dyspnea. no cp. remainder 12pts neg. Exam & Diagnostic Data Vital Signs and I&O Vital Signs Date Time Temp Pulse Resp B/P B/P Pulse O2 O2 Flow FiO2 Mean Ox Delivery Rate 07/04 0722 98.2 74 18 132/74 97 Room Air 05/29 2224 98.7 82 15 140/68 96 Room Air 07/03 195 98.4 82 16 152/74 96 Room Air 07/03 1912 97.4 84 18 113/58 96 Room Air 07/03 1731 95.8 72 18 121/59 98 Room Air Intake & Output 07/04 0800 07/04 0000 07/03 1600 07/03 0800 07/03 0000 Intake Total 600 1000 Output Total 200 Balance 400 1000 Intake, IV 600 1000 Intake, Oral 0 Output, 200 Gastric Drainage Output, Stool 0 Patient 137 lb 136 lb 136 lb Weight Weight Reported by Patient Measurement Method Physical Exam: gen: looks well. nad a/ox3 heeent: anicteric. perrl. eomi neck; supple no nodes, jvd. abd; soft. stoma/ileostomy llq without stool. gtube in luq. nontender. nondistended. minimal tympany Last 24 Hours of Labs: Laboratory Tests 07/04 629 Chemistry Sodium (137 - 145 mmol/L) 133 L Potassium (3.5 - 5.1 mmol/L) 3.3 L Chloride (98 - 107 mmol/L) 99 Carbon Dioxide (22 - 30 mmol/L) 26 Anion Gap (5 - 16) 9 BUN (7 - 17 mg/dL) 7 Creatinine (0.5 - 1.0 mg/dL) 0.5 Estimated GFR (>60 ml/min) > 60 BUN/Creatinine Ratio (7 - 25 %) 14.0 Phosphorus (2.5 - 4.5 mg/dL) 2.5 Magnesium (1.6 - 2.3 mg/dL) 1.5 L Triglycerides (<150 mg/dL) 123 Hematology CBC w Diff NO MAN DIFF REQ WBC (4.8 - 10.8 /CUMM) 2.7 L RBC (4.20 - 5.40 /CUMM) 3.08 L Hgb (12.0 - 16.0 G/DL) 8.9 L Hct (37 - 47 %) 26.9 L MCV (81.0 - 99.0 FL) 87.3 MCH (27.0 - 31.0 PG) 29.0 RDW (11.5 - 14.5 %) 19.4 H Plt Count (130 - 400 /CUMM) 185 MPV (7.4 - 10.4 FL) 8.6 Gran % (42.2 - 75.2 %) 62.6 Lymphocytes % (20.5 - 51.1 %) 33.8 Monocytes % (1.7 - 9.3 %) 1.7 Eosinophils % (0 - 5 %) 1.5 Basophils % (0.0 - 2.0 %) 0.4 Absolute Granulocytes (1.4 - 6.5 /CUMM) 1.7 Absolute Lymphocytes (1.2 - 3.4 /CUMM) 0.9 L Absolute Monocytes (0.10 - 0.60 /CUMM) 0 L Absolute Eosinophils (0.0 - 0.7 /CUMM) 0 Absolute Basophils (0.0 - 0.2 /CUMM) 0 PUBS MCHC (33.0 - 37.0 G/DL) 33.2 Imaging Results: CT abd/pelvis personally viewed. findings show normal caliber small bowel. Assessment/Plan Assessment/Plan Symptoms of small bowel obstruction. No objective findings to correlate on imaging or physical examination. Symptoms could be related to either adverse reaction to chemotherapy or small bowel obstruction that is treated with gastrostomy decompression. There is no intervention required. There is no role for surgery. The gastrostomy tube and placement on TPN is her treatment. No further palliation can be made for her gastrointestinal tract. No surgical intervention can be performed. Recommend clamping her gastrostomy tube when ileostomy output resumes. Consult Acknowledgment - Thank you for your consult request.
[2016-07-04 15:22] VITALS: BP 130/70
[2016-07-04 22:29] VITALS: BP 112/58
[2016-07-05 07:15] VITALS: BP 150/78
--- NOTE | 2016-07-05 07:29 | PN- Housestaff ---
[facility] 07/05/16 0729: Subjective Follow-up For: Nausea Abdominal pain Complaints: Nausea, Abdominal pain Subjective: Ms Elmore still has nausea despite being on zofran and rates it at 5/10 intensity. She has no vomitting. She has 5/10 colicky abdominal pain relieved by IV morphine. She still has only little brownish mucoid fluid coming out of her jejunostomy tube (About 20 mls since Sunday 5 days ago). Review of Systems Constitutional: Denies: chills, fever. EENTM: Denies: blurred vision, nasal congestion. Cardiovascular: Denies: chest pain, palpitations, syncope. Gastrointestinal: Reports: abdominal pain, constipation, nausea. Denies: vomiting. Objective Last 24 Hrs of Vital Signs/I&O Vital Signs Date Time Temp Pulse Resp B/P B/P Pulse O2 O2 Flow FiO2 Mean Ox Delivery Rate 07/05 0715 98.6 82 18 150/78 97 07/04 2229 98.4 76 19 112/58 97 Room Air 07/04 1522 98.3 72 18 130/70 97 Room Air Intake & Output 07/05 1600 07/05 0800 07/05 0000 Intake Total 1549.6 337.5 Output Total 1750 45 Balance -200.4 292.5 Intake, IV 600 100 Intake, Lipid 149.6 37.5 Intake, 800 200 TPN/PPN Output, 450 45 Gastric Drainage Output, Urine 1300 Physical Exam General Appearance: Alert, Oriented X3, Cooperative, No Acute Distress Skin: No Rashes Skin Temp/Moisture Exam: Warm/Dry Sepsis Skin Exam (color): Normal for Ethnicity HEENT: Atraumatic, PERRLA, EOMI, Mucous Membr. moist/pink Neck: Supple, No JVD, No thryomegaly, +2 Carotid Pulse wo Bruit Lymphatic: Cervical nl Cardiovascular: Regular Rate, Normal S1, Normal S2, No Murmurs Lungs: Clear to Auscultation, Normal Air Movement Abdomen: JEJUNOSTOMY TUBE IN SITU DRAINING ABOUT 50 MLS OF BROWNISH FLUID (OVER LAST 5 DAYS), RIGHT ILIAC FIRM REGION MASS APROX 15CMX 15 CM, HYPOACTIVE BOWEL SOUNDS THOUGH BETTER FROM YESTERDAY Neurological: Normal Gait, Normal Speech, Strength at 5/5 X4 Ext, Normal Tone Current Medications: Current Medications Sig/Terese Start time Last Medication Dose Route Stop Time Status Admin Dextrose/Sodium 1,000 ML Q13H 07/04 1315 AC 07/05 Chloride IV 0527 Famotidine 20 MG DAILY 07/04 1000 AC 07/04 IV 0902 Fat Emulsion 300 ML 1900 07/04 1900 AC 07/04 Intravenous IV 07/05 Fentanyl Citrate 75 MCG Q3D 07/03 2115 AC 07/03 TOP 2233 Magnesium Sulfate 1 GM Q2H 07/04 1315 DC 07/04 Dextrose/Water 100 ML IV 07/04 1714 1852 Morphine Sulfate 4 MG Q4P PRN 07/03 2145 AC 07/05 IV 0536 Ondansetron HCl 4 MG Q6P PRN 07/03 1930 AC 07/05 IV 0630 Pantoprazole Sodium 40 MG DAILY 07/04 1000 AC 07/04 IV 0901 Patient Medication 1 ED .STK-MED ONE 07/04 1348 DC Teaching ED 07/04 1349 Potassium Chloride 10 MEQ Q1H 07/04 1315 DC 07/04 IV 07/04 1416 1519 Total Parenteral 1 UNIT 07/04 190 07/04 Nutrition IV 07/05 Assessment/Plan Assessment: Patient is a 65-year-old woman with significant past medical history hypertension, hyperlipidemia, depression, history of ovarian cancer s/p hysterectomy with bilateral salpingo-oophorectomy (2013), Ovarian carcinomatosis ,colon cancer s/p colostomy (2013) and then reversal and small bowel obstruction s/p small bowel resection with ileostomy and gastrostomy tube for drainage. She presented with chief complaints of of colicky lower abdomen pain, nausea, reduced/no output from her ileostomy for the past 3 days. She also complains of brownish green vomitus that is feculent in odor (2 episodes the previous 2 days). She received chemotherapy with ironotecan for her cancer [address] Mosley at [facility] on Sun06/28/16 ( Every 2 weeks). She also has chronic back pain and is on a fentanyl patch and oxycodone at home. She is currently being managed for abdominal pain and vomitting likely a small bowel ileus or obstruction. Problem list 1. Intractable nausea and vomitting with concerns for small bowel obstruction 2. Poor nutritional status on Total parenteral nutrition 3. Metastatic ovarian cancer 4. Hypertension 5. Chronic pain Plan 1. Intractable nausea and vomitting with concerns for small bowel obstruction -She has some slight improvement in her nausea and abdominal pain with current antiemetics, opiates and bowel rest so will continue conservative management for now -Continue NPO for now -General surgery consult with Dr. Baez-He recommends continuing conservative management -[place]inue IV D5/Normal saline @ 75cc/hr -Continue IV zofran 4 mg Q6 hrs PRN for nausea or vomitting -Avoid metoclopramide as it can worsen the pain if small bowel obstruction is the etiology -IV protonix 40 mg daily 2. Poor nutritional status on Total parenteral nutrition -She has started TPN yesterday -Check Mag, Phos, Triglycerides 3. Metastatic ovarian cancer -Hematology/oncology input appreciated -No intervention recommended -Continue conservative management 4. Hypertension -Continue to hold all PO medications including antihypertensive agents -Can give IV metoprolol 2.5 mg-5mg Q 6hours for SBP>160 mmhg 5. Chronic pain -Continue home medication of fentanyl patch 75 mcg Q 72 hrs -IV morphine 4 mg Q6hrs PRN for severe pain -DVT prophylaxis with ALPS due to anemia -Patient is DNR/DNI Problem List: 1. Intractable vomiting with nausea 2. Small bowel obstruction 3. Chronic disease anemia Pain Ratin Pain Location: Abdomen Pain Goal: Pain 4 or less Pain Plan: Fentanyl patch, IV Morphine PRN Tomorrow's Labs & Rationales: BEP, Mag, Triglyceride For TPN and electrolyte monitoring DVT/Prophylaxis: mechanical ROSALVA NORMAN MD 07/05/16 1009: Attending MD Review Statement Attending Statement Attending MD Statement: examined this patient, discuss w/resident/PA/[employer] [place], agreed w/resident/PA/[employer] [place], reviewed EMR data (avail) Attending Assessment/Plan: 65F PMH hypertension, hyperlipidemia, depression, history of ovarian cancer s/p hysterectomy with bilateral salpingo-oophorectomy (2013), Ovarian carcinomatosis ,colon cancer s/p colostomy (2014) and then reversal and small bowel obstruction s/p small bowel resection with ileostomy and gastrostomy tube for drainage admitted for intractable nausea and vomiting with fecal vomiting. CT abdomen/ pelvis shows no evidence of obstruction and no fluid collection. Patient feels slightly better today after being kept NPO overnight. Her vomiting is improved, though she is still nauseous. Her findings are concerning for ileus. Her abdomen is non-tender diffusely but there is guarding. Still with minimal ostomy output. 1. Intractable nausea and vomiting 2. Fecal vomiting 3. Ileus 4. History of ovarian cancer 5. History of ileostomy Plan - Continue on general medicine - Continue Zofran - Continue TPN - Follow oncology recommendations - Follow surgery recommmendations - Monitor electrolytes - Continue pain medications. Though they may exacerbate ileus, given her malignancy and surgical history, stopping them at this time is not an option, though they should be given as sparingly as possible. - Continue PPI - NPO for bowel rest - DVT PPx
--- NOTE | 2016-07-05 08:15 | PN- Oncology ---
Subjective Subjective: Her ostomy output is still low. She continues to have nausea. She has no fever or chills. Abdominal pain is controlled and improved. Her G-tube is vented. Dr. Baez has seen her yesterday. Review of Systems: Constitutional: Reports: weakness. Denies: chills, fever. Cardiovascular: Denies: chest pain, peripheral edema. Respiratory: Denies: cough, short of breath. GI: Reports: abdominal pain, constipation, nausea. Denies: diarrhea, melena. Genitourinary: Denies: dysuria, hematuria. Musculoskeletal: Denies: back pain, joint pain. Neurological/Psychological: Reports: anxiety, depressed. Hematologic/Endocrine: Denies: bruising, bleeding. All Other Systems: Reviewed and Negative Objective Vital Signs and I&Os Vital Signs Date Time Temp Pulse Resp B/P B/P Pulse O2 O2 Flow FiO2 Mean Ox Delivery Rate 07/05 0715 98.6 82 18 150/78 97 07/04 2229 98.4 76 19 112/58 97 Room Air 07/04 1522 98.3 72 18 130/70 97 Room Air Intake & Output 07/05 1600 07/05 0800 07/05 0000 07/04 1600 07/04 0800 07/04 0000 Intake Total 1549.6 337.5 600 600 Output Total 1750 45 400 200 Balance -200.4 292.5 200 400 Intake, IV 600 100 600 600 Intake, Lipid 149.6 37.5 Intake, Oral 0 Intake, 800 200 TPN/PPN Output, 450 45 400 200 Gastric Drainage Output, Stool 0 Output, Urine 1300 Patient 62 kg 61.689 kg Weight Physical Exam: General Appearance: alert, awake Ears, Nose, Throat: normal pharynx Respiratory: normal breath sounds, chest non-tender, no respiratory distress, crackles Cardiovascular: regular rate/rhythm Gastrointestinal: normal bowel sounds, soft, tenderness (diffusely), G-tube in place, ostomy in place without output Extremities: normal inspection, no edema Neurologic/Psych: awake, alert, oriented x 3, depressed affect Skin: intact Other Physical Findings: Right UE PICC and left anterior chest with port in place Current Medications: Current Medications Sig/Terese Start time Last Medication Dose Route Stop Time Status Admin Dextrose/Sodium 1,000 ML Q13H 07/04 1315 AC 07/05 Chloride IV 0527 Dextrose/Sodium 1,000 ML Q13H 07/03 1930 DC 07/03 Chloride IV 07/04 0829 2030 Famotidine 20 MG DAILY 07/04 1000 AC 07/04 IV 0902 Fat Emulsion 300 ML 1900 07/04 1900 AC 07/04 Intravenous IV 07/05 Fentanyl Citrate 75 MCG Q3D 07/03 2115 AC 07/03 TOP 2233 Magnesium Sulfate 1 GM Q2H 07/04 1315 DC 07/04 Dextrose/Water 100 ML IV 07/04 1714 1852 Morphine Sulfate 4 MG Q4P PRN 07/03 2145 AC 07/05 IV 0536 Ondansetron HCl 4 MG Q6P PRN 07/03 1930 AC 07/05 IV 0630 Pantoprazole Sodium 40 MG DAILY 07/04 1000 AC 07/04 IV 0901 Patient Medication 1 ED .STK-MED ONE 07/04 1348 DC Teaching ED 07/04 1349 Potassium Chloride 10 MEQ Q1H 07/04 1315 DC 07/04 IV 07/04 1416 1519 Total Parenteral 1 UNIT 07/04 190 AC 07/04 Nutrition IV 07/05 Assessment/Plan Assessment/Recommendations: Mrs. 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 She does not have any obvious bowel obstruction on CT scan. She does not seem to have new disease on CT scan. She may have a combination of ileus and chemotherapy side effects. She continues to be symptomatic with nausea. Ostomy output is none currently. She is getting Zofran for antiemetic. Compazine may be added for antiemetic. Other option for nausea is lorazepam, Zyprexa, and steroid. Her symptoms should improve with bowel rest. She is on TPN at the moment. Her blood count should continue to decline over the next few days from chemotherapy. She will need to be monitored closely for new signs and symptoms of infections. Recommendations: 1. Zofran and Compazine prn nausea 2. NPO for bowel rest 3. Monitor for signs and symptoms of infection Please call [phone] with any questions or concerns. Problem List: 1. Ovarian cancer 2. Intractable vomiting with nausea
--- NOTE | 2016-07-05 12:20 | NUR ---
PT VOMITTED APPROXIMATELY 50MLS CLEAR YELLOW EMESIS INTO TOILET. ZOFRAN GIVEN, VOMITTING HAS CEASED. WILL CONTINUE TO MONITOR.
[2016-07-05 14:26] VITALS: BP 124/60
[2016-07-05 15:56] LABS: ABSOLUTE BASOPHIL COUNT 0 /CUMM (0.0-0.2); ABSOLUTE EOSINOPHIL COUNT 0 /CUMM (0.0-0.7); ABSOLUTE GRANULOCYTE CT 1.4 /CUMM (1.4-6.5); ABSOLUTE LYMPH COUNT 1.2 /CUMM (1.2-3.4); ABSOLUTE MONOCYTE COUNT 0.1 /CUMM (0.10-0.60); BASOPHIL % 0.3 % (0.0-2.0); EOSINOPHIL % 0.5 % (0-5); GRANULOCYTE % 51.7 % (42.2-75.2); HEMATOCRIT 27.8 % (37-47); MEAN CORPUSCULAR HGB 28.5 PG (27.0-31.0); MEAN CORPUSCULAR HGB CONC 32.7 G/DL (33.0-37.0); MEAN CORPUSCULAR VOLUME 87.1 FL (81.0-99.0); MEAN PLATELET VOLUME 8.2 FL (7.4-10.4); PLATELET COUNT 192 /CUMM (130-400); RBC DISTRIBUTION WIDTH 19.2 % (11.5-14.5); RED BLOOD CELL CT 3.19 /CUMM (4.20-5.40); WHITE BLOOD CELL COUNT 2.8 /CUMM (4.8-10.8)
--- NOTE | 2016-07-05 16:26 | NUR ---
EVENT NOTE: PT ATE STRAWBERRY ICE CREAM, WHICH WAS MISTAKENLY DELIVERED TO HER ROOM, BUT WAS MEANT FOR ANOTHER. MD BRITTON AWARE. WILL MONITOR.
[2016-07-05 23:29] VITALS: BP 130/68
--- NOTE | 2016-07-06 02:40 | NUR ---
LATE ENTRY FOR 07/05/162025 PT WITH C/O NAUSEA. PER EMAR TOO EARLY FOR CURRENT MEDS ON ORDER. CALL TO DR GORE. SEE EMAR FOR MED GIVEN.
[2016-07-06 06:57] VITALS: BP 150/74
--- NOTE | 2016-07-06 07:25 | PN- Housestaff ---
[facility] 07/06/16 0725: Subjective Follow-up For: -Intractable nausea and vomitting -Abdominal pain -Small bowel ileus -Metastatic ovarian cancer Complaints: Nausea and abdominal pain Subjective: Ms Elmore had a quiet night. However, she developed severe nausea early this morning after she early this morning. Continues to have abdominal pain 6/10 intensity this morning. Review of Systems Constitutional: Denies: chills, fever, malaise. EENTM: Denies: visual changes, nasal congestion, throat pain. Cardiovascular: Denies: chest pain, palpitations, syncope. Respiratory: Denies: cough, short of breath, sputum production. Gastrointestinal: Reports: abdominal pain, constipation, nausea. Denies: bloody stool, vomiting. Genitourinary: Denies: dysuria. Objective Last 24 Hrs of Vital Signs/I&O Vital Signs Date Time Temp Pulse Resp B/P B/P Pulse O2 O2 Flow FiO2 Mean Ox Delivery Rate 07/06 0657 98.1 85 20 150/74 97 Room Air 07/05 2329 98.0 72 20 130/68 97 Room Air 07/05 1426 98.6 72 18 124/60 97 Room Air Intake & Output 07/06 0800 07/06 0000 07/05 1600 Intake Total 520 Output Total 855 410 Balance -335 -410 Intake, IV 300 Intake, Oral 0 Intake, 220 TPN/PPN Output, 10 50 Emesis Output, 295 300 Gastric Drainage Output, Stool 50 60 Output, Urine 500 Physical Exam General Appearance: Alert, Oriented X3, Cooperative, No Acute Distress Skin: No Rashes Skin Temp/Moisture Exam: Warm/Dry Sepsis Skin Exam (color): Normal for Ethnicity HEENT: Atraumatic, EOMI, Mucous Membr. moist/pink Neck: Supple, No JVD, No thryomegaly, +2 Carotid Pulse wo Bruit Lymphatic: Cervical nl Cardiovascular: Regular Rate, Normal S1, Normal S2, No Murmurs Lungs: Clear to Auscultation, Normal Air Movement Abdomen: Soft, Abdomen is full compared to yesterday, Jejunostomy tube in situ draining scanty brownish mucus, Very hypoactive bowel sounds. Neurological: Normal Speech, Normal Tone Extremities: No Clubbing, No Edema Current Medications: Current Medications Sig/Terese Start time Last Medication Dose Route Stop Time Status Admin Alteplase, 2 MG ONCE ONE 07/05 1100 MT 07/05 Recombinant IV 07/05 1101 1246 Dextrose/Sodium 1,000 ML Q13H 07/04 1315 07/05 Chloride IV 2245 Famotidine 20 MG DAILY 07/04 1000 07/05 IV 0946 Fat Emulsion 500 ML Q12H 07/05 1900 MT 07/05 Intravenous IV 07/06 0659 2059 Fat Emulsion 300 ML 1900 07/04 1900 MT 07/04 Intravenous IV 07/05 1859 2017 Fentanyl Citrate 75 MCG Q3D 07/03 2115 07/03 TOP 2233 Magnesium Sulfate 1 GM Q2H 07/06 0830 Dextrose/Water 100 ML IV 07/06 1229 Morphine Sulfate 4 MG Q3P PRN 07/06 0830 IV Morphine Sulfate 4 MG Q4P PRN 07/03 2145 MT 07/06 IV 0618 Ondansetron HCl 4 MG Q6P PRN 07/03 1930 07/06 IV 0614 Pantoprazole Sodium 40 MG DAILY 07/04 1000 07/05 IV 0946 Potassium Chloride 10 MEQ Q1H 07/06 0830 07/06 IV 07/06 1031 0842 Prochlorperazine 5 MG Q6PRN PRN 07/06 0730 IV Promethazine HCl 25 MG ONCE ONE 07/05 2245 MT 07/05 IV 07/05 2246 2326 Total Parenteral 1 UNIT ONE 07/05 1900 MT 07/05 Nutrition IV 07/06 0659 2059 Total Parenteral 1 UNIT 1900 07/04 1900 MT 07/04 Nutrition IV 07/05 1852016 Trimethobenzamide HCl 200 MG 4 TIMES/DAY PRN 07/05 1145 07/05 IM 1421 Last 24 Hrs of Lab/Jamarcus Results Last 24 Hrs of Labs/Mics: Laboratory Tests 07/06/16 0605: Anion Gap 10, Estimated GFR > 60, BUN/Creatinine Ratio 38.0 H, Phosphorus 3.0, Magnesium 1.5 L, Triglycerides 123 07/05/16 1513: Anion Gap 10, Estimated GFR > 60, BUN/Creatinine Ratio 38.0 H, Phosphorus 3.0, Magnesium 1.7, CBC w Diff NO MAN DIFF REQ, RBC 3.19 L, MCV 87.1, MCH 28.5, RDW 19.2 H, MPV 8.2, Gran % 51.7, Lymphocytes % 43.0, Monocytes % 4.5, Eosinophils % 0.5, Basophils % 0.3, Absolute Granulocytes 1.4, Absolute Lymphocytes 1.2, Absolute Monocytes 0.1 L, Absolute Eosinophils 0, Absolute Basophils 0, PUBS MCHC 32.7 L Assessment/Plan Assessment: Patient is a 65-year-old woman with significant past medical history hypertension, hyperlipidemia, depression, history of ovarian cancer s/p hysterectomy with bilateral salpingo-oophorectomy (2013), Ovarian carcinomatosis ,colon cancer s/p colostomy (2014) and then reversal and small bowel obstruction s/p small bowel resection with ileostomy and gastrostomy tube for drainage. She presented with chief complaints of of colicky lower abdomen pain, nausea, reduced/no output from her ileostomy for the preceding 3 days. She also complained of brownish green vomitus that is feculent in odor (2 episodes the previous 2 days). She received chemotherapy with ironotecan for her cancer 5 days prior to presentation with Dr. Rodríguez at [facility] on Sun06/28/16 (Every 2 weeks). She also has chronic back pain and is on a fentanyl patch and oxycodone at home. She is currently being managed for abdominal pain and vomitting which appears to be from ileus likely related to her recent chemotherapy, since there is no obvious obstruction on CT imaging of her abdomen. Problem list 1. Intractable nausea and vomitting from small bowel ileus (Likely a chemotherapy side effect) 2. Poor nutritional status on Total parenteral nutrition 3. Metastatic ovarian cancer 4. Hypertension 5. Chronic pain Plan 1. Intractable nausea, vomitting and abdominal pain from small bowel ileus ( Likely a chemotherapy side effect) * Unfortunately, her nausea and abdominal pain is more today and she has less active bowel sounds this morning * Add IV compazine 5 mg Q6 PRN for nausea and vomitting. * Continue IV Zofran, and IM tigan PRN for nausea and vomitting * Can adjust IV morphine to 4 mg Q3 hrs PRN for better pain control in the interim * Continue fentanyl patch * Consider pain management consult as patient had an appointment with Dr. Calvert yesterday * Continue bowel rest and NPO and conservative management for now * General surgery Dr. Baez reviewed and recommends conservative management * Continue IV D5/Normal saline @ 75cc/hr * Avoid metoclopramide as it can worsen the pain if small bowel obstruction is the etiology * Continue IV protonix 40 mg daily and famotidine 20 mg daily 2. Poor nutritional status on Total parenteral nutrition * Continue TPN day 3 today * Check Mag, Phos, Triglycerides and replete accordingly * ACCUCHEKS Q6 hrs 3. Metastatic ovarian cancer * Hematology/oncology input appreciated * No intervention recommended * Continue conservative management * Check CBC tomorrow for monitoring blood counts on chemo (She received it 7 days ago and this should be the alba for her counts) * Watch for signs of infection. Patient has been afebrile with no signs on this admission 4. Hypertension * Continue to hold all PO medications including antihypertensive agents * Can give IV metoprolol 2.5 mg-5mg Q 6hours for SBP>160 mmhg 5. Chronic pain * Continue home medication of fentanyl patch 75 mcg Q 72 hrs * Increase frequency of IV morphine to 4 mg Q3hrs PRN for severe pain -DVT prophylaxis with ALPS due to anemia -Patient is DNR/DNI Problem List: 1. Ileus 2. Nausea and vomiting 3. Nausea and vomiting in adult 4. Intractable vomiting with nausea Pain Ratin Pain Location: Abdomen Pain Goal: Pain 4 or less Pain Plan: IV morphine 4 mg Q 6 hrs, Fentanyl patch 75 Tomorrow's Labs & Rationales: CBC for anemia and WBC on chemo, BEP, Mag phos for small bowell obstruction on TPN DVT/Prophylaxis: mechanical ROSALVA NORMAN MD 07/06/16 1354: Attending MD Review Statement Attending Statement Attending MD Statement: examined this patient, discuss w/resident/PA/BASIC SCIENCES PROFESSOR, agreed w/resident/PA/BASIC SCIENCES PROFESSOR, reviewed EMR data (avail) Attending Assessment/Plan: 65F PMH hypertension, hyperlipidemia, depression, history of ovarian cancer s/p hysterectomy with bilateral salpingo-oophorectomy (2013), Ovarian carcinomatosis ,colon cancer s/p colostomy (2014) and then reversal and small bowel obstruction s/p small bowel resection with ileostomy and gastrostomy tube for drainage admitted for intractable nausea and vomiting with fecal vomiting. CT abdomen/ pelvis shows no evidence of obstruction and no fluid collection. No improvement since yesterday. Patient remains nauseous with constant abdominal pain. The pain improves with Morphine and is manageable. Bowel sounds remain hypoactive. 1. Intractable nausea and vomiting 2. Fecal vomiting 3. Ileus 4. History of ovarian cancer 5. History of ileostomy Plan - Continue on general medicine - Continue Zofran - Continue TPN - Follow oncology recommendations - Follow surgery recommmendations - Monitor electrolytes - Continue pain medications. Though they may exacerbate ileus, given her malignancy and surgical history, stopping them at this time is not an option, though they should be given as sparingly as possible. - Continue PPI - NPO for bowel rest - DVT PPx - If no improvement by tomorrow will begin convseration with patient regarding possible hospice care
--- NOTE | 2016-07-06 12:33 | PN- General Surgery ---
Subjective Subjective: no symptomatic improvement. nauseated and retching. minimal bowel function through stoma Objective Vital Signs and I&Os Vital Signs Date Time Temp Pulse Resp B/P B/P Pulse O2 O2 Flow FiO2 Mean Ox Delivery Rate 07/06 0657 98.1 85 20 150/74 97 Room Air 07/05 2329 98.0 72 20 130/68 97 Room Air 07/05 1426 98.6 72 18 124/60 97 Room Air Intake & Output 07/06 1600 07/06 0800 07/06 0000 07/05 1600 07/05 0800 07/05 0000 Intake Total 1960.0 520 1549.6 337.5 Output Total 1075 522 449 0640 45 Balance 885.0 -335 -260 -350.4 292.5 Intake, IV 600 300 600 100 Intake, Lipid 200.0 149.6 37.5 Intake, Oral 0 0 Intake, 1160 220 800 200 TPN/PPN Output, 10 50 Emesis Output, 250 295 150 600 45 Gastric Drainage Output, Stool 25 50 60 Output, Urine 204 155 0724 Physical Exam: gen; nad. tired. a/o x 3 heent; anicteric, mmm, no nodes abd; soft. mild tenderness right and left abdomen. scant stool in ileostomy. no distension Assessment/Plan Assessment/Plan persistent sbo. continue cares. concern that this might be irreversable progression of peritoneal disease.
--- NOTE | 2016-07-06 12:36 | PN- Oncology ---
Subjective Subjective: She continues to have nausea. Ostomy output still not moving much. Abdominal pain is stable. She has no fever or chills. Review of Systems: Constitutional: Reports: weakness. Denies: chills, fever. Cardiovascular: Denies: chest pain, peripheral edema. Respiratory: Denies: cough, short of breath. GI: Reports: abdominal pain, constipation, nausea. Denies: diarrhea, melena. Genitourinary: Denies: dysuria, hematuria. Musculoskeletal: Denies: back pain, joint pain. Neurological/Psychological: Reports: anxiety, depressed. Hematologic/Endocrine: Denies: bruising, bleeding. All Other Systems: Reviewed and Negative Objective Vital Signs and I&Os Vital Signs Date Time Temp Pulse Resp B/P B/P Pulse O2 O2 Flow FiO2 Mean Ox Delivery Rate 07/06 0557 98.1 85 20 150/74 97 Room Air 07/05 2329 98.0 72 20 130/68 97 Room Air 07/05 1426 98.6 72 18 124/60 97 Room Air Intake & Output 07/06 1600 07/06 0800 07/06 0000 07/05 1600 07/05 0800 07/05 0000 Intake Total 1960.0 520 1549.6 337.5 Output Total 1075 773 364 7631 45 Balance 885.0 -335 -260 -350.4 292.5 Intake, IV 600 300 600 100 Intake, Lipid 200.0 149.6 37.5 Intake, Oral 0 0 Intake, 1160 220 800 200 TPN/PPN Output, 10 50 Emesis Output, 250 295 150 600 45 Gastric Drainage Output, Stool 25 50 60 Output, Urine 929 456 8363 Physical Exam: General Appearance: alert, awake Respiratory: normal breath sounds, chest non-tender, no respiratory distress, crackles Cardiovascular: regular rate/rhythm Gastrointestinal: normal bowel sounds, soft, tenderness (diffusely), G-tube in place, ostomy in place without output Extremities: normal inspection, no edema Neurologic/Psych: awake, alert, oriented x 3, depressed affect Skin: intact Other Physical Findings: Right UE PICC and left anterior chest with port in place Current Medications: Current Medications Sig/Terese Start time Last Medication Dose Route Stop Time Status Admin Dextrose/Sodium 1,000 ML Q13H 07/04 1315 AC 07/05 Chloride IV 2245 Famotidine 20 MG DAILY 07/04 1000 AC 07/06 IV 1107 Fat Emulsion 500 ML Q12H 07/05 1900 DC 07/05 Intravenous IV 07/06 0659 205 Fat Emulsion 300 ML 1900 07/04 1900 DC 07/04 Intravenous IV 07/05 185 2017 Fentanyl Citrate 75 MCG Q3D 07/03 211 07/03 TOP 2233 Magnesium Sulfate 1 GM Q2H 07/06 0830 AC 07/06 Dextrose/Water 100 ML IV 07/06 1229 1107 Morphine Sulfate 4 MG Q3P PRN 07/06 0830 07/06 IV 1122 Morphine Sulfate 4 MG Q4P PRN 07/03 2145 MT 07/06 IV 0618 Ondansetron HCl 4 MG Q6P PRN 07/03 1930 AC 07/06 IV 0614 Pantoprazole Sodium 40 MG DAILY 07/04 1000 AC 07/06 IV 1107 Potassium Chloride 10 MEQ Q1H 07/06 0830 DC 07/06 IV 07/06 1031 1105 Prochlorperazine 5 MG Q6PRN PRN 07/06 0730 07/06 IV 1107 Promethazine HCl 25 MG ONCE ONE 07/05 2245 DC 07/05 IV 07/05 2246 2326 Total Parenteral 1 UNIT ONE 07/05 1900 DC 07/05 Nutrition IV 07/06 0659 205 Total Parenteral 1 UNIT 1900 07/04 190 DC 07/04 Nutrition IV 07/05 Trimethobenzamide HCl 200 MG 4 TIMES/DAY PRN 07/05 1145 AC 07/05 IM 1421 Results Last 24 Hours of Lab Results: Laboratory Tests 07/06 07/05 0605 1513 Chemistry Sodium (137 - 145 mmol/L) 137 133 L Potassium (3.5 - 5.1 mmol/L) 3.4 L 3.6 Chloride (98 - 107 mmol/L) 100 97 L Carbon Dioxide (22 - 30 mmol/L) 26 26 Anion Gap (5 - 16) 10 10 BUN (7 - 17 mg/dL) 19 H 19 H Creatinine (0.5 - 1.0 mg/dL) 0.5 0.5 Estimated GFR (>60 ml/min) > 60 > 60 BUN/Creatinine Ratio (7 - 25 %) 38.0 H 38.0 H Phosphorus (2.5 - 4.5 mg/dL) 3.0 3.0 Magnesium (1.6 - 2.3 mg/dL) 1.5 L 1.7 Triglycerides (<150 mg/dL) 123 Hematology CBC w Diff NO MAN DIFF REQ WBC (4.8 - 10.8 /CUMM) 2.8 L RBC (4.20 - 5.40 /CUMM) 3.19 L Hgb (12.0 - 16.0 G/DL) 9.1 L Hct (37 - 47 %) 27.8 L MCV (81.0 - 99.0 FL) 87.1 MCH (27.0 - 31.0 PG) 28.5 RDW (11.5 - 14.5 %) 19.2 H Plt Count (130 - 400 /CUMM) 192 MPV (7.4 - 10.4 FL) 8.2 Gran % (42.2 - 75.2 %) 51.7 Lymphocytes % (20.5 - 51.1 %) 43.0 Monocytes % (1.7 - 9.3 %) 4.5 Eosinophils % (0 - 5 %) 0.5 Basophils % (0.0 - 2.0 %) 0.3 Absolute Granulocytes (1.4 - 6.5 /CUMM) 1.4 Absolute Lymphocytes (1.2 - 3.4 /CUMM) 1.2 Absolute Monocytes (0.10 - 0.60 /CUMM) 0.1 L Absolute Eosinophils (0.0 - 0.7 /CUMM) 0 Absolute Basophils (0.0 - 0.2 /CUMM) 0 PUBS MCHC (33.0 - 37.0 G/DL) 32.7 L Assessment/Plan Assessment/Recommendations: Mrs. 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 She does not have any obvious bowel obstruction on CT scan. She does not seem to have new disease on CT scan. She may have a combination of ileus and chemotherapy side effects. Ostomy output is minimal. She continues to have nausea. She is on Zofran and Compazine. If not improving, she may try Zyprexa as an option. She is on bowel rest. She is on TPN at the moment. Recommendations: 1. Zofran and Compazine prn nausea 2. NPO for bowel rest 3. Consider Zyprexa for nausea Please call [phone] with any questions or concerns. Problem List: 1. Intractable vomiting with nausea 2. Ovarian cancer 3. Abdominal pain
[2016-07-06 13:57] VITALS: BP 140/80
[2016-07-06 22:46] VITALS: BP 128/64
[2016-07-07 07:12] VITALS: BP 142/74
--- NOTE | 2016-07-07 07:48 | PN- Housestaff ---
MELQUIADES SHELLEY,COX MONETT 07/07/16 0747: Subjective Follow-up For: -Intractable nausea and vomitting -Abdominal pain -Small bowel ileus -Metastatic ovarian cancer Complaints: Nausea Subjective: Ms Elmore had a quiet night. She states that she had a bout of abdominal pain early this morninng at 3 am when she woke up. She however has minimal abdominal pain today rated at 4/10. Her nausea is also improved and she has NO NAUSEA this morning. She denied fevers chills or malaise. Denies cough, chest pain, blurring of vision. Review of Systems Constitutional: Denies: chills, fever, malaise. EENTM: Denies: blurred vision, double vision, nasal congestion. Cardiovascular: Denies: chest pain, palpitations. Respiratory: Denies: cough, short of breath, sputum production. Gastrointestinal: Reports: abdominal pain. Denies: nausea, bloody stool. Genitourinary: Denies: dysuria. Objective Last 24 Hrs of Vital Signs/I&O Vital Signs Date Time Temp Pulse Resp B/P B/P Pulse O2 O2 Flow FiO2 Mean Ox Delivery Rate 07/07 0712 98.4 97 18 142/74 96 Room Air 07/06 2246 99.0 90 20 128/64 96 Room Air 07/06 1357 98.0 88 20 140/80 98 Room Air Intake & Output 07/07 1600 /02 0800 06/ 0000 Intake Total 2200.0 400.0 Output Total 1600 1500 Balance 600.0 -1100.0 Intake, IV 600 300 Intake, Lipid 200.0 25.0 Intake, 1400 75 TPN/PPN Output, 600 800 Gastric Drainage Output, Stool 100 100 Output, Urine 900 600 Physical Exam General Appearance: Alert, Oriented X3, Cooperative Skin: No Rashes, No Breakdown Skin Temp/Moisture Exam: Warm/Dry Sepsis Skin Exam (color): Normal for Ethnicity HEENT: Atraumatic Neck: Supple, No JVD, No thryomegaly, +2 Carotid Pulse wo Bruit Lymphatic: Cervical nl Cardiovascular: Regular Rate, Normal S1, Normal S2, No Murmurs Lungs: Clear to Auscultation, Normal Air Movement Abdomen: Soft, Hypoactive bowel sounds, Vague tenderness in right lower and right upperr quadrants Neurological: Normal Speech, Normal Tone Extremities: No Edema, Normal Pulses Current Medications: Current Medications Sig/Terese Start time Last Medication Dose Route Stop Time Status Admin Dextrose/Sodium 1,000 ML Q13H 07/07 0900 AC Chloride IV Dextrose/Sodium 1,000 ML Q13H 07/04 1315 AR 07/07 Chloride IV 0557 Diphenhydramine HCl 25 MG Q6-PRN PRN 07/06 1745 AC 07/06 IV 1818 Famotidine 20 MG DAILY 07/04 1000 AC 07/06 IV 1107 Fat Emulsion 500 ML Q12H 07/06 1900 DC 07/06 Intravenous IV 07/07 0659 2100 Fentanyl Citrate 75 MCG Q3D 07/03 2115 AC 07/06 TOP 2241 Insulin Human Regular 0 Q6 07/07 1200 AC SC Lorazepam 0.5 MG ONE ONE 07/06 1700 CAN PO 07/06 1701 Lorazepam 0.5 MG ONCE ONE 07/06 1700 DC IV 07/06 1701 Lorazepam 0.5 MG Q6P PRN 07/06 1700 AC 07/07 IV 0349 Magnesium Sulfate 1 GM Q2H 07/06 0830 AR 07/06 Dextrose/Water 100 ML IV 07/06 1229 1722 Morphine Sulfate 4 MG Q3P PRN 07/06 0830 AC 07/07 IV 0347 Ondansetron HCl 4 MG .STK-MED ONE 07/06 1557 DC IM 07/06 1558 Ondansetron HCl 4 MG Q6P PRN 07/03 1930 AC 07/06 IV 2252 Pantoprazole Sodium 40 MG DAILY 07/04 1000 AC 07/06 IV 1107 Patient Medication 1 ED .STK-MED ONE 07/06 1245 DC Teaching ED 07/06 1246 Potassium Chloride 10 MEQ Q1H 07/07 0900 IV 07/07 1101 Potassium Chloride 10 MEQ Q1H 07/06 0830 DC 07/06 IV 07/06 1031 1545 Prochlorperazine 5 MG Q6PRN PRN 07/06 0730 07/07 IV 0343 Total Parenteral 1 UNIT ONE 07/06 1900 DC 07/06 Nutrition IV 07/07 0659 2243 Trimethobenzamide HCl 200 MG 4 TIMES/DAY PRN 07/05 1145 AC 07/05 IM 1421 Last 24 Hrs of Lab/Jamarcus Results Last 24 Hrs of Labs/Mics: Laboratory Tests 06/02/17 0600: Anion Gap 7, Estimated GFR > 60, BUN/Creatinine Ratio 32.0 H, Magnesium 1.6, Triglycerides 112, CBC w Diff NO MAN DIFF REQ, RBC 2.78 L, MCV 86.6, MCH 28.9, RDW 19.0 H, MPV 8.6, Gran % 51.8, Lymphocytes % 39.5, Monocytes % 5.0, Eosinophils % 2.9, Basophils % 0.8, Absolute Granulocytes 1.0 L, Absolute Lymphocytes 0.7 L, Absolute Monocytes 0.1 L, Absolute Eosinophils 0.1, Absolute Basophils 0, PUBS MCHC 33.4 Assessment/Plan Assessment: Patient is a 65-year-old woman with significant past medical history hypertension, hyperlipidemia, depression, history of ovarian cancer s/p hysterectomy with bilateral salpingo-oophorectomy (2013), Ovarian carcinomatosis ,colon cancer s/p colostomy (2013) and then reversal and small bowel obstruction s/p small bowel resection with ileostomy and gastrostomy tube for drainage. She presented with chief complaints of of colicky lower abdomen pain, nausea, reduced/no output from her ileostomy for the preceding 3 days. She also complained of brownish green vomitus that is feculent in odor (2 episodes the 2 days prior to presentation. She had received chemotherapy with ironotecan for her cancer 5 days prior to presentation with Dr. Rodríguez at [facility] on Sun06/28/16 (Every 2 weeks). She also has chronic back pain and is on a fentanyl patch and oxycodone at home. She is currently being managed for abdominal pain and vomitting which appears to be from ileus likely related to her recent chemotherapy, since there is no obvious obstruction on CT imaging of her abdomen. She is currently on TPN Day 4: Please see order in Disk Sander note (Can use TPN day 2 order every day onwards). Problem list 1. Intractable nausea and vomitting from small bowel ileus (Likely a chemotherapy side effect) 2. Poor nutritional status on Total parenteral nutrition 3. Metastatic ovarian cancer 4. Hypertension 5. Chronic pain Plan 1. Intractable nausea, vomitting and abdominal pain from small bowel ileus ( Likely a chemotherapy side effect) * Her nausea and abdominal pain seem improved today. However, her bowel sounds still appear sluggish this morning * Continue IV compazine 5 mg Q6 PRN for nausea and vomitting. * Continue IV Zofran, and IM tigan PRN for nausea and vomitting * Continue IV morphine 4 mg Q3 hrs PRN for better pain control in the interim * Continue fentanyl patch * Pain management consult pending * Continue bowel rest and NPO and conservative management for now * General surgery Dr. Baez reviewed and recommends conservative management * On account of hyponatremia change IV D5/Half Normal saline to D5/Normal saline and run at 50 cc/hr * If symptoms continue to improve, can stop IV fluids ans start clear liquids in the morning * Avoid metoclopramide as it can worsen the pain if small bowel obstruction is the etiology * Continue IV protonix 40 mg daily and famotidine 20 mg daily 2. Poor nutritional status on Total parenteral nutrition * Continue TPN day 4 today * Add 8 units of insulin to TPN today as her sugars have been in the 200s * ACCUCHEKS Q6 hrs * Start NPO Novolin sliding scale * Check Mag, Phos, Triglycerides periodically and replete accordingly 3. Metastatic ovarian cancer s/p Chemotherapy with neutropenia * ANC today dropped to 1000 (Today should be alba). No sign of infection. We expect counts to increase from now on * Check CBC tomorrow for monitoring blood counts on chemo (She received it 7 days ago and this should be the alba for her counts) * Watch for signs of infection. Patient has been afebrile with no signs on this admission * Hematology/oncology input appreciated * No new intervention recommended for her cancer * Continue conservative management 4. Hypertension * Continue to hold all PO medications including antihypertensive agents * Can give IV metoprolol 2.5 mg-5mg Q 6hours for SBP>160 mmhg 5. Chronic pain * Continue home medication of fentanyl patch 75 mcg Q 72 hrs * Continue IV morphine 4 mg Q3hrs PRN for severe pain -DVT prophylaxis with ALPS due to anemia -Patient is DNR/DNI Problem List: 1. Intractable vomiting with nausea 2. Hyponatremia 3. Ovarian cancer Pain Ratin Pain Location: Abdomen Pain Goal: Pain 4 or less Pain Plan: Fentanyl patch, IV morphine PRN Tomorrow's Labs & Rationales: CBC, BEP, K, Mag for TPN and bowel ileus ROSALVA NORMAN MD 07/07/16 1901: Attending MD Review Statement Attending Statement Attending MD Statement: examined this patient, discuss w/resident/PA/COMPRESSOR OPERATOR, agreed w/resident/PA/COMPRESSOR OPERATOR, reviewed EMR data (avail) Attending Assessment/Plan: 65F PMH hypertension, hyperlipidemia, depression, history of ovarian cancer s/p hysterectomy with bilateral salpingo-oophorectomy (2013), Ovarian carcinomatosis ,colon cancer s/p colostomy (2014) and then reversal and small bowel obstruction s/p small bowel resection with ileostomy and gastrostomy tube for drainage admitted for intractable nausea and vomiting with fecal vomiting. CT abdomen/ pelvis shows no evidence of obstruction and no fluid collection. No improvement since yesterday. Patient remains nauseous with constant abdominal pain. The pain improves with Morphine and is manageable. Bowel sounds remain hypoactive. 1. Intractable nausea and vomiting 2. Fecal vomiting 3. Ileus 4. History of ovarian cancer 5. History of ileostomy Plan - Continue on general medicine - Continue Zofran - Continue TPN - Follow oncology recommendations - Follow surgery recommmendations - Monitor electrolytes - Continue pain medications. Though they may exacerbate ileus, given her malignancy and surgical history, stopping them at this time is not an option, though they should be given as sparingly as possible. - Continue PPI - NPO for bowel rest - DVT PPx
[2016-07-07 07:52] LABS: ABSOLUTE BASOPHIL COUNT 0 /CUMM (0.0-0.2); ABSOLUTE EOSINOPHIL COUNT 0.1 /CUMM (0.0-0.7); ABSOLUTE LYMPH COUNT 0.7 /CUMM (1.2-3.4); ABSOLUTE MONOCYTE COUNT 0.1 /CUMM (0.10-0.60); BASOPHIL % 0.8 % (0.0-2.0); EOSINOPHIL % 2.9 % (0-5); GRANULOCYTE % 51.8 % (42.2-75.2); HEMATOCRIT 24.1 % (37-47); MEAN CORPUSCULAR HGB 28.9 PG (27.0-31.0); MEAN CORPUSCULAR HGB CONC 33.4 G/DL (33.0-37.0); MEAN CORPUSCULAR VOLUME 86.6 FL (81.0-99.0); MEAN PLATELET VOLUME 8.6 FL (7.4-10.4); PLATELET COUNT 176 /CUMM (130-400); RED BLOOD CELL CT 2.78 /CUMM (4.20-5.40); WHITE BLOOD CELL COUNT 1.9 /CUMM (4.8-10.8)
--- NOTE | 2016-07-07 10:41 | PN- General Surgery ---
Subjective Subjective: feels better. steady slow output from stoma. Objective Vital Signs and I&Os Vital Signs Date Time Temp Pulse Resp B/P B/P Pulse O2 O2 Flow FiO2 Mean Ox Delivery Rate 07/07 0712 98.4 97 18 142/74 96 Room Air 07/06 2246 99.0 90 20 128/64 96 Room Air 07/06 1357 98.0 88 20 140/80 98 Room Air Intake & Output 07/07 1600 07/07 0800 07/07 0000 07/06 1600 07/06 0800 07/06 0000 Intake Total 2200.0 400.0 1595 1960.0 520 Output Total 1600 4057 309 7555 855 Balance 600.0 -1100.0 1445 885.0 -335 Intake, IV 600 300 875 600 300 Intake, Lipid 200.0 25.0 200.0 Intake, Oral 720 0 0 Intake, 1400 75 1160 220 TPN/PPN Output, 10 Emesis Output, 600 800 150 250 295 Gastric Drainage Output, Stool 100 100 25 50 Output, Urine 900 600 800 500 Physical Exam: Gen; looks tired. no distress. normal habitus abd; soft, nt, nd, stool in bag Assessment/Plan Assessment/Plan SBO secondary to ovarian carcinomatosis. slow improvement. No surgical option. best avenue would be to see if she can tolerate oral meds for palliation of symptoms. Since she feels better, next step is to clamp gtube and see if she can tolerate the bile burden on small bowel. continue cycled tpn indefinitely.
--- NOTE | 2016-07-07 11:52 | PN- Oncology ---
Subjective Subjective: Ostomy output is increased. She continues to have nausea. Compazine is helping. She is also now on lorazepam. She continues to have abdominal pain. Review of Systems: Constitutional: Reports: weakness. Denies: chills, fever. Cardiovascular: Denies: chest pain, peripheral edema. Respiratory: Denies: cough, short of breath. GI: Reports: abdominal pain, nausea. Denies: diarrhea, melena. Genitourinary: Denies: dysuria, hematuria. Musculoskeletal: Denies: back pain, joint pain. Neurological/Psychological: Reports: anxiety, depressed. All Other Systems: Reviewed and Negative Objective Vital Signs and I&Os Vital Signs Date Time Temp Pulse Resp B/P B/P Pulse O2 O2 Flow FiO2 Mean Ox Delivery Rate 07/07 0712 98.4 97 18 142/74 96 Room Air 07/06 2246 99.0 90 20 128/64 96 Room Air 07/06 1357 98.0 88 20 140/80 98 Room Air Intake & Output 07/07 1600 07/07 0800 07/07 0000 07/06 1600 07/06 0800 07/06 0000 Intake Total 2200.0 400.0 1595 1960.0 520 Output Total 1600 7576 377 4000 855 Balance 600.0 -1100.0 1445 885.0 -335 Intake, IV 600 300 875 600 300 Intake, Lipid 200.0 25.0 200.0 Intake, Oral 720 0 0 Intake, 1400 75 1160 220 TPN/PPN Output, 10 Emesis Output, 600 800 150 250 295 Gastric Drainage Output, Stool 100 100 25 50 Output, Urine 900 600 800 500 Physical Exam: General Appearance: alert, awake Respiratory: normal breath sounds, chest non-tender, no respiratory distress, crackles Cardiovascular: regular rate/rhythm Gastrointestinal: normal bowel sounds, soft, tenderness (diffusely), G-tube in place, ostomy with liquid output Extremities: normal inspection, no edema Neurologic/Psych: awake, alert, oriented x 3, depressed affect Skin: intact Other Physical Findings: Right UE PICC and left anterior chest with port in place Current Medications: Current Medications Sig/Terese Start time Last Medication Dose Route Stop Time Status Admin Dextrose/Sodium 1,000 ML Q13H 07/07 0900 AC / Chloride IV 1129 Dextrose/Sodium 1,000 ML Q13H 07/04 1315 DC 07/07 Chloride IV 0557 Diphenhydramine HCl 25 MG Q6-PRN PRN 07/06 1745 AC 07/06 IV 1818 Famotidine 20 MG DAILY 07/04 1000 AC 07/07 IV 1129 Fat Emulsion 300 ML Q12H 07/07 1900 AC Intravenous IV 07/08 0659 Fat Emulsion 500 ML Q12H 07/06 1900 DC 07/06 Intravenous IV 07/07 0659 2100 Fentanyl Citrate 75 MCG Q3D 07/03 2115 AC 07/06 TOP 2241 Insulin Human Regular 0 Q6 07/07 1200 AC SC Lorazepam 0.5 MG ONE ONE 07/06 1700 CAN PO 07/06 1701 Lorazepam 0.5 MG ONCE ONE 07/06 1700 DC IV 07/06 1701 Lorazepam 0.5 MG Q6P PRN 07/06 1700 AC 07/07 IV 0349 Magnesium Sulfate 1 GM Q2H 07/06 0830 DC 07/06 Dextrose/Water 100 ML IV 07/06 1229 1722 Morphine Sulfate 4 MG Q3P PRN 07/06 0830 AC 07/07 IV 0347 Ondansetron HCl 4 MG .STK-MED ONE 07/06 1557 DC IM 07/06 1558 Ondansetron HCl 4 MG Q6P PRN 07/03 1930 AC 07/06 IV 2252 Pantoprazole Sodium 40 MG DAILY 07/04 1000 AC 07/07 IV 1129 Patient Medication 1 ED .STK-MED ONE 07/06 1245 DC Teaching ED 07/06 1246 Potassium Chloride 10 MEQ Q1H 07/07 0900 DC 07/07 IV 07/07 1101 1130 Prochlorperazine 5 MG Q6PRN PRN 07/06 0730 AC 07/07 IV 1142 Total Parenteral 1 UNIT 1900 07/07 190 AC Nutrition IV 07/08 0700 Total Parenteral 1 UNIT ONE 07/06 1900 DC 07/06 Nutrition IV 07/07 0659 2243 Trimethobenzamide HCl 200 MG 4 TIMES/DAY PRN 07/05 1145 AC 07/05 IM 1421 Results Last 24 Hours of Lab Results: Laboratory Tests 07/07 06 Chemistry Sodium (137 - 145 mmol/L) 132 L Potassium (3.5 - 5.1 mmol/L) 3.6 Chloride (98 - 107 mmol/L) 99 Carbon Dioxide (22 - 30 mmol/L) 27 Anion Gap (5 - 16) 7 BUN (7 - 17 mg/dL) 16 Creatinine (0.5 - 1.0 mg/dL) 0.5 Estimated GFR (>60 ml/min) > 60 BUN/Creatinine Ratio (7 - 25 %) 32.0 H Magnesium (1.6 - 2.3 mg/dL) 1.6 Triglycerides (<150 mg/dL) 112 Hematology CBC w Diff NO MAN DIFF REQ WBC (4.8 - 10.8 /CUMM) 1.9 L RBC (4.20 - 5.40 /CUMM) 2.78 L Hgb (12.0 - 16.0 G/DL) 8.1 L Hct (37 - 47 %) 24.1 L MCV (81.0 - 99.0 FL) 86.6 MCH (27.0 - 31.0 PG) 28.9 RDW (11.5 - 14.5 %) 19.0 H Plt Count (130 - 400 /CUMM) 176 MPV (7.4 - 10.4 FL) 8.6 Gran % (42.2 - 75.2 %) 51.8 Lymphocytes % (20.5 - 51.1 %) 39.5 Monocytes % (1.7 - 9.3 %) 5.0 Eosinophils % (0 - 5 %) 2.9 Basophils % (0.0 - 2.0 %) 0.8 Absolute Granulocytes (1.4 - 6.5 /CUMM) 1.0 L Absolute Lymphocytes (1.2 - 3.4 /CUMM) 0.7 L Absolute Monocytes (0.10 - 0.60 /CUMM) 0.1 L Absolute Eosinophils (0.0 - 0.7 /CUMM) 0.1 Absolute Basophils (0.0 - 0.2 /CUMM) 0 PUBS MCHC (33.0 - 37.0 G/DL) 33.4 Assessment/Plan Assessment/Recommendations: Mrs. 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 She does not have any obvious bowel obstruction on CT scan. She does not seem to have new disease on CT scan. She may have a combination of ileus and chemotherapy side effects. Output is improving. Nausea is persistent but improved. She is now on Zofran, Compazine, and lorazepam. If not improving, she may try Zyprexa as an option. Given improving symptoms, G tube clamp trial may be reasonable. TPN should be continued. She may start trial of oral medications. Recommendations: 1. Zofran and Compazine prn nausea 2. Consider G-tube clamping trial and oral medication 3. Consider Zyprexa for nausea Please call [phone] with any questions or concerns. Problem List: 1. Ileus 2. Intractable vomiting with nausea 3. Ovarian cancer
--- NOTE | 2016-07-07 13:25 | Cons- Pain Management ---
General Information and HPI Consulting Request Date of Consult: 07/07/16 Requested By: ROSALVA NORMAN MD History of Present Illness: I was asked to evaluate this patient on the floor for a chronic pain consult. She is a new patient of my practice at [facility], she has had one consult. We did an intercostal block which was effective for Theodora but shortly after she had severe and N&V and a cyst was found which had to be surgically drained and repaired. She has been admitted since 07/04. When I arrive, she is resting comfortably. She is alert and oriented. Her abdomen is soft but tender mainly over right lower quadrant. She has a G tube and ileostomy which she has had for several years. She is complaining of severe nausea. Allergies/Medications Allergies: Coded Allergies: amoxicillin (From AUGMENTIN) (Intermediate, DIARRHEA 06/05/16) clavulanic acid (From AUGMENTIN) (Intermediate, DIARRHEA 06/05/16) hydromorphone (From DILAUDID) (Mild, SWEATS 07/03/16) Home Med List: Amlodipine Besylate 5 MG TABLET 1 TAB PO DAILY BP (Reported) Cetirizine HCl (Zyrtec) 10 MG TABLET 1 TAB PO DAILY ALLERGIES (Reported) Ezetimibe (Zetia) 10 MG TABLET 1 TAB PO DAILY CHOLESTEROL (Reported) Fentanyl 75 MCG/HOUR PATCH.TD72 1 PAT TOP Q3D PAIN (Reported) Fluoxetine HCl 20 MG CAPSULE 1 CAP PO DAILY DEPRESSION (Reported) Pantoprazole Sodium 40 MG TABLET.DR 1 TAB PO DAILY GI (Reported) Ranitidine HCl (Heartburn Relief) 150 MG TABLET 1 TAB PO BID PRN HEARTBURN ( Reported) Past History Medical History Blood Transfusion Hx Yes Neurological: NONE EENT: NONE Cardiovascular: hypertension, hyperlipidemia Respiratory: NONE Gastrointestinal: umbilical hernia, COLON CANCER SBO G-TUBE Hepatic: NONE Renal: NONE Musculoskeletal: NONE Psychiatric: depression Endocrine: NONE Blood Disorders: NONE Cancer(s): ovarian cancer (with carcinomatosis), COLON CANCER 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 Home Who Do You Live With? spouse Services at Home: None Primary Language: Iranian Smoking Status: Current Everyday Smoker Living Will? no Functional Ability ADLs Independent: dressing, eating, toileting, bathing. Ambulation: independent IADLs Independent: shopping, housework, finances, food prep, telephone, transportation , medication admin. Exam & Diagnostic Data Last 24 Hrs of Vitals/I&Os: Vital Signs Date Time Temp Pulse Resp B/P B/P Pulse O2 O2 Flow FiO2 Mean Ox Delivery Rate 07/07 0712 98.4 97 18 142/74 96 Room Air 07/06 2246 99.0 90 20 128/64 96 Room Air 07/06 1357 98.0 88 20 140/80 98 Room Air Intake & Output 07/07 1600 07/07 0800 07/07 0000 Intake Total 2200.0 400.0 Output Total 1600 1500 Balance 600.0 -1100.0 Intake, IV 600 300 Intake, Lipid 200.0 25.0 Intake, 1400 75 TPN/PPN Output, 600 800 Gastric Drainage Output, Stool 100 100 Output, Urine 900 600 Assessment/Plan Assessment/Plan: This really does not appear to be an issue with her chronic pain. When I asked her, she believes her pain is well controlled but is very concerned about the nausea and vomiting. She last recieved IV morphine at 0347 on 07/07 which tells me for the most part pain is controlled on 75mcg fentanyl patch. Our plan for her chronic pain once this patient is discharged is a DRG stimulator at T8-T9. The following are my reccommendations for this patient: - Continue nasuea medication, specifically compazine appears to be effective. When nausea improves, switch to oral nausea medication. - D/C IV morphine when nausea improves and switch to MSIR 15mg TID PRN. If patient ready for discharge and not able to tolerate oral opioids, maintain patient on patch alone and consider increase to 100mcg Q48-72 hours. - Continue to follow with GI -Immediately on discharge, she should call my office for follow up visit. Consult Acknowledgment - Thank you for your consult request.
[2016-07-07 22:27] VITALS: BP 148/76
[2016-07-08 06:46] VITALS: BP 160/82
--- NOTE | 2016-07-08 07:44 | PN- Housestaff ---
MELQUIADES SHELLEY,[facility] 07/08/16 0743: Subjective Follow-up For: -Intractable nausea and vomitting -Abdominal pain -Small bowel ileus -Metastatic ovarian cancer Complaints: Nausea, vomitting Subjective: Ms Elmore had a difficult night yesterday She had a bout of nausea and vomitting around 3 AM. She however has minimal abdominal pain today rated at 4/ 10. She denied fevers chills or malaise. Denies cough, chest pain, blurring of vision. Review of Systems Constitutional: Denies: chills, fever, weakness. EENTM: Denies: blurred vision. Cardiovascular: Denies: chest pain, edema, palpitations. Respiratory: Denies: cough, short of breath. Gastrointestinal: Reports: abdominal pain, nausea, vomiting. Denies: constipation, diarrhea. Genitourinary: Denies: discharge, dysuria, hematuria. Objective Last 24 Hrs of Vital Signs/I&O Vital Signs Date Time Temp Pulse Resp B/P B/P Pulse O2 O2 Flow FiO2 Mean Ox Delivery Rate 07/08 0646 98.3 102 20 160/82 97 07/08 0629 88 162/74 07/07 2227 98.1 99 20 148/76 99 Room Air Intake & Output 07/08 1600 07/08 0800 07/08 0000 Intake Total 1960.0 955.5 Output Total 1965 350 Balance -5.0 605.5 Intake, IV 600 600 Intake, Lipid 200.0 62.5 Intake, Oral 0 0 Intake, 1160 293 TPN/PPN Output, 615 200 Gastric Drainage Output, Stool 150 150 Output, Urine 1200 Physical Exam General Appearance: Alert, Oriented X3, Cooperative, No Acute Distress Skin: No Rashes Skin Temp/Moisture Exam: Warm/Dry Sepsis Skin Exam (color): Normal for Ethnicity HEENT: Atraumatic, PERRLA, EOMI, Mucous Membr. moist/pink Neck: Supple, No JVD, No thryomegaly Lymphatic: Cervical nl Cardiovascular: Regular Rate, Normal S1, Normal S2, No Murmurs Lungs: Clear to Auscultation, Normal Air Movement Abdomen: Soft, Hypoactive bowel sounds Neurological: Normal Speech, Strength at 5/5 X4 Ext, Normal Tone Current Medications: Current Medications Sig/Terese Start time Last Medication Dose Route Stop Time Status Admin Amlodipine Besylate 5 MG DAILY 07/08 1000 AC 07/08 PO 0629 Dextrose/Sodium 1,000 ML Q13H 07/07 0900 AC 07/08 Chloride IV 0142 Diphenhydramine HCl 25 MG Q6-PRN PRN 07/06 1745 07/06 IV 1818 Famotidine 20 MG DAILY 07/04 1000 07/07 IV 1129 Fat Emulsion 300 ML Q12H 07/08 1900 AC Intravenous IV 07/09 0659 Fat Emulsion 300 ML Q12H 07/07 1900 DC 07/07 Intravenous IV 07/08 0659 2015 Fentanyl Citrate 75 MCG Q3D 07/03 2115 07/06 TOP 2241 Fluoxetine HCl 20 MG DAILY 07/07 1600 AC 07/07 PO 1808 Insulin Human Regular 4 UNITS .STK-MED ONE 07/08 0006 DC IV 07/08 0007 Insulin Human Regular 0 Q6 07/07 1200 07/08 SC 0547 Lorazepam 0.5 MG Q6P PRN 07/06 1700 07/08 IV 0642 Morphine Sulfate 4 MG Q3P PRN 07/06 0830 07/07 IV 2213 Ondansetron HCl 4 MG .STK-MED ONE 07/07 194 DC IM 07/07 194 Ondansetron HCl 4 MG Q6P PRN 07/03 1930 07/08 IV 0844 Pantoprazole Sodium 40 MG DAILY 07/04 1000 07/07 IV 1129 Potassium Chloride 10 MEQ Q1H 07/07 0900 WV 07/07 IV 07/07 1101 1432 Prochlorperazine 5 MG Q6PRN PRN 07/06 0730 07/08 IV 0536 Total Parenteral 1 UNIT 1900 07/08 190 Nutrition IV 07/09 0700 Total Parenteral 1 UNIT 1900 07/07 1900 WV 07/07 Nutrition IV 07/08 0700 2014 Trimethobenzamide HCl 200 MG 4 TIMES/DAY PRN 07/05 1145 07/05 IM 1421 Last 24 Hrs of Lab/Jamarcus Results Last 24 Hrs of Labs/Mics: Laboratory Tests 07/08/16 0600: Anion Gap 10, Estimated GFR > 60, BUN/Creatinine Ratio 34.0 H, CBC w Diff NO MAN DIFF REQ, RBC 2.98 L, MCV 86.9, MCH 29.2, RDW 19.2 H, MPV 8.7, Gran % 63.4 , Lymphocytes % 27.4, Monocytes % 6.6, Eosinophils % 1.8, Basophils % 0.8, Absolute Granulocytes 1.5, Absolute Lymphocytes 0.6 L, Absolute Monocytes 0.2, Absolute Eosinophils 0, Absolute Basophils 0, PUBS MCHC 33.6 Assessment/Plan Assessment: Patient is a 65-year-old woman with significant past medical history hypertension, hyperlipidemia, depression, history of ovarian cancer s/p hysterectomy with bilateral salpingo-oophorectomy (2013), Ovarian carcinomatosis ,colon cancer s/p colostomy (2013) and then reversal and small bowel obstruction s/p small bowel resection with ileostomy and gastrostomy tube for drainage. She presented with chief complaints of of colicky lower abdomen pain, nausea, reduced/no output from her ileostomy for the preceding 3 days. She also complained of brownish green vomitus that is feculent in odor (2 episodes the 2 days prior to presentation. She had received chemotherapy with ironotecan for her cancer 5 days prior to presentation with Dr. Rodríguez at [facility] on Sun06/28/16 (Every 2 weeks). She also has chronic back pain and is on a fentanyl patch and oxycodone at home. She is currently being managed for abdominal pain and vomitting which appears to be from ileus likely related to her recent chemotherapy, since there is no obvious obstruction on CT imaging of her abdomen. She is currently on TPN Day 5: Please see order in Hoist Mechanic note (Can use TPN day 2 order every day onwards). Problem list 1. Intractable nausea and vomitting from small bowel ileus (Likely a chemotherapy side effect) 2. Poor nutritional status on Total parenteral nutrition 3. Metastatic ovarian cancer 4. Hypertension 5. Chronic pain Plan 1. Intractable nausea, vomitting and abdominal pain from small bowel ileus ( Likely a chemotherapy side effect) * Her nausea is worse early this morning. Her abdominal pain seem stable. However, her bowel sounds still appear sluggish this morning * Continue IV compazine 5 mg Q6 PRN for nausea and vomitting. * Continue IV Zofran, and IM tigan PRN for nausea and vomitting * Continue IV morphine 4 mg Q3 hrs PRN for better pain control in the interim * Continue fentanyl patch * Pain management consult pending * Continue bowel rest and NPO and conservative management for now * General surgery Dr. Baez reviewed and recommends conservative management * Continue IV D5/Normal saline and run at 50 cc/hr * If symptoms improve, can stop IV fluids and start clear liquids * Avoid metoclopramide as it can worsen the pain if small bowel obstruction is the etiology * Continue IV protonix 40 mg daily and famotidine 20 mg daily 2. Poor nutritional status on Total parenteral nutrition * Continue TPN day 4 today * Continue adding 8 units of insulin to TPN today as her sugars have been in the 200s * ACCUCHEKS Q6 hrs * Start NPO Novolin sliding scale * Check Mag, Phos, Triglycerides periodically (Twice a week) and replete accordingly 3. Metastatic ovarian cancer s/p Chemotherapy with neutropenia * ANC today has increased to 1500 today. No sign of infection. continue monitoring WBC counts * Check CBC tomorrow for monitoring blood counts on chemo (She received chemo 8 days ago and this should be recovering) * Watch for signs of infection. Patient has been afebrile with no signs on this admission * Hematology/oncology input appreciated * No new intervention recommended for her cancer * Continue conservative management 4. Hypertension * Continue to hold all PO medications including antihypertensive agents * Can give IV metoprolol 2.5 mg-5mg Q 6hours for SBP>160 mmhg 5. Chronic pain * Continue home medication of fentanyl patch 75 mcg Q 72 hrs * Continue IV morphine 4 mg Q3hrs PRN for severe pain -DVT prophylaxis with ALPS due to anemia -Patient is DNR/DNI Problem List: 1. Intractable vomiting with nausea 2. Hyponatremia 3. Ovarian cancer Pain Ratin Pain Location: Abdomen Pain Goal: Pain 4 or less Pain Plan: Fentanyl patch, IV morphine PRN Tomorrow's Labs & Rationales: CBC, BEP for neutropenia and small bowel ileus respectively DVT/Prophylaxis: marty LALA MD,[facility] 07/08/16 1346: Attending MD Review Statement Attending Statement Attending MD Statement: examined this patient, discuss w/resident/PA/FIXTURE REPAIRER FABRICATOR, agreed w/resident/PA/FIXTURE REPAIRER FABRICATOR, discussed with family, reviewed EMR data (avail), discussed with nursing, discussed with case mgmt, reviewed images, amended to note Attending Assessment/Plan: Continue with current treatment for now. Advance diet as tolerated.
[2016-07-08 08:11] LABS: ABSOLUTE BASOPHIL COUNT 0 /CUMM (0.0-0.2); ABSOLUTE EOSINOPHIL COUNT 0 /CUMM (0.0-0.7); ABSOLUTE GRANULOCYTE CT 1.5 /CUMM (1.4-6.5); ABSOLUTE LYMPH COUNT 0.6 /CUMM (1.2-3.4); ABSOLUTE MONOCYTE COUNT 0.2 /CUMM (0.10-0.60); BASOPHIL % 0.8 % (0.0-2.0); EOSINOPHIL % 1.8 % (0-5); GRANULOCYTE % 63.4 % (42.2-75.2); HEMATOCRIT 25.9 % (37-47); MEAN CORPUSCULAR HGB 29.2 PG (27.0-31.0); MEAN CORPUSCULAR HGB CONC 33.6 G/DL (33.0-37.0); MEAN CORPUSCULAR VOLUME 86.9 FL (81.0-99.0); MEAN PLATELET VOLUME 8.7 FL (7.4-10.4); PLATELET COUNT 216 /CUMM (130-400); RBC DISTRIBUTION WIDTH 19.2 % (11.5-14.5); RED BLOOD CELL CT 2.98 /CUMM (4.20-5.40); WHITE BLOOD CELL COUNT 2.3 /CUMM (4.8-10.8)
[2016-07-08 15:50] VITALS: BP 146/70
[2016-07-08 21:39] VITALS: BP 150/74
--- NOTE | 2016-07-08 22:23 | Event Note ---
Event Note Event Note: Notified by the nurse that the pt has a recorded temperature of 101. She did not have any fever in the last 48 hrs. On examination, she had diffuse tenderness on the right side of the abdomen. No chest pain, cough, dysuria. No erythema, tenderness at the port area, picc line or ileostomy area. ANC ~1500 (machine count, and not manual). Since she is being treated for SBO, and did not have any signs of infection so far. Blood cultures drawn, and considering the acuity in treating neutropenic fever(although she didnt have ANC <500) - was begun on ceftazidime to cover for pseudomonas in view of increased gut bacterial translocation in SBO in the setting of decreased neutrophil count. Also started on Metronidazole, considering coverage for anerobes in this case only. Discontinued after monitoring the pt closely overnight. Around 4 AM, the pt had epigastric pain, vomiting and tenderness. Heart and lung exam was normal. EKG did not reveal any ST TW changes. She was given protonix, and anti-emetics. The pt improved in a few hours. Discussed w/ the attending phycian, and the resident.
--- NOTE | 2016-07-08 23:30 | NUR ---
PT ORAL TEMP 101.2. MD AJ CALLED AND MADE AWARE. ONE TIME ORDER FOR IV TYLENOL OBTAINED AND ADMINISTERED. PT ORAL TEMP RECHECKED AFTER ONE HOUR AND 98.4
--- NOTE | 2016-07-09 03:20 | NUR ---
CALLED INTO ROOM BY PT C/O CHEST PAIN AND TROUBLE BREATHING. PER PT "I FEEL LIKE I CAN'T CATCH MY BREATH." VITALS OBTAINED BP 150/76, HR 98, O2 SAT 98% ON ROOM AIR, TEMP 98.6. MD AJ #[id number] CALLED AND MADE AWARE. STAT EKG AND TROPONIN ORDERED AND DONE BY MST. IV COMPAZINE AND IV PROTONIX ADMINISTERED PER ORDER. PT PLACED ON 2L NC. UNCRATER AND RESIDENT IN ROOM TO ASSESS PT. PER PT "I FEEL A LITTLE BIT BETTER." PT RESTING IN BED, NEEDS MADE AVAILABLE.
--- NOTE | 2016-07-09 03:35 | RADIOLOGY REPORT ---
EXAMINATION: XR PORTABLE CHEST CLINICAL INFORMATION: Fever. Recent chemotherapy. COMPARISON: 07/03/2016 TECHNIQUE: Portable frontal view of the chest was obtained. FINDINGS: Left chest wall CT compatible port terminates near the cavoatrial junction. Right-sided PICC line terminates over the lower SVC. The lungs are well expanded with persistent elevation of the right hemidiaphragm. No consolidation, edema, or effusion. No pneumothorax. The cardiomediastinal silhouette is within normal limits. IMPRESSION: No acute pulmonary findings.
[2016-07-09 03:56] LABS: ABSOLUTE BASOPHIL COUNT 0 /CUMM (0.0-0.2); ABSOLUTE EOSINOPHIL COUNT 0 /CUMM (0.0-0.7); ABSOLUTE GRANULOCYTE CT 1.8 /CUMM (1.4-6.5); ABSOLUTE LYMPH COUNT 0.9 /CUMM (1.2-3.4); ABSOLUTE MONOCYTE COUNT 0.3 /CUMM (0.10-0.60); BASOPHIL % 0.2 % (0.0-2.0); EOSINOPHIL % 0.3 % (0-5); GRANULOCYTE % 59.7 % (42.2-75.2); MEAN CORPUSCULAR HGB 28.7 PG (27.0-31.0); MEAN CORPUSCULAR HGB CONC 33.2 G/DL (33.0-37.0); MEAN CORPUSCULAR VOLUME 86.5 FL (81.0-99.0); MEAN PLATELET VOLUME 8.1 FL (7.4-10.4); PLATELET COUNT 220 /CUMM (130-400); RBC DISTRIBUTION WIDTH 19.3 % (11.5-14.5)
[2016-07-09 06:48] VITALS: BP 144/64
--- NOTE | 2016-07-09 08:44 | PN- Housestaff ---
See Addendum Subjective Follow-up For: -Intractable nausea and vomitting -Abdominal pain -Small bowel ileus -Metastatic ovarian cancer Subjective: Pt seen and examined. Overnight events noted. Patient was febrile overnight also had nausea/vomiting and epigastric abdominal pain. Blood cultures were sent, she was given Protonix and antiemetics and one dose of IV Flagyl and IV ceftazidime. At the time of our interview, she is afebrile, her nausea has resolved, no further episode of vomiting reported. She tolerated her by mouth medications this morning. Her abdominal pain has resolved. She denies any headache, dizziness, lightheadedness, chest pain, urinary symptoms. Blood cultures growing gram negative rods. Review of Systems Constitutional: Reports: see HPI. Objective Last 24 Hrs of Vital Signs/I&O Vital Signs Date Time Temp Pulse Resp B/P B/P Pulse O2 O2 Flow FiO2 Mean Ox Delivery Rate 07/09 0846 102 140/62 07/09 0648 99.7 112 20 144/64 98 07/09 0110 98.4 07/09 0017 98.4 07/08 2318 101.2 07/08 2139 101.2 104 19 150/74 95 Room Air 07/08 1550 98.1 89 18 146/70 97 Room Air Intake & Output 07/09 1600 04 0800 07/09 0000 Intake Total 2060.0 665.0 Output Total 1660 710 Balance 400.0 -45.0 Intake, IV 700 225 Intake, Lipid 200.0 75.0 Intake, 1160 365 TPN/PPN Output, 1400 400 Gastric Drainage Output, Stool 60 60 Output, Urine 200 250 Physical Exam General Appearance: Alert, Oriented X3, Cooperative, No Acute Distress Skin: No Rashes, No Breakdown, No Significant Lesion Skin Temp/Moisture Exam: Warm/Dry Sepsis Skin Exam (color): Normal for Ethnicity HEENT: Atraumatic, PERRLA, EOMI, Mucous Membr. moist/pink Neck: Supple, No JVD, No thryomegaly, +2 Carotid Pulse wo Bruit, No LAD Lymphatic: Axillary nl, Cervical nl Cardiovascular: Regular Rate, Normal S1, Normal S2, No Murmurs, Gallops, Rubs Lungs: Clear to Auscultation, Normal Air Movement Abdomen: Soft, No Tenderness, No Hepatospenomegaly, No Masses, Hypoactive bowel sounds, Gtube/ileostomy bag draining Neurological: Normal Speech, Normal Tone, Sensation Intact Extremities: No Clubbing, No Cyanosis, No Edema, Normal Pulses, No Tenderness/ Swelling Other Physical Findings: Port in place/intact ; Left anterior chest PICC in place/intact ; RUE Current Medications: Current Medications Sig/Terese Start time Last Medication Dose Route Stop Time Status Admin Acetaminophen 1,000 MG ONCE ONE 07/08 2215 DC 07/08 IV 07/08 2216 2318 Amlodipine Besylate 5 MG DAILY 07/08 1000 07/09 PO 0846 Ceftazidime 2,000 MG Q8H 07/08 2330 NE 07/08 Dextrose/Water 50 ML IV 2320 Dextrose/Sodium 1,000 ML Q13H 07/07 0900 07/09 Chloride IV 0145 Diphenhydramine HCl 50 MG .STK-MED ONE 07/08 1459 DC IM 07/08 1500 Diphenhydramine HCl 25 MG Q6-PRN PRN 07/06 1745 07/08 IV 1503 Famotidine 20 MG DAILY 07/04 1000 07/09 IV 0845 Fat Emulsion 300 ML Q12H 07/09 1900 Intravenous IV 07/10 0659 Fat Emulsion 300 ML Q12H 07/08 1900 NE 07/08 Intravenous IV 07/09 0659 1942 Fentanyl Citrate 75 MCG Q3D 07/03 2115 07/06 TOP 2241 Fluoxetine HCl 20 MG DAILY 07/07 1600 07/09 PO 0846 Insulin Human Regular 2 UNITS .STK-MED ONE 07/08 2352 DC IV 07/08 2353 Insulin Human Regular 0 Q6 07/07 1200 07/09 SC 0600 Lorazepam 0.5 MG Q6P PRN 07/06 1700 07/09 IV 0331 Metronidazole 500 MG Q8H 07/08 2300 NE 07/09 N/A 1 UNIT IV 0600 Morphine Sulfate 4 MG Q3P PRN 07/06 0830 07/08 IV 2303 Ondansetron HCl 4 MG .STK-MED ONE 07/08 2254 DC IM 07/08 2255 Ondansetron HCl 4 MG .STK-MED ONE 07/08 1500 DC IM 07/08 1501 Ondansetron HCl 4 MG Q6P PRN 07/03 1930 AC 07/08 IV 2303 Pantoprazole Sodium 40 MG DAILY 07/04 1000 AC 07/09 IV 0319 Prochlorperazine 10 MG .STK-MED ONE 07/08 2101 DC IM 07/08 210 Prochlorperazine 20 MG .STK-MED ONE 07/08 1247 DC IM 07/08 1248 Prochlorperazine 5 MG Q6PRN PRN 07/06 0730 AC 07/09 IV 0310 Total Parenteral 1 UNIT 1900 07/09 1900 AC Nutrition IV 07/10 0659 Total Parenteral 1 UNIT 1900 07/08 1900 DC 07/08 Nutrition IV 07/09 0700 194 Trimethobenzamide HCl 200 MG 4 TIMES/DAY PRN 07/05 1145 AC 07/05 IM 1421 Last 24 Hrs of Lab/Jamarcus Results Last 24 Hrs of Labs/Mics: Laboratory Tests 07/09/16 0330: Troponin I < 0.01 07/09/16 0330: Anion Gap 9, Estimated GFR > 60, BUN/Creatinine Ratio 38.0 H, CBC w Diff NO MAN DIFF REQ, RBC 3.00 L, MCV 86.5, MCH 28.7, RDW 19.3 H, MPV 8.1, Gran % 59.7, Lymphocytes % 29.0, Monocytes % 10.8 H, Eosinophils % 0.3, Basophils % 0.2, Absolute Granulocytes 1.8, Absolute Lymphocytes 0.9 L, Absolute Monocytes 0.3, Absolute Eosinophils 0, Absolute Basophils 0, PUBS MCHC 33.2 07/09/16 0115: Urine Color YEL, Urine Clarity CLEAR, Urine pH 6.0, Ur Specific Riner 1.020, Urine Protein NEG, Urine Ketones NEG, Urine Nitrite NEG, Urine Bilirubin NEG, Urine Urobilinogen 0.2, Ur Leukocyte Esterase NEG, Ur Microscopic EXAM NOT REQUIRED, Urine Hemoglobin NEG, Urine Glucose NEG Microbiology 07/09 114 URINE ROUT: Urine Culture - RECD 07/08 2254 BLOOD: Blood Culture - RECD 07/09 2239 BLOOD: Blood Culture - RECD Assessment/Plan Assessment: Patient is a 65-year-old woman with significant past medical history hypertension, hyperlipidemia, depression, history of ovarian cancer s/p hysterectomy with bilateral salpingo-oophorectomy (2013), Ovarian carcinomatosis ,colon cancer s/p colostomy (2013) and then reversal and small bowel obstruction s/p small bowel resection with ileostomy and gastrostomy tube for drainage. She presented with chief complaints of of colicky lower abdomen pain, nausea, reduced/no output from her ileostomy for the preceding 3 days. She is currently being managed for abdominal pain and vomitting which appears to be from ileus likely related to her recent chemotherapy, since there is no obvious obstruction on CT imaging of her abdomen. Problem list 1. Intractable nausea and vomitting from small bowel ileus (Likely a chemotherapy side effect) 2. Poor nutritional status on Total parenteral nutrition 3. Metastatic ovarian cancer 4. Hypertension 5. Chronic pain Plan #Sepsis: Meets SIRS criteria(WBC 3000, fever), has positive BCs w/gram negative rods:::: likely GI origin VS catheter(PICC line /port) * Will start the patient on IV meropenem as per ID recs. * Will repeat another set of BCs on 07/10/16 AM as per ID recs. #Intractable nausea, vomitting and abdominal pain from small bowel ileus (Likely a chemotherapy side effect) * Nausea resolved this AM. * Continue IV compazine 5 mg Q6 PRN for nausea and vomitting. * Continue IV Zofran, and IM tigan PRN for nausea and vomitting * Continue IV morphine 4 mg Q3 hrs PRN for better pain control in the interim * Continue fentanyl patch * Pain management consult pending * Continue bowel rest and NPO and conservative management for now * General surgery Dr. Baez reviewed and recommends conservative management * Continue IV D5/Normal saline and run at 50 cc/hr * If symptoms improve, can stop IV fluids and start clear liquids * Avoid metoclopramide as it can worsen the pain if small bowel obstruction is the etiology * Continue IV protonix 40 mg daily and famotidine 20 mg daily #Poor nutritional status on Total parenteral nutrition * Continue TPN day 6 today * Continue adding 8 units of insulin to TPN today as her sugars have been in the 200s * ACCUCHEKS Q6 hrs * Start NPO Novolin sliding scale * Check Mag, Phos, Triglycerides periodically (Twice a week) and replete accordingly # Metastatic ovarian cancer s/p Chemotherapy with neutropenia * ANC today has increased to 1500 today. No sign of infection. continue monitoring WBC counts * Check CBC tomorrow for monitoring blood counts on chemo (She received chemo more than 8 days ago and this should be recovering) * Watch for signs of infection. Patient has been afebrile with no signs on this admission * Hematology/oncology input appreciated * No new intervention recommended for her cancer * Continue conservative management #Hypertension * Continue to hold all PO medications including antihypertensive agents * Can give IV metoprolol 2.5 mg-5mg Q 6hours for SBP>160 mmhg #Chronic pain * Continue home medication of fentanyl patch 75 mcg Q 72 hrs * Continue IV morphine 4 mg Q3hrs PRN for severe pain -DVT prophylaxis with ALPS due to anemia -Patient is DNR/DNI Problem List: 1. Intractable vomiting with nausea 2. Small bowel obstruction Pain Ratin Pain Location: Abd Pain Goal: Remain pain free Pain Plan: Fentanyl patch, IV morphine PRN Tomorrow's Labs & Rationales: CBC, BEP for neutropenia and small bowel ileus respectively
--- NOTE | 2016-07-09 12:01 | Cons- Infect Disease ---
General Information and HPI Consulting Request Date of Consult: 07/09/16 Requested By: ROSALVA NORMAN MD Reason for Consult: Positive blood cultures for gram-negative rods Source of Information: patient, old records History of Present Illness: This is a 65-year-old woman with metastatic mucinous ovarian cancer, status post hysterectomy and bilateral salpingo-oophorectomy 3 years prior to admission, treated with different chemotherapy regimens over the last few years, most recently Innotecan, given 5 days prior to admission via a Port-A-Cath placed 2-1 /2 years prior to admission, with a history of recurrent small bowel obstruction , status post small bowel resection and ileostomy 6 months prior to admission ( at [facility]) and G-tube placement for drainage 3 months prior to admission (at [facility]) and maintained on TPN via a PICC in the right upper extremity for the last several months, hospitalized at [facility] 1 month prior to admission with strep viridans sepsis secondary to a left upper quadrant intra-abdominal abscess, admitted on July 03 after presenting to the emergency room with recurrent nausea and vomiting, decreased ileostomy output and chronic abdominal pain. On admission she was afebrile. Laboratory data revealed a white blood cell count of 4000, BUN/creatinine 19 and 0.5, with normal liver enzymes. CT of the abdomen and pelvis revealed new scattered patchy airspace opacities within the right lower lobe and right middle lobe, mild pneumobilia, increased from the previous exam, mild free fluid within the right hemiabdomen and perihepatic regions, with no free air. She was managed symptomatically with IV fluids, pain medications and antinausea medications with eventual improvement in her GI symptoms and with resumption of her significant ileostomy output. Her white blood cell count gradually decreased to a laba of 1.9 on July 07, with 1000 neutrophils, but it has been increasing since. She remained afebrile until July 08, when she spiked to 101.2, at which point she was given Ceftazidime and Flagyl. This morning blood cultures 2 were reported positive for gram-negative rods. At present she does note abdominal discomfort that appears to be positional, but does not report any nausea or vomiting and she has been taking her medications orally. She reports no cough or shortness of breath but does report some retrosternal chest pain. She has had no dysuria. Allergies/Medications Allergies: Coded Allergies: hydromorphone (From [employer]iBai-shoppingAUDID) (Mild, SWEATS 07/03/16) amoxicillin (From AUGMENTIN) (Intermediate, DIARRHEA 07/08/16) clavulanic acid (From AUGMENTIN) (Intermediate, DIARRHEA 07/08/16) Home Med List: Amlodipine Besylate 5 MG TABLET 1 TAB PO DAILY BP (Reported) Cetirizine HCl (Zyrtec) 10 MG TABLET 1 TAB PO DAILY ALLERGIES (Reported) Ezetimibe (Zetia) 10 MG TABLET 1 TAB PO DAILY CHOLESTEROL (Reported) Fentanyl 75 MCG/HOUR PATCH.TD72 1 PAT TOP Q3D PAIN (Reported) Fluoxetine HCl 20 MG CAPSULE 1 CAP PO DAILY DEPRESSION (Reported) Pantoprazole Sodium 40 MG TABLET.DR 1 TAB PO DAILY GI (Reported) Ranitidine HCl (Heartburn Relief) 150 MG TABLET 1 TAB PO BID PRN HEARTBURN ( Reported) Past History Travel History Traveled to [place] past 21 day No Medical History Blood Transfusion Hx: Yes Neurological: NONE EENT: NONE Cardiovascular: hypertension, hyperlipidemia Respiratory: NONE Gastrointestinal: umbilical hernia, COLON CANCER SBO G-TUBE Hepatic: NONE Renal: NONE Musculoskeletal: NONE Psychiatric: depression Endocrine: NONE Blood Disorders: NONE Cancer(s): ovarian cancer (with carcinomatosis), COLON CANCER 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 Home Who Do You Live With? spouse Services at Home: None Primary Language: Belizean Smoking Status: Current Everyday Smoker Living Will? no Functional Ability ADLs Independent: dressing, eating, toileting, bathing. Ambulation: independent IADLs Independent: shopping, housework, finances, food prep, telephone, transportation , medication admin. Review of Systems Review of Systems All Other Systems: Reviewed and Negative Exam & Diagnostic Data Last 24 Hrs of Vital Signs/I&O Vital Signs Date Time Temp Pulse Resp B/P B/P Pulse O2 O2 Flow FiO2 Mean Ox Delivery Rate 07/09 0846 102 140/62 07/09 0648 99.7 112 20 144/64 98 07/09 0110 98.4 07/09 0017 98.4 07/08 2318 101.2 07/08 2139 101.2 104 19 150/74 95 Room Air 07/08 1550 98.1 89 18 146/70 97 Room Air Intake & Output 07/09 1600 07/09 0800 06 0000 Intake Total 2060.0 665.0 Output Total 1660 710 Balance 400.0 -45.0 Intake, IV 700 225 Intake, Lipid 200.0 75.0 Intake, 1160 365 TPN/PPN Output, 1400 400 Gastric Drainage Output, Stool 60 60 Output, Urine 200 250 Physical Exam Other Physical Findings: She is awake and alert in no acute distress. MAXIMUM TEMPERATURE 101.3. Skin reveals no rash. HEENT exam is negative. Neck is supple with no adenopathy. Chest Port-A-Cath in the left upper chest with no inflammation at the site. Lungs are clear. Heart regular rhythm with no murmur. Abdomen is soft, tender to palpation over the periumbilical area, with positive bowel sounds; G-tube with copious liquid output; ileostomy with copious stool; palpable mass in the right lower quadrant, mildly tender to palpation. Back no CVA tenderness. Extremities no cyanosis, clubbing or edema; PICC in the right upper extremity with no inflammation at the site. Neuro is without focality. Last 24 Hours of Lab Results: Laboratory Tests 07/09 07/09 0330 0330 Chemistry Sodium (137 - 145 mmol/L) 133 L Potassium (3.5 - 5.1 mmol/L) 3.6 Chloride (98 - 107 mmol/L) 100 Carbon Dioxide (22 - 30 mmol/L) 24 Anion Gap (5 - 16) 9 BUN (7 - 17 mg/dL) 19 H Creatinine (0.5 - 1.0 mg/dL) 0.5 Estimated GFR (>60 ml/min) > 60 BUN/Creatinine Ratio (7 - 25 %) 38.0 H Troponin I (< 0.11 ng/ml) < 0.01 Hematology CBC w Diff NO MAN DIFF REQ WBC (4.8 - 10.8 /CUMM) 3.0 L RBC (4.20 - 5.40 /CUMM) 3.00 L Hgb (12.0 - 16.0 G/DL) 8.6 L Hct (37 - 47 %) 26.0 L MCV (81.0 - 99.0 FL) 86.5 MCH (27.0 - 31.0 PG) 28.7 RDW (11.5 - 14.5 %) 19.3 H Plt Count (130 - 400 /CUMM) 220 MPV (7.4 - 10.4 FL) 8.1 Gran % (42.2 - 75.2 %) 59.7 Lymphocytes % (20.5 - 51.1 %) 29.0 Monocytes % (1.7 - 9.3 %) 10.8 H Eosinophils % (0 - 5 %) 0.3 Basophils % (0.0 - 2.0 %) 0.2 Absolute Granulocytes (1.4 - 6.5 /CUMM) 1.8 Absolute Lymphocytes (1.2 - 3.4 /CUMM) 0.9 L Absolute Monocytes (0.10 - 0.60 /CUMM) 0.3 Absolute Eosinophils (0.0 - 0.7 /CUMM) 0 Absolute Basophils (0.0 - 0.2 /CUMM) 0 PUBS MCHC (33.0 - 37.0 G/DL) 33.2 06/04 0115 Urines Urine Color (YEL,AMB,STR) YEL Urine Clarity (CLEAR) CLEAR Urine pH (5.0 - 8.0) 6.0 Ur Specific [place] (1.001 - 1.035) 1.020 Urine Protein (NEG,<30 MG/DL) NEG Urine Ketones (NEG) NEG Urine Nitrite (NEG) NEG Urine Bilirubin (NEG) NEG Urine Urobilinogen (0.1 - 1.0 EU/dl) 0.2 Ur Leukocyte Esterase (NEG) NEG Ur Microscopic EXAM NOT REQUIRED Urine Hemoglobin (NEG) NEG Urine Glucose (N MG/DL) NEG Last 24 Hours of Jamarcus Results: Blood cultures July 08 positive for gram-negative rods Urine culture July 09 pending Diagnostic Data Recent Imaging Findings: Chest x-ray July [address] of the abdomen and pelvis July 03 revealed new scattered patchy airspace opacities within the right lower lobe and right middle lobe, mild pneumobilia, increased from the previous exam, mild free fluid within the right mike-abdomen and perihepatic regions, with no free air; stable complex cystic structure within the right adnexa Assessment/Plan Assessment/Plan Impression: This is a 65-year-old woman with metastatic ovarian cancer, with a history of recurrent small bowel obstruction, status post small bowel resection and ileostomy 6 months prior to admission and placement of a G-tube for drainage 3 months prior to admission, maintained on TPN via a PICC in the right upper extremity for several months, status post drainage of a left upper quadrant abscess and treatment for strep viridans sepsis at [facility] 1 month prior to admission, treated with multiple chemotherapy regimens in the past and, most recently, 5 days prior to admission via a Port-A-Cath placed 2-1/2 years prior to admission, admitted on July 03 with recurrent nausea, vomiting and decreased ileostomy output with chronic abdominal pain, found initially to be afebrile with a normal white blood cell count, with improvement in her GI symptoms but with the development of neutropenia and, subsequenly, fever, now found to have positive blood cultures for gram-negative rods. The positive blood cultures may just represent transmucosal migration from the GI tract in the setting of neutropenia, but she does have other possible sources of sepsis including the Port-A-Cath, the PICC and the abdomen, though the recent CT scan did not reveal any acute abdominal process. Further evaluation and management, including reevaluation of the abdomen and, possibly, removal of the PICC and Port-A-Cath, may need to be considered, depending on her clinical status. Suggestion: 1. Repeat blood cultures 2 in the AM on July 10 2. Follow-up recent blood culture results 3. Begin Meropenem 1 g IV every 8 hours pending above Consult Acknowledgment - Thank you for your consult request.
[2016-07-09 14:40] VITALS: BP 122/56
[2016-07-09 21:45] VITALS: BP 106/50
--- NOTE | 2016-07-10 04:34 | NUR ---
NURSE NOTE: PER SQUAD BOSS, MORNING LABS TO BE DRAWN PERIPHErally NOT THROUGH PORT. WILL LET BLOOD TEAM AND NEXT NURSE KNOW.
[2016-07-10 06:46] VITALS: BP 134/64
[2016-07-10 08:07] LABS: ABSOLUTE BASOPHIL COUNT 0 /CUMM (0.0-0.2); ABSOLUTE EOSINOPHIL COUNT 0.1 /CUMM (0.0-0.7); ABSOLUTE GRANULOCYTE CT 2.1 /CUMM (1.4-6.5); ABSOLUTE LYMPH COUNT 0.9 /CUMM (1.2-3.4); ABSOLUTE MONOCYTE COUNT 0.3 /CUMM (0.10-0.60); BASOPHIL % 0.6 % (0.0-2.0); EOSINOPHIL % 1.9 % (0-5); GRANULOCYTE % 61.6 % (42.2-75.2); HEMATOCRIT 25.2 % (37-47); MEAN CORPUSCULAR HGB 28.8 PG (27.0-31.0); MEAN CORPUSCULAR HGB CONC 33.2 G/DL (33.0-37.0); MEAN CORPUSCULAR VOLUME 86.7 FL (81.0-99.0); MEAN PLATELET VOLUME 8.4 FL (7.4-10.4); PLATELET COUNT 222 /CUMM (130-400); RBC DISTRIBUTION WIDTH 18.9 % (11.5-14.5); RED BLOOD CELL CT 2.91 /CUMM (4.20-5.40); WHITE BLOOD CELL COUNT 3.3 /CUMM (4.8-10.8)
--- NOTE | 2016-07-10 08:36 | PN- Housestaff ---
MELQUIADES SHELLEY,[facility] 07/10/16 0836: Subjective Follow-up For: -Intractable nausea and vomitting -Abdominal pain -Small bowel ileus -Metastatic ovarian cancer Complaints: Nausea Subjective: Pt seen and examined. Had a quiet night. No fevers or vomiting overnight. She feels slight improvement in her nausea which she rates as 5/10 intensity. Her abdominal pain is rated 5/10 this morning. She had some vomitting and a fever spike on Sunday 48 hrs ago and blood cultures sent are growing Gram negative rods. She is on meropenem for this. No more fevers since then. At the time of our interview, she is afebrile, her nausea is slightly better with no further episode of vomiting reported. She denies any headache, dizziness , lightheadedness, chest pain, urinary symptoms. Review of Systems Constitutional: Denies: chills, fever, malaise, weakness. EENTM: Denies: blurred vision, throat pain. Cardiovascular: Denies: chest pain, edema, palpitations. Respiratory: Denies: cough, short of breath, sputum production. Gastrointestinal: Reports: nausea. Denies: abdominal pain, diarrhea, vomiting. Genitourinary: Denies: discharge, pain. Objective Last 24 Hrs of Vital Signs/I&O Vital Signs Date Time Temp Pulse Resp B/P B/P Pulse O2 O2 Flow FiO2 Mean Ox Delivery Rate 07/10 1033 98 134/64 06/ 0646 97.6 98 20 134/64 98 /05 0000 Nasal 1.0L Cannula 07/09 2145 97.6 85 19 106/50 97 Nasal 1.0L Cannula 07/09 1440 98.6 89 18 122/56 99 Room Air Intake & Output 07/10 1600 07/10 0800 06/ 0000 Intake Total 720 480 Output Total 875 1250 Balance -155 -770 Intake, IV 600 300 Intake, Oral 120 180 Output, 325 Gastric Drainage Output, Other 150 450 Output, Stool 50 150 Output, Urine 350 650 Physical Exam General Appearance: Alert, Oriented X3, Cooperative, No Acute Distress Skin: No Rashes, No Breakdown Skin Temp/Moisture Exam: Warm/Dry Sepsis Skin Exam (color): Normal for Ethnicity HEENT: Atraumatic, PERRLA, EOMI, Mucous Membr. moist/pink Neck: Supple, No JVD, No thryomegaly, +2 Carotid Pulse wo Bruit Lymphatic: Cervical nl Cardiovascular: Regular Rate, Normal S1, Normal S2, No Murmurs Lungs: Clear to Auscultation, Normal Air Movement Abdomen: Normal Bowel Sounds, Soft, No Tenderness, Gastrostomy tube in situ draining about 300 CC of bilous fluid, Jejunostomy with bag in situ draining scanty brownish fluid, Hypoactiv bowel sounds Neurological: Normal Speech, Strength at 5/5 X4 Ext, Normal Tone Extremities: No Edema, Normal Pulses Vascular: Normal Pulses, Pulses Symmetrical Current Medications: Current Medications Sig/Terese Start time Last Medication Dose Route Stop Time Status Admin Amlodipine Besylate 5 MG DAILY 07/08 1000 AC 07/10 PO 1033 Dextrose/Sodium 1,000 ML Q13H 07/07 0900 IL 07/10 Chloride IV 0006 Diphenhydramine HCl 25 MG Q6-PRN PRN 07/06 1745 AC 07/08 IV 1503 Famotidine 20 MG DAILY 07/04 1000 AC 07/10 IV 1036 Fat Emulsion 300 ML Q12H 07/10 1900 AC Intravenous IV 07/11 0659 Fat Emulsion 300 ML Q12H 07/09 1900 DC 07/09 Intravenous IV 07/10 0659 2012 Fentanyl Citrate 75 MCG Q3D 07/03 2115 07/09 TOP 2108 Fluoxetine HCl 20 MG DAILY 07/07 1600 AC 07/10 PO 1034 Insulin Human Regular 2 UNITS .STK-MED ONE 07/09 2358 DC IV 07/09 2359 Insulin Human Regular 0 Q6 07/07 1200 AC 07/10 SC 0007 Lorazepam 0.5 MG Q6P PRN 07/06 1700 AC 07/10 IV 0427 Meropenem 1 GM IQ8 07/09 1600 AC 07/10 IV 0809 Morphine Sulfate 4 MG Q3P PRN 07/06 0830 AC 07/10 IV 1030 Ondansetron HCl 4 MG Q6P PRN 07/03 1930 AC 07/08 IV 2303 Pantoprazole Sodium 40 MG DAILY 07/04 1000 AC 07/10 IV 1033 Prochlorperazine 10 MG .STK-MED ONE 07/09 2126 DC IM 07/09 2127 Prochlorperazine 5 MG Q6PRN PRN 07/06 0730 07/10 IV 1044 Total Parenteral 1 UNIT 1900 07/10 1900 AC Nutrition IV 07/11 658 Total Parenteral 1 UNIT 1900 07/09 1900 DC 07/09 Nutrition IV 07/10 Trimethobenzamide HCl 200 MG 4 TIMES/DAY PRN 07/05 1145 AC 07/05 IM 1421 Last 24 Hrs of Lab/Jamarcus Results Last 24 Hrs of Labs/Mics: Laboratory Tests 07/10/16 0700: Anion Gap 8, Estimated GFR > 60, BUN/Creatinine Ratio 38.0 H, CBC w Diff NO MAN DIFF REQ, RBC 2.91 L, MCV 86.7, MCH 28.8, RDW 18.9 H, MPV 8.4, Gran % 61.6, Lymphocytes % 26.4, Monocytes % 9.5 H, Eosinophils % 1.9, Basophils % 0.6, Absolute Granulocytes 2.1, Absolute Lymphocytes 0.9 L, Absolute Monocytes 0.3, Absolute Eosinophils 0.1, Absolute Basophils 0, PUBS MCHC 33.2 Microbiology 07/10 709 BLOOD: Blood Culture - RECD 07/10 699 BLOOD: Blood Culture - RECD Assessment/Plan Assessment: Patient is a 65-year-old woman with significant past medical history hypertension, hyperlipidemia, depression, history of ovarian cancer s/p hysterectomy with bilateral salpingo-oophorectomy (2013), Ovarian carcinomatosis ,colon cancer s/p colostomy (2013) and then reversal and small bowel obstruction s/p small bowel resection with ileostomy and gastrostomy tube for drainage. She presented with chief complaints of of colicky lower abdomen pain, nausea, reduced/no output from her ileostomy for the preceding 3 days. She is currently being managed for abdominal pain and vomitting which appears to be from ileus likely related to her recent chemotherapy, since there is no obvious obstruction on CT imaging of her abdomen. Problem list 1. Intractable nausea and vomitting from small bowel ileus (Likely a chemotherapy side effect) 2. Poor nutritional status on Total parenteral nutrition 3. Metastatic ovarian cancer 4. Hypertension 5. Chronic pain Plan #Sepsis: Meets SIRS criteria(WBC 3000, fever), has positive BCs w/gram negative rods:::: likely GI origin VS catheter(PICC line /port) * Continue IV meropenem as per ID recs. * Repeat set of Blood cultures sent this morning as per ID recs. #Intractable nausea, vomitting and abdominal pain from small bowel ileus (Likely a chemotherapy side effect) * Continue IV compazine 5 mg Q6 PRN for nausea and vomitting. * Continue IV Zofran, and IM tigan PRN for nausea and vomitting * Continue IV morphine 4 mg Q3 hrs PRN for better pain control in the interim * Continue fentanyl patch * Pain management consult appreciated * Continue bowel rest and NPO and conservative management for now * General surgery Dr. Baez reviewed and recommends conservative management * Stop IV fluids * Avoid metoclopramide as it can worsen the pain if small bowel obstruction is the etiology * Continue IV protonix 40 mg daily and famotidine 20 mg daily #Poor nutritional status on Total parenteral nutrition * Continue TPN day 7 today * WIll stop adding insulin to TPN today as her sugars have been in the low 100s overnight * ACCUCHEKS Q6 hrs * Start NPO Novolin sliding scale * Check Mag, Phos, Triglycerides periodically (Twice a week) and replete accordingly # Metastatic ovarian cancer s/p Chemotherapy with neutropenia * ANC has increased to 2100 today. * Check CBC tomorrow for monitoring blood counts on chemo * Hematology/oncology input appreciated * No new intervention recommended for her cancer * Continue conservative management #Hypertension * Continue to hold all PO medications including antihypertensive agents * Can give IV metoprolol 2.5 mg-5mg Q 6hours for SBP>160 mmhg #Chronic pain * Continue home medication of fentanyl patch 75 mcg Q 72 hrs * Continue IV morphine 4 mg Q3hrs PRN for severe pain -DVT prophylaxis with ALPS due to anemia -Patient is DNR/DNI Problem List: 1. Intractable vomiting with nausea 2. Ileus 3. Ovarian cancer Pain Ratin Pain Location: Abdomen Pain Goal: Pain 4 or less Pain Plan: IV morphine PRN, Fentanyl patch Tomorrow's Labs & Rationales: CBC for septicemia, BEP for MARIAELENA JOHN 07/10/16 0944: Attending MD Review Statement Attending Statement Attending MD Statement: examined this patient, discuss w/resident/PA/EDITORIAL INTERN, agreed w/resident/PA/EDITORIAL INTERN, discussed with family, reviewed EMR data (avail), discussed with nursing, discussed with case mgmt, reviewed images, amended to note Attending Assessment/Plan: "65F PMH hypertension, hyperlipidemia, depression, history of ovarian cancer s/p hysterectomy with bilateral salpingo-oophorectomy (2014), Ovarian carcinomatosis ,colon cancer s/p colostomy (2014) and then reversal and small bowel obstruction s/p small bowel resection with ileostomy and gastrostomy tube for drainage admitted for intractable nausea and vomiting with fecal vomiting. CT abdomen/ pelvis shows no evidence of obstruction and no fluid collection." ASSESSEMNT 1. Intractable nausea and vomiting 2. Gram negative bacteremia 3. Ileus with SBO 4. History of meatstatic ovarian cancer 5. History of ileostomy Plan - Continue on general medicine - Continue Zofran, abx as per ID. - Continue TPN as per surgery - Follow oncology recommendations - Follow surgery recommmendations, not surgical candidate - Monitor electrolytes - Continue pain medications. Though they may exacerbate ileus, given her malignancy and surgical history, stopping them at this time is not an option, though they should be given as sparingly as possible. - Continue PPI - DVT PPx
--- NOTE | 2016-07-10 11:55 | PN- Infect Dx ---
Subjective Subjective: Afebrile without new complaints Objective Last 24 Hrs of Vital Signs/I&O Vital Signs Date Time Temp Pulse Resp B/P B/P Pulse O2 O2 Flow FiO2 Mean Ox Delivery Rate 07/10 1033 98 134/64 07/10 0646 97.6 98 20 134/64 98 06/05 0000 Nasal 1.0L Cannula 07/09 2145 97.6 85 19 106/50 97 Nasal 1.0L Cannula 07/09 1440 98.6 89 18 122/56 99 Room Air Intake & Output 07/10 1600 07/10 0800 07/10 0000 Intake Total 720 480 Output Total 875 1250 Balance -155 -770 Intake, IV 600 300 Intake, Oral 120 180 Output, 325 Gastric Drainage Output, Other 150 450 Output, Stool 50 150 Output, Urine 350 650 Physical Exam Other Physical Findings: She appears comfortable in no acute distress Chest Port-A-Cath in the left upper chest with no inflammation at the site Lungs are clear Heart regular rhythm with no murmur Abdomen is soft, tender to palpation in the mid abdomen, with positive bowel sounds; ileostomy with liquid stool; G-tube status post recent drainage from the bag Extremities no cyanosis, clubbing or edema; PICC in the right upper extremity with no inflammation at the site Results Last 24 Hours of Lab Results: Laboratory Tests 07/10 0700 Chemistry Sodium (137 - 145 mmol/L) 134 L Potassium (3.5 - 5.1 mmol/L) 3.6 Chloride (98 - 107 mmol/L) 99 Carbon Dioxide (22 - 30 mmol/L) 27 Anion Gap (5 - 16) 8 BUN (7 - 17 mg/dL) 19 H Creatinine (0.5 - 1.0 mg/dL) 0.5 Estimated GFR (>60 ml/min) > 60 BUN/Creatinine Ratio (7 - 25 %) 38.0 H Hematology CBC w Diff NO MAN DIFF REQ WBC (4.8 - 10.8 /CUMM) 3.3 L RBC (4.20 - 5.40 /CUMM) 2.91 L Hgb (12.0 - 16.0 G/DL) 8.4 L Hct (37 - 47 %) 25.2 L MCV (81.0 - 99.0 FL) 86.7 MCH (27.0 - 31.0 PG) 28.8 RDW (11.5 - 14.5 %) 18.9 H Plt Count (130 - 400 /CUMM) 222 MPV (7.4 - 10.4 FL) 8.4 Gran % (42.2 - 75.2 %) 61.6 Lymphocytes % (20.5 - 51.1 %) 26.4 Monocytes % (1.7 - 9.3 %) 9.5 H Eosinophils % (0 - 5 %) 1.9 Basophils % (0.0 - 2.0 %) 0.6 Absolute Granulocytes (1.4 - 6.5 /CUMM) 2.1 Absolute Lymphocytes (1.2 - 3.4 /CUMM) 0.9 L Absolute Monocytes (0.10 - 0.60 /CUMM) 0.3 Absolute Eosinophils (0.0 - 0.7 /CUMM) 0.1 Absolute Basophils (0.0 - 0.2 /CUMM) 0 PUBS MCHC (33.0 - 37.0 G/DL) 33.2 Last 24 Hours of Jamarcus Results: Blood cultures July 08 positive for gram-negative rods to be identified Blood cultures July 10 pending Urine culture July 09 negative Assessment/Plan Impression: Stable with temperatures remaining normal and white blood cell count increasing now 12 days status post her most recent chemotherapy on Meropenem Day 1 of treatment for gram-negative sepsis in the setting of a recent fever and neutropenia. The source may be intra-abdominal, secondary to transmucosal migration from the GI tract, versus line sepsis, with a Port-A-Cath and PICC in place. Suggestion: 1. Follow-up final blood culture results 2. Continue Meropenem pending above
--- NOTE | 2016-07-10 12:26 | PN- Oncology ---
Subjective Subjective: She has more fatigue today. Nausea and vomiting has improved. Ostomy has improved in output. She does have new fever over the weekend with blood culture demonstrating GNR. Review of Systems: Constitutional: Reports: weakness. Fatigue. Denies: chills, fever. Cardiovascular: Denies: chest pain, peripheral edema. Respiratory: Denies: cough, short of breath. GI: Reports: abdominal pain, nausea (improved). Denies: diarrhea, melena. Genitourinary: Denies: dysuria, hematuria. Musculoskeletal: Denies: back pain, joint pain. Neurological/Psychological: Reports: anxiety, depressed. All Other Systems: Reviewed and Negative Objective Vital Signs and I&Os Vital Signs Date Time Temp Pulse Resp B/P B/P Pulse O2 O2 Flow FiO2 Mean Ox Delivery Rate 07/10 1033 98 134/64 07/10 0646 97.6 98 20 134/64 98 / 0000 Nasal 1.0L Cannula 07/09 2145 97.6 85 19 106/50 97 Nasal 1.0L Cannula 07/09 1440 98.6 89 18 122/56 99 Room Air Intake & Output 07/10 1600 07/10 0800 / 0000 07/09 1600 07/09 0800 / 0000 Intake Total 720 474 364 0524.0 665.0 Output Total 875 1250 1425 1660 710 Balance -155 -770 -705 400.0 -45.0 Intake, IV 600 300 600 700 225 Intake, Lipid 200.0 75.0 Intake, Oral 120 180 120 Intake, 1160 365 TPN/PPN Output, 042 064 6625 400 Gastric Drainage Output, Other 150 450 450 Output, Stool 50 150 350 60 60 Output, Urine 350 650 200 250 Physical Exam: General Appearance: alert, awake Respiratory: normal breath sounds, chest non-tender, no respiratory distress, crackles Cardiovascular: regular rate/rhythm Gastrointestinal: normal bowel sounds, soft, tenderness (diffusely), G-tube in place, ostomy with light brown liquid output Extremities: normal inspection, no edema Neurologic/Psych: awake, alert, oriented x 3, depressed affect Skin: intact Other Physical Findings: Right UE PICC and left anterior chest with port in place Current Medications: Current Medications Sig/Terese Start time Last Medication Dose Route Stop Time Status Admin Amlodipine Besylate 5 MG DAILY 07/08 1000 AC 07/10 PO 1033 Dextrose/Sodium 1,000 ML Q13H 07/07 0900 DC 07/10 Chloride IV 0006 Diphenhydramine HCl 25 MG Q6-PRN PRN 07/06 1745 07/08 IV 1503 Famotidine 20 MG DAILY 07/04 1000 07/10 IV 1036 Fat Emulsion 300 ML Q12H 07/10 1900 AC Intravenous IV 07/11 0659 Fat Emulsion 300 ML Q12H 07/09 1900 DC 07/09 Intravenous IV 07/10 Fentanyl Citrate 75 MCG Q3D 07/03 2115 07/09 TOP 2108 Fluoxetine HCl 20 MG DAILY 07/07 1600 AC 07/10 PO 1034 Insulin Human Regular 2 UNITS .STK-MED ONE 07/09 2358 DC IV 07/09 2359 Insulin Human Regular 0 Q6 07/07 1200 07/10 SC 0007 Lorazepam 0.5 MG Q6P PRN 07/06 1700 07/10 IV 0427 Meropenem 1 GM IQ8 07/09 1600 07/10 IV 0809 Morphine Sulfate 4 MG Q3P PRN 07/06 0830 07/10 IV 1030 Ondansetron HCl 4 MG Q6P PRN 07/03 1930 07/08 IV 2303 Pantoprazole Sodium 40 MG DAILY 07/04 1000 07/10 IV 1033 Prochlorperazine 10 MG .STK-MED ONE 07/09 2125 DC IM 07/09 2126 Prochlorperazine 5 MG Q6PRN PRN 07/06 0730 07/10 IV 1044 Total Parenteral 1 UNIT 1900 07/10 190 AC Nutrition IV 07/11 658 Total Parenteral 1 UNIT 1900 07/09 190 DC 07/09 Nutrition IV 07/10 658 2013 Trimethobenzamide HCl 200 MG 4 TIMES/DAY PRN 07/05 1145 07/05 IM 1421 Results Last 24 Hours of Lab Results: Laboratory Tests 07/10 07 Chemistry Sodium (137 - 145 mmol/L) 134 L Potassium (3.5 - 5.1 mmol/L) 3.6 Chloride (98 - 107 mmol/L) 99 Carbon Dioxide (22 - 30 mmol/L) 27 Anion Gap (5 - 16) 8 BUN (7 - 17 mg/dL) 19 H Creatinine (0.5 - 1.0 mg/dL) 0.5 Estimated GFR (>60 ml/min) > 60 BUN/Creatinine Ratio (7 - 25 %) 38.0 H Hematology CBC w Diff NO MAN DIFF REQ WBC (4.8 - 10.8 /CUMM) 3.3 L RBC (4.20 - 5.40 /CUMM) 2.91 L Hgb (12.0 - 16.0 G/DL) 8.4 L Hct (37 - 47 %) 25.2 L MCV (81.0 - 99.0 FL) 86.7 MCH (27.0 - 31.0 PG) 28.8 RDW (11.5 - 14.5 %) 18.9 H Plt Count (130 - 400 /CUMM) 222 MPV (7.4 - 10.4 FL) 8.4 Gran % (42.2 - 75.2 %) 61.6 Lymphocytes % (20.5 - 51.1 %) 26.4 Monocytes % (1.7 - 9.3 %) 9.5 H Eosinophils % (0 - 5 %) 1.9 Basophils % (0.0 - 2.0 %) 0.6 Absolute Granulocytes (1.4 - 6.5 /CUMM) 2.1 Absolute Lymphocytes (1.2 - 3.4 /CUMM) 0.9 L Absolute Monocytes (0.10 - 0.60 /CUMM) 0.3 Absolute Eosinophils (0.0 - 0.7 /CUMM) 0.1 Absolute Basophils (0.0 - 0.2 /CUMM) 0 PUBS MCHC (33.0 - 37.0 G/DL) 33.2 Assessment/Plan Assessment/Recommendations: Mrs. 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 She does not have any obvious bowel obstruction on CT scan. She does not seem to have new disease on CT scan. She has some improvement in her nausea , vomiting, and ostomy output. She did have fever on 07/09 and noted to have GNR in her blood culture. She has been started on meropenem. Currently she is afebrile. Etiology for the GNR may likely be GI translocation vs line associated (port vs PICC). Repeat cultures are negative so far. Hopefully line will not have to be removed. She will likely need surveillance cultures. Recommendations: 1. Zofran and Compazine prn nausea 2. G-tube clamping trial 3. Continue antibiotic as per ID 4. Trial of oral intake Please call [phone] with any questions or concerns. Problem List: 1. Ileus 2. Intractable vomiting with nausea 3. Ovarian cancer 4. Bacteremia due to Gram-negative bacteria
--- NOTE | 2016-07-10 13:39 | Discharge Summary ---
Visit Information Visit Dates Admission Date: 07/04/16 Discharge Date: 07/13/16 Hospital Course Course Attending Physician: MARIAELENA RUBALCAVA MD Primary Care Physician: DAILY COVARRUBIAS MD Hospital Course: Ms Elmore is a 65-year-old woman with significant past medical history of hypertension, hyperlipidemia, depression, history of ovarian cancer s/p hysterectomy with bilateral salpingo-oophorectomy (2013), Ovarian cancer with metasasis/carcinomatosis,colon cancer s/p colostomy (2013) and then reversal, small bowel obstruction s/p small bowel resection with ileostomy and gastrostomy tube for drainage, intraabdominal abscess status post drainage, and total parenteral nutrition via PICC line since about 4 months ago. She already had been treated with FOLFOX,carbopaclitaxel, a resection and gemcitabine in the past. She had recent chemotherapy for her metastatic mucinous ovarian cancer with irinotecan on 06/28/2016 (Five days prior to presentation). She felt fine for the 2 days immediately after chemothrapy, however on the 3rd day, she developed complaints of of colicky lower abdomen pain, nausea, reduced/no output from her ileostomy. She had been venting her G tube and noticed increased billous Gastrostomy tube output as well. She experienced the these symptoms for 3 days before presenting to the ER on account of intractable nausea and vomitting with abdominal pain. Vital signs in the ER at presentation : T 97.2, Pulse 86 bpm, BP 96/63, RR 18, O2 sat 99% on RA Physical Exam General Appearance: Alert, Oriented X3, Cooperative, No Acute Distress Skin: No Rashes, No Breakdown HEENT: Atraumatic, PERRLA, EOMI Neck: Supple, No JVD Cardiovascular: Normal S1, Normal S2 Lungs: Clear to Auscultation, Normal Air Movement Abdomen:astrostomy tube in situ sraining bilious fluid, ileostomy in situ with empty bag. Tender hard mass in right iliac region Neurological Normal Speech Extremities No Clubbing, No Cyanosis, No EdemaVascular Normal Pulses, Pulses Symmetrical Significant labs: WBC 4.4 Hb 8.8, Hct 26.9, Na 137, K 3.5, Creatinine 0.[address] Abd/Pelvis - 1. No bowel obstruction. Multiple bowel anastomoses which are unchanged. Left- sided ileostomy without evidence of obstruction. Gastrostomy tube in unchanged position. CT imaging of her abdomen and pelvis showed no obvious obstruction. She was admitted and managed for intractable abdominal pain and vomitting from ileus likely related to her recent chemotherapy. Her nausea was managed with IV compazine, IV Zofran, and IM tigan PRN for nausea and vomitting. She was managed conservatively with NPO and bowel rest while her TPN was continued. She was reviewed by Genreal surgeon Dr. Baez and Oncologist Dr. Rodríguez who recomended conservative management. Her pain was managed with fentanyl patch and IV morphine as needed. While on admission, she was having declining neutrophil counts from the chemotherapy that she received 5 days prior to presentation. Her alba Absolute neutrophil count of 1000/CUMM occured on day 5 of her admission. Her ANC komal back to normal levels after that. However, she then spiked a fever on day 7 of her admission while she had a normal ANC. Blood cultures were drawn and she was started on IV meropenem. Her initial blood cultrue (Off antibiotics) was positive for Klebsiella Pneumoniae. She was reviewed by infectious disease software developer consultant, Dr. Shafer and his impression was that her infection was from translocation of bacteria from her GI tract and not line sepsis from her PICC line or chemotherapy Port. Thus it was determeined that her PICC line and Port did not need to be removed. Repeat blood cultures (on antibiotics) remained negative prior to discharge. She was discharged on PO ciprofloxacin to complete a 14 day course of treatment. Complications: none Allergies: Coded Allergies: hydromorphone (From DILAUDID) (Mild, SWEATS 07/03/16) amoxicillin (From AUGMENTIN) (Intermediate, DIARRHEA 07/08/16) clavulanic acid (From AUGMENTIN) (Intermediate, DIARRHEA 07/08/16) Significant Procedures: none Disposition Summary Disposition Principal Diagnosis: 1. Intractable nausea and vomitting from small bowel ileus 2. Gram negative sepsis from Klebsiella Pneumoniae Additional Diagnosis: 2. Poor nutritional status on Total parenteral nutrition 3. Metastatic ovarian cancer 4. Hypertension 5. Chronic pain Discharge Disposition: home health services Discharge Instructions General Discharge Information Code Status: Do Not Resucitate/Intubat Patient's Diet: Total Parenteral Nutrition with oral feeds as tolerated Patient's Activity: Self limited activity Follow-Up Instructions/Appts: Please follow up with your PCP in 1 week Please follow up with your oncologist in 1-2weeks Medications at Discharge Discharge Medications: Continue taking these medications: Ezetimibe (Zetia) 10 MG TABLET 1 Tablet ORAL DAILY Comments: NOT GIVEN IN HOSPITAL Cetirizine HCl (Zyrtec) 10 MG TABLET 1 Tablet ORAL DAILY Comments: NOT GIVEN IN HOSPITAL Amlodipine Besylate (Amlodipine Besylate) 5 MG TABLET 1 Tablet ORAL DAILY Qty = 90 Comments: Last Taken: 07/13/16 Time: 9:30 AM Fluoxetine HCl (Fluoxetine HCl) 20 MG CAPSULE 1 Capsule ORAL DAILY Qty = 30 Comments: Last Taken: 07/13/16 Time: 9:30 AM Fentanyl (Fentanyl) 75 MCG/HOUR PATCH.TD72 1 Patch On the skin Every 3 days Qty = 10 Comments: Last Taken:07/12/16 Time:8:00PM Pantoprazole Sodium (Pantoprazole Sodium) 40 MG TABLET.DR 1 Tablet ORAL DAILY Qty = 30 Comments: Last Taken:07/13/16 Time:9:30AM Ranitidine HCl (Heartburn Relief) 150 MG TABLET 1 Tablet ORAL TWICE DAILY as needed for HEARTBURN Comments: PRN PER PT Start taking the following new medications: Prochlorperazine Maleate (Prochlorperazine Maleate) 5 MG TABLET 1 Tablet ORAL EVERY SIX HOURS NEEDED as needed for NAUSEA/VOMITING Qty = 60 No Refills Instructions: . Comments: Last Taken:07/13/16 Time:6:14AM Ondansetron HCl (Zofran) 4 MG TABLET 1 Tablet ORAL Every 4 hours Qty = 60 No Refills Instructions: . Comments: Last Taken:07/12/16 Time:6:00PM Copies To: DAILY COVARRUBIAS MD Fentanyl (Fentanyl) 75 MCG/HOUR PATCH.TD72 1 Patch On the skin Every 3 days Qty = 10 Pantoprazole Sodium (Pantoprazole Sodium) 40 MG TABLET.DR 1 Tablet ORAL DAILY Qty = 30 Ranitidine HCl (Heartburn Relief) 150 MG TABLET 1 Tablet ORAL TWICE DAILY as needed for HEARTBURN Comments: PRN PER PT
[2016-07-10 14:38] VITALS: BP 126/60
[2016-07-10 22:26] VITALS: BP 140/58
--- NOTE | 2016-07-11 00:45 | NUR ---
LATE ENTRY: PT IS TOLERATING PO (CLD) WELL. G TUBE IS CLAMPED, DRAINAGE FOR SHIFT 1500CC, GREEN LIQUID. CHROME TANNER SP GORE NOTIFIED.
--- NOTE | 2016-07-11 07:41 | PN- Housestaff ---
MELQUIADES SHELLEY,[facility] 07/11/16 0741: Subjective Follow-up For: -Intractable nausea and vomitting -Abdominal pain -Small bowel ileus -Metastatic ovarian cancer Complaints: no complaints Subjective: Patient has no complaints this morning and states that her nausea is resolved and her abdominal pain also. She had a quiet night. No fevers or vomiting overnight. She had some vomitting and a fever spike on Sunday 72 hrs ago and blood cultures sent are growing Gram negative rods. She is on meropenem for this. Repeat blood culture 24 hours ago has no growth. No more fevers since then. Review of Systems Constitutional: Denies: chills, fever, malaise, weakness. Cardiovascular: Denies: chest pain, orthopena, palpitations, syncope. Respiratory: Denies: cough, orthopnea, short of breath, sputum production. Gastrointestinal: Denies: abdominal pain, bloating, distention, nausea. Objective Last 24 Hrs of Vital Signs/I&O Vital Signs Date Time Temp Pulse Resp B/P B/P Pulse O2 O2 Flow FiO2 Mean Ox Delivery Rate 07/11 0843 89 140/72 07/11 0824 98.5 94 20 140/72 97 06/06 0000 96 Nasal 1.0L Cannula 07/10 2226 99.4 88 20 140/58 96 Room Air / 1600 96 Nasal 1.0L Cannula 07/10 1438 98.3 90 20 126/60 96 Nasal 1.0L Cannula /05 1033 98 134/64 Intake & Output 07/11 1600 06/06 0800 06/06 0000 Intake Total 2310.0 1210.0 Output Total 1050 1625 Balance 1260.0 -415.0 Intake, IV 70 Intake, Lipid 600.0 100.0 Intake, Oral 480 600 Intake, 1160 510 TPN/PPN Output, 375 1500 Gastric Drainage Output, Stool 25 125 Output, Urine 650 Physical Exam General Appearance: Alert, Oriented X3, Cooperative, No Acute Distress, Mild Distress Skin: No Rashes Skin Temp/Moisture Exam: Warm/Dry Sepsis Skin Exam (color): Normal for Ethnicity HEENT: Atraumatic, PERRLA, EOMI, Mucous Membr. moist/pink Neck: Supple, No JVD, No thryomegaly Lymphatic: Cervical nl Cardiovascular: Regular Rate, Normal S1, Normal S2, No Murmurs Lungs: Clear to Auscultation, Normal Air Movement Abdomen: Normal Bowel Sounds, Soft, No Tenderness, Jejunostomy output small bilous effluent, Gastrostomy output about 300 mls bilous fluid Neurological: Normal Speech, Strength at 5/5 X4 Ext Extremities: No Edema, Normal Pulses Vascular: Normal Pulses, Pulses Symmetrical Assessment/Plan Assessment: Patient is a 65-year-old woman with significant past medical history hypertension, hyperlipidemia, depression, history of ovarian cancer s/p hysterectomy with bilateral salpingo-oophorectomy (2013), Ovarian carcinomatosis ,colon cancer s/p colostomy (2014) and then reversal and small bowel obstruction s/p small bowel resection with ileostomy and gastrostomy tube for drainage. She presented with chief complaints of of colicky lower abdomen pain, nausea, reduced/no output from her ileostomy for the preceding 3 days. She is currently being managed for abdominal pain and vomitting which appears to be from ileus likely related to her recent chemotherapy, since there is no obvious obstruction on CT imaging of her abdomen. She is currently improved on conservative management and is tolerating clear liquid diet. However she had a fever spike 72 hours ago and blood cultures growing g-ve rods. for which she is on meropenem Problem list 1. Intractable nausea and vomitting from small bowel ileus (Likely a chemotherapy side effect) 2. Poor nutritional status on Total parenteral nutrition 3. Metastatic ovarian cancer 4. Hypertension 5. Chronic pain Plan #Sepsis: Meets SIRS criteria(WBC 3000, fever), has positive BCs w/gram negative rods:::: likely GI origin VS catheter(PICC line /port) * Continue IV meropenem as per ID recs. * Repeat set of Blood cultures sent yesterday has no growth. * Source of the sepsis is likely abdominal translocation and less likely line sepsis * Will continue with antibiotics as per ID * Consider transition to oral antibiotics * If patient remains afebrile could plan for discharge in 24 to 48 hrs on PO antibiotics #Intractable nausea, vomitting and abdominal pain from small bowel ileus (Likely a chemotherapy side effect) * Continue IV compazine 5 mg Q6 PRN for nausea and vomitting. * Continue IV Zofran, and IM tigan PRN for nausea and vomitting * Continue IV morphine 4 mg Q3 hrs PRN for better pain control in the interim * Continue fentanyl patch * Pain management consult appreciated * Continue clear liquid diet for now and advance as tolerated * General surgery Dr. Baez reviewed and recommends conservative management * Stop IV fluids * Avoid metoclopramide as it can worsen the pain if small bowel obstruction is the etiology * Continue IV protonix 40 mg daily and famotidine 20 mg daily #Poor nutritional status on Total parenteral nutrition * Continue TPN day 8 today * WIll stop adding insulin to TPN today as her sugars have been in the low 100s overnight * ACCUCHEKS Q6 hrs * Start NPO Novolin sliding scale * Check Mag, Phos, Triglycerides periodically (Twice a week) and replete accordingly # Metastatic ovarian cancer s/p Chemotherapy with neutropenia * Neutropenia has resolved today * Check CBC tomorrow for monitoring blood counts on chemo * Hematology/oncology input appreciated * No new intervention recommended for her cancer * Continue conservative management #Hypertension * Continue to hold all PO medications including antihypertensive agents * Can give IV metoprolol 2.5 mg-5mg Q 6hours for SBP>160 mmhg #Chronic pain * Continue home medication of fentanyl patch 75 mcg Q 72 hrs * Continue IV morphine 4 mg Q3hrs PRN for severe pain -DVT prophylaxis with ALPS due to anemia -Patient is DNR/DNI Problem List: 1. Ileus 2. Bacteremia due to Gram-negative bacteria 3. Nausea and vomiting 4. Benign hypertension 5. Ovarian cancer 6. Abdominal pain Pain Ratin Pain Location: Abdomen Pain Goal: Pain 4 or less Pain Plan: IV morphine PRN, Fentanyl patch Tomorrow's Labs & Rationales: CBC for sepsis, BEP for K MARIAELENA RUBALCAVA 07/11/16 0853: Attending MD Review Statement Attending Statement Attending MD Statement: examined this patient, discuss w/resident/PA/WEIGHER AND MIXER, agreed w/resident/PA/WEIGHER AND MIXER, discussed with family, reviewed EMR data (avail), discussed with nursing, discussed with case mgmt, reviewed images, amended to note Attending Assessment/Plan: ASSESSEMNT 1. Intractable nausea and vomiting. 2. Gram negative bacteremia. 3. Ileus with SBO. 4. History of metastatic ovarian cancer. 5. History of ileostomy. Plan - Continue on general medicine - Continue Zofran, abx as per ID. f/u blood cultures. - Continue TPN as per surgery - Follow oncology recommendations - Follow surgery recommmendations, not surgical candidate - Monitor electrolytes - Continue pain medications. Though they may exacerbate ileus, given her malignancy and surgical history, stopping them at this time is not an option, though they should be given as sparingly as possible. - Continue PPI - DVT PPx
[2016-07-11 08:24] VITALS: BP 140/72
[2016-07-11 08:33] LABS: ABSOLUTE BASOPHIL COUNT 0 /CUMM (0.0-0.2); ABSOLUTE EOSINOPHIL COUNT 0.1 /CUMM (0.0-0.7); ABSOLUTE LYMPH COUNT 0.9 /CUMM (1.2-3.4); ABSOLUTE MONOCYTE COUNT 0.5 /CUMM (0.10-0.60); BASOPHIL % 0.7 % (0.0-2.0); EOSINOPHIL % 3.1 % (0-5); GRANULOCYTE % 57.3 % (42.2-75.2); HEMATOCRIT 26.5 % (37-47); MEAN CORPUSCULAR HGB 28.5 PG (27.0-31.0); MEAN CORPUSCULAR HGB CONC 32.8 G/DL (33.0-37.0); MEAN CORPUSCULAR VOLUME 86.6 FL (81.0-99.0); MEAN PLATELET VOLUME 8.8 FL (7.4-10.4); PLATELET COUNT 250 /CUMM (130-400); RBC DISTRIBUTION WIDTH 18.8 % (11.5-14.5); RED BLOOD CELL CT 3.06 /CUMM (4.20-5.40); WHITE BLOOD CELL COUNT 3.5 /CUMM (4.8-10.8)
--- NOTE | 2016-07-11 12:18 | PN- Infect Dx ---
Subjective Subjective: Afebrile. She feels improved overall, though did note queasiness after breakfast this morning. Objective Last 24 Hrs of Vital Signs/I&O Vital Signs Date Time Temp Pulse Resp B/P B/P Pulse O2 O2 Flow FiO2 Mean Ox Delivery Rate 07/11 0843 89 140/72 07/11 0824 98.5 94 20 140/72 97 /06 0800 98 Nasal 1.0L Cannula 07/11 0000 96 Nasal 1.0L Cannula 07/10 2226 99.4 88 20 140/58 96 Room Air 07/10 1600 96 Nasal 1.0L Cannula 07/10 1438 98.3 90 20 126/60 96 Nasal 1.0L Cannula Intake & Output 07/11 1600 07/11 0800 07/11 0000 Intake Total 2310.0 1210.0 Output Total 1050 1625 Balance 1260.0 -415.0 Intake, IV 70 Intake, Lipid 600.0 100.0 Intake, Oral 480 600 Intake, 1160 510 TPN/PPN Output, 375 1500 Gastric Drainage Output, Stool 25 125 Output, Urine 650 Physical Exam Other Physical Findings: She appears comfortable in no acute distress Chest Port-A-Cath in the left upper chest with no inflammation at the site Lungs are clear Heart regular rhythm with no murmur Abdomen is soft, minimally tender on palpation in the mid abdomen, with positive bowel sounds; ileostomy with liquid output; G-tube with no output (clamped) Extremities PICC in the right upper extremity with no inflammation at the site Results Last 24 Hours of Lab Results: Laboratory Tests 07/11 06 Chemistry Sodium (137 - 145 mmol/L) 134 L Potassium (3.5 - 5.1 mmol/L) 3.8 Chloride (98 - 107 mmol/L) 95 L Carbon Dioxide (22 - 30 mmol/L) 30 Anion Gap (5 - 16) 9 BUN (7 - 17 mg/dL) 21 H Creatinine (0.5 - 1.0 mg/dL) 0.4 L Estimated GFR (>60 ml/min) > 60 BUN/Creatinine Ratio (7 - 25 %) 52.5 H Phosphorus (2.5 - 4.5 mg/dL) 3.2 Magnesium (1.6 - 2.3 mg/dL) 1.6 Triglycerides (<150 mg/dL) 86 Hematology CBC w Diff NO MAN DIFF REQ WBC (4.8 - 10.8 /CUMM) 3.5 L RBC (4.20 - 5.40 /CUMM) 3.06 L Hgb (12.0 - 16.0 G/DL) 8.7 L Hct (37 - 47 %) 26.5 L MCV (81.0 - 99.0 FL) 86.6 MCH (27.0 - 31.0 PG) 28.5 RDW (11.5 - 14.5 %) 18.8 H Plt Count (130 - 400 /CUMM) 250 MPV (7.4 - 10.4 FL) 8.8 Gran % (42.2 - 75.2 %) 57.3 Lymphocytes % (20.5 - 51.1 %) 24.8 Monocytes % (1.7 - 9.3 %) 14.1 H Eosinophils % (0 - 5 %) 3.1 Basophils % (0.0 - 2.0 %) 0.7 Absolute Granulocytes (1.4 - 6.5 /CUMM) 2.0 Absolute Lymphocytes (1.2 - 3.4 /CUMM) 0.9 L Absolute Monocytes (0.10 - 0.60 /CUMM) 0.5 Absolute Eosinophils (0.0 - 0.7 /CUMM) 0.1 Absolute Basophils (0.0 - 0.2 /CUMM) 0 PUBS MCHC (33.0 - 37.0 G/DL) 32.8 L Last 24 Hours of Jamarcus Results: Blood cultures July 08 positive for gram-negative rods awaiting identification Blood cultures July 10 negative Urine culture July 09 negative Assessment/Plan Impression: Appears improved with temperatures remaining normal and white blood cell count continuing to increase, now 13 days status post her most recent chemotherapy, on Meropenem Day 2 of treatment for gram-negative sepsis in the setting of recent fever and neutropenia. The source may be intra-abdominal, secondary to transmucosal migration from the GI tract, versus line sepsis, with a Port-A-Cath and PICC in place. Suggestion: 1. Await final blood culture results 2. Continue Meropenem pending above
--- NOTE | 2016-07-11 13:01 | PN- Oncology ---
Subjective Subjective: She feels a little better. She is tolerating some oral intake. She has no fever or chills. She has no nausea or vomiting. Review of Systems: Constitutional: Reports: weakness. Fatigue. Denies: chills, fever. Cardiovascular: Denies: chest pain, peripheral edema. Respiratory: Denies: cough, short of breath. GI: Reports: abdominal pain, nausea (improved). Denies: diarrhea, melena. Genitourinary: Denies: dysuria, hematuria. Musculoskeletal: Denies: back pain, joint pain. Neurological/Psychological: Reports: anxiety, depressed. All Other Systems: Reviewed and Negative Objective Vital Signs and I&Os Vital Signs Date Time Temp Pulse Resp B/P B/P Pulse O2 O2 Flow FiO2 Mean Ox Delivery Rate 07/11 0843 89 140/72 07/11 0824 98.5 94 20 140/72 97 / 0800 98 Nasal 1.0L Cannula 07/11 0000 96 Nasal 1.0L Cannula 07/10 2226 99.4 88 20 140/58 96 Room Air 07/10 1600 96 Nasal 1.0L Cannula 07/10 1438 98.3 90 20 126/60 96 Nasal 1.0L Cannula Intake & Output 07/11 1600 /06 0800 /06 0000 06/05 1600 / 0800 06/05 0000 Intake Total 2310.0 1210.0 1000.0 720 480 Output Total 1050 1625 060 466 6517 Balance 1260.0 -415.0 335.0 -155 -770 Intake, IV 70 300 600 300 Intake, Lipid 600.0 100.0 100.0 Intake, Oral 480 600 300 120 180 Intake, 1160 510 300 TPN/PPN Output, 375 1500 650 325 Gastric Drainage Output, Other 150 450 Output, Stool 25 125 15 50 150 Output, Urine 650 350 650 Physical Exam: General Appearance: alert, awake Respiratory: chest non-tender, no respiratory distress, crackles at bases Cardiovascular: regular rate/rhythm Gastrointestinal: normal bowel sounds, soft, tenderness (diffusely), G-tube in place, ostomy with light green stool, more formed Extremities: normal inspection, no edema Neurologic/Psych: awake, alert, oriented x 3, depressed affect Skin: intact Other Physical Findings: Right UE PICC and left anterior chest with port in place Current Medications: Current Medications Sig/Terese Start time Last Medication Dose Route Stop Time Status Admin Amlodipine Besylate 5 MG DAILY 07/08 1000 AC 07/11 PO 0843 Diphenhydramine HCl 25 MG Q4P PRN 07/11 0900 AC 07/11 PO 0921 Diphenhydramine HCl 25 MG Q6-PRN PRN 07/06 1745 DC 07/08 IV 1503 Famotidine 20 MG DAILY 07/04 1000 AC 07/11 IV 0816 Fat Emulsion 500 ML Q12H 07/11 1900 AC Intravenous IV 07/12 0659 Fat Emulsion 300 ML Q12H 07/10 1900 DC 07/10 Intravenous IV 07/11 0659 191 Fentanyl Citrate 75 MCG Q3D 07/03 2115 AC 07/09 TOP 2108 Fluoxetine HCl 20 MG DAILY 07/07 1600 AC 07/11 PO 0843 Heparin Sodium 500 UNIT .STK-MED ONE 07/10 1546 DC (Porcine) IV 07/10 1547 Insulin Human Regular 0 Q6 07/07 1200 AC 07/10 SC 0007 Lorazepam 0.5 MG Q4P PRN 07/11 0900 AC PO 07/18 0859 Lorazepam 0.5 MG Q6P PRN 07/06 1700 DC 07/11 IV 0646 Meropenem 1 GM IQ8 07/09 1600 AC 07/11 IV 0820 Morphine Sulfate 4 MG Q3P PRN 07/06 0830 AC 07/11 IV 0840 Ondansetron HCl 4 MG Q6P PRN 07/03 1930 AC 07/11 IV 0841 Pantoprazole Sodium 40 MG DAILY 07/04 1000 AC 07/11 IV 0820 Prochlorperazine 5 MG Q6PRN PRN 07/06 0730 AC 07/11 IV 0647 Total Parenteral 1 UNIT ONE 07/11 190 AC Nutrition IV 07/12 0659 Total Parenteral 1 UNIT 1900 07/10 190 DC 07/10 Nutrition IV 07/11 0659 191 Trimethobenzamide HCl 200 MG 4 TIMES/DAY PRN 07/05 1145 AC 07/05 IM 1421 Results Last 24 Hours of Lab Results: Laboratory Tests 07/11 606 Chemistry Sodium (137 - 145 mmol/L) 134 L Potassium (3.5 - 5.1 mmol/L) 3.8 Chloride (98 - 107 mmol/L) 95 L Carbon Dioxide (22 - 30 mmol/L) 30 Anion Gap (5 - 16) 9 BUN (7 - 17 mg/dL) 21 H Creatinine (0.5 - 1.0 mg/dL) 0.4 L Estimated GFR (>60 ml/min) > 60 BUN/Creatinine Ratio (7 - 25 %) 52.5 H Phosphorus (2.5 - 4.5 mg/dL) 3.2 Magnesium (1.6 - 2.3 mg/dL) 1.6 Triglycerides (<150 mg/dL) 86 Hematology CBC w Diff NO MAN DIFF REQ WBC (4.8 - 10.8 /CUMM) 3.5 L RBC (4.20 - 5.40 /CUMM) 3.06 L Hgb (12.0 - 16.0 G/DL) 8.7 L Hct (37 - 47 %) 26.5 L MCV (81.0 - 99.0 FL) 86.6 MCH (27.0 - 31.0 PG) 28.5 RDW (11.5 - 14.5 %) 18.8 H Plt Count (130 - 400 /CUMM) 250 MPV (7.4 - 10.4 FL) 8.8 Gran % (42.2 - 75.2 %) 57.3 Lymphocytes % (20.5 - 51.1 %) 24.8 Monocytes % (1.7 - 9.3 %) 14.1 H Eosinophils % (0 - 5 %) 3.1 Basophils % (0.0 - 2.0 %) 0.7 Absolute Granulocytes (1.4 - 6.5 /CUMM) 2.0 Absolute Lymphocytes (1.2 - 3.4 /CUMM) 0.9 L Absolute Monocytes (0.10 - 0.60 /CUMM) 0.5 Absolute Eosinophils (0.0 - 0.7 /CUMM) 0.1 Absolute Basophils (0.0 - 0.2 /CUMM) 0 PUBS MCHC (33.0 - 37.0 G/DL) 32.8 L Assessment/Plan Assessment/Recommendations: Mrs. 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 She does not have any obvious bowel obstruction on CT scan. She does not seem to have new disease on CT scan. She has been improving clinically. Oral intake is improved but still does have nausea. Ostomy output is increased and more formed. She did have GNR bacteremia on 07/09. Blood cultures have been negative since being on meropenem. Speciation and sensitivities are still pending. Etiology for the GNR may likely be GI translocation vs line associated (port vs PICC). Hopefully we can salvage her lines. Recommendations: 1. Zofran and Compazine prn nausea 2. Continue advancing diet as tolerated 3. Continue antibiotic as per ID Please call [phone] with any questions or concerns. Problem List: 1. Ovarian cancer 2. Bacteremia due to Gram-negative bacteria 3. Intractable vomiting with nausea 4. Carcinomatosis
[2016-07-11 16:00] VITALS: BP 110/56
--- NOTE | 2016-07-11 20:32 | NUR ---
PT A&O, SLEEPY, INDEPENDENT IN ROOM, IL O2 FOR COMFORT. ILEOSTOMY DRAINING GREEN LIQUID, G TUBE UNCLAMPED,DRAINING GREEN FLUID WELL, OVER 800CC. PATIENT MY CLAMP OR UNCLAMP NEEDED FOR COMFORT. TPN & LIPIDS RUNNING, CLEAR LIQUID DIET IN PLACE, TOO, TOLERATING WELL. LCW IP AND CRISTINA PICC FLUSHING WELL WITH POSITIVE BLOOD RETURN. NEEDS WITHIN REACH, SAFETY MAINTAINED.
[2016-07-11 21:59] VITALS: BP 126/62
[2016-07-12 07:09] VITALS: BP 134/80
[2016-07-12 07:43] LABS: ABSOLUTE BASOPHIL COUNT 0 /CUMM (0.0-0.2); ABSOLUTE EOSINOPHIL COUNT 0.1 /CUMM (0.0-0.7); ABSOLUTE GRANULOCYTE CT 1.5 /CUMM (1.4-6.5); ABSOLUTE LYMPH COUNT 1.3 /CUMM (1.2-3.4); ABSOLUTE MONOCYTE COUNT 0.5 /CUMM (0.10-0.60); BASOPHIL % 0.8 % (0.0-2.0); EOSINOPHIL % 2.6 % (0-5); GRANULOCYTE % 43.9 % (42.2-75.2); HEMATOCRIT 27.1 % (37-47); MEAN CORPUSCULAR HGB 28.2 PG (27.0-31.0); MEAN CORPUSCULAR HGB CONC 32.6 G/DL (33.0-37.0); MEAN CORPUSCULAR VOLUME 86.4 FL (81.0-99.0); MEAN PLATELET VOLUME 8.3 FL (7.4-10.4); PLATELET COUNT 292 /CUMM (130-400); RBC DISTRIBUTION WIDTH 18.6 % (11.5-14.5); RED BLOOD CELL CT 3.14 /CUMM (4.20-5.40); WHITE BLOOD CELL COUNT 3.5 /CUMM (4.8-10.8)
--- NOTE | 2016-07-12 07:53 | PN- Housestaff ---
PAMELA SHELLEY,TIFFANY 07/12/16 0752: Subjective Follow-up For: -Intractable nausea and vomitting -Abdominal pain -Small bowel ileus -Metastatic ovarian cancer Complaints: no complaints Subjective: Feels well today, no complaint. Excited to be going home today. Review of Systems Constitutional: Reports: no symptoms. Objective Last 24 Hrs of Vital Signs/I&O Vital Signs Date Time Temp Pulse Resp B/P B/P Pulse O2 O2 Flow FiO2 Mean Ox Delivery Rate 07/12 1022 90 134/80 06/ 0709 97.7 90 18 134/80 96 Room Air 06/ 0000 95 Nasal 1.0L Cannula 07/11 2159 98.1 81 20 126/62 95 Room Air 07/11 1600 98 Nasal 1.0L Cannula 07/11 1600 98.6 85 20 110/56 98 Nasal 1.0L Cannula Intake & Output 07/12 1600 07/12 0800 07/12 0000 Intake Total 1760.0 1090.0 Output Total 910 1100 Balance 850.0 -10.0 Intake, Lipid 360.0 100.0 Intake, Oral 240 480 Intake, 1160 510 TPN/PPN Output, 50 Emesis Output, 785 950 Gastric Drainage Output, Stool 125 100 Physical Exam General Appearance: Alert, Oriented X3, Cooperative, No Acute Distress HEENT: PERRLA, EOMI, Mucous Membr. moist/pink Cardiovascular: Regular Rate, Normal S1, Normal S2 Lungs: Clear to Auscultation Abdomen: Normal Bowel Sounds, Soft, No Tenderness Extremities: No Edema Current Medications: Current Medications Sig/Terese Start time Last Medication Dose Route Stop Time Status Admin Amlodipine Besylate 5 MG DAILY 07/08 1000 AC 07/12 PO 1022 Diphenhydramine HCl 25 MG Q4P PRN 07/11 0900 AC 07/11 PO 195 Famotidine 20 MG DAILY 07/04 1000 AC 07/11 IV 0816 Fat Emulsion 500 ML Q12H 07/11 1900 DC 07/11 Intravenous IV 07/12 0659 194 Fentanyl Citrate 75 MCG Q3D 07/03 2114 AC 07/09 TOP 210 Fluoxetine HCl 20 MG DAILY 07/07 1600 AC 07/12 PO 1022 Insulin Human Regular 0 Q6 07/07 1200 AC 07/10 SC 0007 Lorazepam 0.5 MG Q4P PRN 07/11 0900 AC 07/12 PO 07/18 0859 1335 Meropenem 1 GM IQ8 07/09 1600 AC 07/12 IV 1023 Morphine Sulfate 4 MG Q3P PRN 07/06 0830 AC 07/11 IV 1312 Ondansetron HCl 4 MG .STK-MED ONE 07/12 0103 DC IM 07/12 0104 Ondansetron HCl 4 MG .STK-MED ONE 07/11 1610 DC IM 07/11 1611 Ondansetron HCl 4 MG Q6P PRN 07/03 1930 AC 07/12 IV 0108 Pantoprazole Sodium 40 MG DAILY 07/04 1000 AC 07/12 IV 1023 Patient Medication 1 ED .STK-MED ONE 07/12 1214 DC Teaching ED 07/12 1215 Prochlorperazine 10 MG .STK-MED ONE 07/11 1950 DC IM 07/11 195 Prochlorperazine 5 MG Q6PRN PRN 07/06 0730 AC 07/12 IV 1333 Total Parenteral 1 UNIT ONE 07/11 1900 DC 07/11 Nutrition IV 07/12 0659 1946 Trimethobenzamide HCl 200 MG 4 TIMES/DAY PRN 07/05 1145 AC 07/05 IM 1421 Last 24 Hrs of Lab/Jamarcus Results Last 24 Hrs of Labs/Mics: Laboratory Tests 07/12/16 0644: CBC w Diff NO MAN DIFF REQ, RBC 3.14 L, MCV 86.4, MCH 28.2, RDW 18.6 H, MPV 8.3, Gran % 43.9, Lymphocytes % 37.1, Monocytes % 15.6 H, Eosinophils % 2.6, Basophils % 0.8, Absolute Granulocytes 1.5, Absolute Lymphocytes 1.3, Absolute Monocytes 0.5, Absolute Eosinophils 0.1, Absolute Basophils 0, PUBS MCHC 32.6 L Lines/Diet/Fluids Lines: central line, implanted catheters Central Line Type/Location: PICC Indication for Central Line: TPN Central Line Still Needed? Yes Assessment/Plan Assessment: Patient is a 65-year-old woman with significant past medical history hypertension, hyperlipidemia, depression, history of ovarian cancer s/p hysterectomy with bilateral salpingo-oophorectomy (2013), Ovarian carcinomatosis ,colon cancer s/p colostomy (2013) and then reversal and small bowel obstruction s/p small bowel resection with ileostomy and gastrostomy tube for drainage. She presented with chief complaints of of colicky lower abdomen pain, nausea, reduced/no output from her ileostomy for the preceding 3 days. She is currently being managed for abdominal pain and vomitting which appears to be from ileus likely related to her recent chemotherapy since there is no obvious obstruction on CT imaging of her abdomen. She is currently improved on conservative management and is tolerating clear liquid diet. Blood cultures growing Kliebsiella Pneumoniae. She is currently on IV meropenem. Problem list 1. Intractable nausea and vomitting from small bowel ileus (Likely a chemotherapy side effect) 2. Poor nutritional status on Total parenteral nutrition 3. Metastatic ovarian cancer 4. Hypertension 5. Chronic pain Plan #Sepsis: Meets SIRS criteria(WBC 3000, fever), has positive BCs w Kliebsiella PNA likely GI origin; sensitive to different antibiotics * Currently on IV meropenem; awaiting change of antibiotics to oral per ID * Repeat set of blood cultures sent 2 days ago has no growth so far * Source of the sepsis is likely abdominal translocation * Will continue with antibiotics as per ID * Plan is for DC today on PO antibiotics #Intractable nausea, vomitting and abdominal pain from small bowel ileus (Likely a chemotherapy side effect) * Continue IV compazine 5 mg Q6 PRN for nausea and vomitting. * Continue IV Zofran, and IM tigan PRN for nausea and vomitting * Continue IV morphine 4 mg Q3 hrs PRN for better pain control in the interim * Continue fentanyl patch * Pain management consult appreciated * Continue clear liquid diet for now and advance as tolerated * General surgery Dr. Baez reviewed and recommends conservative management * Avoid metoclopramide as it can worsen the pain if small bowel obstruction is the etiology * Continue IV protonix 40 mg daily and famotidine 20 mg daily * Will consider switching to oral meds for DC #Poor nutritional status on Total parenteral nutrition * Continue TPN day 9 today * ACCUCHEKS Q6 hrs * Continue Novolin sliding scale * Check Mag, Phos, Triglycerides periodically (Twice a week) and replete accordingly # Metastatic ovarian cancer s/p Chemotherapy with neutropenia * Neutropenia resolved * Monitor CBC closely as outpatient * Hematology/oncology input appreciated * No new intervention recommended for her cancer * Continue conservative management #Hypertension * Continue to hold all PO medications including antihypertensive agents * Can give IV metoprolol 2.5 mg-5mg Q 6hours for SBP>160 mmhg #Chronic pain * Continue home medication of fentanyl patch 75 mcg Q 72 hrs * Continue IV morphine 4 mg Q3hrs PRN for severe pain -DVT prophylaxis with ALPS due to anemia -Patient is DNR/DNI Problem List: 1. Klebsiella sepsis 2. Intractable vomiting with nausea 3. Ileus Pain Ratin Pain Location: Abd pain Pain Goal: Remain pain free Pain Plan: continue current mgt Tomorrow's Labs & Rationales: none-pt will be discharged today MARIAELENA RUBALCAVA 07/12/16 1003: Attending MD Review Statement Attending Statement Attending MD Statement: examined this patient, discuss w/resident/PA/INSTRUMENT CALIBRATOR, agreed w/resident/PA/INSTRUMENT CALIBRATOR, discussed with family, reviewed EMR data (avail), discussed with nursing, discussed with case mgmt, reviewed images, amended to note Attending Assessment/Plan: ASSESSEMNT 1. Intractable nausea and vomiting. 2. Gram negative bacteremia. 3. Ileus with SBO. 4. History of metastatic ovarian cancer. 5. History of ileostomy. Plan - Continue on general medicine - Continue Zofran, abx as per ID. f/u blood cultures. - Continue TPN as per surgery - Follow oncology recommendations - Follow surgery recommmendations, not surgical candidate - Monitor electrolytes - Continue pain medications. Though they may exacerbate ileus, given her malignancy and surgical history, stopping them at this time is not an option, though they should be given as sparingly as possible. - Continue PPI - DVT PPx - anticipate d/c planning though they should be given as sparingly as possible. - Continue PPI - DVT PPx - anticipate d/c planning
--- NOTE | 2016-07-12 10:03 | PN- Oncology ---
Subjective Subjective: She feels a lot better today. Nausea is improved. Her oral intake is improved. Compazine and lorazepam have helped. She has not had any fever or chills. Review of Systems: Constitutional: Reports: weakness. Fatigue. Denies: chills, fever. Cardiovascular: Denies: chest pain, peripheral edema. Respiratory: Denies: cough, short of breath. GI: Reports: abdominal pain (improved), nausea (improved). Denies: diarrhea, melena. Genitourinary: Denies: dysuria, hematuria. Musculoskeletal: Denies: back pain, joint pain. Neurological/Psychological: Reports: anxiety, depressed. All Other Systems: Reviewed and Negative Objective Vital Signs and I&Os Vital Signs Date Time Temp Pulse Resp B/P B/P Pulse O2 O2 Flow FiO2 Mean Ox Delivery Rate 07/12 0709 97.7 90 18 134/80 96 Room Air 07/12 0000 95 Nasal 1.0L Cannula 07/11 2159 98.1 81 20 126/62 95 Room Air 07/11 1600 98 Nasal 1.0L Cannula 07/11 1600 98.6 85 20 110/56 98 Nasal 1.0L Cannula Intake & Output 07/12 1600 / 0800 / 0000 07/11 1600 07/11 0800 07/11 0000 Intake Total 1760.0 1090.0 700.0 2310.0 1210.0 Output Total 910 5724 874 8135 1625 Balance 850.0 -10.0 0 1260.0 -415.0 Intake, IV 150 70 Intake, Lipid 360.0 100.0 50.0 600.0 100.0 Intake, Oral 240 480 350 480 600 Intake, 1160 311 968 9583 510 TPN/PPN Output, 50 Emesis Output, 785 480 286 0767 Gastric Drainage Output, Stool 125 100 700 25 125 Output, Urine 650 Physical Exam: General Appearance: alert, awake Respiratory: chest non-tender, no respiratory distress, crackles at bases Cardiovascular: regular rate/rhythm Gastrointestinal: normal bowel sounds, soft, tenderness (diffusely), G-tube in place, ostomy with light green stool, more formed Extremities: normal inspection, no edema Neurologic/Psych: awake, alert, oriented x 3, depressed affect Skin: intact Other Physical Findings: Right UE PICC and left anterior chest with port in place Current Medications: Current Medications Sig/Terese Start time Last Medication Dose Route Stop Time Status Admin Amlodipine Besylate 5 MG DAILY 07/08 1000 AC 07/11 PO 0843 Diphenhydramine HCl 25 MG Q4P PRN 07/11 0900 AC 07/11 PO 1955 Famotidine 20 MG DAILY 07/04 1000 AC 07/11 IV 0816 Fat Emulsion 500 ML Q12H 07/11 1900 DC 07/11 Intravenous IV 07/12 0659 194 Fentanyl Citrate 75 MCG Q3D 07/03 2115 AC 07/09 TOP 2108 Fluoxetine HCl 20 MG DAILY 07/07 1600 AC 07/11 PO 0843 Insulin Human Regular 0 Q6 07/07 1200 AC 07/10 SC 0007 Lorazepam 0.5 MG Q4P PRN 07/11 0900 AC 07/12 PO 07/18 0859 0651 Meropenem 1 GM IQ8 07/09 1600 AC 07/12 IV 0049 Morphine Sulfate 4 MG Q3P PRN 07/06 0830 AC 07/11 IV 1312 Ondansetron HCl 4 MG .STK-MED ONE 07/12 0103 DC IM 07/12 0104 Ondansetron HCl 4 MG .STK-MED ONE 07/11 1610 DC IM 07/11 1611 Ondansetron HCl 4 MG Q6P PRN 07/03 1930 AC 07/12 IV 0108 Pantoprazole Sodium 40 MG DAILY 07/04 1000 AC 07/11 IV 0820 Prochlorperazine 10 MG .STK-MED ONE 07/11 1950 DC IM 07/11 195 Prochlorperazine 5 MG Q6PRN PRN 07/06 0730 AC 07/12 IV 0651 Total Parenteral 1 UNIT ONE 07/11 1900 DC 07/11 Nutrition IV 07/12 0659 194 Trimethobenzamide HCl 200 MG 4 TIMES/DAY PRN 07/05 1145 AC 07/05 IM 1421 Results Last 24 Hours of Lab Results: Laboratory Tests 07/13 643 Hematology CBC w Diff NO MAN DIFF REQ WBC (4.8 - 10.8 /CUMM) 3.5 L RBC (4.20 - 5.40 /CUMM) 3.14 L Hgb (12.0 - 16.0 G/DL) 8.9 L Hct (37 - 47 %) 27.1 L MCV (81.0 - 99.0 FL) 86.4 MCH (27.0 - 31.0 PG) 28.2 RDW (11.5 - 14.5 %) 18.6 H Plt Count (130 - 400 /CUMM) 292 MPV (7.4 - 10.4 FL) 8.3 Gran % (42.2 - 75.2 %) 43.9 Lymphocytes % (20.5 - 51.1 %) 37.1 Monocytes % (1.7 - 9.3 %) 15.6 H Eosinophils % (0 - 5 %) 2.6 Basophils % (0.0 - 2.0 %) 0.8 Absolute Granulocytes (1.4 - 6.5 /CUMM) 1.5 Absolute Lymphocytes (1.2 - 3.4 /CUMM) 1.3 Absolute Monocytes (0.10 - 0.60 /CUMM) 0.5 Absolute Eosinophils (0.0 - 0.7 /CUMM) 0.1 Absolute Basophils (0.0 - 0.2 /CUMM) 0 PUBS MCHC (33.0 - 37.0 G/DL) 32.6 L Assessment/Plan Assessment/Recommendations: Mrs. 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 She does not have any obvious bowel obstruction on CT scan. She does not seem to have new disease on CT scan. Nausea has improved along with ostomy output. Blood culture on 07/08/2016 came back as klebsiella penumoniae resistant to ampicillin. She is currently on meropenem. Follow up blood cultures have been negative. ID is following patient. Overall, clinical condition is improving. Recommendations: 1. Zofran, Compazine, Ativan prn nausea 2. Continue advancing diet as tolerated 3. Continue antibiotic as per ID 4. Follow up within 1 week of discharge Please call [phone] with any questions or concerns. Problem List: 1. Bacteremia due to Gram-negative bacteria 2. Ileus 3. Intractable vomiting with nausea 4. Ovarian cancer 5. Carcinomatosis
--- NOTE | 2016-07-12 13:25 | Patient Discharge Instructions ---
Discharge Instructions General Discharge Information You were seen/treated for: Intractable Nausea and Vomiting Small Bowel ileus Kleibsiella Sepsis Neutropenia Metastatic Ovarian cancer Special Instructions: Please follow up with your PCP in 1 week Please follow up with your oncologist in 1-2weeks Diet Recommended Diet: TPN Activity Activity Self Limited: Yes Acute Coronary Syndrome Inclusion Criteria At DC or during hospital stay patient has or had the following: ACS DIAGNOSIS No Discharge Core Measures Meds if any: Prescribed or Continued at Discharge Meds if any: NOT Prescribed or Continued at Discharge Congestive Heart Failure Inclusion Criteria At DC or during hospital stay patient has or had the following: CHF DIAGNOSIS No Discharge Core Measures Meds if any: Prescribed or Continued at Discharge Meds if any: NOT Prescribed or Continued at Discharge Cerebrovascular accident Inclusion Criteria At DC or during hospital stay patient has or had the following: CVA/TIA Diagnosis No Discharge Core Measures Meds if any: Prescribed or Continued at Discharge Meds if any: NOT Prescribed or Continued at Discharge Venous thromboembolism Inclusion Criteria VTE Diagnosis No VTE Type NONE VTE Confirmed by (Test) NONE Discharge Core Measures - Per Current guidelines, there needs to be overlap - treatment for the first 5 days of Warfarin therapy. - If discharged on Warfarin prior to 5 days of - overlap therapy, the patient will need to be - assessed for post discharge needs including - *Post discharge parental anticoagulation - *Warfarin and/or parental anticoagulation education - *Follow up date to check INR post discharge At least 5 days overlap therapy as Inpatient No Meds if any: Prescribed or Continued at Discharge Note: Overlap Therapy is Warfarin and Anticoagulant Meds if any: NOT Prescribed or Continued at Discharge Venous thromboembolism Inclusion Criteria VTE Diagnosis No VTE Type NONE VTE Confirmed by (Test) NONE Discharge Core Measures - Per Current guidelines, there needs to be overlap - treatment for the first 5 days of Warfarin therapy. - If discharged on Warfarin prior to 5 days of - overlap therapy, the patient will need to be - assessed for post discharge needs including - *Post discharge parental anticoagulation - *Warfarin and/or parental anticoagulation education - *Follow up date to check INR post discharge At least 5 days overlap therapy as Inpatient No Meds if any: Prescribed or Continued at Discharge Note: Overlap Therapy is Warfarin and Anticoagulant Meds if any: NOT Prescribed or Continued at Discharge
[2016-07-12 14:32] VITALS: BP 98/61
--- NOTE | 2016-07-12 15:15 | PN- Infect Dx ---
Subjective Subjective: Afebrile. She feels well, though still had mild nausea this morning. Objective Last 24 Hrs of Vital Signs/I&O Vital Signs Date Time Temp Pulse Resp B/P B/P Pulse O2 O2 Flow FiO2 Mean Ox Delivery Rate 07/12 1432 98.9 81 20 98/61 95 Room Air 07/12 1022 90 134/80 06/ 0800 96 Nasal 1.0L Cannula 07/12 0709 97.7 90 18 134/80 96 Room Air 06 0000 95 Nasal 1.0L Cannula 07/11 2159 98.1 81 20 126/62 95 Room Air 07/11 1600 98 Nasal 1.0L Cannula 07/11 1600 98.6 85 20 110/56 98 Nasal 1.0L Cannula Intake & Output 07/12 1600 07/12 0800 06 0000 Intake Total 1430.0 1760.0 1090.0 Output Total 8736 744 6151 Balance 30.0 850.0 -10.0 Intake, Lipid 125.0 360.0 100.0 Intake, Oral 580 240 480 Intake, 725 1160 510 TPN/PPN Output, 50 Emesis Output, 450 785 950 Gastric Drainage Output, Stool 650 125 100 Output, Urine 300 Physical Exam Other Physical Findings: She appears comfortable in no acute distress Chest Port-A-Cath in the left upper chest with no inflammation at the site Lungs are clear Heart regular rhythm with no murmur Abdomen is soft, nontender with positive bowel sounds; ileostomy with liquid stool; G-tube with liquid output Extremities PICC in the right upper extremity with no inflammation at the site Results Last 24 Hours of Lab Results: Laboratory Tests 07/12 0644 Hematology CBC w Diff NO MAN DIFF REQ WBC (4.8 - 10.8 /CUMM) 3.5 L RBC (4.20 - 5.40 /CUMM) 3.14 L Hgb (12.0 - 16.0 G/DL) 8.9 L Hct (37 - 47 %) 27.1 L MCV (81.0 - 99.0 FL) 86.4 MCH (27.0 - 31.0 PG) 28.2 RDW (11.5 - 14.5 %) 18.6 H Plt Count (130 - 400 /CUMM) 292 MPV (7.4 - 10.4 FL) 8.3 Gran % (42.2 - 75.2 %) 43.9 Lymphocytes % (20.5 - 51.1 %) 37.1 Monocytes % (1.7 - 9.3 %) 15.6 H Eosinophils % (0 - 5 %) 2.6 Basophils % (0.0 - 2.0 %) 0.8 Absolute Granulocytes (1.4 - 6.5 /CUMM) 1.5 Absolute Lymphocytes (1.2 - 3.4 /CUMM) 1.3 Absolute Monocytes (0.10 - 0.60 /CUMM) 0.5 Absolute Eosinophils (0.0 - 0.7 /CUMM) 0.1 Absolute Basophils (0.0 - 0.2 /CUMM) 0 PUBS MCHC (33.0 - 37.0 G/DL) 32.6 L Last 24 Hours of Jamarcus Results: Blood cultures July 08 positive for Klebsiella pneumoniae resistant to Ampicillin Blood cultures July 10 negative Assessment/Plan Impression: Doing well with temperatures and white blood cell count remaining normal now 2 weeks status post her most recent chemotherapy, on Meropenem Day 4 of treatment for Klebsiella sepsis in the setting of recent fever and neutropenia. Her repeat blood cultures remain negative; therefore she can be continued on antibiotics without the need to remove her PICC or Port-A-Cath. Suggestion: 1. Discontinue Meropenem 2. Begin Ciprofloxacin 500 mg po every 12 hours to complete a 14 day course of treatment (until July 22)
[2016-07-12 22:29] VITALS: BP 94/46
[2016-07-13 06:12] VITALS: BP 138/62
--- NOTE | 2016-07-13 07:57 | PN- Housestaff ---
PAMELA SHELLEY,TIFFANY 07/13/16 0757: Subjective Follow-up For: -Intractable nausea and vomitting -Abdominal pain -Small bowel ileus -Metastatic ovarian cancer Complaints: no complaints Review of Systems Constitutional: Reports: no symptoms. Objective Last 24 Hrs of Vital Signs/I&O Vital Signs Date Time Temp Pulse Resp B/P B/P Pulse O2 O2 Flow FiO2 Mean Ox Delivery Rate 07/13 0927 86 138/62 / 0612 98.5 86 20 138/62 95 07/12 2229 98.6 86 20 94/46 95 Room Air Intake & Output 07/13 1600 07/13 0800 07/13 0000 Intake Total 1360.0 270.0 Output Total 1550 1850 Balance -190.0 -1580.0 Intake, Lipid 200.0 50.0 Intake, 1160 220 TPN/PPN Output, 550 1450 Gastric Drainage Output, Stool 400 Output, Urine 1000 Physical Exam General Appearance: Alert, Oriented X3, Cooperative, No Acute Distress HEENT: Atraumatic, PERRLA, EOMI, Mucous Membr. moist/pink Cardiovascular: Regular Rate, Normal S1, Normal S2 Lungs: Clear to Auscultation Abdomen: Normal Bowel Sounds, Soft, No Tenderness, G tube in place, colostomy in place Extremities: No Edema, Normal Pulses Current Medications: Current Medications Sig/Terese Start time Last Medication Dose Route Stop Time Status Admin Amlodipine Besylate 5 MG DAILY 07/08 1000 DCD 07/13 PO 0927 Ciprofloxacin 500 MG BID 07/12 2200 DCD 07/13 PO 07/16 2159 0927 Diphenhydramine HCl 25 MG Q4P PRN 07/11 0900 DCD 07/12 PO 1345 Famotidine 20 MG DAILY 07/04 1000 DCD 07/13 IV 0929 Fat Emulsion 500 ML Q12H 07/12 1900 DC /07 Intravenous IV 07/13 0659 1925 Fentanyl Citrate 75 MCG Q3D 07/03 2114 DCD 07/12 TOP 2000 Fluoxetine HCl 20 MG DAILY 07/07 1600 DCD 07/13 PO 0928 Insulin Human Regular 2 UNITS .STK-MED ONE 07/13 0612 DC IV 07/13 0613 Insulin Human Regular 0 Q6 07/07 1200 DCD 07/13 SC 0615 Lorazepam 0.5 MG Q4P PRN 07/11 0900 DCD 07/13 PO 07/18 0859 1227 Morphine Sulfate 4 MG Q3P PRN 07/06 0830 DC 07/12 IV 1802 Ondansetron HCl 4 MG .STK-MED ONE 07/12 1758 DC IM 07/12 1759 Ondansetron HCl 4 MG Q6P PRN 07/03 1930 DCD 07/12 IV 1802 Pantoprazole Sodium 40 MG DAILY 07/04 1000 DCD 07/13 IV 0929 Prochlorperazine 10 MG .STK-MED ONE 07/13 0608 DC IM 07/13 0609 Prochlorperazine 10 MG .STK-MED ONE 07/12 1926 DC IM 07/12 192 Prochlorperazine 5 MG Q6PRN PRN 07/06 0730 DCD 07/13 IV 0614 Total Parenteral 1 UNIT ONE 07/12 1900 DC 07/12 Nutrition IV 07/13 0659 1924 Trimethobenzamide HCl 200 MG 4 TIMES/DAY PRN 07/05 1145 DCD 07/05 IM 1421 Last 24 Hrs of Lab/Jamarcus Results Last 24 Hrs of Labs/Mics: none Lines/Diet/Fluids Lines: peripheral lines Assessment/Plan Assessment: Patient is a 65-year-old woman with significant past medical history hypertension, hyperlipidemia, depression, history of ovarian cancer s/p hysterectomy with bilateral salpingo-oophorectomy (2013), Ovarian carcinomatosis ,colon cancer s/p colostomy (2013) and then reversal and small bowel obstruction s/p small bowel resection with ileostomy and gastrostomy tube for drainage. She presented with chief complaints of of colicky lower abdomen pain, nausea, reduced/no output from her ileostomy for the preceding 3 days. She is currently being managed for abdominal pain and vomitting which appears to be from ileus likely related to her recent chemotherapy since there is no obvious obstruction on CT imaging of her abdomen. She is currently improved on conservative management and is tolerating clear liquid diet. Blood cultures growing Kliebsiella Pneumoniae. She is currently on IV meropenem. Problem list 1. Intractable nausea and vomitting from small bowel ileus (Likely a chemotherapy side effect) 2. Poor nutritional status on Total parenteral nutrition 3. Metastatic ovarian cancer 4. Hypertension 5. Chronic pain Plan #Sepsis: Meets SIRS criteria(WBC 3000, fever), has positive BCs w Kliebsiella PNA likely GI origin; sensitive to different antibiotics * Began Ciprofloxacin 500 mg po every 12 hours to complete a 14 day course of treatment (until July 22) * Repeat set of blood cultures sent 2 days ago has no growth so far * Source of the sepsis is likely abdominal translocation * Plan is for DC today on PO antibiotics #Intractable nausea, vomitting and abdominal pain from small bowel ileus (Likely a chemotherapy side effect) * Continue IV compazine 5 mg Q6 PRN for nausea and vomitting. * Continue IV Zofran, and IM tigan PRN for nausea and vomitting * Continue IV morphine 4 mg Q3 hrs PRN for better pain control in the interim * Continue fentanyl patch * Pain management consult appreciated * Continue clear liquid diet for now and advance as tolerated * General surgery Dr. Baez reviewed and recommends conservative management * Avoid metoclopramide as it can worsen the pain if small bowel obstruction is the etiology * Continue IV protonix 40 mg daily and famotidine 20 mg daily * Will switch to oral meds for DC #Poor nutritional status on Total parenteral nutrition * Continue TPN day 10 today * ACCUCHEKS Q6 hrs * Continue Novolin sliding scale * Check Mag, Phos, Triglycerides periodically (Twice a week) and replete accordingly # Metastatic ovarian cancer s/p Chemotherapy with neutropenia * Neutropenia resolved * Monitor CBC closely as outpatient * Hematology/oncology input appreciated * No new intervention recommended for her cancer * Continue conservative management #Hypertension * Continue to hold all PO medications including antihypertensive agents * Can give IV metoprolol 2.5 mg-5mg Q 6hours for SBP>160 mmhg #Chronic pain * Continue home medication of fentanyl patch 75 mcg Q 72 hrs * Continue IV morphine 4 mg Q3hrs PRN for severe pain -DVT prophylaxis with ALPS due to anemia -Patient is DNR/DNI Problem List: 1. Klebsiella sepsis 2. Ileus 3. Chronic disease anemia Pain Ratin Pain Location: n/a Pain Goal: Remain pain free Pain Plan: continue current pain plan Tomorrow's Labs & Rationales: none-pt will be DC today MARIAELENA RUBALCAVA 07/13/16 0917: Attending MD Review Statement Attending Statement Attending MD Statement: examined this patient, discuss w/resident/PA/DIVISION HEAD, agreed w/resident/PA/DIVISION HEAD, discussed with family, reviewed EMR data (avail), discussed with nursing, discussed with case mgmt, reviewed images, amended to note Attending Assessment/Plan: ASSESSEMNT 1. Intractable nausea and vomiting. 2. Gram negative kleibsella sepsis. 3. Ileus with SBO. 4. History of metastatic ovarian cancer. 5. History of ileostomy. 6. TPN at home. Plan - Continue on general medicine - Continue Zofran, abx as per ID. f/u repeat blood cultures negative - Continue TPN as per surgery - Follow oncology recommendations - Follow surgery recommmendations, not surgical candidate - Monitor electrolytes - Continue pain medications. Though they may exacerbate ileus, given her malignancy and surgical history, stopping them at this time is not an option, though they should be given as sparingly as possible. - Continue PPI - DVT PPx - anticipate d/c soon, home with [facility].
[2016-07-13 09:27] VITALS: BP 138/62
--- NOTE | 2016-07-13 09:27 | PN- Oncology ---
Subjective Subjective: She is feeling a lot better. Nausea is persistent but improved. Oral intake is incresed. She is ready to go home. Review of Systems: Constitutional: Reports: weakness. Denies: chills, fever. Cardiovascular: Denies: chest pain, peripheral edema. Respiratory: Denies: cough, short of breath. GI: Reports: abdominal pain (improved), nausea (improved). Denies: diarrhea, melena. Genitourinary: Denies: dysuria, hematuria. Musculoskeletal: Denies: back pain, joint pain. Neurological/Psychological: Reports: anxiety, depressed. All Other Systems: Reviewed and Negative Objective Vital Signs and I&Os Vital Signs Date Time Temp Pulse Resp B/P B/P Pulse O2 O2 Flow FiO2 Mean Ox Delivery Rate 07/13 0612 98.5 86 20 138/62 95 / 2229 98.6 86 20 94/46 95 Room Air 07/12 1432 98.9 81 20 98/61 95 Room Air 07/12 1022 90 134/80 Intake & Output 07/13 1600 07/13 0800 07/13 0000 07/12 1600 07/12 0800 / 0000 Intake Total 1360.0 270.0 1430.0 1760.0 1090.0 Output Total 1550 1850 7471 430 0792 Balance -190.0 -1580.0 30.0 850.0 -10.0 Intake, Lipid 200.0 50.0 125.0 360.0 100.0 Intake, Oral 580 240 480 Intake, 1160 310 562 4173 510 TPN/PPN Output, 50 Emesis Output, 550 1450 450 785 950 Gastric Drainage Output, Stool 400 650 125 100 Output, Urine 1000 300 Physical Exam: General Appearance: alert, awake Respiratory: chest non-tender, no respiratory distress, crackles at bases Cardiovascular: regular rate/rhythm Gastrointestinal: normal bowel sounds, soft, G-tube in place, ostomy with light green stool, more formed Extremities: normal inspection, no edema Neurologic/Psych: awake, alert, oriented x 3, depressed affect Other Physical Findings: Right UE PICC and left anterior chest with port in place Current Medications: Current Medications Sig/Terese Start time Last Medication Dose Route Stop Time Status Admin Amlodipine Besylate 5 MG DAILY 07/08 1000 AC 07/12 PO 1022 Ciprofloxacin 500 MG BID 07/12 2200 AC 07/12 PO 07/16 2159 2104 Diphenhydramine HCl 25 MG Q4P PRN 07/11 0900 AC 07/12 PO 1345 Famotidine 20 MG DAILY 07/04 1000 AC 07/12 IV 1450 Fat Emulsion 500 ML Q12H 07/12 1900 DC 07/12 Intravenous IV 07/13 0659 1925 Fentanyl Citrate 75 MCG Q3D 07/03 2115 AC 07/12 TOP 2000 Fluoxetine HCl 20 MG DAILY 07/07 1600 AC 07/12 PO 1022 Insulin Human Regular 0 Q6 07/07 1200 AC 07/13 SC 0615 Lorazepam 0.5 MG Q4P PRN 07/11 0900 AC 07/13 PO 07/18 0859 0614 Meropenem 1 GM IQ8 07/09 1600 DC 07/12 IV 1023 Morphine Sulfate 4 MG Q3P PRN 07/06 0830 DC 07/12 IV 1802 Ondansetron HCl 4 MG .STK-MED ONE 07/12 1758 DC IM 07/12 1759 Ondansetron HCl 4 MG Q6P PRN 07/03 1930 AC 07/12 IV 1802 Pantoprazole Sodium 40 MG DAILY 07/04 1000 AC 07/12 IV 1023 Patient Medication 1 ED .STK-MED ONE 07/12 1214 DC Teaching ED 07/12 1215 Prochlorperazine 10 MG .STK-MED ONE 07/12 1926 DC IM 07/12 1927 Prochlorperazine 10 MG .STK-MED ONE 07/12 1333 DC IM 07/12 1334 Prochlorperazine 5 MG Q6PRN PRN 07/06 0730 07/13 IV 0614 Total Parenteral 1 UNIT ONE 07/12 1900 DC 07/12 Nutrition IV 07/13 0659 1924 Trimethobenzamide HCl 200 MG 4 TIMES/DAY PRN 07/05 1145 AC 07/05 IM 1421 Assessment/Plan Assessment/Recommendations: Mrs. 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 She does not have any obvious bowel obstruction on CT scan. She does not seem to have new disease on CT scan. She has improved significantly. She ready to go home. She is now on oral ciprofloxacin. Blood cultures have been negative since the initial positive on 07/08/2016. She is tolerating oral intake and has good ostomy output. Recommendations: 1. Zofran, Compazine, Ativan prn nausea 2. Oral antibiotic as per ID 3. Follow up within 1 week of discharge Please call [phone] with any questions or concerns. Problem List: 1. Klebsiella sepsis 2. Chronic disease anemia 3. Intractable vomiting with nausea 4. Ovarian cancer
[2016-07-13] MEDS ORDERED: PROCHLORPERAZINE5 M2 PO ×2 (10:17→11:04)
[2016-07-13] MEDS ORDERED: ZOFRAN4 M2 PO ×2 (10:17→11:04)
== END 2016-07-13 13:06 | DRG 388 ==
LOC: ERH 12:25 → 2NB 16:22 → ERHI 16:22 → ENRESERV 17:08 → ENTRNSPT 19:17 → 2NB 19:38 → CMPTRNSPT 19:48 → 2NB 20:46 → ENPENDDIS 07-13 10:30 → 2NB 07-13 13:06
PROVIDERS: Emergency Medicine; Internal Medicine; ADMIT Internal Medicine
PROC: 3E0436Z Introduction of Nutritional Substance into Central Vein, Percutaneous Approach (ICD-10-PCS; principal; 2016-07-04)
DX: K56.69 Other intestinal obstruction (principal); A41.50 Gram-negative sepsis, unspecified; C78.5 Secondary malignant neoplasm of large intestine and rectum; R11.13 Vomiting of fecal matter; E87.1 Hypo-osmolality and hyponatremia; R63.0 Anorexia; Z68.23 Body mass index [BMI] 23.0-23.9, adult; Z85.43 Personal history of malignant neoplasm of ovary; T45.1X5A Adverse effect of antineoplastic and immunosuppressive drugs, initial encounter; I10 Essential (primary) hypertension; E78.5 Hyperlipidemia, unspecified; F32.9 Major depressive disorder, single episode, unspecified; Z66 Do not resuscitate; B96.1 Klebsiella pneumoniae [K. pneumoniae] as the cause of diseases classified elsewhere; Z93.3 Colostomy status
CPT/HCPCS: 2NBP; 36415; 74177; 81003; 82436; 87040; 87086; 93005; 93010; 96361; 96374; 96375; J0131; J0713; J0780; J1200; J1642; J1815; J2185; J2405; J2550; J2765; J2997; J3250; J7042

== ENCOUNTER 2016-07-21 12:22 | Emergency (ER) | payer OTHER ==
[~2016-07-21] VITALS: Ht 162.6 cm; Wt 60.3 kg
[~2016-07-21 12:22] MED LIST changes: +PROCHLORPERAZINE5 M2 PO
--- NOTE | 2016-07-21 12:45 | ED GI/GU/ABDOMINAL COMPLAINT ---
History of Present Illness General Chief Complaint: Abdominal Pain/Flank Pain Stated Complaint: ABD PAIN NO B/M X 2DAYS Source: patient, family, old records Exam Limitations: no limitations Vital Signs & Intake/Output Vital Signs & Intake/Output Vital Signs Date Time Temp Pulse Resp B/P B/P Pulse O2 O2 Flow FiO2 Mean Ox Delivery Rate 07/21 1530 97.5 81 18 107/57 97 Room Air 07/21 1230 97.0 89 20 155/80 95 Room Air Allergies Coded Allergies: hydromorphone (From DILAUDID) (Mild, SWEATS 07/03/16) amoxicillin (From AUGMENTIN) (Intermediate, DIARRHEA 07/08/16) clavulanic acid (From AUGMENTIN) (Intermediate, DIARRHEA 07/08/16) Reconcile Medications Amlodipine Besylate 5 MG TABLET 1 TAB PO DAILY BP (Reported) Cetirizine HCl (Zyrtec) 10 MG TABLET 1 TAB PO DAILY ALLERGIES (Reported) Ezetimibe (Zetia) 10 MG TABLET 1 TAB PO DAILY CHOLESTEROL (Reported) Fentanyl 75 MCG/HOUR PATCH.TD72 1 PAT TOP Q3D PAIN (Reported) Fluoxetine HCl 20 MG CAPSULE 1 CAP PO DAILY DEPRESSION (Reported) Lorazepam (Ativan) 1 MG TABLET 1 TAB PO BID pain/anxiety Ondansetron HCl (Zofran) 4 MG TABLET 1 TAB PO Q4 NAUSEA . Oxycodone HCl/Acetaminophen (Percocet 10-325 MG Tablet) 10 MG-325 MG TABLET 1 TAB PO 4 TIMES/DAY pain Pantoprazole Sodium 40 MG TABLET.DR 1 TAB PO DAILY GI (Reported) Prochlorperazine Maleate 5 MG TABLET 1 TAB PO Q6P PRN NAUSEA/VOMITING . Ranitidine HCl (Heartburn Relief) 150 MG TABLET 1 TAB PO BID PRN HEARTBURN ( Reported) Triage Note: PT C/O ABDOMINAL PAIN AND NO BM IN HER COLOSTOMY BAG X 2 DAYS. STATES SHE WAS ADMITTED LAST WEEK HERE BECAUSE THE BAG WAS CLOGGED. PT STATES SHE ALSO HAS A G-TUBE AND A PICC LINE Triage Nurses Notes Reviewed? yes LMP (ages 10-50): post menopausal ? N Is pt currently ? No Onset: Abrupt Duration: day(s): (2-3) Timing: single episode today Quality/Severity: cramping, sharpness, severe Severity Numbers: 10 Location: generalized abdomen Radiation: no radiation Activities at Onset: rest Prior Abdominal Problems: OVARIAN CANCER, COLON CANCER, ILEOSTOMY No Modifying Factors: none Associated Symptoms: lower back pain, nausea/vomiting HPI: 65-year-old female with a history of colon cancer and ovarian cancer status post ileostomy presents for evaluation of generalized abdominal pain and no bowel movement from her ileostomy for the past 2 days. Patient reports she was seen for the same thing last week and was admitted for 9 days. She had a G-tube in PICC line placed at that time. Patient was discharged from the hospital and the ileostomy has started to function normally again and she was feeling better. Patient reports that 2 DAYS AGO SHE STARTED DEVELOPING SEVERE GENERALIZED ABDOMINAL PAIN AND SHE NOTICED NO BOWEL MOVEMENTS COMING FROM THE ILEOSTOMY BAG. PAIN IS DESCRIBED SHARP AND CRAMPING. It is located in all 4 quadrants and does not radiate. It is worse with any type of movement and touching the area. She also reports associated nausea without vomiting and low back pain. She has not taken any medication for the pain. no other associated symptoms. (FELIX BLANCHARD PA-C) Past History Travel History Traveled to [place] past 21 day No Medical History Any Pertinent Medical History? 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 No (FELIX BLANCHARD PA-C) Review of Systems Review of Systems Constitutional: Reports: no symptoms. EENTM: Reports: no symptoms. Respiratory: Reports: no symptoms. Cardiovascular: Reports: no symptoms. GI: Reports: see HPI, abdominal pain, nausea. Genitourinary: Reports: no symptoms. Musculoskeletal: Reports: no symptoms. Skin: Reports: no symptoms. Neurological/Psychological: Reports: no symptoms. Hematologic/Endocrine: Reports: no symptoms. Immunologic/Allergic: Reports: no symptoms. All Other Systems: Reviewed and Negative (LO ZUNIGA-C,FELIX) Physical Exam Physical Exam General Appearance: alert, awake, anxious, moderate distress Head: atraumatic, normal appearance Eyes: Bilateral: normal appearance, PERRL, EOMI, normal inspection. Ears, Nose, Throat, Mouth: hearing grossly normal, moist mucous membrane Neck: normal inspection, supple, full range of motion, normal alignment Respiratory: normal breath sounds, chest non-tender, no respiratory distress, lungs clear Cardiovascular: regular rate/rhythm, normal peripheral pulses Peripheral Pulses: 2+ radial (R), 2+ radial (L), 2+ dorsalis pedis (R), 2+ dorsalis pedis (L) Gastrointestinal: normal bowel sounds, soft, no organomegaly, tenderness ( diffuse), ileostomy stoma present on the left side of the abdomen. a small amount of mucoid discharge is present in the colostomy bag. There is no surrounding erythema. Back: normal inspection, normal range of motion Extremities: normal range of motion Neurologic/Psych: no motor/sensory deficits, awake, alert, oriented x 3, normal gait, normal mood/affect Skin: intact, normal color, warm/dry Core Measures ACS in differential dx? No Severe Sepsis Present: No Septic Shock Present: No (LO MEDRANO,FELIX) Progress Differential Diagnosis: appendicitis, biliary colic, bowel obstruction, colon cancer, cholecystitis, diverticulitis, gastritis, hepatitis, hernia, ischemic bowel, inflamm bowel dis, ovarian torsion, pancreatitis, SBO, UTI/pyelo Plan of Care: Orders Procedure Date/time Status TROPONIN LEVEL 07/21 1258 Complete LIPASE 07/21 1258 Complete C-REACTIVE PROTEIN 07/21 1258 Complete COMPREHENSIVE METABOLIC PANEL 07/21 1258 Complete CBC WITHOUT DIFFERENTIAL 07/21 1258 Complete Laboratory Tests 07/21/16 1320: Anion Gap 12, Estimated GFR > 60, BUN/Creatinine Ratio 61.7 H, Glucose 96, Calcium 9.4, Total Bilirubin 0.6, AST 16, ALT 43, Alkaline Phosphatase 108, Troponin I < 0.01, C-Reactive Prot, Quant < 0.5, Total Protein 6.6, Albumin 3.4 L, Globulin 3.2, Albumin/Globulin Ratio 1.1, Lipase 42, CBC w Diff NO MAN DIFF REQ, RBC 3.32 L, MCV 86.7, MCH 28.2, RDW 20.5 H, MPV 7.9, Gran % 74.4, Lymphocytes % 18.7 L, Monocytes % 5.1, Eosinophils % 1.7, Basophils % 0.1, Absolute Granulocytes 6.7 H, Absolute Lymphocytes 1.7, Absolute Monocytes 0.5, Absolute Eosinophils 0.2, Absolute Basophils 0, PUBS MCHC 32.5 L 07/21/16 1258: Urine Color Cancelled, Urine Clarity Cancelled, Urine pH Cancelled, Ur Specific [place] Cancelled, Urine Protein Cancelled, Urine Ketones Cancelled, Urine Nitrite Cancelled, Urine Bilirubin Cancelled, Urine Urobilinogen Cancelled, Ur Leukocyte Esterase Cancelled, Ur Microscopic Cancelled, Urine Hemoglobin Cancelled, Urine Glucose Cancelled CT scan of the abdomen and pelvis with contrast shows no acute abnormalities. No signs of obstruction. There are some findings on the pancreas which have been seen previously that will require follow-up. Blood work is unchanged from previous. Patient will be discharged home on oral Ativan and oxycodone. She will follow up with her primary care doctor and surgeon this week. She will return to emergency department for any concerns. Reviewed all results with patient and she is agreeable to plan. She is afebrile and nontoxic appearing at discharge. Discussed with Dr. Haywood and he is in agreement with the plan. (LO MEDRANO,FELIX) Diagnostic Imaging: Viewed by Me: CT Scan. Initial ED EKG: none Comments: EXAM TYPE: CAT - CT ABD & PELVIS W IV CONTRAST EXAMINATION: CT ABDOMEN AND PELVIS WITH CONTRAST CLINICAL INFORMATION: Abdominal pain. No bowel movement from ostomy. COMPARISON: Multiple priors, most recently 07/03/2016 TECHNIQUE: Multidetector volumetric imaging was performed of the abdomen and pelvis before and after the IV administration of 95 mL of Optiray 320 intravenous contrast. Sagittal and coronal reformatted images were obtained on the technologist's workstation. DLP: 285 mGy-cm FINDINGS: LUNG BASES: The visualized lung bases are unremarkable. LIVER, GALLBLADDER, AND BILIARY TREE: The liver is normal in size, shape, and attenuation. Stable 1 cm hypoattenuating lesion in segment 4B. No new hepatic lesion or biliary ductal dilatation is present. Cholecystectomy. Trace ascites adjacent to the liver, decreased from previous. PANCREAS: The pancreas is mildly atrophic. Mild prominence of the pancreatic duct is unchanged. Hypoattenuation in the region of the pancreatic head is also again seen, measuring 1.5 x 1.5 cm. This is similar to the prior study from 07/03/2012. The contrast-enhanced study prior to that was performed 12/19/2015, which was not as apparent at that time. SPLEEN: Unremarkable. ADRENAL GLANDS: Unremarkable. KIDNEYS AND URETERS: The kidneys are normal in size, shape, and attenuation. No hydronephrosis, hydroureter, or calculi seen. No perinephric stranding. BLADDER: Unremarkable. GASTROINTESTINAL TRACT: Gastrostomy tube in place. Mildly prominent small bowel in the left upper quadrant. This gradually decompresses. There is a left lower quadrant loop ostomy. Minimal stool seen in the colon. The distal small bowel is decompressed. Anastomotic suture lines are seen at the transverse colon and sigmoid colon. ABDOMINAL WALL: Left lower quadrant ostomy. LYMPH NODES: Normal. VASCULAR: Retroaortic left renal vein. Moderate atherosclerotic calcifications. PELVIC VISCERA: Cystic structure in the right adnexa is unchanged. The uterus is not seen. OSSEOUS STRUCTURES: No acute or suspicious osseous abnormality. IMPRESSION: Mildly prominent small bowel in the left upper quadrant which gradually decompresses without evidence of obstruction. The distal bowel is decompressed. No acute inflammatory change. Redemonstration of prominence of the pancreatic duct. While this is a chronic finding, there is increased prominence of an area of hypoattenuation in the region of the pancreatic head. This is nonspecific. Consider pancreatic protocol CT or MRI to further evaluate. Trace ascites appears decreased from prior. Improved aeration at the lung bases. DICTATED BY: BARBARA SHELLEY,GENARO DATE/TIME DICTATED:07/21/161430 VP HR DIVERSITY:SHENA DATE/TIME TRANSCRIBED:07/21/161430 (FELIX BLANCHARD PA-C) Departure Departure Disposition: HOME OR SELF CARE Condition: Stable Clinical Impression Primary Impression: Abdominal pain Qualifiers: Abdominal location: generalized Qualified Code: R10.84 - Generalized abdominal pain Referrals: ZARETZKY MD,DAILY S. (PCP/Family) Additional Instructions: REST drink plenty of fluids. Use Ativan and oxycodone as directed for pain. This may cause drowsiness do not drive while taking. Try using MiraLAX mixed with water to encourage a bowel movement. Follow-up with your primary care doctor and general surgeon this week. Return to the emergency department with any concerns. Departure Forms: Customer Survey General Discharge Information Prescriptions: Current Visit Scripts Lorazepam (Ativan) 1 TAB PO BID #10 TAB Oxycodone HCl/Acetaminophen (Percocet 10-325 MG Tablet) 1 TAB PO 4 TIMES/DAY #10 TAB (FELIX BLANCHARD PA-C) PA/GRANT MANAGER Co-Sign Statement Statement: ED Attending supervision documentation- [x] I saw and evaluated the patient. I have also reviewed all the pertinent lab results and diagnostic results. I agree with the findings and the plan of care as documented in the PA's/GRANT MANAGER's documentation. [] I have reviewed the ED Record and agree with the PA's/GRANT MANAGER's documentation. [] Additions or exceptions (if any) to the PAs/GRANT MANAGER's note and plan are summarized below: [] (LUIS FELIPE HAYWOOD DO
[2016-07-21 13:35] LABS: ABSOLUTE BASOPHIL COUNT 0 /CUMM (0.0-0.2); ABSOLUTE EOSINOPHIL COUNT 0.2 /CUMM (0.0-0.7); ABSOLUTE GRANULOCYTE CT 6.7 /CUMM (1.4-6.5); ABSOLUTE LYMPH COUNT 1.7 /CUMM (1.2-3.4); ABSOLUTE MONOCYTE COUNT 0.5 /CUMM (0.10-0.60); BASOPHIL % 0.1 % (0.0-2.0); EOSINOPHIL % 1.7 % (0-5); HEMATOCRIT 28.8 % (37-47); MEAN CORPUSCULAR HGB 28.2 PG (27.0-31.0); MEAN CORPUSCULAR HGB CONC 32.5 G/DL (33.0-37.0); MEAN CORPUSCULAR VOLUME 86.7 FL (81.0-99.0); MEAN PLATELET VOLUME 7.9 FL (7.4-10.4); PLATELET COUNT 324 /CUMM (130-400); RBC DISTRIBUTION WIDTH 20.5 % (11.5-14.5); RED BLOOD CELL CT 3.32 /CUMM (4.20-5.40)
[2016-07-21 13:37] LABS: GRANULOCYTE % 74.4 % (42.2-75.2)
--- NOTE | 2016-07-21 14:57 | CT SCAN REPORT ---
EXAMINATION: CT ABDOMEN AND PELVIS WITH CONTRAST CLINICAL INFORMATION: Abdominal pain. No bowel movement from ostomy. COMPARISON: Multiple priors, most recently 07/03/2016 TECHNIQUE: Multidetector volumetric imaging was performed of the abdomen and pelvis before and after the IV administration of 95 mL of Optiray 320 intravenous contrast. Sagittal and coronal reformatted images were obtained on the technologist's workstation. DLP: 285 mGy-cm FINDINGS: LUNG BASES: The visualized lung bases are unremarkable. LIVER, GALLBLADDER, AND BILIARY TREE: The liver is normal in size, shape, and attenuation. Stable 1 cm hypoattenuating lesion in segment 4B. No new hepatic lesion or biliary ductal dilatation is present. Cholecystectomy. Trace ascites adjacent to the liver, decreased from previous. PANCREAS: The pancreas is mildly atrophic. Mild prominence of the pancreatic duct is unchanged. Hypoattenuation in the region of the pancreatic head is also again seen, measuring 1.5 x 1.5 cm. This is similar to the prior study from 07/03/2012. The contrast-enhanced study prior to that was performed 12/19/2015, which was not as apparent at that time. SPLEEN: Unremarkable. ADRENAL GLANDS: Unremarkable. KIDNEYS AND URETERS: The kidneys are normal in size, shape, and attenuation. No hydronephrosis, hydroureter, or calculi seen. No perinephric stranding. BLADDER: Unremarkable. GASTROINTESTINAL TRACT: Gastrostomy tube in place. Mildly prominent small bowel in the left upper quadrant. This gradually decompresses. There is a left lower quadrant loop ostomy. Minimal stool seen in the colon. The distal small bowel is decompressed. Anastomotic suture lines are seen at the transverse colon and sigmoid colon. ABDOMINAL WALL: Left lower quadrant ostomy. LYMPH NODES: Normal. VASCULAR: Retroaortic left renal vein. Moderate atherosclerotic calcifications. PELVIC VISCERA: Cystic structure in the right adnexa is unchanged. The uterus is not seen. OSSEOUS STRUCTURES: No acute or suspicious osseous abnormality. IMPRESSION: Mildly prominent small bowel in the left upper quadrant which gradually decompresses without evidence of obstruction. The distal bowel is decompressed. No acute inflammatory change. Redemonstration of prominence of the pancreatic duct. While this is a chronic finding, there is increased prominence of an area of hypoattenuation in the region of the pancreatic head. This is nonspecific. Consider pancreatic protocol CT or MRI to further evaluate. Trace ascites appears decreased from prior. Improved aeration at the lung bases.
[2016-07-21 15:30] VITALS: BP 107/57
[2016-07-21] MEDS ORDERED: ATIVAN1 M1 PO (16:21)
[2016-07-21] MEDS ORDERED: PERCOCET 10-321 EACH PO (16:21)
== END 2016-07-21 16:28 ==
LOC: ERH 12:22
PROVIDERS: Physician Assistant Medical
DX: R10.84 Generalized abdominal pain (principal)
CPT/HCPCS: 74177; 96374; 96375; 96376; J2405